=== PATIENT | female | born 1950 | race Caucasian/White ===

== ENCOUNTER 2018-06-03 18:56 | Emergency (ER) | payer MEDICARE, MEDICAID, SELFPAY ==
[2018-06-03] VITALS (50 sets, daily range): BP systolic 87–197; BP diastolic 51–141; PULSE 92–197; RESP 12–31; TEMP 36–37.5; O2SAT 94–100
[2018-06-03] MEDS: Normal Saline 1,000 ML 1000 ML IV (19:00)
--- NOTE | 2018-06-03 19:06 | ED.GENADUL ---
Disposition Clinical Impression: Acute renal failure due to rhabdomyolysis, Altered mental status Disposition: STILL A PATIENT Condition: Critical Medical Decision Making - Lab Data Laboratory Tests 06/03/18 06/03/18 06/03/18 19:05 19:05 19:05 WBC 44.35 H* RBC 6.72 H Hgb 19.4 H* Hct 53.1 H MCV 79.0 L MCH 28.9 MCHC 36.5 H RDW 15.0 H Plt Count 287 MPV 11.2 H Immature Gran % See Differential Neutrophils % 80.0 Lymphocytes % 6.0 Monocytes % 5.0 Eosinophils % 0.0 Basophils % 0.0 Absolute Neutrophils 39.47 H Band Neutrophils 9.0 Absolute Lymphocytes 2.66 Absolute Monocytes 2.22 H Absolute Eosinophils 0.00 Absolute Basophils 0.00 Differential Comment Manual differential RBC Morphology Normal Sodium 140 Potassium 1.8 L* Chloride 91 L Carbon Dioxide 25.4 Anion Gap 23.6 H BUN 50 H Creatinine 3.90 H* Estimated GFR/1.73 m2 11.57 Glucose 154 H Lactate 4.3 H Calcium 10.8 H Magnesium 3.2 H Total Bilirubin 0.9 Conjugated Bilirubin 0.21 H AST 130 H ALT 35 Alkaline Phosphatase 181 H Creatine Kinase 4852 H Troponin I 1.08 H Total Protein 9.0 H Albumin 4.2 06/03/18 19:08 WBC RBC Hgb Hct MCV MCH MCHC RDW Plt Count MPV Immature Gran % Neutrophils % Lymphocytes % Monocytes % Eosinophils % Basophils % Absolute Neutrophils Band Neutrophils Absolute Lymphocytes Absolute Monocytes Absolute Eosinophils Absolute Basophils Differential Comment RBC Morphology Sodium Potassium Chloride Carbon Dioxide Anion Gap BUN Creatinine Estimated GFR/1.73 m2 Glucose Lactate Calcium Magnesium Total Bilirubin Conjugated Bilirubin AST ALT Alkaline Phosphatase Creatine Kinase Cancelled Troponin I Total Protein Albumin 06/03/18 1928: 115 bpm. Sinus tachycardia. Ectopic ventricular beats. ST depression noted in II, III, aVF, V3 through V6. No acute ST elevation. - Radiology Data Radiology results: report reviewed, image reviewed CT head: Negative Chest x-ray: Negative - Medical Decision Making 1903 -- 67-year-old female with history of hypertension, migraines who presents for altered mental status after found down by daughter prior to arrival. Patient is normally alert and oriented ?3. EMS found patient confused and agitated and they were unable to obtain IV access or vitals. Daughter is present outside room and states that she thinks patient may have been on her kitchen floor for the past 2 days. Patient's journal is with her in which she documents her symptoms and blood pressure and she was noted to have complained of hypertension and headache for the past few days, last documented blood pressure on Friday 227/122. Patient arrived to ED agitated and thrashing around stretcher. Heart rate 120s. Blood pressure 87/64. Oxygen saturation 97% on room air. Patient is alert but agitated and and tracks with her eyes but does not follow commands. Airway appears intact and she is moaning. She has extensive ecchymosis all over body, specifically upper extremities and hands. Her left lateral ribs and left hip appear bruised but this appears old most consistent with prolonged pressure similar to laying on the floor. She has dried blood around her mouth. Her abdomen is soft and nontender. She has full range of motion of her bilateral upper and lower extremities. Differential diagnosis includes acute CVA, sepsis, rhabdomyolysis, profound dehydration. We will place an IV, bolus IV fluids, 2L O2 nasal cannula, labs, CK, urinalysis, UDS, alcohol, stat CT head, cxr, ecg. Will order a dose of Ativan. 1919 -- patient more relaxed prior to transfer to radiology. Stat CT head obtained but nurse brought patient back to ED before chest x-ray due to bigeminy and a monitor. Bigeminy now resolved. Patient now back in room and radiology cannot do pelvis x-ray. Once more stable, we will send back to radiology for pelvis x-ray and CT C-spine. EKG notes sinus tachycardia with ST depression in inferior and anterolateral leads and may be demand ischemia. 1949 -- CT head and chest x-ray negative. 1999 -- advance directive discussed with daughter outside room and she states that patient does not have this in place. She states she does not know if she would want CPR and intubation but at this point agrees to do everything if needed. She states her brother is coming and would like to think about it. 2014 -- labs reviewed and multiple significant abnormalities. White blood cell count 44. Hemoglobin 19. Bands 9. Potassium 1.8. Anion gap 23. Creatinine 3.9. Lactate 4.3. CK 4852. Troponin I 0.08. 2019 -- Case endorsed to Dr. El to follow-up on remainder of labs and disposition to ICU. History of Present Illness - General Chief complaint: AMS/LOC Stated complaint: CALEX Time Seen by Provider: 06/03/18 19:04 Source: patient Mode of arrival: ambulatory Limitations: no limitations - History of Present Illness Initial comments: Patient is a 67-year-old female with history of hypertension, osteoporosis, migraines who presents for altered mental status after being found down by daughter today. Daughter states patient is normally alert and oriented ?3 and she had been heard from for 2 days when neighbor checked on her and found her on the ground. Daughter states she broken to patient's house and found patient confused and moaning on the kitchen floor. She noted bruises all over her. She states patient was last heard from 2 days ago. Patient has a journal in which she documents her symptoms and blood pressures present with her and it noted that patient had complained of headache for the past 5 days as well as hypertension for the last 4 days, blood pressure on Friday was 227/122 per patient's documentation. EMS was unable to obtain IV access or vitals due to patient agitation and thrashing around. - Related Data Baclofen 5 mg PO TID PRN tab-cap 02/11/18 Cholecalciferol (Vitamin D3) [Vitamin D-400] 400 unit PO DAILY 02/11/18 Diphenhydramine HCl [Benadryl] 25 mg PO Q6H PRN tab-cap 02/11/18 Diphenoxylate/Atropine [Lomotil] 1 each PO DAILY PRN tab-cap 02/11/18 Indomethacin 50 mg PO BID PRN tab-cap 02/11/18 Omeprazole 20 mg PO DAILY tab-cap 02/11/18 Propranolol [Inderal LA] 160 mg PO DAILY 02/11/18 Acetaminophen [Mapap] 500 mg PO TID PRN 02/18/18 Ondansetron ODT [Zofran Odt] 4 mg PO Q6H PRN #10 tabef 02/18/18 Omeprazole 20 mg PO PRN 03/16/18 Lisinopril/Hydrochlorothiazide [Lisinopril-Hctz 10-12.5 Mg Tab] 1 each PO DAILY 04/13/18 Hydrochlorothiazide [Hydrodiuril] 25 mg PO DAILY 05/11/18 Allergies Allergy/AdvReac Type Severity Reaction Status Date / Time albuterol sulfate Allergy Intermediate chest pain Unverified 04/13/18 16:05 [From Proventil HFA] modafinil [From Provigil] Allergy Intermediate trouble Unverified 04/13/18 16:05 breathing strawberry Allergy hives Unverified 04/13/18 16:05 aspirin AdvReac Severe when Unverified 04/13/18 16:05 taken orally I get bleeding ulcers amitriptyline AdvReac Unknown Out in Unverified 04/13/18 16:05 outter space, really messed with my head duloxetine HCl AdvReac diarrhea, Unverified 04/13/18 16:05 [From Cymbalta] vomiting Review of Systems Limitations: ROS unobtainable due to patients medical condition Past Medical History - Past Medical History Medical history: arthritis, hyperlipidemia, hypertension, osteoporosis Surgical history: hysterectomy, other (oophrectomy) - Social History Smoking status: current everyday smoker Alcohol use: none Drug use: marijuana (daily) General Exam - General Limitations: altered mental status General appearance: alert, other (agitated and thrashing around stretcher) - Eye Eye exam: Present: PERRL - ENT ENT exam: Present: mucous membranes dry, TM's normal bilaterally - Respiratory Respiratory exam: Present: normal lung sounds bilaterally. Absent: respiratory distress, wheezes, rales, rhonchi, stridor - Cardiovascular Cardiovascular Exam: Present: normal rhythm, tachycardia - GI/Abdominal GI/Abdominal exam: Present: soft, diminished bowel sounds. Absent: distended, tenderness, guarding, rebound, rigid - External exam: Present: normal external exam - Neurological Exam Neurological exam: Present: alert, other (agitated and thrashing around stretcher moaning) - Psychiatric Psychiatric exam: Present: normal affect - Skin Skin exam: Present: other (Scattered ecchymosis throughout body, worse on upper extremity and hands bilaterally and on left hip. Bruising appears old in some locations.)
--- NOTE | 2018-06-03 19:07 | DI.RPTCT_ITS ---
SYMPTOM/DIAGNOSIS: ALTERED MENTAL STATUS, R/O ACUTE CVA NONCONTRAST HEAD CT: Comparison is made with 18 February 2018. No intracranial hemorrhage, mass or infarct is seen. The ventricles are normal in size. There is no evidence of skull fracture. The sinuses and mastoid air cells appear clear where visualized. IMPRESSION: Negative head CT.
[2018-06-03] MEDS: LORazepam 2 MG/ML VIAL ×3 (19:10→21:45)
[2018-06-03 19:15] LABS: Lactate-non-spesis 4.3 mmol/L (0.6-1.4)
[2018-06-03 19:21] LABS: Abs Immature Grans 0.33 k/cumm (0.0-0.09); HCT 53.1 % (36.0-46.0); Mean Corp. HGB Concentration 36.5 g/dL (32.0-36.0); Mean Corpuscular Hemoglobin 28.9 pg (27.0-33.0); Mean Platelet Volume 11.2 fL (8.0-11.0); Platelet Count 287 x1000/uL (130-400); RBC 6.72 m/cumm (4.00-5.20)
--- NOTE | 2018-06-03 19:21 | DI.REPORT_ITS ---
SYMPTOM/DIAGNOSIS: ALTERED MENTAL STATUS, HYPOTENSION, R/O PNEUMONIA PORTABLE SUPINE CHEST: Comparison is made with PA chest dated 14 Jul 2010. The heart size is normal. The aorta is tortuous and shows calcification but is normal in diameter. There are leads overlying the chest. The lungs appear clear. IMPRESSION: Negative portable supine chest.
--- NOTE | 2018-06-03 19:27 | DI.RPTCT_ITS ---
SYMPTOM/DIAGNOSIS: ALTERED MENTAL STATUS, R/O ACUTE FX CT CERVICAL SPINE: There is no evidence of fracture. There are degenerative disc changes and facet degenerative changes greatest at C5-6 and C6-7. The airway appears intact. IMPRESSION: Degenerative changes. No acute abnormality.
[2018-06-03 19:31] LABS: White Blood Cell Count 44.35 k/cumm (4.4-10.8)
[2018-06-03 19:32] LABS: HGB 19.4 g/dL (12.0-15.5)
--- NOTE | 2018-06-03 19:45 | DI.VRAD_ITS ---
EXAM: XR Chest, 1 View CLINICAL HISTORY: 67 years old, female; Signs and symptoms; Other: Incoherent TECHNIQUE: Frontal view of the chest. COMPARISON: No relevant prior studies available. FINDINGS: Lungs: Unremarkable. No consolidation. Pleural space: Unremarkable. No pneumothorax. Heart: Unremarkable. No cardiomegaly. Mediastinum: Unremarkable. Bones/joints: Unremarkable. IMPRESSION: Normal chest x-ray. Dictated and Authenticated by: Demond Manzano MD. Ordering:JOSE LUIS SNOW MD
[2018-06-03 19:46] LABS: ALT 35 U/L (12-78); AST 130 U/L (15-37); Albumin 4.2 g/dL (3.4-5.0); Alkaline Phosphatase 181 U/L (46-116); Anion Gap 23.6 mmol/L (3-11); BUN 50 mg/dL (7-18); Bilirubin, Direct 0.21 mg/dL (0.00-0.20); Bilirubin, Total 0.9 mg/dL (0.2-1.0); CO2 25.4 mmol/L (21.0-32.0); Calcium 10.8 mg/dL (8.5-10.1); Chloride 91 mmol/L (98-107); Estimated GFR 11.57 (mL/min/1.73m2); Glucose 154 mg/dL (70-100); Magnesium 3.2 mg/dL (1.8-2.4); Sodium 140 mmol/L (136-145)
--- NOTE | 2018-06-03 19:48 | DI.VRAD_ITS ---
EXAM: CT Head Without Intravenous Contrast CLINICAL HISTORY: 67 years old, female; Signs and symptoms; Altered mental status/memory loss; Additional info: Pt unable to lay in correct position TECHNIQUE: Axial computed tomography images of the head/brain without intravenous contrast. Coronal and sagittal reformatted images were created and reviewed. COMPARISON: CT - HEAD WITHOUT CONTRAST 2018-02-18 13:24 FINDINGS: Brain: Unremarkable. No hemorrhage. No significant white matter disease. No edema. Ventricles: There is mild to moderate diffuse involutional change with commensurate ventriculomegaly. Bones/joints: Unremarkable. No acute fracture. Soft tissues: Unremarkable. Sinuses: Unremarkable as visualized. No acute sinusitis. Mastoid air cells: Unremarkable as visualized. No mastoid effusion. IMPRESSION: No acute findings. Dictated and Authenticated by: Demond Manzano MD. Ordering:JOSE LUIS SNOW MD
[2018-06-03 19:55] LABS: Creatine Kinase 4852 U/L (26-192)
[2018-06-03 19:57] LABS: Potassium 1.8 mmol/L (3.5-5.1); Troponin I 1.08 ng/mL (0.00-0.06)
[2018-06-03 20:07] LABS: ETHANOL BLOOD < 3.0 mg/dL (<3)
[2018-06-03 20:11] LABS: Absolute Lymphocyte Count 2.66 k/cumm (1.2-3.4); Absolute Monocyte Count 2.22 k/cumm (0.11-0.7); Absolute Neutrophil Count 39.47 k/cumm (1.2-6.7); Diff Comment Manual Differential; RBC Morphology Normal
[2018-06-03] MEDS: Lactated Ringers 1,000 ML 1000 ML IV ×2 (20:15→20:20)
[2018-06-03 20:16] LABS: Bilirubin Moderate (Negative); Blood Large (Negative); Clarity Turbid; Glucose Negative (Negative); Ketones 40 mg/dL (Negative); Leukocyte Esterase Trace (Negative); Nitrite Positive (Negative); Specific Gravity 1.025 (1.005-1.025); pH 5.5 (5-8)
[2018-06-03] MEDS: POTASSIUM CHLORIDE 10 MEQ/100 ML BAG 100 MEQ IVPB ×3 (20:30→23:10)
[2018-06-03 20:39] LABS: *AMPHETAMINES SCREEN URINE Negative (Negative); *BARBITURATES SCREEN URINE Negative (Negative); *BENZODIAZEPINES SCREEN URINE Negative (Negative); Cannabinoids THC POSITIVE (Negative); Cocaine Screen,Urine Negative (Negative); METHADONE URINE SCREEN Negative (Negative); OPIATES URINE SCREEN Negative (Negative)
[2018-06-03 20:48] LABS: Lactate-non-spesis 3.5 mmol/L (0.6-1.4)
[2018-06-03 20:52] LABS: Epithelial Cells Many HPF (Negative); RBC >50 (0-2); WBC >50 HPF (0-5)
[2018-06-03 20:53] LABS: Bacteria Many HPF (Negative); C & S Indicated? No/Sq. Contamination; Casts Negative LPF (Negative); Crystals Negative HPF (Negative); Mucus Moderate (Negative); Tricyclic Antidepressants POSITIVE (Negative)
[2018-06-03 21:03] LABS: BE -2.2 mmol/L (-3-3); HCO3 22 mmol/L (22-28); pCO2 32 mmHg (34-47); pH 7.44 (7.35-7.45); pO2 95 mmHg (83-108); sO2 97 % (94-98); tCO2 19 mmol/L (22-29)
[2018-06-03 21:05] LABS: Site Right Femoral
--- NOTE | 2018-06-03 21:07 | ED.FU ---
Disposition Clinical Impression: Acute renal failure due to rhabdomyolysis, Altered mental status, Hypokalemia, Elevated troponin Disposition: [facility] Condition: Critical Medical Decision Making - Lab Data Laboratory Tests 06/03/18 06/03/18 06/03/18 19:05 19:05 19:05 WBC 44.35 H* RBC 6.72 H Hgb 19.4 H* Hct 53.1 H MCV 79.0 L MCH 28.9 MCHC 36.5 H RDW 15.0 H Plt Count 287 MPV 11.2 H Immature Gran % See Differential Neutrophils % 80.0 Lymphocytes % 6.0 Monocytes % 5.0 Eosinophils % 0.0 Basophils % 0.0 Absolute Neutrophils 39.47 H Band Neutrophils 9.0 Absolute Lymphocytes 2.66 Absolute Monocytes 2.22 H Absolute Eosinophils 0.00 Absolute Basophils 0.00 Differential Comment Manual differential RBC Morphology Normal Sample Site pCO2 pO2 O2 Saturation ABG pH ABG HCO3 ABG Total CO2 ABG Base Excess Sodium 140 Potassium 1.8 L* Chloride 91 L Carbon Dioxide 25.4 Anion Gap 23.6 H BUN 50 H Creatinine 3.90 H* Estimated GFR/1.73 m2 11.57 Glucose 154 H Lactate 4.3 H Calcium 10.8 H Magnesium 3.2 H Total Bilirubin 0.9 Conjugated Bilirubin 0.21 H AST 130 H ALT 35 Alkaline Phosphatase 181 H Creatine Kinase 4852 H Troponin I 1.08 H Total Protein 9.0 H Albumin 4.2 Urine Color Urine Clarity Urine pH Ur Specific [place] Urine Protein Urine Ketones Urine Blood Urine Nitrite Urine Bilirubin Urine Urobilinogen Ur Leukocyte Esterase Urine RBC Urine WBC Ur Epithelial Cells Urine Crystals Urine Bacteria Urine Casts Urine Mucus Ur Culture Indicated? Urine Glucose Urine Opiates Screen Urine Methadone Screen Ur Barbiturates Screen Ur Tricyclics Screen Ur Amphetamines Screen U Benzodiazepines Scrn Urine Cocaine Screen Ur THC Screen Ethyl Alcohol 06/03/18 06/03/18 06/03/18 19:05 19:08 20:00 WBC RBC Hgb Hct MCV MCH MCHC RDW Plt Count MPV Immature Gran % Neutrophils % Lymphocytes % Monocytes % Eosinophils % Basophils % Absolute Neutrophils Band Neutrophils Absolute Lymphocytes Absolute Monocytes Absolute Eosinophils Absolute Basophils Differential Comment RBC Morphology Sample Site pCO2 pO2 O2 Saturation ABG pH ABG HCO3 ABG Total CO2 ABG Base Excess Sodium Potassium Chloride Carbon Dioxide Anion Gap BUN Creatinine Estimated GFR/1.73 m2 Glucose Lactate Calcium Magnesium Total Bilirubin Conjugated Bilirubin AST ALT Alkaline Phosphatase Creatine Kinase Cancelled Troponin I Total Protein Albumin Urine Color Brown Urine Clarity Turbid Urine pH 5.5 Ur Specific [place] 1.025 Urine Protein >=300 H Urine Ketones 40 H Urine Blood Large H Urine Nitrite Positive H Urine Bilirubin Moderate H Urine Urobilinogen 1.0 H Ur Leukocyte Esterase Trace H Urine RBC >50 H Urine WBC >50 Ur Epithelial Cells Many Urine Crystals Negative Urine Bacteria Many Urine Casts Negative Urine Mucus Moderate Ur Culture Indicated? No/sq. contamination Urine Glucose Negative Urine Opiates Screen Urine Methadone Screen Ur Barbiturates Screen Ur Tricyclics Screen Ur Amphetamines Screen U Benzodiazepines Scrn Urine Cocaine Screen Ur THC Screen Ethyl Alcohol < 3.0 06/03/18 06/03/18 06/03/18 20:00 20:33 20:56 WBC RBC Hgb Hct MCV MCH MCHC RDW Plt Count MPV Immature Gran % Neutrophils % Lymphocytes % Monocytes % Eosinophils % Basophils % Absolute Neutrophils Band Neutrophils Absolute Lymphocytes Absolute Monocytes Absolute Eosinophils Absolute Basophils Differential Comment RBC Morphology Sample Site Right femoral pCO2 32 L pO2 95 O2 Saturation 97 ABG pH 7.44 ABG HCO3 22 ABG Total CO2 19 L ABG Base Excess -2.2 Sodium Potassium Chloride Carbon Dioxide Anion Gap BUN Creatinine Estimated GFR/1.73 m2 Glucose Lactate 3.5 H Calcium Magnesium Total Bilirubin Conjugated Bilirubin AST ALT Alkaline Phosphatase Creatine Kinase Troponin I Total Protein Albumin Urine Color Urine Clarity Urine pH Ur Specific [place] Urine Protein Urine Ketones Urine Blood Urine Nitrite Urine Bilirubin Urine Urobilinogen Ur Leukocyte Esterase Urine RBC Urine WBC Ur Epithelial Cells Urine Crystals Urine Bacteria Urine Casts Urine Mucus Ur Culture Indicated? Urine Glucose Urine Opiates Screen Negative Urine Methadone Screen Negative Ur Barbiturates Screen Negative Ur Tricyclics Screen Positive Ur Amphetamines Screen Negative U Benzodiazepines Scrn Negative Urine Cocaine Screen Negative Ur THC Screen Positive Ethyl Alcohol Results reviewed for labs ordered during visit: Yes - Radiology Data Radiology results: report reviewed, image reviewed - Medical Decision Making 67-year-old female found down and altered at home by her daughter. Initially seen by Dr. Mora. Please see her note regarding details of the history and presentation. Patient lives independently was last seen normal 4 days ago. She arrived altered with acute mental status changes, covered and ecchymotic bruises, but without focal neurologic deficit. Initial panel of laboratory suppressive including white blood cell count of 44, hematocrit 53, potassium of 1.8, BUN 50, creatinine 3.9. Her initial lactic 4.3, CK 4852, troponin I 0.08. She has been referred for CT scan of the head, cervical spine, chest and abdomen with pelvis imaging performed. Given the patient's profound hypokalemia, profound dehydration, I consented her daughter for the placement of right femoral triple-lumen catheter which I performed without difficulty, following standard sterile procedures, and additionally italo a right femoral ABG. Repeat labs: ABG 20:56h shows pH 7.44/PO2 95/PCO2 32. Repeat lactate 3.5 Urine with positive nitrates, many cells. Alcohol negative. Potassium 2.1, BUN 45, creatinine 3.2. As of 2229h, Lactate improved to 2.2. Troponin has become elevated at 1.25. She has had 4 L of fluid, now with LR at 500 cc/h for the fifth liter, potassium infusing. She has required small aliquots, 0.5 mg of Ativan as needed for sedation. CT Grade 2 hepatic hematoma anterior. As well as grade 1 right kidney contusion with edema per radiology. No other acute findings other than question subtle age indeterminate bone abnormality of T5 endplate Repeat EKG reveals normal sinus rhythm, rate 96, unremarkable intervals, no ST segment elevation. Given her history of GI bleed with aspirin, current findings of hepatic hematoma, aspirin held and would hold heparin pending further consultation. Case discussed with Dr. Shirlene Betancur who accepts in transfer to the medical ICU. He agrees with current management as above. - Vital Signs Recent Vitals - 8H: Vital Signs - 8 hr 06/03/18 06/03/18 06/03/18 18:57 19:00 19:01 Temperature Pulse 197 H Respiratory 24 30 H 17 Rate Blood Pressure 87/64 Pulse Oximetry Pulse Oximetry [Right Femoral] 06/03/18 06/03/18 06/03/18 19:03 19:18 19:19 Temperature 36.5 C Pulse 124 H 148 H Respiratory 21 25 H 23 Rate Blood Pressure 87/64 110/77 Pulse Oximetry 95 100 Pulse Oximetry [Right Femoral] 06/03/18 06/03/18 06/03/18 19:20 19:30 19:40 Temperature 36.0 C L 37.0 C Pulse Respiratory 31 H 23 20 Rate Blood Pressure Pulse Oximetry 99 100 Pulse Oximetry [Right Femoral] 06/03/18 06/03/18 06/03/18 19:50 20:00 20:01 Temperature 37.0 C 37.1 C 37.1 C Pulse 111 H Respiratory 25 H 20 21 Rate Blood Pressure 197/141 Pulse Oximetry 99 99 99 Pulse Oximetry [Right Femoral] 06/03/18 06/03/18 20:03 20:55 Temperature 37.1 C Pulse 109 H Respiratory 17 Rate Blood Pressure 137/115 Pulse Oximetry 100 Pulse Oximetry 100 [Right Femoral] Procedures - Central Line Placement Right Femoral Consent Obtained: Verbal consent Time Out Performed: Yes Patient Placed on Monitor/Pulse Ox: Yes MD Prep: mask, gown, gloves Central Line Prep: Chlorhexidine scrub Local Anesthesia Used: Lidocaine 1% Amount of Anesthesia Used (mls): 2 Ultrasound Used for Placement: Yes Central Line Lumen Inserted: triple Central Line Position: good blood return, all ports aspirated, flushed, capped, sutured in place with 2-0 silk Dressing Applied: Tegaderm Critical Care Time Critical Care Time: Yes Total Critical Care Time: 90 (Bedside management, review of records, discussion with family consultants, exclusive of procedure)
[2018-06-03] MEDS: VANCOMYCIN 1,000 MG in Normal Saline 250 ML 166.6666 MG IVPB (21:13)
--- NOTE | 2018-06-03 21:13 | DI.RPTCT_ITS ---
SYMPTOM/DIAGNOSIS: FOUND DOWN, UNRESPONSIVE. CK>4000, CR.3. MULTIPLE BRUISES CT CHEST, ABDOMEN AND PELVIS: There are no prior comparison exams. There is no evidence of pneumothorax. The lungs are not well evaluated due to respiratory motion. Dependent changes are seen. No infiltrates or effusions are identified. No grossly displaced rib fractures are seen. There is mild compression of the superior end plate of T-5 which is of indeterminate age. The heart size is normal. Calcification is seen in the thoracic aorta but there is no evidence of an aneurysm. IMPRESSION: Mild T5 compression fracture of indeterminate age. ABDOMEN AND PELVIS CT: There is artifact at the level of the liver secondary to patient's arms overlying the upper abdomen as well as metallic densities adjacent to the patient. There is a question of low density in the anterior right lobe of the liver which could represent a liver injury vs artifact. The right kidney shows enlargement in perinephric fluid. A cyst is noted at the upper pole. There is no hydronephrosis or stones. The findings are consistent with right renal parenchymal contusion with mild surrounding perinephric hematoma. The left kidney appears intact. The spleen, pancreas and adrenals appear normal. There is no free air or free fluid. A Bazzi catheter is noted in the bladder. No bowel wall thickening or dilatation is seen. There are atherosclerotic changes of the abdominal aorta and iliac arteries. Degenerative changes are seen in the spine and hips. No fractures are identified. IMPRESSION: Question of an anterior right lobe of the liver injury versus artifact. Right renal parenchymal contusion with small amount of surrounding parenchymal hematoma.
[2018-06-03 21:22] LABS: Anion Gap 16.1 mmol/L (3-11); BUN 45 mg/dL (7-18); CO2 19.9 mmol/L (21.0-32.0); Calcium 8.3 mg/dL (8.5-10.1); Chloride 105 mmol/L (98-107); Estimated GFR 14.54 (mL/min/1.73m2); Glucose 83 mg/dL (70-100); Sodium 141 mmol/L (136-145)
[2018-06-03 21:34] LABS: Potassium 2.1 mmol/L (3.5-5.1)
--- NOTE | 2018-06-03 21:59 | DI.VRAD_ITS ---
EXAM: CT Cervical Spine Without Intravenous Contrast CLINICAL HISTORY: 67 years old, female; Injury or trauma; Injury Pt on floor for 2+ days, AMS; Initial encounter; Unconscious TECHNIQUE: Axial computed tomography images of the cervical spine without intravenous contrast. COMPARISON: No relevant prior studies available. FINDINGS: Vertebrae: Unremarkable. No acute fracture. Discs/spinal canal/neural foramina: There is multilevel uncinate and facet arthropathy. There are areas of mild to moderate neuroforaminal stenosis with no severe stenosis. There is no central stenosis at any level. Soft tissues: Unremarkable. Lung apices: Unremarkable as visualized. IMPRESSION: Multilevel cervical degenerative changes. No acute fracture, dislocation or other abnormality is seen. Dictated and Authenticated by: Demond Manzano MD. Ordering:JOSE LUIS SNOW MD
[2018-06-03 22:47] LABS: Lactate-non-spesis 2.2 mmol/L (0.6-1.4)
[2018-06-03 23:02] LABS: Potassium 2.1 mmol/L (3.5-5.1)
--- NOTE | 2018-06-03 23:05 | DI.VRAD_ITS ---
EXAM: CT Abdomen and Pelvis Without Intravenous Contrast CLINICAL HISTORY: 67 years old, female; Injury or trauma; Fall; Initial encounter; Blunt; Generalized; Blunt trauma (contusions or hematomas) TECHNIQUE: Axial computed tomography images of the abdomen and pelvis without intravenous contrast. Coronal and sagittal reformatted images were created and reviewed. COMPARISON: No relevant prior studies available. FINDINGS: Lung bases: Unremarkable. No mass. No consolidation. ABDOMEN: Liver: There is subtle asymmetrical zones of decreased attenuation within the anterior right hepatic lobe present thought possibly consistent with a grade II liver injury scale hematoma. Gallbladder and bile ducts: Unremarkable. No calcified stones. No ductal dilation. Pancreas: Unremarkable. No ductal dilation. Spleen: Unremarkable. No splenomegaly. Adrenals: Unremarkable. No mass. Kidneys and ureters: There is asymmetrically prominent right renal size compared to the left. This may indicate some renal parenchymal edema. Some minimal right subcapsular perinephric fluid with associated perinephric stranding are present; which are suggestive of a grade I urologic injury scale right renal parenchymal contusion/hematoma. No definite renal laceration injury is detected. An additional consideration would be partial auto-decompression of the right intrarenal collecting system subsequent to trauma. No obstructing stones. Stomach and bowel: Unremarkable. No obstruction. No mucosal thickening. PELVIS: Appendix: No findings to suggest acute appendicitis. Bladder: A Bazzi catheter is seen within a decompressed urinary bladder. Multiple gas pockets are seen within the urinary bladder these may have been introduced during catheterization. No stones. Reproductive: Unremarkable as visualized. ABDOMEN and PELVIS: Intraperitoneal space: Unremarkable. No free air. No significant fluid collection. Bones/joints: Marginal anterior osteophytic spurring is present throughout the lumbar vertebrae. Marked bilateral apophyseal facet arthropathy is present throughout the lumbar spine. No acute fracture. No dislocation. Soft tissues: Unremarkable. Vasculature: Moderate-extensive atherosclerotic vascular plaquing is present. A suspected segment of old aortic dissection is seen in the infrarenal lower abdominal aorta just above the aortic bifurcation. Lymph nodes: Unremarkable. No enlarged lymph nodes. IMPRESSION: 1. There is a suspected grade II liver injury scale hematoma involving the anterior right hepatic lobe. 2. A suspected grade I urologic injury scale right renal contusion/hematoma is present. EXAM: CT Chest Without Intravenous Contrast CLINICAL HISTORY: 67 years old, female; Injury or trauma; Fall; Initial encounter; Blunt; Generalized; Blunt trauma (contusions or hematomas) TECHNIQUE: Axial computed tomography images of the chest without intravenous contrast. Coronal and sagittal reformatted images were created and reviewed. COMPARISON: CR - PELVIS AP 2018-02-16 13:50 FINDINGS: Lungs: Minimal posterior bibasilar dependent atelectasis is present. Pleural space: Unremarkable. No pneumothorax. No significant effusion. Heart: Unremarkable. No cardiomegaly. No significant pericardial effusion. Bones/joints: Marginal osteophytic spurring is present throughout the thoracic vertebrae. There is questionable very subtle compression deformity involving the superior endplate of T5; age indeterminate. No dislocation. Soft tissues: Unremarkable. Vasculature: Moderate atherosclerotic plaquing is seen within the aortic arch and descending thoracic aorta. No thoracic aortic aneurysm. Lymph nodes: Unremarkable. No enlarged lymph nodes. IMPRESSION: 1. No acute pulmonary disease. 2. Questionable minimal compression deformity of the superior endplate of T5; age indeterminate. Dictated and Authenticated by: Fernando Jama MD. Ordering:ROSSY MAY MD
[2018-06-03 23:10] LABS: Troponin I 1.25 ng/mL (0.00-0.06)
--- NOTE | 2018-06-03 23:38 | DI.RPTCT_ITS ---
SYMPTOM/DIAGNOSIS: RECONS FROM IMAGES. FALL, AMS CT THORACIC SPINE: The exam was reconstructed from the abdomen and pelvic CT. There are minimal declivities in the superior end plates of T3 and T4. There are slightly greatr declivities seen in the superior end plate of T5 and also questionably T9. The findings are of indeterminate age. End plate osteophytes are seen. The visualized portions of the ribs appear intact. IMPRESSION: Mild compression fractures of indeterminate age from T3 through T5 and also questionably T8. The findings are greatest at T-5 CT LUMBAR SPINE: The exam was reconstructed from the abdomen and pelvic CT. There is no evidence of fracture. There are prominent facet degenerative changes from L3-4 through L5-S1. Disc bulging and end plate osteophytes are also seen. There is mild spondylolisthesis at L4-5 secondary to the degenerative changes. IMPRESSION: Degenerative changes. No evidence of fracture.
[2018-06-04] VITALS (13 sets, daily range): BP systolic 120–126; BP diastolic 82–95; PULSE 88–93; RESP 17–34; TEMP 37.3; O2SAT 96–98
[2018-06-04] MEDS: POTASSIUM CHLORIDE 10 MEQ/100 ML BAG 100 MEQ IVPB (00:06)
--- NOTE | 2018-06-04 00:19 | NUR.NOTE ---
Nursing Note: 2 nurses at bedside for > 3 hours with critically ill patient.
--- NOTE | 2018-06-04 00:21 | DI.VRAD_ITS ---
EXAM: CT Thoracic Spine Without Intravenous Contrast CLINICAL HISTORY: 67 years old, female; Injury or trauma; Fall; Initial encounter; Blunt trauma (contusions or hematomas); Injury date: Unknown; Injury details: Fall, AMS TECHNIQUE: Axial computed tomography images of the thoracic spine without intravenous contrast. All CT scans at this facility use at least one of these dose optimization techniques: automated exposure control; mA and/or kV adjustment per patient size (includes targeted exams where dose is matched to clinical indication); or iterative reconstruction. Coronal and sagittal reformatted images were created and reviewed. COMPARISON: No relevant prior studies available. FINDINGS: Vertebrae: Marginal anterior osteophytic spurring is present throughout the thoracic vertebrae. Subtle acute compression fracture deformity is seen involving the anterior-superior endplates of T3, T4 and T5. The compression fracture deformity is most pronounced along the superior endplate of T5; which is estimated at 5-10% in size. There is no retropulsion of fracture fragments evident. Some bilateral apophyseal facet arthropathy is present at all levels of the thoracic spine. The arthropathy becomes moderate-marked at T5-6. Discs/spinal canal/neural foramina: No acute findings. No spinal canal stenosis. Soft tissues: Unremarkable. Vasculature: Moderate atherosclerotic plaquing is scattered within the aortic arch and throughout the descending thoracic aorta. IMPRESSION: 1. Subtle acute anterior-superior endplate compression fracture injuries of T3, T4 and T5 as described above. Findings are most pronounced at T5 with estimated vertebral body height loss at 5-10%. No retropulsion of fracture fragments is detected. EXAM: CT Lumbar Spine Without Intravenous Contrast CLINICAL HISTORY: 67 years old, female; Injury or trauma; Fall; Initial encounter; Blunt trauma (contusions or hematomas); Injury date: Unknown; Injury details: Fall, AMS TECHNIQUE: Axial computed tomography images of the lumbar spine without intravenous contrast. All CT scans at this facility use at least one of these dose optimization techniques: automated exposure control; mA and/or kV adjustment per patient size (includes targeted exams where dose is matched to clinical indication); or iterative reconstruction. Coronal and sagittal reformatted images were created and reviewed. COMPARISON: No relevant prior studies available. FINDINGS: Vertebrae: Marginal anterior spurring is present throughout the lumbar vertebrae. Some moderate-advanced bilateral apophyseal facet arthropathy is present at all levels of the lumbar spine. Hypertrophic facet arthropathy is present at L3-4, L4-5, L5-S1. No acute fracture. Discs/spinal canal/neural foramina: Disc interspace narrowing with associated vacuum disc phenomenon is present at L5-S1 consistent with disc desiccation and mild degenerative disc disease. Moderate spinal canal stenosis is present at L4-5. Soft tissues: Unremarkable. Vasculature: Moderate-extensive atherosclerotic vascular plaquing is present. IMPRESSION: 1. No acute findings are detected. Dictated and Authenticated by: Fernando Jama MD. Ordering:ROSSY MAY MD
== END 2018-06-04 01:07 | disposition short-term general hospital (02) ==
PROVIDERS: Physician Assistant; Emergency Provider Emergency Medicine; PCP Nurse Practitioner Family
DX: M62.82 Rhabdomyolysis (principal); N17.9 Acute kidney failure, unspecified; R41.82 Altered mental status, unspecified; E87.6 Hypokalemia; R93.2 Abnormal findings on diagnostic imaging of liver and biliary tract; R93.421 Abnormal radiologic findings on diagnostic imaging of right kidney; R77.8 Other specified abnormalities of plasma proteins; R79.89 Other specified abnormal findings of blood chemistry; D72.829 Elevated white blood cell count, unspecified; I10 Essential (primary) hypertension
CPT/HCPCS: 36556 ×2; 36600; 51702 ×2; 70450; 71045; 71250; 72125; 72128; 72131; 74176; 93005; 96361; 96365; 96368; 96375; 96376; 99291 ×2; 99292 ×2; J2060; J2543; J3480 ×2; 36415; 80048; 80053; 80076; 80307; 82550; 82805; 87040; 87077; 80320; 81003; 81015; 83605; 83735; 84132; 84484; 85025; 87086; 87186; 93010

== ENCOUNTER 2018-06-14 14:01 | Emergency (ER) | payer MEDICARE, MEDICAID, SELFPAY ==
[2018-06-14 14:08] VITALS: BP 126/76; PULSE 74; RESP 18; TEMP 36.6; O2SAT 97
[2018-06-14 15:42] VITALS: RESP 18
[2018-06-14 16:16] VITALS: BP 124/60; PULSE 63
[2018-06-14 16:31] VITALS: BP 130/72; PULSE 65
--- NOTE | 2018-06-14 16:44 | ED.GENADUL ---
Disposition Clinical Impression: Hypertension, Chronic kidney disease Disposition: HOME Condition: Good Instructions: Chronic Kidney Disease (ED), Hypertension (ED) Additional Instructions: Drink plenty fluids and get plenty of rest. Take your regular blood pressure medications as directed. Follow-up with your scheduled appointment with her primary care doctor this and with your metal machine setter next month at [facility] on 07/21/18. Return to the emergency department any worsening or new concerning symptoms. Medical Decision Making - Lab Data Laboratory Tests 06/14/18 16:42 Sodium 139 Potassium 4.6 Chloride 104 Carbon Dioxide 26.7 Anion Gap 8.3 BUN 31 H Creatinine 2.66 H Estimated GFR/1.73 m2 17.99 Glucose 100 Calcium 9.2 - Medical Decision Making 67-year-old female with history of hypertension, migraines, recently diagnosed renal failure who presents with hypertension since yesterday. Patient has a history of hypertension and had a recent hospital admission for renal failure and rhabdomyolysis and was told that her renal failure was possibly due to hypertension and chronic NSAID use. She has been taking propranolol, hydralazine, and losartan for her blood pressure. Home health checks on her and monitors her blood pressure. Daughters were concerned about several high blood pressure readings yesterday with blood pressure 180s/100s. Patient admits to chronic headaches and states this is no worse than usual. She denies blurry vision, dizziness, chest pain, shortness of breath, abdominal pain and has been urinating normally. She appears well in no acute distress. Her initial blood pressure in the ED is 126/76. She had multiple blood pressure readings with systolic ranging between 120s-140s/60s-70s. Family states they would feel comfortable if patient had a recheck of her creatinine to make sure it is no worse than usual. No acute findings on exam. Remainder vitals within normal limits. Patient appears well, nontoxic and in no acute distress. 1740 -- Creatinine from 06/03/18 is 3.9. Creatinine on [facility] visit upon discharge on 06/10 was 2.31. Today's visit creatinine 2.66. I explained to family that certainly it could be mild dehydration causing slight worsening of kidney function but with remainder of BMP within normal limits including normal electrolytes, I do not feel any other acute intervention or admission is necessary and they are in full agreement. Patient states she feels good and would like to go home. She has a follow-up appointment with her primary care doctor on and with nephrology next month at [facility]. History of Present Illness - General Chief complaint: GenMedical Stated complaint: HIGH BLOOD PRESSURE Time Seen by Provider: 06/14/18 14:09 Source: patient, family Mode of arrival: ambulatory Limitations: no limitations - History of Present Illness Initial comments: Patient is a 67-year-old female with a history of hypertension and recently diagnosed kidney failure who presents with hypertension at home since yesterday. Patient blood pressure readings last night 185/115 and this morning 197/115 and just prior to arrival today 156/84. Family stated they were concerned as patient was recently found to have kidney failure at [facility] which they thought was likely due to chronic use of NSAIDs. Patient has a follow-up appointment with nephrology at [facility] on 07/21/18. She also has an appointment with a new primary care doctor this and Jesus Manuel Nur. Family states they called [facility] today regarding patient's high blood pressure readings and were advised to come to the ER for further evaluation. Family states they are mainly concerned about patient's kidney function and know that her new normal of her creatinine is around 2 and came here to make sure that it is not worsening. Patient denies any acute complaints of blurry vision, tinnitus, nausea, vomiting, chest pain, shortness of breath or dizziness. She has a history of chronic headaches for which she was taking her chronic NSAIDs and was advised to take Benadryl and Tylenol. She does admit to a headache at this time which is consistent with her usual chronic headaches and is no worse than usual. - Related Data Diphenhydramine HCl [Benadryl] 25 mg PO Q6H PRN tab-cap 02/11/18 Diphenoxylate/Atropine [Lomotil] 1 each PO DAILY PRN tab-cap 02/11/18 Propranolol [Inderal LA] 160 mg PO DAILY 02/11/18 Acetaminophen [Mapap] 1,000 mg PO TID PRN 02/18/18 Losartan Potassium 50 mg PO DAILY 06/14/18 Nicotine [Nicotine Patch] 1 each TD PRN PRN 06/14/18 Potassium Chloride 20 meq PO BID 06/14/18 hydrALAZine [Apresoline] 0.5 - 1 tab PO BID 06/14/18 Allergies Allergy/AdvReac Type Severity Reaction Status Date / Time albuterol sulfate Allergy Intermediate chest pain Unverified 04/13/18 16:05 [From Proventil HFA] modafinil [From Provigil] Allergy Intermediate trouble Unverified 04/13/18 16:05 breathing strawberry Allergy hives Unverified 04/13/18 16:05 aspirin AdvReac Severe when Unverified 04/13/18 16:05 taken orally I get bleeding ulcers amitriptyline AdvReac Unknown Out in Unverified 04/13/18 16:05 outter space, really messed with my head duloxetine HCl AdvReac diarrhea, Unverified 04/13/18 16:05 [From Cymbalta] vomiting Review of Systems Constitutional: denies: chills, fever Eyes: denies: eye pain ENT: denies: ear pain, dental pain Respiratory: denies: cough, shortness of breath Cardiovascular: denies: chest pain, dyspnea on exertion Gastrointestinal: denies: abdominal pain, nausea, vomiting Genitourinary: denies: urgency, dysuria, frequency Musculoskeletal: denies: back pain Skin: denies: rash, lesions Neurological: denies: headache, weakness, numbness Past Medical History - Past Medical History Medical history: arthritis, hyperlipidemia, hypertension, osteoporosis Migraine Surgical history: , hysterectomy, other (oophrectomy) - Social History Smoking status: current everyday smoker Alcohol use: none Drug use: marijuana (daily) General Exam - General Limitations: no limitations General appearance: alert, in no apparent distress - Eye Eye exam: Present: PERRL, EOMI - ENT ENT exam: Present: mucous membranes moist - Neck Neck exam: Present: normal inspection - Respiratory Respiratory exam: Present: normal lung sounds bilaterally. Absent: respiratory distress, wheezes, rales, rhonchi, stridor - Cardiovascular Cardiovascular Exam: Present: regular rate, normal rhythm. Absent: bradycardia, tachycardia - GI/Abdominal GI/Abdominal exam: Present: soft, normal bowel sounds. Absent: distended, tenderness, guarding, rebound, rigid - Extremities Exam Extremities exam: Present: other (No bilateral lower extremity edema.) - Neurological Exam Neurological exam: Present: alert, oriented X3, other (MS 5/5 b/l UE/LE). Absent: motor sensory deficit - Psychiatric Psychiatric exam: Present: normal affect - Skin Skin exam: Present: warm, dry, intact Course Vital Signs - 24 hr 06/14/18 06/14/18 14:08 15:42 Temperature 97.9 F Pulse 74 Respiratory 18 18 Rate Blood Pressure 126/76 Pulse Oximetry 97
[2018-06-14 16:46] VITALS: BP 145/76; PULSE 69
--- NOTE | 2018-06-14 16:48 | ED.GENADUL_ITS ---
Disposition Clinical Impression: Hypertension, Chronic kidney disease Disposition: HOME Condition: Good Instructions: Chronic Kidney Disease (ED), Hypertension (ED) Additional Instructions: Drink plenty fluids and get plenty of rest. Take your regular blood pressure medications as directed. Follow-up with your scheduled appointment with her primary care doctor this and with your review trainer next month at [facility] on 07/21/18. Return to the emergency department any worsening or new concerning symptoms. Medical Decision Making - Lab Data Laboratory Tests 06/14/18 16:42 Sodium 139 Potassium 4.6 Chloride 104 Carbon Dioxide 26.7 Anion Gap 8.3 BUN 31 H Creatinine 2.66 H Estimated GFR/1.73 m2 17.99 Glucose 100 Calcium 9.2 - Medical Decision Making 67-year-old female with history of hypertension, migraines, recently diagnosed renal failure who presents with hypertension since yesterday. Patient has a history of hypertension and had a recent hospital admission for renal failure and rhabdomyolysis and was told that her renal failure was possibly due to hypertension and chronic NSAID use. She has been taking propranolol, hydralazine, and losartan for her blood pressure. Home health checks on her and monitors her blood pressure. Daughters were concerned about several high blood pressure readings yesterday with blood pressure 180s/100s. Patient admits to chronic headaches and states this is no worse than usual. She denies blurry vision, dizziness, chest pain, shortness of breath, abdominal pain and has been urinating normally. She appears well in no acute distress. Her initial blood pressure in the ED is 126/76. She had multiple blood pressure readings with systolic ranging between 120s-140s/60s-70s. Family states they would feel comfortable if patient had a recheck of her creatinine to make sure it is no worse than usual. No acute findings on exam. Remainder vitals within normal limits. Patient appears well, nontoxic and in no acute distress. 1740 -- Creatinine from 06/03/18 is 3.9. Creatinine on [facility] visit upon discharge on 06/10 was 2.31. Today's visit creatinine 2.66. I explained to family that certainly it could be mild dehydration causing slight worsening of kidney function but with remainder of BMP within normal limits including normal electrolytes, I do not feel any other acute intervention or admission is necessary and they are in full agreement. Patient states she feels good and would like to go home. She has a follow-up appointment with her primary care doctor on and with nephrology next month at [facility]. History of Present Illness - General Chief complaint: GenMedical Stated complaint: HIGH BLOOD PRESSURE Time Seen by Provider: 06/14/18 14:09 Source: patient, family Mode of arrival: ambulatory Limitations: no limitations - History of Present Illness Initial comments: Patient is a 67-year-old female with a history of hypertension and recently diagnosed kidney failure who presents with hypertension at home since yesterday. Patient blood pressure readings last night 185/115 and this morning 197/115 and just prior to arrival today 156/84. Family stated they were concerned as patient was recently found to have kidney failure at [facility] which they thought was likely due to chronic use of NSAIDs. Patient has a follow-up appointment with nephrology at [facility] on 07/21/18. She also has an appointment with a new primary care doctor this and Jesus Manuel Nur. Family states they called [facility] today regarding patient's high blood pressure readings and were advised to come to the ER for further evaluation. Family states they are mainly concerned about patient's kidney function and know that her new normal of her creatinine is around 2 and came here to make sure that it is not worsening. Patient denies any acute complaints of blurry vision, tinnitus, nausea, vomiting, chest pain, shortness of breath or dizziness. She has a history of chronic headaches for which she was taking her chronic NSAIDs and was advised to take Benadryl and Tylenol. She does admit to a headache at this time which is consistent with her usual chronic headaches and is no worse than usual. - Related Data Diphenhydramine HCl [Benadryl] 25 mg PO Q6H PRN tab-cap 02/11/18 Diphenoxylate/Atropine [Lomotil] 1 each PO DAILY PRN tab-cap 02/11/18 Propranolol [Inderal LA] 160 mg PO DAILY 02/11/18 Acetaminophen [Mapap] 1,000 mg PO TID PRN 02/18/18 Losartan Potassium 50 mg PO DAILY 06/14/18 Nicotine [Nicotine Patch] 1 each TD PRN PRN 06/14/18 Potassium Chloride 20 meq PO BID 06/14/18 hydrALAZine [Apresoline] 0.5 - 1 tab PO BID 06/14/18 Allergies Allergy/AdvReac Type Severity Reaction Status Date / Time albuterol sulfate Allergy Intermediate chest pain Unverified 04/13/18 16:05 [From Proventil HFA] modafinil [From Provigil] Allergy Intermediate trouble Unverified 04/13/18 16:05 breathing strawberry Allergy hives Unverified 04/13/18 16:05 aspirin AdvReac Severe when Unverified 04/13/18 16:05 taken orally I get bleeding ulcers amitriptyline AdvReac Unknown Out in Unverified 04/13/18 16:05 outter space, really messed with my head duloxetine HCl AdvReac diarrhea, Unverified 04/13/18 16:05 [From Cymbalta] vomiting Review of Systems Constitutional: denies: chills, fever Eyes: denies: eye pain ENT: denies: ear pain, dental pain Respiratory: denies: cough, shortness of breath Cardiovascular: denies: chest pain, dyspnea on exertion Gastrointestinal: denies: abdominal pain, nausea, vomiting Genitourinary: denies: urgency, dysuria, frequency Musculoskeletal: denies: back pain Skin: denies: rash, lesions Neurological: denies: headache, weakness, numbness Past Medical History - Past Medical History Medical history: arthritis, hyperlipidemia, hypertension, osteoporosis Migraine Surgical history: , hysterectomy, other (oophrectomy) - Social History Smoking status: current everyday smoker Alcohol use: none Drug use: marijuana (daily) General Exam - General Limitations: no limitations General appearance: alert, in no apparent distress - Eye Eye exam: Present: PERRL, EOMI - ENT ENT exam: Present: mucous membranes moist - Neck Neck exam: Present: normal inspection - Respiratory Respiratory exam: Present: normal lung sounds bilaterally. Absent: respiratory distress, wheezes, rales, rhonchi, stridor - Cardiovascular Cardiovascular Exam: Present: regular rate, normal rhythm. Absent: bradycardia , tachycardia - GI/Abdominal GI/Abdominal exam: Present: soft, normal bowel sounds. Absent: distended, tenderness, guarding, rebound, rigid - Extremities Exam Extremities exam: Present: other (No bilateral lower extremity edema.) - Neurological Exam Neurological exam: Present: alert, oriented X3, other (MS 5/5 b/l UE/LE). Absent: motor sensory deficit - Psychiatric Psychiatric exam: Present: normal affect - Skin Skin exam: Present: warm, dry, intact Course Vital Signs - 24 hr 06/14/18 06/14/18 14:08 15:42 Temperature 97.9 F Pulse 74 Respiratory 18 18 Rate Blood Pressure 126/76 Pulse Oximetry 97
[2018-06-14 17:00] LABS: Anion Gap 8.3 mmol/L (3-11); BUN 31 mg/dL (7-18); CO2 26.7 mmol/L (21.0-32.0); CREATININE 2.66 mg/dL (0.55-1.02); Calcium 9.2 mg/dL (8.5-10.1); Chloride 104 mmol/L (98-107); Estimated GFR 17.99 (mL/min/1.73m2); Glucose 100 mg/dL (70-100); Potassium 4.6 mmol/L (3.5-5.1); Sodium 139 mmol/L (136-145)
[2018-06-14 17:01] VITALS: BP 155/74; PULSE 66
== END 2018-06-14 17:55 | disposition home or self-care (01) ==
PROVIDERS: Emergency Provider Physician Assistant; PCP Nurse Practitioner Family
DX: I12.9 Hypertensive chronic kidney disease with stage 1 through stage 4 chronic kidney disease, or unspecified chronic kidney disease (principal); N18.9 Chronic kidney disease, unspecified
CPT/HCPCS: 99282 ×2; 36415; 80048

== ENCOUNTER → 2018-06-25 13:15 | Outpatient (CLI) | payer MEDICARE, MEDICAID, SELFPAY | PROVIDERS: PCP Nurse Practitioner Family; Visit Provider Nurse Practitioner Adult Health | DX: G43.009 Migraine without aura, not intractable, without status migrainosus (principal); G43.109 Migraine with aura, not intractable, without status migrainosus; I10 Essential (primary) hypertension | CPT/HCPCS: 99215 ==

== ENCOUNTER 2018-07-17 17:34 | Observation (INO) | payer MEDICARE, MEDICAID, SELFPAY ==
[2018-07-17] VITALS (34 sets, daily range): BP systolic 122–150; BP diastolic 74–102; PULSE 89–125; RESP 16–19; TEMP 36.5–37; O2SAT 84–98
--- NOTE | 2018-07-17 18:03 | DI.CT_ITS ---
SYMPTOM/DIAGNOSIS: HEADACHE, VOMITING NONCONTRAST HEAD CT: Comparison is made with 06/03/18. There is a normal will white matter differentiation. No acute intracranial infarct, hemorrhage, midline shift or mass effect is identified. The ventricles are intact. The basilar cisterns are patent. There is a question of a nodular appearance of the left middle cerebral artery at the bifurcation raising the question of an aneurysm. The visualized paranasal sinuses are clear. The mastoid air cells are well pneumatized. The calvarium is intact. IMPRESSION: 1. No acute intracranial process. 2. Questionable nodular appearance of the left middle cerebral artery. Aneurysm cannot be excluded in this region. Angiography either CT or MR should be considered for further evaluation.
--- NOTE | 2018-07-17 18:07 | W.ED.GENAD ---
Discharge Plan Disposition Patient Disposition: [facility] INPATIENT Condition: Fair Discharge Details Chief Complaint: Headache Clinical Impression: Headache, migraine Primary Care Provider: Xochilt Mcdaniel ED Provider: Javier El Home Meds and New Rx's Prescriptions: No Action diphenhydramine HCl [Benadryl] 25 MG capsule 25 mg PO Q6H PRN RF: 0 prochlorperazine maleate 5 MG tablet 5 mg PO Q8H PRN Qty: 30 RF: 3 diltiazem HCl 60 mg Capsule,Extended Release 12 Hr 120 mg PO BID RF: 0 acetaminophen [Mapap Extra Strength] 500 MG tablet 1,000 mg PO TID PRNRF: 0 losartan 50 MG tablet 50 mg PO DAILY RF: 0 nicotine 1 EACH patch 24 hour 1 ea Transdermal PRN PRNRF: 0 Medical Decision Making MDM Narrative Medical decision making narrative: This is a 67-year-old female migraineur, known to me from visit to the hospital this summer that required transfer to [facility] for critical care. She presents today with headache and vomiting, similar to previous migraines. There has been no trauma. She arrives afebrile, blood pressure 140/80 with pulse 90-100. Diagnosis includes benign cephalgia, migraine type headache intracranial hemorrhage or bleed. IV placed, labs obtained, patient referred for CT scan of the head. She is given fluids and parenteral medications. Patient has had some improvement of her symptoms. A CT scan of the head does not show any acute intracranial findings. She has persistent headache. Will admit for status migraine. Discussed with Dr Reid and will trial 1/2 dose ketorolac at his request and admit for further management. ECG Data Attestation: I personally reviewed and interpreted this ECG (s) as follows: Interpretation: Sinus tachycardia, rate 115, the QRS is narrow, there is no ST segment elevation HPI - General Adult General Date/Time Provider Initiated Documentation: 07/17/18 17:40. Limitations to Documentation: no limitations. Information obtained by: patient and family. History of Present Illness 67 year old F presents to the emergency department with the chief complaint of Headache, described as severe, Quality is described as constant, and is localized to the head. Patient reports no radiation. Patient started experiencing this hour(s) and it has been constant. No relieving factors improve symptom(s), No exacerbating factors reported . Patient notes nausea/vomiting. HPI Narrative: Headache: 67-year-old female who suffers from migraine headaches and has had more so since stopping her indomethacin due to chronic renal insufficiency. She reports gradual onset of headache with vomiting over the course of the day today. Is constant, severe, worse with light and loud noises. She has not had a fever. She denies fall or trauma. No other ameliorating or exacerbating factors Related Data Home Medications Medication Instructions Recorded Confirmed diphenhydramine HCl [Benadryl] 25 mg PO Q6H PRN tab-cap 02/11/18 07/17/18 acetaminophen [Mapap Extra 1,000 mg PO TID PRN 02/18/18 07/17/18 Strength] losartan 50 mg PO DAILY 06/14/18 07/17/18 nicotine 1 ea TRANSDERMAL PRN PRN 06/14/18 07/17/18 diltiazem HCl 120 mg PO BID 07/17/18 07/17/18 Previous Rx's Medication Instructions Recorded prochlorperazine maleate 5 mg PO Q8H PRN #30 tab-cap 06/25/18 Allergies Allergy/AdvReac Type Severity Reaction Status Date / Time albuterol sulfate Allergy Intermediate chest pain Unverified 07/17/18 19:28 [From Proventil HFA] modafinil [From Provigil] Allergy Intermediate trouble Unverified 07/17/18 19:28 breathing strawberry Allergy hives Unverified 07/17/18 19:28 aspirin AdvReac Severe when Unverified 07/17/18 19:28 taken orally I get bleeding ulcers amitriptyline AdvReac Unknown Out in Unverified 07/17/18 19:28 outter space, really messed with my head duloxetine HCl AdvReac diarrhea, Unverified 07/17/18 19:28 [From Cymbalta] vomiting Review of Systems Review of Systems 8 systems reviewed and otherwise neg PFSH Medical History Chronic osteoarthritis (~2004) GERD (gastroesophageal reflux disease) Hyperlipidemia Hypertension Migraine headache Social History Smoking/Tobacco Use Status: Current every day Surgical History Abdominal hysterectomy Colonoscopy - IV Sedation Oophrectomy, Left Exam Narrative Exam Narrative: GEN: awake, alert, oriented. Lying in a darkened room, in distress, vomiting HEAD: Normocephalic, atraumatic ENT: Mucous membranes moist, oropharynx unremarkable, External ear exam unremarkable EYES: PERRL, EOMI NECK: Full ROM, no JUJU, no menigismus CHEST/RESP: Nontender, clear to auscultation bilateral, no wheeze/rhonchi/rales CARDIOVASCULAR: RRR, no murmur, rub raman. 2+ Rad pulse bilateral ABDOMEN: Soft, nontender, no mass. +Bowel sounds EXT: Full ROM, no edema, no rash Neuro: Grossly normal neurologic exam, conversant, interactive. Psych: Speech fluent, thoughts congruent, affect normal
[2018-07-17] MEDS: Ondansetron 4 MG/2 ML VIAL (18:08)
[2018-07-17] MEDS: Normal Saline 250 ML 500 ML IV (18:08)
[2018-07-17] MEDS: HYDROmorphone 2 MG/ML VIAL 0.5 MG IVP (18:12)
[2018-07-17 18:23] LABS: Absolute Basophil Count 0.08 k/cumm (0.0-0.2); Absolute Eosinophil Count 0.11 k/cumm (0.0-0.7); Absolute Lymphocyte Count 2.91 k/cumm (1.2-3.4); Basophils % 0.4; Eosinophils % 0.6; HCT 42.7 % (36.0-46.0); HGB 14.4 g/dL (12.0-15.5); Immature Grans % 0.5; Lymphocytes % 15.3; Mean Corp. HGB Concentration 33.7 g/dL (32.0-36.0); Mean Corpuscular Hemoglobin 28.9 pg (27.0-33.0); Mean Corpuscular Volume 85.7 fL (80-95); Mean Platelet Volume 9.1 fL (8.0-11.0); Monocytes % 3.2; Platelet Count 463 x1000/uL (130-400); RBC 4.98 m/cumm (4.00-5.20); RBC Distribution Width 14.2 % (11.7-14.6); White Blood Cell Count 19.03 k/cumm (4.4-10.8)
[2018-07-17 18:25] LABS: Absolute Monocyte Count 0.61 k/cumm (0.11-0.7); Absolute Neutrophil Count 15.22 k/cumm (1.2-6.7)
[2018-07-17 18:41] LABS: ALT 15 U/L (12-78); AST 17 U/L (15-37); Alkaline Phosphatase 168 U/L (46-116); Anion Gap 12.9 mmol/L (3-11); BUN 25 mg/dL (7-18); Bilirubin, Total 0.4 mg/dL (0.2-1.0); CO2 25.1 mmol/L (21.0-32.0); CREATININE 2.03 mg/dL (0.55-1.02); Calcium 9.4 mg/dL (8.5-10.1); Chloride 99 mmol/L (98-107); Estimated GFR 24.58 (mL/min/1.73m2); Glucose 177 mg/dL (70-100); Potassium 3.1 mmol/L (3.5-5.1); Sodium 137 mmol/L (136-145); Total Protein 8.7 g/dL (6.4-8.2)
--- NOTE | 2018-07-17 19:29 | DI.VRAD_ITS ---
EXAM: CT Head Without Intravenous Contrast CLINICAL HISTORY: 67 years old, female; Pain; Headache TECHNIQUE: Axial computed tomography images of the head/brain without intravenous contrast. Coronal and sagittal reformatted images were created and reviewed. COMPARISON: CT - HEAD WITHOUT CONTRAST 06/03/2018 7:10 PM FINDINGS: Brain: Unremarkable. No hemorrhage. No significant white matter disease. No edema. Ventricles: Unremarkable. No ventriculomegaly. Bones/joints: Unremarkable. No acute fracture. Soft tissues: Unremarkable. Vasculature: Nodular appearance to the left ICA bifurcation (axial image 14) raising the suspicion for left ICA bifurcation aneurysm. Further assessment with CT angiogram versus MR angiogram is recommended. Mild atherosclerosis of the cavernous carotid arteries. Sinuses: Unremarkable as visualized. No acute sinusitis. Mastoid air cells: Unremarkable as visualized. No mastoid effusion. IMPRESSION: 1. No acute intracranial abnormality. 2. Findings raise the suspicion for left MCA bifurcation aneurysm. Further evaluation with CT angiogram versus MR angiogram is recommended. Dictated and Authenticated by: Steve Avendaño MD. Ordering:ROSSY MAY MD
[2018-07-17] MEDS: diphenhydrAMINE 50 MG/ML VIAL 12.5 MG IVP (20:38)
[2018-07-17] MEDS: Dexamethasone 4 MG/ML VIAL IVP (20:38)
--- NOTE | 2018-07-17 21:10 | HPE_ITS ---
Date of service: 07/17/18 Time of Service: 20:56 Assessment and Plan (1) Migraine: Current visit: Yes Status: Chronic Migraine: A degree of renal insufficiency is appreciated. However I cannot say that I see any significant risk with a single dose of Toradol as the risk with NSAIDs on renal function is generally more a matter of a cumulative effect chronically. Otherwise will continue as needed antiemetic emetics and analgesics as is, along with IV fluids. Chief complaint: Headache History of present illness: Patient is a 67-year-old female with history of migraine prior to this past June she used to take Indocin on a as needed basis with excellent results. At that time she apparently had an episode of rhabdomyolysis, as I understand it from a period of prolonged immobilization, and developed acute renal failure. This resolved and part with some residual renal insufficiency and she states that she was instructed not to take Indocin any longer since that time she says that she basically just suffers through her headaches, nothing else seems to work today she came in with a particularly severe headache, bitemporal associated with nausea, vomiting and photophobia. In the emergency room head CT showed no acute changes. She was treated with steroids, Benadryl and Dilaudid with only limited effect. I was contacted to admit her for further evaluation and management.. Review of Systems Review of Systems All systems reviewed & are unremarkable except as noted in HPI and below PFSH Medical History Chronic osteoarthritis (~2004) GERD (gastroesophageal reflux disease) Hyperlipidemia Hypertension Migraine headache Social History Smoking/Tobacco Use Status: Current every day Surgical History Abdominal hysterectomy Colonoscopy - IV Sedation Oophrectomy, Left Meds Home Medications Medication Instructions Recorded Confirmed Type diphenhydramine HCl [Benadryl] 25 mg PO Q6H PRN tab-cap 02/11/18 07/17/18 History acetaminophen [Mapap Extra 1,000 mg PO TID PRN 02/18/18 07/17/18 History Strength] losartan 50 mg PO DAILY 06/14/18 07/17/18 History nicotine 1 ea TRANSDERMAL PRN PRN 06/14/18 07/17/18 History diltiazem HCl 120 mg PO BID 07/17/18 07/17/18 History Allergies Allergy/AdvReac Type Severity Reaction Status Date / Time albuterol sulfate Allergy Intermediate chest pain Unverified 07/17/18 19:28 [From Proventil HFA] modafinil [From Provigil] Allergy Intermediate trouble Unverified 07/17/18 19:28 breathing strawberry Allergy hives Unverified 07/17/18 19:28 aspirin AdvReac Severe when Unverified 07/17/18 19:28 taken orally I get bleeding ulcers amitriptyline AdvReac Unknown Out in Unverified 07/17/18 19:28 outter space, really messed with my head duloxetine HCl AdvReac diarrhea, Unverified 07/17/18 19:28 [From Cymbalta] vomiting Exam Narrative Exam Narrative: Physical exam: Blood pressure 146/82, pulse 100, respirations 16 , temp 36.8. HEENT shows no signs of head trauma neck is supple lungs clear heart regular rate and rhythm without murmurs rubs or gallop. Abdomen soft nontender. Pelvic and rectal exams deferred. Extremities without edema, pulses are 2+ and equal. Neurologic patient is alert and oriented cranial. Cranial nerves are intact. Moves all 4 extremities equally. Results Labs : 07/17/18 17:45 07/17/18 17:45 Laboratory Results - last 24 hr 07/17/18 07/17/18 17:45 17:45 WBC 19.03 H RBC 4.98 Hgb 14.4 Hct 42.7 MCV 85.7 MCH 28.9 MCHC 33.7 RDW 14.2 Plt Count 463 H MPV 9.1 Immature Gran % 0.5 Neutrophils % 80.0 Lymphocytes % 15.3 Monocytes % 3.2 Eosinophils % 0.6 Basophils % 0.4 Absolute Neutrophils 15.22 H Absolute Lymphocytes 2.91 Absolute Monocytes 0.61 Absolute Eosinophils 0.11 Absolute Basophils 0.08 Sodium 137 Potassium 3.1 L Chloride 99 Carbon Dioxide 25.1 Anion Gap 12.9 H BUN 25 H Creatinine 2.03 H Estimated GFR/1.73 m2 24.58 Glucose 177 H Calcium 9.4 Total Bilirubin 0.4 AST 17 ALT 15 Alkaline Phosphatase 168 H Total Protein 8.7 H Albumin 4.0
[2018-07-17] MEDS: LORazepam 2 MG/ML VIAL 0.5 MG IVP (21:14)
--- NOTE | 2018-07-17 21:30 | W.PM.PROGNOT ---
Date of service: 07/17/18 Time of Service: 21:30 Subjective Interval history since last seen: Addendum to recently dictated history and physical. 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 If it is still an issue will contact Dr. Cabral in nephrology at [facility] in the morning. An incidental finding of some nodularity at the bifurcation of the left internal carotid artery on CT. CTA or MRA was recommended to evaluate for possible aneurysm. Objective Objective Clinical Data: Abnormal lab results 07/17/18 07/17/18 Range/Units 17:45 17:45 WBC 19.03 H (4.4-10.8) k/cumm Plt Count 463 H (130-400) x1000/uL Absolute Neutrophils 15.22 H (1.2-6.7) k/cumm Potassium 3.1 L (3.5-5.1) mmol/L Anion Gap 12.9 H (3-11) mmol/L BUN 25 H (7-18) mg/dL Creatinine 2.03 H (0.55-1.02) mg/dL Glucose 177 H (70-100) mg/dL Alkaline Phosphatase 168 H (46-116) U/L Total Protein 8.7 H (6.4-8.2) g/dL Vital Signs Temp 36.8 C 07/17/18 17:40 Pulse 125 H 07/17/18 20:30 Resp 16 07/17/18 17:40 BP 148/102 H 07/17/18 20:30 Pulse Ox 97 07/17/18 21:10 Laboratory Results WBC 19.03 k/cumm (4.4-10.8) H 07/17/18 17:45 RBC 4.98 m/cumm (4.00-5.20) 07/17/18 17:45 Hgb 14.4 g/dL (12.0-15.5) 07/17/18 17:45 Hct 42.7 % (36.0-46.0) 07/17/18 17:45 MCV 85.7 fL (80-95) 07/17/18 17:45 MCH 28.9 pg (27.0-33.0) 07/17/18 17:45 MCHC 33.7 g/dL (32.0-36.0) 07/17/18 17:45 RDW 14.2 % (11.7-14.6) 07/17/18 17:45 Plt Count 463 x1000/uL (130-400) H 07/17/18 17:45 MPV 9.1 fL (8.0-11.0) 07/17/18 17:45 Immature Gran % 0.5 07/17/18 17:45 Neutrophils % 80.0 07/17/18 17:45 Lymphocytes % 15.3 07/17/18 17:45 Monocytes % 3.2 07/17/18 17:45 Eosinophils % 0.6 07/17/18 17:45 Basophils % 0.4 07/17/18 17:45 Absolute Neutrophils 15.22 k/cumm (1.2-6.7) H 07/17/18 17:45 Absolute Lymphocytes 2.91 k/cumm (1.2-3.4) 07/17/18 17:45 Absolute Monocytes 0.61 k/cumm (0.11-0.7) 07/17/18 17:45 Absolute Eosinophils 0.11 k/cumm (0.0-0.7) 07/17/18 17:45 Absolute Basophils 0.08 k/cumm (0.0-0.2) 07/17/18 17:45 Sodium 137 mmol/L (136-145) 07/17/18 17:45 Potassium 3.1 mmol/L (3.5-5.1) L 07/17/18 17:45 Chloride 99 mmol/L (98-107) 07/17/18 17:45 Carbon Dioxide 25.1 mmol/L (21.0-32.0) 07/17/18 17:45 Anion Gap 12.9 mmol/L (3-11) H 07/17/18 17:45 BUN 25 mg/dL (7-18) H 07/17/18 17:45 Creatinine 2.03 mg/dL (0.55-1.02) H 07/17/18 17:45 Estimated GFR/1.73 m2 24.58 (mL/min/1.73m2) 07/17/18 17:45 Glucose 177 mg/dL (70-100) H 07/17/18 17:45 Calcium 9.4 mg/dL (8.5-10.1) 07/17/18 17:45 Total Bilirubin 0.4 mg/dL (0.2-1.0) 07/17/18 17:45 AST 17 U/L (15-37) 07/17/18 17:45 ALT 15 U/L (12-78) 07/17/18 17:45 Alkaline Phosphatase 168 U/L (46-116) H 07/17/18 17:45 Total Protein 8.7 g/dL (6.4-8.2) H 07/17/18 17:45 Albumin 4.0 g/dL (3.4-5.0) 07/17/18 17:45
[2018-07-17] MEDS: POTASSIUM CHLORIDE/0.9% NACL 1,000 ML 100 MEQ IV (23:07)
[2018-07-18] VITALS (7 sets, daily range): BP systolic 132–157; BP diastolic 92–110; PULSE 96–115; RESP 16–20; TEMP 36.2–37.7; O2SAT 97–100
[2018-07-18] MEDS: Ondansetron 4 MG/2 ML VIAL IVP ×2 (05:03→08:54)
[2018-07-18] MEDS: diphenhydrAMINE 25 MG CAP PO (05:15)
[2018-07-18 06:42] LABS: Anion Gap 14.5 mmol/L (3-11); CO2 25.5 mmol/L (21.0-32.0); Chloride 102 mmol/L (98-107); Potassium 3.7 mmol/L (3.5-5.1); Sodium 142 mmol/L (136-145)
[2018-07-18] MEDS: HYDROmorphone 2 MG/ML VIAL 1 MG IVP (08:56)
[2018-07-18] MEDS: POTASSIUM CHLORIDE/0.9% NACL 1,000 ML 100 MEQ IV ×2 (08:57→18:29)
[2018-07-18] MEDS: Prochlorperazine 10 MG/2 ML VIAL IM (09:22)
--- NOTE | 2018-07-18 09:24 | PHARADMIT ---
Admission Pharmacy Clinical Review migraine Code Status Full Code Current Weight 49.5 kg Renally Cleared and Narrow Therapeutic Index Meds Crcl ~21.50 mL/min current meds okay QTc Value / Action Taken BP Control, Fever BP 146/93 afebrile Electrolytes reviewed within normal limits DVT Prophylaxis none Opiate Usage / Scheduled Bowel Regimen Ordered no/no Plt/SCr for Heparin / Enoxaparin plt 463 SCr 2.03 INR for Warfarin n/a H/H stable, WBC/Bands h/h 14.4/42.7 wbc 19.03 Antibiotic appropriateness none Cultures and Sensitivities none Surgical ABX d/c within 24 hr n/a DM control / Insulin Dosing bg 177 none Heart Failure (Check EF%) (CONSUELO's, B-Block, Diuretics) diltiazem, losartan IV to PO Switch n/a Home Meds Reviewed yes Home Meds Not Ordered nicotine, prochlorperazine (1 time dose given) Comments it was mentioned in meeting that the pts medical pathologist dose NOT want the pt to have NSAIDs due to renal insufficiency
[2018-07-18] MEDS: ACETAMINOPHEN 1,000 MG/100 ML BTL 400 MG IVPB (13:46)
--- NOTE | 2018-07-18 13:57 | W.PM.PROGNOT ---
Date of service: 07/18/18 Time of Service: 13:57 Assessment and Plan (1) Migraine: Current visit: Yes Status: Chronic As the patient cannot receive NSAIDs due to chronic kidney disease she has been ordered reglan for nausea/vomiting, iv tylenol and iv dilaudid. I have also ordered repeat dose of decadron and iv benadryl (2) Abnormal CT scan, head: Current visit: Yes Status: Acute I have pushed her CT scans from [facility] from last night to be sent to [facility] and asked [facility] to have neurology call me to compare her current CT of her head with those films done at [facility] last month ( CT head non-contrast 06/19/2018 and MRI brain 06/20/2018) to see if the current suggested findings of nodularity at the LMCA/LICA bifurcaton is a new finding. After several hours I finally got an answer after an over-read of our CT scan and [facility] radiology did not feel there was any compelling evidence of an aneurysm of the left MCA/ICA juncture but felt that with the CT being done non-contrast this limits the study interpretation. (3) Essential hypertension: Current visit: Yes Status: Acute worsening blood pressure, she is unable to keep down her losartan and her diltiazem. I have ordered iv labetalol to be given for elevated blood pressure. She has hx of PRES syndrome and therefore her blood pressures will need to be carefully monitored and controlled to avoid worsening of her previous cognitive problems associated w/ her PRES syndrome Subjective Patient reports: still having pain Interval history since last seen: Patient continues to have severe headaches, nausea and vomiting. She has been unable to tolerate oral meds. According the patient's daughter the patient's had about 3 migraine headaches in the past month. She was most recently hospitalized at [facility] June 19 - June 21, 2018 due to uncontrolled hypertension and migraine headaches. At the time of discharge her blood pressure was well controlled on losartan 50 mg daily and propranolol 160 mg daily. During that hospitalization she had an evaluation of her kidneys with the renal artery duplex scan she was found to have an atrophic left kidney with low flow suspicious for stenosis. She also had a CT scan of her head without contrast and MRI scan of her head without contrast. CT of her head showed no acute hemorrhage or mass-effect. MRI without contrast showed substantial improvement and resolution of areas of white matter signal intensity previously seen in the left occipital/temporal area associated with her diagnosis of posterior reversible encephalopathy. Noncontrast CT scan of her head last night demonstrate a nodular appearance to her left ICA bifurcation with her left MCA suggestive of a possible aneurysm of the bifurcation. Follow-up MRA or CTA was recommended. I have asked her radiology department to push the films to [facility] radiology department and I have called the transfer center at [facility] to request a telephone consultation with the neurologist concrete finisher. Exam Const General: ill appearing Nutritional Appearance: underweight Orientation: alert, awake and oriented x3 HENMT Head: normal to inspection and normocephalic Eyes General: appearance normal, both eyes and all related structures Neck Neck: normal visual inspection, full ROM, no lymphadenopathy, no meningeal signs, no lymphadenopathy noted and no JVD Resp Effort & Inspection: normal respiratory effort and able to speak in complete sentences Auscultation: clear to auscultation bilaterally Cardio Jugular venous pressure: no JVD Rate: regular rate Rhythm: regular rhythm Heart Sounds: S1 normal, S2 normal and murmur systolic crescendo, III/ and at the base Bruits: abdominal aortic bruit and carotid bruit GI Inspection: normal to inspection Percussion: normal to percussion Auscultation: normal bowel sounds Neuro General: alert, awake and oriented x3 Cranial Nerves: CN's II-XI intact bilaterally, PERRL, no nystagmus, facial strength normal and tongue midline Cognition: normal cognition Speech: speech normal Motor: muscle tone normal throughout and strength 5/5 throughout Sensory Exam: no sensory deficits noted Extrem General: normal to inspection and full ROM Psych Appearance: grossly normal Mental Status: mental status grossly normal Speech and Movement: speech and movement normal Mood: congruent mood Affect: normal affect Attitude: cooperative Thought Process: normal Thought Content: normal Insight: insight good Judgment: judgment good Objective Objective Clinical Data: Abnormal lab results 07/17/18 07/17/18 07/18/18 Range/Units 17:45 17:45 05:57 WBC 19.03 H (4.4-10.8) k/cumm Plt Count 463 H (130-400) x1000/uL Absolute Neutrophils 15.22 H (1.2-6.7) k/cumm Potassium 3.1 L (3.5-5.1) mmol/L Anion Gap 12.9 H 14.5 H (3-11) mmol/L BUN 25 H (7-18) mg/dL Creatinine 2.03 H (0.55-1.02) mg/dL Glucose 177 H (70-100) mg/dL Alkaline Phosphatase 168 H (46-116) U/L Total Protein 8.7 H (6.4-8.2) g/dL Vital Signs Temp 36.2 C L 07/18/18 13:29 Pulse 112 H 07/18/18 13:29 Resp 17 07/18/18 13:29 BP 157/110 H 07/18/18 13:29 Pulse Ox 97 07/18/18 13:29 Intake & Output 07/17/18 07/18/18 07/18/18 23:59 11:59 23:59 Intake Total 250 / 250 1033.333 / 1033.333 Output Total 1400 / 1400 950 / 950 Balance -1150 / -1150 83.333 / 83.333 Weight 49.5 kg Intake: IV 250 / 250 1033.333 / 1033.333 Output: Urine 1400 / 1400 700 / 700 Emesis 250 / 250 Other: Urine Color Pale Yellow Urine Appearance Clear Clear Comment highest of 4 scans. Bladder distention noted. Emesis Description Retching Laboratory Results WBC 19.03 k/cumm (4.4-10.8) H 07/17/18 17:45 RBC 4.98 m/cumm (4.00-5.20) 07/17/18 17:45 Hgb 14.4 g/dL (12.0-15.5) 07/17/18 17:45 Hct 42.7 % (36.0-46.0) 07/17/18 17:45 MCV 85.7 fL (80-95) 07/17/18 17:45 MCH 28.9 pg (27.0-33.0) 07/17/18 17:45 MCHC 33.7 g/dL (32.0-36.0) 07/17/18 17:45 RDW 14.2 % (11.7-14.6) 07/17/18 17:45 Plt Count 463 x1000/uL (130-400) H 07/17/18 17:45 MPV 9.1 fL (8.0-11.0) 07/17/18 17:45 Immature Gran % 0.5 07/17/18 17:45 Neutrophils % 80.0 07/17/18 17:45 Lymphocytes % 15.3 07/17/18 17:45 Monocytes % 3.2 07/17/18 17:45 Eosinophils % 0.6 07/17/18 17:45 Basophils % 0.4 07/17/18 17:45 Absolute Neutrophils 15.22 k/cumm (1.2-6.7) H 07/17/18 17:45 Absolute Lymphocytes 2.91 k/cumm (1.2-3.4) 07/17/18 17:45 Absolute Monocytes 0.61 k/cumm (0.11-0.7) 07/17/18 17:45 Absolute Eosinophils 0.11 k/cumm (0.0-0.7) 07/17/18 17:45 Absolute Basophils 0.08 k/cumm (0.0-0.2) 07/17/18 17:45 Sodium 142 mmol/L (136-145) 07/18/18 05:57 Potassium 3.7 mmol/L (3.5-5.1) 07/18/18 05:57 Chloride 102 mmol/L (98-107) 07/18/18 05:57 Carbon Dioxide 25.5 mmol/L (21.0-32.0) 07/18/18 05:57 Anion Gap 14.5 mmol/L (3-11) H 07/18/18 05:57 BUN 25 mg/dL (7-18) H 07/17/18 17:45 Creatinine 2.03 mg/dL (0.55-1.02) H 07/17/18 17:45 Estimated GFR/1.73 m2 24.58 (mL/min/1.73m2) 07/17/18 17:45 Glucose 177 mg/dL (70-100) H 07/17/18 17:45 Calcium 9.4 mg/dL (8.5-10.1) 07/17/18 17:45 Total Bilirubin 0.4 mg/dL (0.2-1.0) 07/17/18 17:45 AST 17 U/L (15-37) 07/17/18 17:45 ALT 15 U/L (12-78) 07/17/18 17:45 Alkaline Phosphatase 168 U/L (46-116) H 07/17/18 17:45 Total Protein 8.7 g/dL (6.4-8.2) H 07/17/18 17:45 Albumin 4.0 g/dL (3.4-5.0) 07/17/18 17:[address] of the head dated July 17, 2018 demonstrated Findings raise the suspicion for left MCA bifurcation aneurysm. Further evaluation with CT angiogram versus MR angiogram is recommended. Reviewed Pertinent PMH: Yes
--- NOTE | 2018-07-18 14:01 | PGE_ITS ---
Date of service: 07/18/18 Time of Service: 13:57 Assessment and Plan (1) Migraine: Current visit: Yes Status: Chronic As the patient cannot receive NSAIDs due to chronic kidney disease she has been ordered reglan for nausea/vomiting, iv tylenol and iv dilaudid. I have also ordered repeat dose of decadron and iv benadryl (2) Abnormal CT scan, head: Current visit: Yes Status: Acute I have pushed her CT scans from [facility] from last night to be sent to [facility] and asked [facility] to have neurology call me to compare her current CT of her head with those films done at [facility] last month ( CT head non-contrast 06/19/2018 and MRI brain 06/20/2018) to see if the current suggested findings of nodularity at the LMCA/LICA bifurcaton is a new finding. After several hours I finally got an answer after an over-read of our CT scan and [facility] radiology did not feel there was any compelling evidence of an aneurysm of the left MCA/ICA juncture but felt that with the CT being done non- contrast this limits the study interpretation. (3) Essential hypertension: Current visit: Yes Status: Acute worsening blood pressure, she is unable to keep down her losartan and her diltiazem. I have ordered iv labetalol to be given for elevated blood pressure. She has hx of PRES syndrome and therefore her blood pressures will need to be carefully monitored and controlled to avoid worsening of her previous cognitive problems associated w/ her PRES syndrome Subjective Patient reports: still having pain Interval history since last seen: Patient continues to have severe headaches, nausea and vomiting. She has been unable to tolerate oral meds. According the patient's daughter the patient's had about 3 migraine headaches in the past month. She was most recently hospitalized at [facility] June 19 - June 21, 2018 due to uncontrolled hypertension and migraine headaches. At the time of discharge her blood pressure was well controlled on losartan 50 mg daily and propranolol 160 mg daily. During that hospitalization she had an evaluation of her kidneys with the renal artery duplex scan she was found to have an atrophic left kidney with low flow suspicious for stenosis. She also had a CT scan of her head without contrast and MRI scan of her head without contrast. CT of her head showed no acute hemorrhage or mass-effect. MRI without contrast showed substantial improvement and resolution of areas of white matter signal intensity previously seen in the left occipital/temporal area associated with her diagnosis of posterior reversible encephalopathy. Noncontrast CT scan of her head last night demonstrate a nodular appearance to her left ICA bifurcation with her left MCA suggestive of a possible aneurysm of the bifurcation. Follow-up MRA or CTA was recommended. I have asked her radiology department to push the films to [facility] radiology department and I have called the transfer center at [facility] to request a telephone consultation with the neurologist power generation equipment repairer. Exam Const General: ill appearing Nutritional Appearance: underweight Orientation: alert, awake and oriented x3 HENMT Head: normal to inspection and normocephalic Eyes General: appearance normal, both eyes and all related structures Neck Neck: normal visual inspection, full ROM, no lymphadenopathy, no meningeal signs , no lymphadenopathy noted and no JVD Resp Effort & Inspection: normal respiratory effort and able to speak in complete sentences Auscultation: clear to auscultation bilaterally Cardio Jugular venous pressure: no JVD Rate: regular rate Rhythm: regular rhythm Heart Sounds: S1 normal, S2 normal and murmur systolic crescendo, III/ and at the base Bruits: abdominal aortic bruit and carotid bruit GI Inspection: normal to inspection Percussion: normal to percussion Auscultation: normal bowel sounds Neuro General: alert, awake and oriented x3 Cranial Nerves: CN's II-XI intact bilaterally, PERRL, no nystagmus, facial strength normal and tongue midline Cognition: normal cognition Speech: speech normal Motor: muscle tone normal throughout and strength 5/5 throughout Sensory Exam: no sensory deficits noted Extrem General: normal to inspection and full ROM Psych Appearance: grossly normal Mental Status: mental status grossly normal Speech and Movement: speech and movement normal Mood: congruent mood Affect: normal affect Attitude: cooperative Thought Process: normal Thought Content: normal Insight: insight good Judgment: judgment good Objective Objective Clinical Data: Abnormal lab results 07/17/18 07/17/18 07/18/18 Range/Units 17:45 17:45 05:57 WBC 19.03 H (4.4-10.8) k/cumm Plt Count 463 H (130-400) x1000/uL Absolute Neutrophils 15.22 H (1.2-6.7) k/cumm Potassium 3.1 L (3.5-5.1) mmol/L Anion Gap 12.9 H 14.5 H (3-11) mmol/L BUN 25 H (7-18) mg/dL Creatinine 2.03 H (0.55-1.02) mg/dL Glucose 177 H (70-100) mg/dL Alkaline Phosphatase 168 H (46-116) U/L Total Protein 8.7 H (6.4-8.2) g/dL Vital Signs Temp 36.2 C L 07/18/18 13:29 Pulse 112 H 07/18/18 13:29 Resp 17 07/18/18 13:29 BP 157/110 H 07/18/18 13:29 Pulse Ox 97 07/18/18 13:29 Intake & Output 07/17/18 07/18/18 07/18/18 23:59 11:59 23:59 Intake Total 250 / 250 1033.333 / 1033.333 Output Total 1400 / 1400 950 / 950 Balance -1150 / -1150 83.333 / 83.333 Weight 49.5 kg Intake: IV 250 / 250 1033.333 / 1033.333 Output: Urine 1400 / 1400 700 / 700 Emesis 250 / 250 Other: Urine Color Pale Yellow Urine Appearance Clear Clear Comment highest of 4 scans. Bladder distention noted. Emesis Description Retching Laboratory Results WBC 19.03 k/cumm (4.4-10.8) H 07/17/18 17:45 RBC 4.98 m/cumm (4.00-5.20) 07/17/18 17:45 Hgb 14.4 g/dL (12.0-15.5) 07/17/18 17:45 Hct 42.7 % (36.0-46.0) 07/17/18 17:45 MCV 85.7 fL (80-95) 07/17/18 17:45 MCH 28.9 pg (27.0-33.0) 07/17/18 17:45 MCHC 33.7 g/dL (32.0-36.0) 07/17/18 17:45 RDW 14.2 % (11.7-14.6) 07/17/18 17:45 Plt Count 463 x1000/uL (130-400) H 07/17/18 17:45 MPV 9.1 fL (8.0-11.0) 07/17/18 17:45 Immature Gran % 0.5 07/17/18 17:45 Neutrophils % 80.0 07/17/18 17:45 Lymphocytes % 15.3 07/17/18 17:45 Monocytes % 3.2 07/17/18 17:45 Eosinophils % 0.6 07/17/18 17:45 Basophils % 0.4 07/17/18 17:45 Absolute Neutrophils 15.22 k/cumm (1.2-6.7) H 07/17/18 17:45 Absolute Lymphocytes 2.91 k/cumm (1.2-3.4) 07/17/18 17:45 Absolute Monocytes 0.61 k/cumm (0.11-0.7) 07/17/18 17:45 Absolute Eosinophils 0.11 k/cumm (0.0-0.7) 07/17/18 17:45 Absolute Basophils 0.08 k/cumm (0.0-0.2) 07/17/18 17:45 Sodium 142 mmol/L (136-145) 07/18/18 05:57 Potassium 3.7 mmol/L (3.5-5.1) 07/18/18 05:57 Chloride 102 mmol/L (98-107) 07/18/18 05:57 Carbon Dioxide 25.5 mmol/L (21.0-32.0) 07/18/18 05:57 Anion Gap 14.5 mmol/L (3-11) H 07/18/18 05:57 BUN 25 mg/dL (7-18) H 07/17/18 17:45 Creatinine 2.03 mg/dL (0.55-1.02) H 07/17/18 17:45 Estimated GFR/1.73 m2 24.58 (mL/min/1.73m2) 07/17/18 17:45 Glucose 177 mg/dL (70-100) H 07/17/18 17:45 Calcium 9.4 mg/dL (8.5-10.1) 07/17/18 17:45 Total Bilirubin 0.4 mg/dL (0.2-1.0) 07/17/18 17:45 AST 17 U/L (15-37) 07/17/18 17:45 ALT 15 U/L (12-78) 07/17/18 17:45 Alkaline Phosphatase 168 U/L (46-116) H 07/17/18 17:45 Total Protein 8.7 g/dL (6.4-8.2) H 07/17/18 17:45 Albumin 4.0 g/dL (3.4-5.0) 07/17/18 17:[address] of the head dated July 17, 2018 demonstrated Findings raise the suspicion for left MCA bifurcation aneurysm. Further evaluation with CT angiogram versus MR angiogram is recommended. Reviewed Pertinent PMH: Yes
[2018-07-18] MEDS: Metoclopramide 10 MG/2 ML VIAL IVP (14:26)
[2018-07-18] MEDS: diphenhydrAMINE 50 MG/ML VIAL IVP (14:27)
[2018-07-18] MEDS: Normal Saline Flush 10 ML SYR IVP (14:27)
[2018-07-18] MEDS: Dexamethasone 10 MG/ML VIAL IVP (14:57)
--- NOTE | 2018-07-18 16:51 | PDOC.CMIN ---
Care Management Initial Assess REASON FOR HOSPITALIZATION:: Migraine PAST MEDICAL HISTORY/PAST SURGICAL HISTORY:: Chronic osteoarthritis, GERD, Hyperlipidemia, Hypertension, Migraine headache, Abdominal hysterectomy, Colonoscopy - IV Sedation, Oophrectomy, Left, daily marijuana use PREVIOUS FUNCTIONAL STATUS/SOCIAL/FAMILY SUPPORTS:: Levy resides in [place], [place], her family resides nearby. CURRENT FUNCTIONAL STATUS:: Levy is lying in bed, on her side, one of her daughters at her bedside. She is unable to fully engage with this jingle writer, but does complete a HIPPA adding her daughter, Enrique to her HIPPA. Has patient been provided with information about the portal?: No Did the patient sign up for the portal?: No CODE STATUS:: Full Code INSURANCE COVERAGE / FINANCIAL ISSUES:: Medicaid. Medicare CURRENT HOME/COMMUNITY SERVICES/EQUIPMENT:: Unable to obtain. PRIMARY CARE PHYSICIAN:: Xochilt Mcdaniel POTENTIAL DISCHARGE NEEDS:: Evaluation for further needs, discussion around current services, community resources. PATIENT/FAMILY EDUCATION NEEDS:: Review discharge instructions, discuss Ask Me Three. ANTICIPATED BARRIERS TO DISCHARGE:: None identified. TRANSPORTATION:: Via private vehicle with family. PLAN:: Levy will continue to be treated; no anticipated change in status today. CM will continue to follow and gather further information to inform discharge planning needs.
--- NOTE | 2018-07-18 17:10 | INITIAL_ITS ---
Care Management Initial Assess REASON FOR HOSPITALIZATION:: Migraine PAST MEDICAL HISTORY/PAST SURGICAL HISTORY:: Chronic osteoarthritis, GERD, Hyperlipidemia, Hypertension, Migraine headache, Abdominal hysterectomy, Colonoscopy - IV Sedation, Oophrectomy, Left, daily marijuana use PREVIOUS FUNCTIONAL STATUS/SOCIAL/FAMILY SUPPORTS:: Levy resides in [place], [place] , her family resides nearby. CURRENT FUNCTIONAL STATUS:: Levy is lying in bed, on her side, one of her daughters at her bedside. She is unable to fully engage with this process description writer, but does complete a HIPPA adding her daughter, Enrique to her HIPPA. Has patient been provided with information about the portal?: No Did the patient sign up for the portal?: No CODE STATUS:: Full Code INSURANCE COVERAGE / FINANCIAL ISSUES:: Medicaid. Medicare CURRENT HOME/COMMUNITY SERVICES/EQUIPMENT:: Unable to obtain. PRIMARY CARE PHYSICIAN:: Xochilt Mcdaniel POTENTIAL DISCHARGE NEEDS:: Evaluation for further needs, discussion around current services, community resources. PATIENT/FAMILY EDUCATION NEEDS:: Review discharge instructions, discuss Ask Me Three. ANTICIPATED BARRIERS TO DISCHARGE:: None identified. TRANSPORTATION:: Via private vehicle with family. PLAN:: Levy will continue to be treated; no anticipated change in status today. CM will continue to follow and gather further information to inform discharge planning needs.
[2018-07-19] MEDS: ACETAMINOPHEN 1,000 MG/100 ML BTL 400 MG IVPB ×2 (00:04→08:51)
[2018-07-19 03:00] VITALS: BP 105/71; PULSE 84; RESP 16; TEMP 36.1; O2SAT 97
[2018-07-19] MEDS: POTASSIUM CHLORIDE/0.9% NACL 1,000 ML 100 MEQ IV (04:28)
[2018-07-19 06:01] LABS: BUN 30 mg/dL (7-18); CREATININE 1.58 mg/dL (0.55-1.02); Chloride 101 mmol/L (98-107); Estimated GFR 32.82 (mL/min/1.73m2); Glucose 118 mg/dL (70-100); Potassium 3.9 mmol/L (3.5-5.1); Sodium 135 mmol/L (136-145)
[2018-07-19 07:15] VITALS: BP 123/86; PULSE 90; RESP 18; TEMP 36.9; O2SAT 98
[2018-07-19] MEDS: Losartan 50 MG TAB PO (08:45)
[2018-07-19 11:40] VITALS: BP 96/71; PULSE 65; RESP 18; TEMP 36.9; O2SAT 96
--- NOTE | 2018-07-19 12:57 | W.PM.DS.N ---
Documented by User: Kelsey Valera NP 07/19/18 12:59 Documented by User: Kelsey Valera NP 07/19/18 12:59 Date of service: Time of Service: Exam Const General: Nutritional Appearance: Orientation: HENNE Head: Ears: Mouth: Eyes General: Pupils: EOM: Resp Effort & Inspection: Auscultation: Cardio Rate: Rhythm: GI Inspection: Palpation: Auscultation: Skin General skin exam: Neuro General: Cognition: Speech: Gait: Motor: Extrem General: DS: Data Vitals/I&O Vitals and I&O: Vital Signs Temp 36.1 C L 07/19/18 03:00 Pulse 84 07/19/18 03:00 Resp 16 07/19/18 03:00 BP 105/71 07/19/18 03:00 Pulse Ox 97 07/19/18 03:00 Intake & Output 07/18/18 07/19/18 07/19/18 23:59 11:59 23:59 Intake Total 1521.667 / 1521.667 968.333 / 968.333 Output Total 1500 / 1500 1300 / 1300 Balance 21.667 / 21.667 -331.667 / -331.667 Intake: IV 1281.667 / 1281.667 768.333 / 768.333 Oral 240 / 240 200 / 200 Output: Urine 1500 / 1500 1300 / 1300 Other: Urine Color Yellow Yellow Urine Appearance Clear Sediment Labs on day of discharge: Labs from last 24 hours 07/19/18 05:46 Sodium 135 L Potassium 3.9 Chloride 101 Carbon Dioxide 25.0 Anion Gap 9.0 BUN 30 H Creatinine 1.58 H Estimated GFR/1.73 m2 32.82 Glucose 118 H Calcium 9.0 Documented by User: Alex Soto 07/20/18 16:11 Discharge Plan Disposition Patient Disposition: HOME Condition: Improving Discharge Details Reason For Visit: MIGRAINE Admit Date/Time: 07/17/18 21:11 Admit Provider: Piero Reid Attending Provider: Piero Reid Primary Care Provider: Xochilt Mcdaniel [facility] Course Hospital Course: Patient is a 67-year-old female with history of migraine prior to this past June who used to take Indocin on a as needed basis with excellent results. At that time she apparently had an episode of rhabdomyolysis, from a period of prolonged immobilization, and developed acute renal failure. This resolved and part with some residual renal insufficiency and she states that she was instructed not to take Indocin any longer and since that time she just suffers through her headaches, nothing else seems to work and with this episode she presented to the emergency department with severe headache, bitemporal associated with nausea, vomiting and photophobia. A head CT taken in the emergency department showed a nodular appearance to her left ICA bifurcation with her left MCA suggestive of a possible aneurysm of the bifurcation. She was treated with steroids, Benadryl and Dilaudid with only limited effect. She was admitted to hospitalist services for further evaluation and management of her intractable pain. On hospital day #1 she continued to have severe headaches, nausea and vomiting. She has been unable to tolerate oral meds. According the patient's daughter the patient's had about 3 migraine headaches in the past month. She was most recently hospitalized at [facility] June 19 - June 21, 2018 due to uncontrolled hypertension and migraine headaches. At the time of discharge her blood pressure was well controlled on losartan 50 mg daily and propranolol 160 mg daily. During that hospitalization she had an evaluation of her kidneys with the renal artery duplex scan she was found to have an atrophic left kidney with low flow suspicious for stenosis. She also had a CT scan of her head without contrast and MRI scan of her head without contrast. CT of her head showed no acute hemorrhage or mass-effect. MRI without contrast showed substantial improvement and resolution of areas of white matter signal intensity previously seen in the left occipital/temporal area associated with her diagnosis of posterior reversible encephalopathy. Noncontrast CT scan of her head in the emergenc department demonstrated a nodular appearance to her left ICA bifurcation with her left MCA suggestive of a possible aneurysm of the bifurcation. Follow-up MRA or CTA was recommended. Hospital day 2 she is pain free. her diet has been advanced and her colon catheter removed. She did void post removal without difficulty. She was eating and drinking and bladder functioning. She is voicing no new c/o and is stable for discharge to home. She will be advised to resume her usual home medications and is scheduled to be seen at [facility] in follow up which was previously scheduled. She will be referred for outpatient MRA brain to evaluate possible aneurysm. Home Meds and New Rx's Prescriptions: Continue diphenhydramine HCl [Benadryl] 25 MG capsule 25 mg PO Q6H PRN RF: 0 prochlorperazine maleate 5 MG tablet 5 mg PO Q8H PRN Qty: 30 RF: 3 diltiazem HCl 60 mg Capsule,Extended Release 12 Hr 120 mg PO BID RF: 0 acetaminophen [Mapap Extra Strength] 500 MG tablet 1,000 mg PO TID PRNRF: 0 losartan 50 MG tablet 50 mg PO DAILY RF: 0 nicotine 1 EACH patch 24 hour 1 ea Transdermal PRN PRNRF: 0 Discharge Instructions Instructions: Migraine Headache (DC) Additional Instructions: resume usual medications as directed. push fluids to stay well hydrated. drink at least 6-8 glasses of water daily to stay well hydrated. recommend MRA of brain as outpatient. Keep scheduled follow up appointment at [facility] for Saturday, July 21, 2018, return to ED for new or worsening symptoms. Stand Alone Forms: Nursing Discharge Form Referrals: Xochilt Mcdaniel [Primary Care Provider] - (Please call your PCP to schedule a follow up appointment for within one or two weeks. [phone]) Activity:: Activity as Tolerated Equipment/Supplies:: No Equipment Needed Diet:: resume usual diet Discharge Orders Discharge Orders: Discharge Order (Routine); Ordered 07/19/18 Ordered By: Kelsey Valera Other Ambulatory Orders: MR brain wo (Routine) Location: [facility] Ordered By: Kelsey Valera Discharge Data Discharge Date/Time-TO BE ENTERED AT DEPARTURE: 07/19/18 14:08 Documented by User: Alex Soto 07/20/18 16:11 Documented by User: Kelsey Valera NP 07/19/18 12:59 Date of service: Time of Service: Exam Const General: Nutritional Appearance: Orientation: [facility] Head: Ears: Mouth: Eyes General: Pupils: EOM: Resp Effort & Inspection: Auscultation: Cardio Rate: Rhythm: GI Inspection: Palpation: Auscultation: Skin General skin exam: Neuro General: Cognition: Speech: Gait: Motor: Extrem General: DS: Data Vitals/I&O Vitals and I&O: Vital Signs Temp 36.1 C L 07/19/18 03:00 Pulse 84 07/19/18 03:00 Resp 16 07/19/18 03:00 BP 105/71 07/19/18 03:00 Pulse Ox 97 07/19/18 03:00 Intake & Output 07/18/18 07/19/18 07/19/18 23:59 11:59 23:59 Intake Total 1521.667 / 1521.667 968.333 / 968.333 Output Total 1500 / 1500 1300 / 1300 Balance 21.667 / 21.667 -331.667 / -331.667 Intake: IV 1281.667 / 1281.667 768.333 / 768.333 Oral 240 / 240 200 / 200 Output: Urine 1500 / 1500 1300 / 1300 Other: Urine Color Yellow Yellow Urine Appearance Clear Sediment Labs on day of discharge: Labs from last 24 hours 07/19/18 05:46 Sodium 135 L Potassium 3.9 Chloride 101 Carbon Dioxide 25.0 Anion Gap 9.0 BUN 30 H Creatinine 1.58 H Estimated GFR/1.73 m2 32.82 Glucose 118 H Calcium 9.0 Documented by User: Alex Soto 07/20/18 16:11 Discharge Plan Disposition Patient Disposition: HOME Condition: Improving Discharge Details Reason For Visit: MIGRAINE Admit Date/Time: 07/17/18 21:11 Admit Provider: Piero Reid Attending Provider: Piero Reid Primary Care Provider: Xochilt [facility]cdaniel [facility] Hospital Course: Patient is a 67-year-old female with history of migraine prior to this past June who used to take Indocin on a as needed basis with excellent results. At that time she apparently had an episode of rhabdomyolysis, from a period of prolonged immobilization, and developed acute renal failure. This resolved and part with some residual renal insufficiency and she states that she was instructed not to take Indocin any longer and since that time she just suffers through her headaches, nothing else seems to work and with this episode she presented to the emergency department with severe headache, bitemporal associated with nausea, vomiting and photophobia. A head CT taken in the emergency department showed a nodular appearance to her left ICA bifurcation with her left MCA suggestive of a possible aneurysm of the bifurcation. She was treated with steroids, Benadryl and Dilaudid with only limited effect. She was admitted to hospitalist services for further evaluation and management of her intractable pain. On hospital day #1 she continued to have severe headaches, nausea and vomiting. She has been unable to tolerate oral meds. According the patient's daughter the patient's had about 3 migraine headaches in the past month. She was most recently hospitalized at [facility] June 19 - June 21, 2018 due to uncontrolled hypertension and migraine headaches. At the time of discharge her blood pressure was well controlled on losartan 50 mg daily and propranolol 160 mg daily. During that hospitalization she had an evaluation of her kidneys with the renal artery duplex scan she was found to have an atrophic left kidney with low flow suspicious for stenosis. She also had a CT scan of her head without contrast and MRI scan of her head without contrast. CT of her head showed no acute hemorrhage or mass-effect. MRI without contrast showed substantial improvement and resolution of areas of white matter signal intensity previously seen in the left occipital/temporal area associated with her diagnosis of posterior reversible encephalopathy. Noncontrast CT scan of her head in the emergenc department demonstrated a nodular appearance to her left ICA bifurcation with her left MCA suggestive of a possible aneurysm of the bifurcation. Follow-up MRA or CTA was recommended. Hospital day 2 she is pain free. her diet has been advanced and her colon catheter removed. She did void post removal without difficulty. She was eating and drinking and bladder functioning. She is voicing no new c/o and is stable for discharge to home. She will be advised to resume her usual home medications and is scheduled to be seen at [facility] in follow up which was previously scheduled. She will be referred for outpatient MRA brain to evaluate possible aneurysm. Home Meds and New Rx's Prescriptions: Continue diphenhydramine HCl [Benadryl] 25 MG capsule 25 mg PO Q6H PRN RF: 0 prochlorperazine maleate 5 MG tablet 5 mg PO Q8H PRN Qty: 30 RF: 3 diltiazem HCl 60 mg Capsule,Extended Release 12 Hr 120 mg PO BID RF: 0 acetaminophen [Mapap Extra Strength] 500 MG tablet 1,000 mg PO TID PRNRF: 0 losartan 50 MG tablet 50 mg PO DAILY RF: 0 nicotine 1 EACH patch 24 hour 1 ea Transdermal PRN PRNRF: 0 Discharge Instructions Instructions: Migraine Headache (DC) Additional Instructions: resume usual medications as directed. push fluids to stay well hydrated. drink at least 6-8 glasses of water daily to stay well hydrated. recommend MRA of brain as outpatient. Keep scheduled follow up appointment at [facility] for Friday, July 21, 2018, return to ED for new or worsening symptoms. Stand Alone Forms: Nursing Discharge Form Referrals: Xochilt Mcdaniel [Primary Care Provider] - (Please call your PCP to schedule a follow up appointment for within one or two weeks. [phone]) Activity:: Activity as Tolerated Equipment/Supplies:: No Equipment Needed Diet:: resume usual diet Discharge Orders Discharge Orders: Discharge Order (Routine); Ordered 07/19/18 Ordered By: Kelsey Valera Other Ambulatory Orders: MR brain wo (Routine) Location: [facility] Ordered By: Kelsey Valera Discharge Data Discharge Date/Time-TO BE ENTERED AT DEPARTURE: 07/19/18 14:08
--- NOTE | 2018-07-19 13:03 | DSE_ITS ---
DS: Diagnosis Discharge Diagnosis (1) Migraine: Status: Chronic (2) Abnormal CT scan, head: Status: Acute (3) Essential hypertension: Status: Acute Discharge Plan Disposition Patient Disposition: HOME Condition: Improving Discharge Details Reason For Visit: MIGRAINE Admit Date/Time: 07/17/18 21:11 Admit Provider: Piero Reid Attending Provider: Piero Reid Primary Care Provider: [facility] Hospital Course: Patient is a 67-year-old female with history of migraine prior to this past June who used to take Indocin on a as needed basis with excellent results. At that time she apparently had an episode of rhabdomyolysis, from a period of prolonged immobilization, and developed acute renal failure. This resolved and part with some residual renal insufficiency and she states that she was instructed not to take Indocin any longer and since that time she just suffers through her headaches, nothing else seems to work and with this episode she presented to the emergency department with severe headache, bitemporal associated with nausea, vomiting and photophobia. A head CT taken in the emergency department showed a nodular appearance to her left ICA bifurcation with her left MCA suggestive of a possible aneurysm of the bifurcation. She was treated with steroids, Benadryl and Dilaudid with only limited effect. She was admitted to hospitalist services for further evaluation and management of her intractable pain. On hospital day #1 she continued to have severe headaches, nausea and vomiting. She has been unable to tolerate oral meds. According the patient's daughter the patient's had about 3 migraine headaches in the past month. She was most recently hospitalized at [facility] June 19 - June 21, 2018 due to uncontrolled hypertension and migraine headaches. At the time of discharge her blood pressure was well controlled on losartan 50 mg daily and propranolol 160 mg daily. During that hospitalization she had an evaluation of her kidneys with the renal artery duplex scan she was found to have an atrophic left kidney with low flow suspicious for stenosis. She also had a CT scan of her head without contrast and MRI scan of her head without contrast. CT of her head showed no acute hemorrhage or mass-effect. MRI without contrast showed substantial improvement and resolution of areas of white matter signal intensity previously seen in the left occipital/temporal area associated with her diagnosis of posterior reversible encephalopathy. Noncontrast CT scan of her head in the emergenc department demonstrated a nodular appearance to her left ICA bifurcation with her left MCA suggestive of a possible aneurysm of the bifurcation. Follow-up MRA or CTA was recommended. Hospital day 2 she is pain free. her diet has been advanced and her colon catheter removed. She did void post removal without difficulty. She was eating and drinking and bladder functioning. She is voicing no new c/o and is stable for discharge to home. She will be advised to resume her usual home medications and is scheduled to be seen at [facility] in follow up which was previously scheduled. She will be referred for outpatient MRA brain to evaluate possible aneurysm. Home Meds and New Rx's Prescriptions: Continue diphenhydramine HCl [Benadryl] 25 MG capsule 25 mg PO Q6H PRN RF: 0 prochlorperazine maleate 5 MG tablet 5 mg PO Q8H PRN Qty: 30 RF: 3 diltiazem HCl 60 mg Capsule,Extended Release 12 Hr 120 mg PO BID RF: 0 acetaminophen [Mapap Extra Strength] 500 MG tablet 1,000 mg PO TID PRNRF: 0 losartan 50 MG tablet 50 mg PO DAILY RF: 0 nicotine 1 EACH patch 24 hour 1 ea Transdermal PRN PRNRF: 0 Discharge Instructions Instructions: Migraine Headache (DC) Additional Instructions: resume usual medications as directed. push fluids to stay well hydrated. drink at least 6-8 glasses of water daily to stay well hydrated. recommend MRA of brain as outpatient. Keep scheduled follow up appointment at [facility] for Saturday, July 21, 2018, return to ED for new or worsening symptoms. Stand Alone Forms: Nursing Discharge Form Referrals: Xochilt Mcdaniel [Primary Care Provider] - (Please call your PCP to schedule a follow up appointment for within one or two weeks. [phone]) Activity:: Activity as Tolerated Equipment/Supplies:: No Equipment Needed Diet:: resume usual diet Discharge Orders Discharge Orders: Discharge Order (Routine); Ordered 07/19/18 Ordered By: Kelsey Valera Other Ambulatory Orders: MR brain wo (Routine) Location: [facility] [address] Ordered By: Kelsey Valera Exam Const General: cooperative, healthy appearing, comfortable and no acute distress Nutritional Appearance: average body habitus Orientation: alert, awake and oriented x3 HENMT Head: normal to inspection and atraumatic Mouth: moist mucous membranes Eyes General: appearance normal, both eyes and all related structures Pupils: PERRL EOM: EOM intact bilaterally Resp Effort & Inspection: normal respiratory effort Auscultation: clear to auscultation bilaterally Cardio Rate: regular rate Rhythm: regular rhythm GI Inspection: normal to inspection Palpation: soft Auscultation: normal bowel sounds Skin General skin exam: no rashes or lesions noted Neuro General: alert, awake and CN's II-XI intact bilaterally Cognition: normal cognition Speech: speech normal Gait: normal gait Motor: muscle tone normal throughout and strength 5/5 throughout Extrem General: normal to inspection and full ROM DS: Data Vitals/I&O Vitals and I&O: Vital Signs Temp 36.1 C L 07/19/18 03:00 Pulse 84 07/19/18 03:00 Resp 16 07/19/18 03:00 BP 105/71 07/19/18 03:00 Pulse Ox 97 07/19/18 03:00 Intake & Output 07/18/18 07/19/18 07/19/18 23:59 11:59 23:59 Intake Total 1521.667 / 1521.667 968.333 / 968.333 Output Total 1500 / 1500 1300 / 1300 Balance 21.667 / 21.667 -331.667 / -331.667 Intake: IV 1281.667 / 1281.667 768.333 / 768.333 Oral 240 / 240 200 / 200 Output: Urine 1500 / 1500 1300 / 1300 Other: Urine Color Yellow Yellow Urine Appearance Clear Sediment Labs on day of discharge: Labs from last 24 hours 07/19/18 05:46 Sodium 135 L Potassium 3.9 Chloride 101 Carbon Dioxide 25.0 Anion Gap 9.0 BUN 30 H Creatinine 1.58 H Estimated GFR/1.73 m2 32.82 Glucose 118 H Calcium 9.0
[2018-07-19 13:29] VITALS: PULSE 87
--- NOTE | 2018-07-19 14:33 | PDOC.CMDIS ---
LACE Index Scoring Tool - Questions: Length of Stay (in days): 2 Acuity (Admit via E.D.?): Yes Comorbidities: Mild Liver/Renal Disease E.D. Visits: 5 - Answers: Total Score: 11 Risk of Readmission: High Risk Care Management Discharge Reason for Hospitalization: Migraine Discharge Plan: Levy will return home when ready per MD. She will follow up as an outpatient for an MRA and with her providers; no additional services anticipated at this time. She will transport home with family. Patient/Family Education Needs: Review discharge instructions, discuss Ask Me Three; Levy reports she has nicotene replacement at home and will resume use of her medical marijuana to manage her symptoms. She reports feeling confident about managing her needs at home.
[2018-09-01] MEDS: Normal Saline Flush 10 ML SYR IVP (13:59)
== END 2018-07-19 14:08 | disposition home or self-care (01) ==
LOC: ER 22:04 → MS 07-19 10:24
PROVIDERS: Admitting Provider General Practice; Emergency Provider Emergency Medicine; PCP Nurse Practitioner Family; Visit Provider Internal Medicine
DX: G43.909 Migraine, unspecified, not intractable, without status migrainosus (principal); R93.0 Abnormal findings on diagnostic imaging of skull and head, not elsewhere classified; I10 Essential (primary) hypertension; N28.9 Disorder of kidney and ureter, unspecified; I67.83 Posterior reversible encephalopathy syndrome
CPT/HCPCS: 36415; 80048; 80051; 80053; 93005; 96361; 96374; 96375; 99222; 99226; 99238; 99285; NC; 70450; 85025; 93010; 99219; G0378; J0131; J0780; J1100; J1200; J1885; J2060; J2405; J2765

== ENCOUNTER → 2018-08-03 13:39 | Outpatient (BNVA) | payer MEDICARE, MEDICAID, SELFPAY | PROVIDERS: Visit Provider Nurse Practitioner Adult Health | DX: G43.009 Migraine without aura, not intractable, without status migrainosus (principal); G43.109 Migraine with aura, not intractable, without status migrainosus | CPT/HCPCS: 99213 ==

== ENCOUNTER 2018-08-03 14:39 | Outpatient (CLI) | payer MEDICARE, MEDICAID, SELFPAY ==
[2018-08-03 15:35] LABS: Anion Gap 11.4 mmol/L (3-11); BUN 26 mg/dL (7-18); CO2 27.6 mmol/L (21.0-32.0); CREATININE 2.07 mg/dL (0.55-1.02); Calcium 9.1 mg/dL (8.5-10.1); Chloride 102 mmol/L (98-107); Estimated GFR 24.03 (mL/min/1.73m2); Glucose 95 mg/dL (70-100); Potassium 3.8 mmol/L (3.5-5.1); Sodium 141 mmol/L (136-145)
== END 2018-08-03 14:59 ==
PROVIDERS: PCP Nurse Practitioner Family; Visit Provider Internal Medicine Nephrology
DX: N17.9 Acute kidney failure, unspecified (principal); I10 Essential (primary) hypertension; G43.009 Migraine without aura, not intractable, without status migrainosus; G43.109 Migraine with aura, not intractable, without status migrainosus
CPT/HCPCS: 36415; 80048; 99213

== ENCOUNTER 2018-08-06 13:19 | Inpatient (IN) | payer MEDICARE, MEDICAID, SELFPAY ==
[2018-08-06] VITALS (19 sets, daily range): BP systolic 115–176; BP diastolic 43–93; PULSE 84–107; RESP 11–20; TEMP 36.4–37; O2SAT 94–99
[2018-08-06] MEDS: Normal Saline 500 ML IV (14:18)
--- NOTE | 2018-08-06 14:24 | ED.GENADUL_ITS ---
Discharge Plan Disposition Patient Disposition: [facility] Condition: Stable Discharge Details Chief Complaint: GI Bleed Clinical Impression: Acute GI bleeding Primary Care Provider: Xochilt Mcdaniel ED Provider: Tal Ramires Home Meds and New Rx's Prescriptions: No Action diphenhydramine HCl [Benadryl] 25 MG capsule 25 mg PO Q6H PRN RF: 0 prochlorperazine maleate 5 MG tablet 5 mg PO Q8H PRN Qty: 30 RF: 3 diltiazem HCl 60 mg Capsule,Extended Release 12 Hr 120 mg PO BID RF: 0 acetaminophen [Mapap Extra Strength] 500 MG tablet 1,000 mg PO TID PRNRF: 0 nicotine 1 EACH patch 24 hour 1 ea Transdermal PRN PRNRF: 0 losartan 50 mg tablet 100 mg PO DAILY RF: 0 Medical Decision Making Patient presenting to the emergency department for chief complaint of GI bleed. Patient states that yesterday she noted a small amount of bright red blood when she wiped after bowel movement then this morning she noted a larger amount of blood. Patient denies any other symptoms including irregular heartbeat, chest pain, abdominal pain urinary or vaginal symptoms. Patient has an unremarkable physical exam except for Hemoccult positive on rectal examination, and abdominal aortic and renal bruits are heard otherwise no tenderness to palpation of the abdomen, no cardiac or other respiratory signs noted. Patient is mildly tachycardic with vital signs. Patient does have history of only having one kidney and some renal insufficiency. Plan to check labs, and give 500 mL's of normal saline and continue to reassess patient. Patient is not on any blood thinners and cannot take NSAIDs due to her CKD. Patient is thin so abdominal bruit is hard to fully assess but no significant mass is noted, no upper GI surgeries in the past so I doubt fistula formation and bleeding is not brisk so I do not feel that any emergent CT imaging is needed at this time. Review of labs show a 2-2-1/2 point drop in her hemoglobin, mild leukocytosis, and stable renal insufficiency that shows no significant change. Given a drop in her hemoglobin from less than a month ago and active bleeding symptoms along with tachycardia which is somewhat improved after fluids but not fully resolved I do feel that patient may need further testing including colonoscopy so surgery was contacted. I do not feel that CT imaging is required at this time. Spoke with Dr. Purcell who agreed to accept the patient and did not make any other further recommendations beyond some IV fluids and holding orders for patient to go to [facility] for further observation, repeat labs, and possible colonoscopy tomorrow morning. Discussed admission with the patient which she agreed with this plan of care and otherwise patient remained stable so I feel that patient does not require ICU admission or any transfusion at this time. HPI General Mode of arrival: ambulatory . Date/Time Provider Initiated Documentation: 08/06/18 13:19 . Limitations to Documentation: no limitations . Information obtained by: patient, RN notes reviewed and old records reviewed . History of Present Illness 67 year old F presents to the emergency department with the chief complaint of GI, described as mild, Quality is described as other, Patient started experiencing this day(s) (1) and it has been intermittent. No relieving factors improve symptom(s), No exacerbating factors reported . Patient notes no other symptoms.. Patient did receive the following treatments prior to arrival, none Related Data Home Medications Medication Instructions Recorded Confirmed diphenhydramine HCl [Benadryl] 25 mg PO Q6H PRN tab-cap 02/11/18 08/06/18 acetaminophen [Mapap Extra 1,000 mg PO TID PRN 02/18/18 08/06/18 Strength] nicotine 1 ea TRANSDERMAL PRN PRN 06/14/18 08/06/18 prochlorperazine maleate 5 mg PO Q8H PRN #30 tab-cap 06/25/18 08/06/18 diltiazem HCl 120 mg PO BID 07/17/18 08/06/18 losartan 50 mg tablet 100 mg PO DAILY tab 08/03/18 08/06/18 Previous Rx's Medication Instructions Recorded prochlorperazine maleate 5 mg PO Q8H PRN #30 tab-cap 06/25/18 Allergies Allergy/AdvReac Type Severity Reaction Status Date / Time albuterol sulfate Allergy Intermediate chest pain Unverified 08/06/18 14:17 [From Proventil HFA] modafinil [From Provigil] Allergy Intermediate trouble Unverified 08/06/18 14:17 breathing strawberry Allergy hives Unverified 08/06/18 14:17 aspirin AdvReac Severe when Unverified 08/06/18 14:17 taken orally I get bleeding ulcers amitriptyline AdvReac Unknown Out in Unverified 08/06/18 14:17 outter space, really messed with my head duloxetine HCl AdvReac diarrhea, Unverified 08/06/18 14:17 [From Cymbalta] vomiting General Stated Complaint: GI Bleed DENG: 2 Review of Systems Constitutional Reports chills, Reports fever(s), Denies frequent falls, Denies headache(s) and Denies poor appetite ENT Denies dizziness and Denies headache(s) Cardiovascular Denies chest pain, Denies syncope and Denies dyspnea Respiratory Denies dyspnea Gastrointestinal Reports as per HPI, Denies abdominal pain, Reports melena, Denies change in bowel habits, Denies coffee ground emesis, Denies constipation, Denies cramping , Denies diarrhea, Denies loose stools, Reports nausea, Reports vomiting and Denies hematemesis Genitourinary Denies hematuria, Denies urinary incontinence, Denies urinary hesitancy and Denies urinary urgency Integumentary/Breasts Denies rash Neurologic Denies confusion, Denies dizziness, Denies syncope, Denies frequent falls and Denies headache(s) Psychiatric Denies confusion Hematologic/Lymphatic Denies easy bleeding and Denies easy bruising PFSH Medical History Posterior reversible encephalopathy syndrome (Acute) Claudication (Chronic) Chronic pain (Chronic) Chronic kidney disease (Chronic) Irritable bowel syndrome (Chronic) Current tobacco use (Chronic) Chronic osteoarthritis (Chronic ~2004) Migraine headache (Chronic) Hyperlipidemia (Chronic) GERD (gastroesophageal reflux disease) (Chronic) Hypertension (Chronic) Social History Smoking/Tobacco Use Status: Current every day Surgical History Abdominal hysterectomy Colonoscopy - IV Sedation Oophrectomy, Left Exam Const General: cooperative Orientation: alert, awake and oriented x3 Resp Effort & Inspection: normal respiratory effort and able to speak in complete sentences Auscultation: clear to auscultation bilaterally Cardio Rate: regular rate Rhythm: regular rhythm Heart Sounds: S1 normal and S2 normal GI Palpation: soft, no hepatosplenomegaly, not firm, no guarding, no masses, no pulsatile masses, not rigid, no splenomegaly and nontender Auscultation: normal bowel sounds and bruit left renal, right renal and aortic Rectal Exam - female: visual inspection normal, normal sphincter tone, No fecal impaction, No fissure, heme positive stool Rectal exam heme positive - female: 3 +, No hemorrhoids, No laceration, No lesions, No ropey tissue in devon-rectal space and No tenderness Back/Spine/Pelvis Back: no CVA tenderness Neuro General: alert, awake, oriented x3, gait normal and moves all extremities Course Vital Signs Temperature 36.7 C 08/06/18 13:22 Pulse 107 H 08/06/18 13:22 Respiratory Rate 16 08/06/18 13:22 Blood Pressure 176/93 H 08/06/18 13:22 Pulse Oximetry 98 08/06/18 13:22 Temperature 36.7 C 08/06/18 13:22 Temperature Source Skin 08/06/18 13:22 Pulse 107 H 08/06/18 13:22 Respiratory Rate 16 08/06/18 13:22 Respiratory Effort 08/06/18 13:24 Blood Pressure 176/93 H 08/06/18 13:22 Blood Pressure Position Sitting 08/06/18 13:22 Pulse Oximetry 98 08/06/18 13:22 Oxygen Delivery Method Room Air 08/06/18 13:22 Oxygen Flow Rate 0 08/06/18 13:22 Pain Level 0 08/06/18 13:22
[2018-08-06 14:29] LABS: Abs Immature Grans 0.04 k/cumm (0.0-0.09); Absolute Basophil Count 0.05 k/cumm (0.0-0.2); Absolute Eosinophil Count 0.21 k/cumm (0.0-0.7); Absolute Lymphocyte Count 2.26 k/cumm (1.2-3.4); Absolute Monocyte Count 0.46 k/cumm (0.11-0.7); Absolute Neutrophil Count 9.39 k/cumm (1.2-6.7); Basophils % 0.4; Eosinophils % 1.7; HCT 35.5 % (36.0-46.0); Immature Grans % 0.3; Lymphocytes % 18.2; Mean Corp. HGB Concentration 33.8 g/dL (32.0-36.0); Mean Corpuscular Hemoglobin 29.2 pg (27.0-33.0); Mean Corpuscular Volume 86.4 fL (80-95); Mean Platelet Volume 8.9 fL (8.0-11.0); Monocytes % 3.7; Neutrophils % 75.7; Platelet Count 397 x1000/uL (130-400); RBC 4.11 m/cumm (4.00-5.20); RBC Distribution Width 14.1 % (11.7-14.6); White Blood Cell Count 12.41 k/cumm (4.4-10.8)
[2018-08-06 14:34] LABS: ALT 15 U/L (12-78); AST 13 U/L (15-37); Albumin 3.2 g/dL (3.4-5.0); Alkaline Phosphatase 130 U/L (46-116); Anion Gap 9.6 mmol/L (3-11); BUN 21 mg/dL (7-18); Bilirubin, Total 0.3 mg/dL (0.2-1.0); CO2 27.4 mmol/L (21.0-32.0); CREATININE 1.66 mg/dL (0.55-1.02); Calcium 9.3 mg/dL (8.5-10.1); Chloride 101 mmol/L (98-107); Glucose 82 mg/dL (70-100); Lipase 172 U/L (73-393); Potassium 3.4 mmol/L (3.5-5.1); Sodium 138 mmol/L (136-145); Total Protein 7.1 g/dL (6.4-8.2)
[2018-08-06] MEDS: Normal Saline 1,000 ML 150 ML IV (16:31)
--- NOTE | 2018-08-06 17:48 | W.PM.HP.N ---
Date of service: 08/06/18 Time of Service: 17:49 Assessment and Plan (1) Hematochezia: Current visit: Yes Status: Acute 67 y/o female with hematochezia/rectal bleeding. No evidence of hemorrhoids per ED staff. Hemcoccult (+). Suspect lower GI source. No signs/symptoms of UGI bleed. Follow-up CBC in AM. Recommended Miralax bowel prep tonight and colonoscopy on 08/07/18. Procedure for colonoscopy with risks/benefits/alternatives discussed with patient and daughter. These include but are not limited to risks with anesthesia sedation, bleeding, incomplete colonoscopy, biopsy, perforation, and possible additional procedures. All questions answered. Patient and daughter wish for us to proceed. See orders. Patient requested Dr. Luna's office to be notified of her admission. Asked electrical unit rebuilder to notify nephrology office at [facility]. (2) Hypertension: Current visit: No Status: Chronic Patient does not wish to take her Diltiazem tonight as she believes it causes her nausea/vomiting. Monitor BP. Last BP - 128/87. History of Present Illness Chief Complaint: Rectal bleeding Narrative: 67 y/o female seen with her daughter at the bedside. Patient notes that yesterday, she had a small amount of blood on the toilet paper after a bowel movement. Bowel movements have been soft. She denies any diarrhea, constipation, straining, abdominal pain, or rectal pain. Today, she noted more blood on the toilet tissue when she wiped. She denies passing clots or blood in the bowl. She notes that the blood was mixed in with the stool. Per the ED staff, her stool was reddish-brown and hemoccult (+). She is not on any anticoagulation. She has a h/o renal insufficiency and only has 1 functional kidney. SHe if followede by nephrology (Dr. Luna(?)) at [facility]. She notes that she was just started on Diltiazem by her PCP about 4-5 weeks ago and has had nausea and vomiting which she attributes to the Diltiazem. She denies any hematemesis or coffee-ground emesis. She last had a colonoscopy here at [facility] about 5-[address] Fernandes. She states that random biopsies were done which were (-). She denies any h/o polyps. She denies any [facility] colon cancer or IBD. Review of Systems Review of Systems All systems reviewed & are unremarkable except as noted in HPI and below Constitutional Denies chills and Denies fever(s) Eyes Reports other (cataracts) Cardiovascular Denies chest pain, Denies rapid heart rate and Denies dyspnea Respiratory Denies dyspnea Gastrointestinal Denies abdominal pain, Denies melena, Reports hematochezia, Denies constipation, Denies diarrhea, Reports nausea, Reports vomiting and Denies hematemesis Genitourinary Denies hematuria and Denies dysuria PFSH Medical History Posterior reversible encephalopathy syndrome (Acute) Claudication (Chronic) Chronic pain (Chronic) Chronic kidney disease (Chronic) Irritable bowel syndrome (Chronic) Current tobacco use (Chronic) Chronic osteoarthritis (Chronic ~2004) Migraine headache (Chronic) Hyperlipidemia (Chronic) GERD (gastroesophageal reflux disease) (Chronic) Hypertension (Chronic) Social History Smoking/Tobacco Use Status: Current every day Surgical History Abdominal hysterectomy Colonoscopy - IV Sedation Oophrectomy, Left Meds Home Medications Medication Instructions Recorded Confirmed Type diphenhydramine HCl [Benadryl] 25 mg PO Q6H PRN tab-cap 02/11/18 08/06/18 History acetaminophen [Mapap Extra 1,000 mg PO TID PRN 02/18/18 08/06/18 History Strength] nicotine 1 ea TRANSDERMAL PRN PRN 06/14/18 08/06/18 History prochlorperazine maleate 5 mg PO Q8H PRN #30 tab-cap 06/25/18 08/06/18 Rx diltiazem HCl 120 mg PO BID 07/17/18 08/06/18 History losartan 50 mg tablet 100 mg PO DAILY tab 08/03/18 08/06/18 History Allergies Allergy/AdvReac Type Severity Reaction Status Date / Time albuterol sulfate Allergy Intermediate chest pain Unverified 08/06/18 14:17 [From Proventil HFA] modafinil [From Provigil] Allergy Intermediate trouble Unverified 08/06/18 14:17 breathing strawberry Allergy hives Unverified 08/06/18 14:17 aspirin AdvReac Severe when Unverified 08/06/18 14:17 taken orally I get bleeding ulcers amitriptyline AdvReac Unknown Out in Unverified 08/06/18 14:17 outter space, really messed with my head duloxetine HCl AdvReac diarrhea, Unverified 08/06/18 14:17 [From Cymbalta] vomiting Exam Const General: cooperative, comfortable, no acute distress and well developed Orientation: alert and oriented x3 [facility] Head: normocephalic and atraumatic Eyes Sclera: sclerae normal Resp Effort & Inspection: normal respiratory effort, able to speak in complete sentences and no respiratory distress Auscultation: clear to auscultation bilaterally Cardio Jugular venous pressure: no JVD Rate: regular rate Rhythm: regular rhythm GI Palpation: soft, not firm, no guarding, no masses, not rigid and nontender Auscultation: normal bowel sounds Skin General skin exam: no jaundice Lesions: no lesions Results Labs : 08/06/18 14:05 08/06/18 14:05 Laboratory Results - last 24 hr 08/06/18 08/06/18 08/06/18 14:05 14:05 14:05 WBC 12.41 H RBC 4.11 Hgb 12.0 Hct 35.5 L MCV 86.4 MCH 29.2 MCHC 33.8 RDW 14.1 Plt Count 397 MPV 8.9 Immature Gran % 0.3 Neutrophils % 75.7 Lymphocytes % 18.2 Monocytes % 3.7 Eosinophils % 1.7 Basophils % 0.4 Absolute Neutrophils 9.39 H Absolute Lymphocytes 2.26 Absolute Monocytes 0.46 Absolute Eosinophils 0.21 Absolute Basophils 0.05 Sodium 138 Potassium 3.4 L Chloride 101 Carbon Dioxide 27.4 Anion Gap 9.6 BUN 21 H Creatinine 1.66 H Estimated GFR/1.73 m2 31.00 Glucose 82 Calcium 9.3 Total Bilirubin 0.3 AST 13 L ALT 15 Alkaline Phosphatase 130 H Total Protein 7.1 Albumin 3.2 L Lipase 172 Patient ABO/Rh O Positive Antibody Screen Negative
[2018-08-06] MEDS: Bisacodyl 5 MG TABEC 10 MG PO (18:01)
[2018-08-06] MEDS: Polyethylene Glycol 3350 238 GM BTL PO (18:01)
--- NOTE | 2018-08-06 18:07 | HPE_ITS ---
Date of service: 08/06/18 Time of Service: 17:49 Assessment and Plan (1) Hematochezia: Current visit: Yes Status: Acute 67 y/o female with hematochezia/rectal bleeding. No evidence of hemorrhoids per ED staff. Hemcoccult (+). Suspect lower GI source. No signs/ symptoms of UGI bleed. Follow-up CBC in AM. Recommended Miralax bowel prep tonight and colonoscopy on 08/07/18. Procedure for colonoscopy with risks/ benefits/alternatives discussed with patient and daughter. These include but are not limited to risks with anesthesia sedation, bleeding, incomplete colonoscopy, biopsy, perforation, and possible additional procedures. All questions answered. Patient and daughter wish for us to proceed. See orders. Patient requested Dr. Luna's office to be notified of her admission. Asked unit nurse to notify nephrology office at [facility]. (2) Hypertension: Current visit: No Status: Chronic Patient does not wish to take her Diltiazem tonight as she believes it causes her nausea/vomiting. Monitor BP. Last BP - 128/87. History of Present Illness Chief Complaint: Rectal bleeding Narrative: 67 y/o female seen with her daughter at the bedside. Patient notes that yesterday, she had a small amount of blood on the toilet paper after a bowel movement. Bowel movements have been soft. She denies any diarrhea, constipation, straining, abdominal pain, or rectal pain. Today, she noted more blood on the toilet tissue when she wiped. She denies passing clots or blood in the bowl. She notes that the blood was mixed in with the stool. Per the ED staff, her stool was reddish-brown and hemoccult (+). She is not on any anticoagulation. She has a h/o renal insufficiency and only has 1 functional kidney. SHe if followede by nephrology (Dr. Luna(?)) at [facility]. She notes that she was just started on Diltiazem by her PCP about 4-5 weeks ago and has had nausea and vomiting which she attributes to the Diltiazem. She denies any hematemesis or coffee-ground emesis. She last had a colonoscopy here at [facility] about 5-[address] Fernandes. She states that random biopsies were done which were (-). She denies any h/o polyps. She denies any [facility] colon cancer or IBD. Review of Systems Review of Systems All systems reviewed & are unremarkable except as noted in HPI and below Constitutional Denies chills and Denies fever(s) Eyes Reports other (cataracts) Cardiovascular Denies chest pain, Denies rapid heart rate and Denies dyspnea Respiratory Denies dyspnea Gastrointestinal Denies abdominal pain, Denies melena, Reports hematochezia, Denies constipation , Denies diarrhea, Reports nausea, Reports vomiting and Denies hematemesis Genitourinary Denies hematuria and Denies dysuria PFSH Medical History Posterior reversible encephalopathy syndrome (Acute) Claudication (Chronic) Chronic pain (Chronic) Chronic kidney disease (Chronic) Irritable bowel syndrome (Chronic) Current tobacco use (Chronic) Chronic osteoarthritis (Chronic ~2004) Migraine headache (Chronic) Hyperlipidemia (Chronic) GERD (gastroesophageal reflux disease) (Chronic) Hypertension (Chronic) Social History Smoking/Tobacco Use Status: Current every day Surgical History Abdominal hysterectomy Colonoscopy - IV Sedation Oophrectomy, Left Meds Home Medications Medication Instructions Recorded Confirmed Type diphenhydramine HCl [Benadryl] 25 mg PO Q6H PRN tab-cap 02/11/18 08/06/18 History acetaminophen [Mapap Extra 1,000 mg PO TID PRN 02/18/18 08/06/18 History Strength] nicotine 1 ea TRANSDERMAL PRN PRN 06/14/18 08/06/18 History prochlorperazine maleate 5 mg PO Q8H PRN #30 tab-cap 06/25/18 08/06/18 Rx diltiazem HCl 120 mg PO BID 07/17/18 08/06/18 History losartan 50 mg tablet 100 mg PO DAILY tab 08/03/18 08/06/18 History Allergies Allergy/AdvReac Type Severity Reaction Status Date / Time albuterol sulfate Allergy Intermediate chest pain Unverified 08/06/18 14:17 [From Proventil HFA] modafinil [From Provigil] Allergy Intermediate trouble Unverified 08/06/18 14:17 breathing strawberry Allergy hives Unverified 08/06/18 14:17 aspirin AdvReac Severe when Unverified 08/06/18 14:17 taken orally I get bleeding ulcers amitriptyline AdvReac Unknown Out in Unverified 08/06/18 14:17 outter space, really messed with my head duloxetine HCl AdvReac diarrhea, Unverified 08/06/18 14:17 [From Cymbalta] vomiting Exam Const General: cooperative, comfortable, no acute distress and well developed Orientation: alert and oriented x3 [facility] Head: normocephalic and atraumatic Eyes Sclera: sclerae normal Resp Effort & Inspection: normal respiratory effort, able to speak in complete sentences and no respiratory distress Auscultation: clear to auscultation bilaterally Cardio Jugular venous pressure: no JVD Rate: regular rate Rhythm: regular rhythm GI Palpation: soft, not firm, no guarding, no masses, not rigid and nontender Auscultation: normal bowel sounds Skin General skin exam: no jaundice Lesions: no lesions Results Labs : 08/06/18 14:05 08/06/18 14:05 Laboratory Results - last 24 hr 08/06/18 08/06/18 08/06/18 14:05 14:05 14:05 WBC 12.41 H RBC 4.11 Hgb 12.0 Hct 35.5 L MCV 86.4 MCH 29.2 MCHC 33.8 RDW 14.1 Plt Count 397 MPV 8.9 Immature Gran % 0.3 Neutrophils % 75.7 Lymphocytes % 18.2 Monocytes % 3.7 Eosinophils % 1.7 Basophils % 0.4 Absolute Neutrophils 9.39 H Absolute Lymphocytes 2.26 Absolute Monocytes 0.46 Absolute Eosinophils 0.21 Absolute Basophils 0.05 Sodium 138 Potassium 3.4 L Chloride 101 Carbon Dioxide 27.4 Anion Gap 9.6 BUN 21 H Creatinine 1.66 H Estimated GFR/1.73 m2 31.00 Glucose 82 Calcium 9.3 Total Bilirubin 0.3 AST 13 L ALT 15 Alkaline Phosphatase 130 H Total Protein 7.1 Albumin 3.2 L Lipase 172 Patient ABO/Rh O Positive Antibody Screen Negative
[2018-08-06] MEDS: Prochlorperazine 5 MG TAB PO (21:59)
--- NOTE | 2018-08-06 22:41 | NUR.NOTE ---
Patient is here due to a gi bleed, she is pleasant cooperative, daughter who is her caregiver accompanies her to the floor. patient is ordered to have a colonoscopy in the morning. She is given two bisacodyl tabs, and a bttle of miralax 234 gm, to be put in to a half gallon of clear fluids for prep. She starts out doing well on prep, but states to me and stated to the md that she may not be able to take the whole prep. At 21 30 she is nauseous and states she cannot finish prep as she is afraid she will thjrow up. This nurse reminds her that if she goes to the procedure room and they find that she is not cleaned out they will send her back to the floor to repeat the clean out. She is undeterred in her thinking, that she cannot finish her prep d/t the nausea. She is given compazine. And encouraged to continue. To this point she states that the compazine has not helped and has not taken any more prep, she has drank about 60 % of the prep, and her stool had become a pink colored liquid Nursing Note:
[2018-08-07] VITALS (16 sets, daily range): BP systolic 116–161; BP diastolic 82–126; PULSE 90–119; RESP 15–20; TEMP 36.7–37.6; O2SAT 95–99
[2018-08-07] MEDS: Prochlorperazine 5 MG TAB PO (05:22)
[2018-08-07] MEDS: Normal Saline 1,000 ML 100 ML IV ×2 (06:00→13:39)
[2018-08-07 07:06] LABS: HCT 34.7 % (36.0-46.0); HGB 11.5 g/dL (12.0-15.5); Mean Corp. HGB Concentration 33.1 g/dL (32.0-36.0); Mean Corpuscular Hemoglobin 28.9 pg (27.0-33.0); Mean Corpuscular Volume 87.2 fL (80-95); Mean Platelet Volume 8.8 fL (8.0-11.0); Platelet Count 372 x1000/uL (130-400); RBC 3.98 m/cumm (4.00-5.20); RBC Distribution Width 14.3 % (11.7-14.6)
[2018-08-07 07:20] LABS: Anion Gap 12.3 mmol/L (3-11); BUN 12 mg/dL (7-18); CO2 22.7 mmol/L (21.0-32.0); CREATININE 1.25 mg/dL (0.55-1.02); Calcium 8.6 mg/dL (8.5-10.1); Chloride 105 mmol/L (98-107); Estimated GFR 43.01 (mL/min/1.73m2); Glucose 83 mg/dL (70-100); Sodium 140 mmol/L (136-145)
[2018-08-07 07:30] LABS: Potassium 2.8 mmol/L (3.5-5.1)
[2018-08-07] MEDS: POTASSIUM CHLORIDE 10 MEQ/100 ML BAG 100 MEQ IVPB ×4 (09:10→12:44)
[2018-08-07] MEDS: Losartan 50 MG TAB 100 MG PO (09:11)
--- NOTE | 2018-08-07 10:07 | PDOC.CMIN ---
- If Service Date Differs Date of service: 08/07/18 Time of Service: 10:07 Care Management Initial Assess REASON FOR HOSPITALIZATION:: GI Bleed PAST MEDICAL HISTORY/PAST SURGICAL HISTORY:: Posterior reversible encephalopathy syndrome (Acute). Claudication (Chronic). Chronic pain (Chronic). Chronic kidney disease (Chronic). Irritable bowel syndrome (Chronic). Current tobacco use (Chronic). Chronic osteoarthritis (Chronic ~2004). Migraine headache (Chronic). Hyperlipidemia (Chronic). GERD (gastroesophageal reflux disease) (Chronic). Hypertension (Chronic). Abdominal hysterectomy. Colonoscopy - IV Sedation. Oophrectomy, Left PREVIOUS FUNCTIONAL STATUS/SOCIAL/FAMILY SUPPORTS:: Levy resides in [place], she states that her daughter recently moved from [place] and is living with her and assisting her at home. Levy states that she has not driven since June and depends on her daughter for assistance with transportation. CURRENT FUNCTIONAL STATUS:: Lying in bed this morning - Levy states that she has a Migraine. She has requested that [facility] notify her Director Of Student Life - Dr. Mya Luna, [facility]- of her stay. has provided [employer], with contact information for Dr. Luna whom is out of the office today. ADVANCE DIRECTIVES:: None on file Has patient been provided with information about the portal?: Yes Did the patient sign up for the portal?: No CODE STATUS:: Full Code INSURANCE COVERAGE / FINANCIAL ISSUES:: Medicare, Medicaid CURRENT HOME/COMMUNITY SERVICES/EQUIPMENT:: Currently Levy has a shower chair, commode, w/c, and walker at home. She states that she was scheduled to meet with [facility] counseling, today in regards to [employer] application - left a VM for Talisha at [facility]. PRIMARY CARE PHYSICIAN:: Xochilt Mcdaniel POTENTIAL DISCHARGE NEEDS:: F/U appointment with Dr. Purcell. ? home health services - unsure at this time if this will be needed. PATIENT/FAMILY EDUCATION NEEDS:: Review DC instructions, any limitations, and ongoing DC planning discussion. Discuss Ask Me Three ANTICIPATED BARRIERS TO DISCHARGE:: None identified at this time TRANSPORTATION:: Levy will return home via private vehicle with her daughter. PLAN:: Levy will return home with ? home health services at time of DC. She will also f/u with MARION Woodall, in regards to options counseling. Levy states that she has sent in an application to [employer] as well. Levy's daughter will transport when ready. Readmission - Within the Past 30 Days Yes or No: Y - Date of First Admission Date of 1st Admission: 07/17/18 - Date of this Admission Date of Admission: 08/06/18 This admission was: Through ED - Speicalist Appointments Have you seen any other specialist since your 1st Admission?: Yes Date you saw the Specialist: 08/03/18 Specialist Seen: neurology - ED visits How many ED visits in the past 12 months: 6 - Assessment for Readmission Summary of readmission circumstances, based upon interviews: Levy was originally admitted 07/17/18 for a migraine. She is now admitted for a GI Bleed. CM is unable to fully assess readmission with Levy as she states she has a migraine at this time and would like to rest. Levy did state that home health services were discontinued as she is no longer in crisis. FERMIN spoke with ARA Dow, whom states that Levy was seen in June by nursing, PT,OT, and VENDING MACHINE ASSEMBLER as she has a compression fracture and there was discussion around early prevention interventions with cardiac monitoring and blood pressure checks., and all goals were completed, was open from 06/12-07/03.
[2018-08-07] MEDS: Ondansetron 4 MG/2 ML VIAL IVP (10:09)
[2018-08-07] MEDS: Normal Saline Flush 10 ML SYR IVP (10:09)
--- NOTE | 2018-08-07 10:39 | PHARADMIT ---
Addendum entered by Tyler Amin III 08/09/18 12:18: Pharmacy Note Subjective Bloody BM yesterday & last night. Objective VS-OK K+2.9 Na-140 SCr-1.32 H&H,WBC,Plts-OK Assessment Potassium 10mEq IV X 4 bolus today. Plan If stable the rest of today andd no more bleeding, possible discharge home kiarra Original Note: Addendum entered by Tyler Amin III 08/08/18 10:32: Pharmacy Note Subjective Patient went to OR yesterday for endoscopy & biopsy. Bleed cauterized and polyp removed. Objective VS-OK K+3.2 SCr-1.46 H&H,Plts,WBC-OK Assessment No medication changes Plan Awaiting surgeon to round Original Note: Admission Pharmacy Clinical Review GI BLEED Code Status Full Code Current Weight Wgt- 48.0 kg Renally Cleared and Narrow Therapeutic Index Meds CRCl~ 34.06 mL/min Meds-OK QTc Value / Action Taken NA BP Control, Fever BP- 133/94 Tmax- 133/94 Tmax- 37.3C Electrolytes reviewed Na- 140 K+2.8 DVT Prophylaxis No GI Bleed Opiate Usage / Scheduled Bowel Regimen Ordered No Yes Plt/SCr for Heparin / Enoxaparin Plts- 372 SCr- 1.25 INR for Warfarin na H/H stable, WBC/Bands H&H- 11.5/34.7 WBC- 8.90 Antibiotic appropriateness none Cultures and Sensitivities none Surgical ABX d/c within 24 hr NA DM control / Insulin Dosing BG- 83 Heart Failure (Check EF%) (CONSUELO's, B-Block, Diuretics) Losartan, IV to PO Switch No Home Meds Reviewed Yes Home Meds Not Ordered Diltiazem, Comments
--- NOTE | 2018-08-07 10:44 | INITIAL_ITS ---
- If Service Date Differs Date of service: 08/07/18 Time of Service: 10:07 Care Management Initial Assess REASON FOR HOSPITALIZATION:: GI Bleed PAST MEDICAL HISTORY/PAST SURGICAL HISTORY:: Posterior reversible encephalopathy syndrome (Acute). Claudication (Chronic). Chronic pain (Chronic ). Chronic kidney disease (Chronic). Irritable bowel syndrome (Chronic). Current tobacco use (Chronic). Chronic osteoarthritis (Chronic ~2004). Migraine headache (Chronic). Hyperlipidemia (Chronic). GERD (gastroesophageal reflux disease) (Chronic). Hypertension (Chronic). Abdominal hysterectomy. Colonoscopy - IV Sedation. Oophrectomy, Left PREVIOUS FUNCTIONAL STATUS/SOCIAL/FAMILY SUPPORTS:: Levy resides in [place], she states that her daughter recently moved from [place] and is living with her and assisting her at home. Levy states that she has not driven since June and depends on her daughter for assistance with transportation. CURRENT FUNCTIONAL STATUS:: Lying in bed this morning - Levy states that she has a Migraine. She has requested that [facility] notify her Cake Froster - Dr. Mya Luna, [facility]- of her stay. has provided [employer], with contact information for Dr. Luna whom is out of the office today. ADVANCE DIRECTIVES:: None on file Has patient been provided with information about the portal?: Yes Did the patient sign up for the portal?: No CODE STATUS:: Full Code INSURANCE COVERAGE / FINANCIAL ISSUES:: Medicare, Medicaid CURRENT HOME/COMMUNITY SERVICES/EQUIPMENT:: Currently Levy has a shower chair, commode, w/c, and walker at home. She states that she was scheduled to meet with [facility] Shepherd counseling, today in regards to [employer] application - left a VM for Talisha at [facility]. PRIMARY CARE PHYSICIAN:: Xochilt Mcdaniel POTENTIAL DISCHARGE NEEDS:: F/U appointment with Dr. Purcell. ? home health services - unsure at this time if this will be needed. PATIENT/FAMILY EDUCATION NEEDS:: Review DC instructions, any limitations, and ongoing DC planning discussion. Discuss Ask Me Three ANTICIPATED BARRIERS TO DISCHARGE:: None identified at this time TRANSPORTATION:: Levy will return home via private vehicle with her daughter. PLAN:: Levy will return home with ? home health services at time of DC. She will also f/u with MRAION Woodall, in regards to options counseling. Levy states that she has sent in an application to [employer] as well. Levy's daughter will transport when ready. Readmission - Within the Past 30 Days Yes or No: Y - Date of First Admission Date of 1st Admission: 07/17/18 - Date of this Admission Date of Admission: 08/06/18 This admission was: Through ED - Speicalist Appointments Have you seen any other specialist since your 1st Admission?: Yes Date you saw the Specialist: 08/03/18 Specialist Seen: neurology - ED visits How many ED visits in the past 12 months: 6 - Assessment for Readmission Summary of readmission circumstances, based upon interviews: Levy was originally admitted 07/17/18 for a migraine. She is now admitted for a GI Bleed. CM is unable to fully assess readmission with Levy as she states she has a migraine at this time and would like to rest. Levy did state that home health services were discontinued as she is no longer in crisis. FERMIN spoke with ARA Dow, whom states that Levy was seen in June by nursing, PT,OT, and MRB ENGINEER as she has a compression fracture and there was discussion around early prevention interventions with cardiac monitoring and blood pressure checks., and all goals were completed, was open from 06/12-07/03.
--- NOTE | 2018-08-07 12:55 | BOWEL_PTH ---
PATIENT: Levy Nugent LOC: [place] Tam#:[id number] AGE/SX: 67/F ROOM: RE08/06/[address]: Mariola Locke MD : [id number] BED: A DIS: 08/10/2018 SPEC #: [id number] RECD: 08/07/18 17:05 STATUS: ELIEL REQ #: [id number] MIKAYLA: 08/07/18 12:[address]: Jordan Purcell DEPT: Surgical Specimen RECD BY: Lilian Burciaga ENTERED: 08/07/18 17:07 SP TYPE: Bowel OTHR DR: Xochilt Mcdaniel Tissues: 1 - BIOPSY BOWEL 2 - BIOPSY BOWEL 3 - BIOPSY BOWEL Procedures: GROSS AND MICRO LEVEL 4 Comments: [id number]
--- NOTE | 2018-08-07 13:56 | W.PM.OP ---
Date of service: 08/07/18 Time of Service: 13:57 Operative Note DATE OF PROCEDURE: 08/07/18 PRE-OP DIAGNOSIS: Lower GI bleed POST-OP DIAGNOSIS: same PROCEDURE: Colonoscopy with cold and hot biopsy and cold snare polypectomy SURGEON: Jordan Purcell ANESTHESIA: MAC ESTIMATED BLOOD LOSS: 1 PATHOLOGY: other (cecal biopsy, ascending colon hot biopsy, descending colon cold polypectomy) COMPLICATIONS: None Patient was transported to: PACU Patient's condition: stable Indications: 67 y/o female who was admitted through the ED with a 1 day history of hematochezia/rectal bleeding. Patient presents at this time for a colonoscopy. Endoscopic procedure including risks, benefits, and alternatives had been discussed with the patient and informed consent obtained prior to endoscopy. Findings: Mild inflammation in the cecum - cold biopsy. ?AVM. Friable, erythematous spot with visible oozing in the ascending colon - hot biopsy/cauterization. Descending colon polyp - cold snare polypectomy. Procedure Description: Patient was brought to the endoscopy suite and placed in the left lateral decubitus position. Patient was placed under monitored anesthesia care. Time out performed per protocol. Digital rectal exam was performed. Normal rectal tone without significant hemorrhoids noted. Rust colored liquid stool noted on glove. No masses palpated. The colonoscope was introduced and advanced up to the cecum. Pressure was applied to the left abdominal wall to facilitate passage of the scope. Landmarks of the ileocecal valve and appendiceal orifice were identified. Bowel prep was fair. There was a thin layer of stool coating the mucosa in the cecum which was irrigated to inspect the underlying mucosa. The mucosa appeared mildly inflamed and a biopsy was taken. Mucosa was carefully examined as the scope was slowly withdrawn. In the ascending colon, there was noted to be a red, erythematous spot suspicious for a small AVM. This area was irrrigated and oozing was noted. The hot biopsy forceps with cautery set at 20 for coagulation was applied x 2. A small biopsy was obtained. No further signs of bleeding or oozing noted. The scope was further withdrawn to the descending colon at ~ 85 cm where a polyp was identified. This was removed with a cold snare polypectomy. Scope was then withdrawn to the rectum and retroflexed prior to removal. No additional abnormalities noted. No other signs of bleeding. Patient tolerated the procedure well and was transferred to recovery in satisfactory condition.
[2018-08-07 16:19] LABS: Anion Gap 12.3 mmol/L (3-11); BUN 11 mg/dL (7-18); CO2 22.7 mmol/L (21.0-32.0); CREATININE 1.21 mg/dL (0.55-1.02); Calcium 8.7 mg/dL (8.5-10.1); Chloride 104 mmol/L (98-107); Estimated GFR 44.66 (mL/min/1.73m2); Glucose 78 mg/dL (70-100); Potassium 3.9 mmol/L (3.5-5.1); Sodium 139 mmol/L (136-145)
[2018-08-07] MEDS: Normal Saline 1,000 ML 75 ML IV (22:29)
[2018-08-08] VITALS (8 sets, daily range): BP systolic 104–138; BP diastolic 73–85; PULSE 89–135; RESP 16–20; TEMP 36.4–37.2; O2SAT 95–97
[2018-08-08 07:52] LABS: HCT 34.9 % (36.0-46.0); HGB 11.9 g/dL (12.0-15.5); Mean Corp. HGB Concentration 34.1 g/dL (32.0-36.0); Mean Corpuscular Hemoglobin 29.5 pg (27.0-33.0); Mean Corpuscular Volume 86.6 fL (80-95); Mean Platelet Volume 8.8 fL (8.0-11.0); Platelet Count 356 x1000/uL (130-400); RBC 4.03 m/cumm (4.00-5.20); White Blood Cell Count 10.04 k/cumm (4.4-10.8)
[2018-08-08 08:03] LABS: Anion Gap 10.7 mmol/L (3-11); BUN 14 mg/dL (7-18); CO2 24.3 mmol/L (21.0-32.0); CREATININE 1.46 mg/dL (0.55-1.02); Calcium 8.7 mg/dL (8.5-10.1); Chloride 104 mmol/L (98-107); Estimated GFR 35.96 (mL/min/1.73m2); Glucose 82 mg/dL (70-100); Potassium 3.2 mmol/L (3.5-5.1); Sodium 139 mmol/L (136-145)
[2018-08-08] MEDS: Losartan 50 MG TAB 100 MG PO (08:16)
--- NOTE | 2018-08-08 10:43 | W.PM.PROGNOT ---
Assessment and Plan (1) Hematochezia: Current visit: Yes Status: Acute 67 y/o female with hematochezia/rectal bleeding. s/p colonoscopy on 08/07/18. Suspected source of bleed identified in right colon with ?small AVM/excoriated area. Treated with hot biopsy/cautery. Polyp also cold snared from descending colon. Reported bright red blood per rectum this am likely from polypectomy site on left. H/H stable. HD stable. Therefore, significant bleed unlikely. Will monitor. If signs of ongoing bleed, then will plan on repeat endoscopy at that time. Advance diet. Replace K+ (3.2 this am). Monitor VS/ H/H. (2) Hypertension: Current visit: No Status: Chronic Diltiazem on hold as patient had declined due to reported nausea and vomiting. BP - 120s/80s this am. Continue to monitor. Subjective Interval history since last seen: Patient feels well. However, she noticed bright red blood per rectum when she passed flatus this morning. She denies any abdominal pain. She is tolerating full liquids and wants to try solid foods. Exam Const General: cooperative, healthy appearing and no acute distress Orientation: alert and oriented x3 [facility] Head: normocephalic and atraumatic Eyes Sclera: sclerae normal Resp Effort & Inspection: normal respiratory effort, able to speak in complete sentences and no respiratory distress Cardio Jugular venous pressure: no JVD GI Palpation: soft, not firm, no guarding, no masses, not rigid and nontender Skin General skin exam: no jaundice Lesions: no lesions Objective Objective Clinical Data: Abnormal lab results 08/07/18 08/08/18 08/08/18 Range/Units 15:00 07:15 07:15 Hgb 11.9 L (12.0-15.5) g/dL Hct 34.9 L (36.0-46.0) % Potassium 3.2 L (3.5-5.1) mmol/L Anion Gap 12.3 H (3-11) mmol/L Creatinine 1.21 H 1.46 H (0.55-1.02) mg/dL Vital Signs Temperature 36.6 C 08/08/18 07:43 Temperature Source Tympanic 08/08/18 07:43 Pulse 103 H 08/08/18 07:43 Pulse Rhythm Regular 08/08/18 08:20 Pulse 96 H 08/06/18 15:40 Respiratory Rate 18 08/08/18 07:43 Respiratory Effort Non-Labored 08/08/18 08:20 Respiratory Depth Normal 08/08/18 08:20 Respiratory Pattern Normal 08/08/18 08:20 Blood Pressure 123/85 08/08/18 07:43 Blood Pressure Mean 91 08/06/18 15:30 Blood Pressure Position Sitting 08/06/18 13:22 Pulse Oximetry 97 08/08/18 07:43 Oxygen Delivery Method Room Air 08/08/18 07:43 Oxygen Flow Rate 0 08/08/18 07:43 Pain Level 0 08/08/18 03:38 Comment 08/08/18 07:43 Intake & Output 08/07/18 08/07/18 08/08/18 11:59 23:59 11:59 Intake Total 230 / 230 1353.333 / 1353.333 810 / 810 Output Total 2950 / 2950 1000 / 1000 Balance -2720 / -2720 353.333 / 353.333 810 / 810 Intake: IV 230 / 230 1233.333 / 1233.333 Oral 120 / 120 810 / 810 Output: Urine 2900 / 2900 1000 / 1000 Emesis 50 / 50 Other: Urine Color Yellow Yellow Urine Appearance Hematuria Clear Urine Odor Normal Normal Comment Reported to this nurse that patient had been voiding throughout the night Emesis Description Bile Voiding Methods Bedside Commode Toilet Laboratory Results WBC 10.04 k/cumm (4.4-10.8) 08/08/18 07:15 RBC 4.03 m/cumm (4.00-5.20) 08/08/18 07:15 Hgb 11.9 g/dL (12.0-15.5) L 08/08/18 07:15 Hct 34.9 % (36.0-46.0) L 08/08/18 07:15 MCV 86.6 fL (80-95) 08/08/18 07:15 MCH 29.5 pg (27.0-33.0) 08/08/18 07:15 MCHC 34.1 g/dL (32.0-36.0) 08/08/18 07:15 RDW 14.0 % (11.7-14.6) 08/08/18 07:15 Plt Count 356 x1000/uL (130-400) 08/08/18 07:15 MPV 8.8 fL (8.0-11.0) 08/08/18 07:15 Immature Gran % 0.3 08/06/18 14:05 Neutrophils % 75.7 08/06/18 14:05 Lymphocytes % 18.2 08/06/18 14:05 Monocytes % 3.7 08/06/18 14:05 Eosinophils % 1.7 08/06/18 14:05 Basophils % 0.4 08/06/18 14:05 Absolute Neutrophils 9.39 k/cumm (1.2-6.7) H 08/06/18 14:05 Absolute Lymphocytes 2.26 k/cumm (1.2-3.4) 08/06/18 14:05 Absolute Monocytes 0.46 k/cumm (0.11-0.7) 08/06/18 14:05 Absolute Eosinophils 0.21 k/cumm (0.0-0.7) 08/06/18 14:05 Absolute Basophils 0.05 k/cumm (0.0-0.2) 08/06/18 14:05 Sodium 139 mmol/L (136-145) 08/08/18 07:15 Potassium 3.2 mmol/L (3.5-5.1) L 08/08/18 07:15 Chloride 104 mmol/L (98-107) 08/08/18 07:15 Carbon Dioxide 24.3 mmol/L (21.0-32.0) 08/08/18 07:15 Anion Gap 10.7 mmol/L (3-11) 08/08/18 07:15 BUN 14 mg/dL (7-18) 08/08/18 07:15 Creatinine 1.46 mg/dL (0.55-1.02) H 08/08/18 07:15 Estimated GFR/1.73 m2 35.96 (mL/min/1.73m2) 08/08/18 07:15 Glucose 82 mg/dL (70-100) 08/08/18 07:15 Calcium 8.7 mg/dL (8.5-10.1) 08/08/18 07:15 Total Bilirubin 0.3 mg/dL (0.2-1.0) 08/06/18 14:05 AST 13 U/L (15-37) L 08/06/18 14:05 ALT 15 U/L (12-78) 08/06/18 14:05 Alkaline Phosphatase 130 U/L (46-116) H 08/06/18 14:05 Total Protein 7.1 g/dL (6.4-8.2) 08/06/18 14:05 Albumin 3.2 g/dL (3.4-5.0) L 08/06/18 14:05 Lipase 172 U/L (73-393) 08/06/18 14:05 Patient ABO/Rh O Positive 08/06/18 14:05 Antibody Screen Negative 08/06/18 14:05
--- NOTE | 2018-08-08 15:30 | PDOC.CMPRO ---
Care Management Progress Note S/O Visited with Levy and she was lying in bed watching TV. Had hoped for discharge today but said she had some rectal bleeding this morning and the Doctor wanted to observe her overnight. If the bleeding does not happen again she tinks she will be able to go home tomorrow. A: 67 y.o. female admitted for GI Bleed and S/P Colonoscopy, hot biopsy, cold snare polypectomy 08/07 P: Levy will return home and resume current services. She does not need any additional equipment or service. Daughter will transport by car when medically cleared for discharge.
[2018-08-08 19:27] LABS: HCT 32.1 % (36.0-46.0)
[2018-08-08] MEDS: Nicotine 21 MG/24 HR PATCH TD (19:33)
[2018-08-08] MEDS: diphenhydrAMINE 25 MG CAP PO (22:20)
[2018-08-08] MEDS: Prochlorperazine 5 MG TAB PO (22:20)
[2018-08-09] VITALS (11 sets, daily range): BP systolic 93–157; BP diastolic 66–99; PULSE 65–141; RESP 17–20; TEMP 36.1–37.3; O2SAT 95–99
[2018-08-09] MEDS: diphenhydrAMINE 25 MG CAP PO (04:31)
[2018-08-09] MEDS: Prochlorperazine 5 MG TAB PO (04:32)
[2018-08-09 08:24] LABS: HGB 11.9 g/dL (12.0-15.5); Mean Corpuscular Hemoglobin 29.2 pg (27.0-33.0); Mean Corpuscular Volume 85.8 fL (80-95); Mean Platelet Volume 9.1 fL (8.0-11.0); Platelet Count 354 x1000/uL (130-400); RBC 4.08 m/cumm (4.00-5.20); RBC Distribution Width 13.9 % (11.7-14.6); White Blood Cell Count 8.28 k/cumm (4.4-10.8)
[2018-08-09 08:25] LABS: Anion Gap 11.7 mmol/L (3-11); BUN 19 mg/dL (7-18); CO2 24.3 mmol/L (21.0-32.0); CREATININE 1.32 mg/dL (0.55-1.02); Chloride 104 mmol/L (98-107); Estimated GFR 40.39 (mL/min/1.73m2); Glucose 83 mg/dL (70-100); Sodium 140 mmol/L (136-145)
[2018-08-09 08:33] LABS: Potassium 2.9 mmol/L (3.5-5.1)
[2018-08-09] MEDS: Losartan 50 MG TAB 100 MG PO (08:54)
--- NOTE | 2018-08-09 11:01 | W.PM.PROGNOT ---
Assessment and Plan (1) Hematochezia: Current visit: Yes Status: Acute 67 y/o female with hematochezia/rectal bleeding. s/p colonoscopy on 08/07/18. Suspected source of bleed identified in right colon with ?small AVM/excoriated area. Treated with hot biopsy/cautery. Polyp also cold snared from descending colon. Hemoccult (+) stool more likely from polypectomy site on left. Reddish-brown stool without clots on rectal exam. Bleeding appears to be subsiding. H/H is stable. Monitor VS. Repeat H/H at 6 pm. If stable and no further bleeding, consider d/c home tonight. (2) Hypertension: Current visit: No Status: Chronic Diltiazem on hold as patient had declined due to reported nausea and vomiting. BP - 120s/80s this am. Continue to monitor. Advised patient to follow-up with membership sales manager as outpatient as soon as possible re: BP meds. (3) Hypokalemia: Current visit: Yes Status: Acute Potassium 3.2 to 2.9 this am. Patient apparently had declined po liquid potassium supplement yesterday. 40 mEq KCL IV ordered for replacement today. Patient will likely need to continue with po supplementation assisted. Hypokalemia noted on previous admissions. She notes that she had been on potassium supplements in the past. Defer to nephrology. Patient again advised to follow-up with her hephrologist, Dr. Luna, as soon as possible after discharge. Repeat BMP after K+ replacement. Subjective Patient reports: feels better Interval history since last seen: Patient with intermittent nausea and vomiting even with Diltiazem on hold. Had 1 bloody BM yesterday during the day. ? bloody BM overnight. Patient does not recall having a bloody BM overnight. H/H stable. Low potassium again this morning. Apparently, patient had declined liquid po potassium yesterday. Exam Const General: cooperative, comfortable and no acute distress Orientation: alert and oriented x3 Resp Effort & Inspection: normal respiratory effort and able to speak in complete sentences GI Palpation: soft, not firm, no guarding, no masses and nontender Rectal Exam - female: visual inspection normal, normal sphincter tone, abnormal stool (reddish brown, no clots) and heme positive stool Other: nurse present at bedside for rectal exam Skin General skin exam: no rashes or lesions noted and no jaundice Objective Objective Clinical Data: Abnormal lab results 08/08/18 08/09/18 08/09/18 Range/Units 18:45 07:25 07:25 Hgb 11.0 L 11.9 L (12.0-15.5) g/dL Hct 32.1 L 35.0 L (36.0-46.0) % Potassium 2.9 L* (3.5-5.1) mmol/L Anion Gap 11.7 H (3-11) mmol/L BUN 19 H (7-18) mg/dL Creatinine 1.32 H (0.55-1.02) mg/dL Vital Signs Temperature 36.5 C 08/09/18 07:32 Temperature Source Tympanic 08/09/18 07:32 Pulse 99 H 08/09/18 07:34 Pulse Rhythm Regular 08/08/18 19:30 Pulse 96 H 08/06/18 15:40 Respiratory Rate 20 08/09/18 07:32 Respiratory Effort Non-Labored 08/08/18 19:30 Respiratory Depth Normal 08/08/18 19:30 Respiratory Pattern Normal 08/08/18 19:30 Blood Pressure 125/89 08/09/18 07:32 Blood Pressure Mean 91 08/06/18 15:30 Blood Pressure Position Sitting 08/06/18 13:22 Pulse Oximetry 97 08/09/18 07:32 Oxygen Delivery Method Room Air 08/09/18 07:32 Oxygen Flow Rate 0 08/09/18 07:32 Pain Level 0 08/08/18 15:53 Comment 08/09/18 00:00 Intake & Output 08/08/18 08/08/18 08/09/18 11:59 23:59 11:59 Intake Total 810 / 810 1840 / 1840 600 / 600 Output Total 400 / 400 1100 / 1100 Balance 810 / 810 1440 / 1440 -500 / -500 Intake: IV 1000 / 1000 Oral 810 / 810 840 / 840 600 / 600 Output: Urine 400 / 400 1000 / 1000 Emesis 100 / 100 Other: Urine Color Yellow Yellow Urine Appearance Clear Clear Comment Reported to this nurse that patient had been voiding throughout the night pt gets up AD AIME to void. Voiding Methods Toilet Toilet Laboratory Results WBC 8.28 k/cumm (4.4-10.8) 10/07/18 07:25 RBC 4.08 m/cumm (4.00-5.20) 08/09/18 07:25 Hgb 11.9 g/dL (12.0-15.5) L 08/09/18 07:25 Hct 35.0 % (36.0-46.0) L 08/09/18 07:25 MCV 85.8 fL (80-95) 08/09/18 07:25 MCH 29.2 pg (27.0-33.0) 08/09/18 07:25 MCHC 34.0 g/dL (32.0-36.0) 08/09/18 07:25 RDW 13.9 % (11.7-14.6) 08/09/18 07:25 Plt Count 354 x1000/uL (130-400) 08/09/18 07:25 MPV 9.1 fL (8.0-11.0) 08/09/18 07:25 Immature Gran % 0.3 08/06/18 14:05 Neutrophils % 75.7 08/06/18 14:05 Lymphocytes % 18.2 08/06/18 14:05 Monocytes % 3.7 08/06/18 14:05 Eosinophils % 1.7 08/06/18 14:05 Basophils % 0.4 08/06/18 14:05 Absolute Neutrophils 9.39 k/cumm (1.2-6.7) H 08/06/18 14:05 Absolute Lymphocytes 2.26 k/cumm (1.2-3.4) 08/06/18 14:05 Absolute Monocytes 0.46 k/cumm (0.11-0.7) 08/06/18 14:05 Absolute Eosinophils 0.21 k/cumm (0.0-0.7) 08/06/18 14:05 Absolute Basophils 0.05 k/cumm (0.0-0.2) 08/06/18 14:05 Sodium 140 mmol/L (136-145) 08/09/18 07:25 Potassium 2.9 mmol/L (3.5-5.1) L* 08/09/18 07:25 Chloride 104 mmol/L (98-107) 08/09/18 07:25 Carbon Dioxide 24.3 mmol/L (21.0-32.0) 08/09/18 07:25 Anion Gap 11.7 mmol/L (3-11) H 08/09/18 07:25 BUN 19 mg/dL (7-18) H 08/09/18 07:25 Creatinine 1.32 mg/dL (0.55-1.02) H 08/09/18 07:25 Estimated GFR/1.73 m2 40.39 (mL/min/1.73m2) 08/09/18 07:25 Glucose 83 mg/dL (70-100) 08/09/18 07:25 Calcium 9.0 mg/dL (8.5-10.1) 08/09/18 07:25 Total Bilirubin 0.3 mg/dL (0.2-1.0) 08/06/18 14:05 AST 13 U/L (15-37) L 08/06/18 14:05 ALT 15 U/L (12-78) 08/06/18 14:05 Alkaline Phosphatase 130 U/L (46-116) H 08/06/18 14:05 Total Protein 7.1 g/dL (6.4-8.2) 08/06/18 14:05 Albumin 3.2 g/dL (3.4-5.0) L 08/06/18 14:05 Lipase 172 U/L (73-393) 08/06/18 14:05 Patient ABO/Rh O Positive 08/06/18 14:05 Antibody Screen Negative 08/06/18 14:05
[2018-08-09] MEDS: POTASSIUM CHLORIDE 10 MEQ/100 ML BAG 100 MEQ IVPB ×4 (11:35→19:11)
[2018-08-09] MEDS: Normal Saline Flush 10 ML SYR IVP (11:35)
--- NOTE | 2018-08-09 15:28 | PDOC.CMPRO ---
Care Management Progress Note S/0 Levy was speaking with her daughter on the phone and then shared that she was upset that her physician would not try to contact the audio visual design engineer that regularly manages he care at [facility]. Feels it is important to let her know about any new medications or treatments as she was instructed to do. Levy's daughter is going to help contact the Machine Lead Burner tomorrow. Levy has refused to take some of her medications because they make her feel ill and make the migraine headaches worse. Feels she is able to advocate for herself and the care she receives but expected more communication from the surgeon. A: 67 y.o. female admitted for GI Bleeding P: Return home with no services needed. Daughter will transport by private car when medically stable for discharge.
--- NOTE | 2018-08-09 15:33 | CMPROGNOTE_ITS ---
Care Management Progress Note S/0 Levy was speaking with her daughter on the phone and then shared that she was upset that her physician would not try to contact the food counter attendant that regularly manages he care at [facility]. Feels it is important to let her know about any new medications or treatments as she was instructed to do. Levy's daughter is going to help contact the Lamination Assembler tomorrow. Levy has refused to take some of her medications because they make her feel ill and make the migraine headaches worse. Feels she is able to advocate for herself and the care she receives but expected more communication from the surgeon. A: 67 y.o. female admitted for GI Bleeding P: Return home with no services needed. Daughter will transport by private car when medically stable for discharge.
[2018-08-09 19:52] LABS: HCT 32.1 % (36.0-46.0); HGB 10.9 g/dL (12.0-15.5)
[2018-08-09 19:58] LABS: Magnesium 1.8 mg/dL (1.8-2.4)
[2018-08-09 22:16] LABS: Potassium 3.5 mmol/L (3.5-5.1)
[2018-08-10] MEDS: Prochlorperazine 5 MG TAB PO ×2 (01:20→01:25)
[2018-08-10] MEDS: diphenhydrAMINE 25 MG CAP PO (01:20)
[2018-08-10 04:37] VITALS: BP 111/88; PULSE 82; RESP 15; TEMP 36.4; O2SAT 98
[2018-08-10 06:54] LABS: HGB 11.3 g/dL (12.0-15.5); Mean Corp. HGB Concentration 34.2 g/dL (32.0-36.0); Mean Corpuscular Hemoglobin 29.7 pg (27.0-33.0); Mean Corpuscular Volume 86.6 fL (80-95); Platelet Count 338 x1000/uL (130-400); RBC 3.81 m/cumm (4.00-5.20); RBC Distribution Width 14.2 % (11.7-14.6); White Blood Cell Count 8.91 k/cumm (4.4-10.8)
[2018-08-10 07:00] VITALS: PULSE 93
[2018-08-10 07:15] VITALS: BP 119/75; PULSE 94; RESP 16; TEMP 36.6; O2SAT 100
[2018-08-10] MEDS: Losartan 50 MG TAB 100 MG PO (07:22)
[2018-08-10] MEDS: Pantoprazole 40 MG TABCR PO (07:22)
[2018-08-10] MEDS: Normal Saline Flush 10 ML SYR IVP (07:23)
[2018-08-10 07:45] LABS: Anion Gap 9.5 mmol/L (3-11); BUN 18 mg/dL (7-18); CO2 24.5 mmol/L (21.0-32.0); CREATININE 1.44 mg/dL (0.55-1.02); Calcium 8.4 mg/dL (8.5-10.1); Chloride 107 mmol/L (98-107); Estimated GFR 36.53 (mL/min/1.73m2); Glucose 81 mg/dL (70-100); Potassium 3.1 mmol/L (3.5-5.1); Sodium 141 mmol/L (136-145)
--- NOTE | 2018-08-10 08:00 | W.PM.PROGNOT ---
Assessment and Plan (1) Hematochezia: Current visit: Yes Status: Acute 67 y/o female with hematochezia/rectal bleeding. s/p colonoscopy on 08/07/18. Bleeding appears to be subsiding, no signs or symptoms of bleeding yesterday or overnight. 08/10- Hgb 11.3, Hct 33.0. Tolerating regular diet with no c/o N/V. If she continues to be stable with no signs of bleeding and continues to tolerate regular diet. Will discuss d/c home later today. (2) Hypertension: Current visit: No Status: Chronic Diltiazem on hold as patient had declined due to reported nausea and vomiting. BP stable 120s/80s. Continue to monitor. Advised patient to follow-up with steam locomotive firer/fireman as outpatient as soon as possible re: BP meds. (3) Hypokalemia: Current visit: Yes Status: Acute Potassium 3.1 this am following K+ replacement. Defer to nephrology. Patient again advised to follow-up with her steam locomotive firer/fireman, Dr. Luna, as soon as possible after discharge. Subjective Patient reports: feels better and tolerating a regular diet; denies no bowel movement, nausea and vomiting Interval history since last seen: Mrs. Nugent reports that she is feeling better today. She denies any complaints of N/V or abdominal pain. She denies having any BMs since yesterday. Denies any signs of bleeding. She states that she tolerated eating a regular diet last night. She reports that she has been having headaches since admission because she has not been taking her medications that treat her migraines. Mrs. Nugent also expressed that she has a steam locomotive firer/fireman at [facility] secondary to her history of chronic kideny disease. She expressed that she would like to ensure that Dr. Luna receives information about this admission. Exam Const General: cooperative, comfortable and not in acute distress Orientation: alert and oriented x3 Resp Effort & Inspection: normal respiratory effort Auscultation: clear to auscultation bilaterally Cardio Jugular venous pressure: no JVD Rate: regular rate Rhythm: regular rhythm Heart Sounds: S1 normal, S2 normal, no click and no murmurs GI Palpation: soft, no guarding and nontender Auscultation: normal bowel sounds Objective Objective Clinical Data: Abnormal lab results 10/07/18 10/07/18 10/07/18 Range/Units 07:25 07:25 19:40 RBC (4.00-5.20) m/cumm Hgb 11.9 L 10.9 L (12.0-15.5) g/dL Hct 35.0 L 32.1 L (36.0-46.0) % Potassium 2.9 L* (3.5-5.1) mmol/L Anion Gap 11.7 H (3-11) mmol/L BUN 19 H (7-18) mg/dL Creatinine 1.32 H (0.55-1.02) mg/dL Calcium (8.5-10.1) mg/dL 08/10/18 08/10/18 Range/Units 06:11 06:11 RBC 3.81 L (4.00-5.20) m/cumm Hgb 11.3 L (12.0-15.5) g/dL Hct 33.0 L (36.0-46.0) % Potassium 3.1 L (3.5-5.1) mmol/L Anion Gap (3-11) mmol/L BUN (7-18) mg/dL Creatinine 1.44 H (0.55-1.02) mg/dL Calcium 8.4 L (8.5-10.1) mg/dL Vital Signs Temperature 36.4 C L 08/10/18 04:37 Temperature Source Tympanic 08/10/18 04:37 Pulse 93 H 08/10/18 07:00 Pulse Rhythm Regular 08/09/18 20:38 Pulse 96 H 08/06/18 15:40 Respiratory Rate 15 08/10/18 04:37 Respiratory Effort Non-Labored 08/09/18 20:38 Respiratory Depth Normal 08/09/18 20:38 Respiratory Pattern Normal 08/09/18 20:38 Blood Pressure 111/88 08/10/18 04:37 Blood Pressure Mean 91 08/06/18 15:30 Blood Pressure Position Sitting 08/06/18 13:22 Pulse Oximetry 98 08/10/18 04:37 Oxygen Delivery Method Room Air 08/10/18 04:37 Oxygen Flow Rate 0 08/10/18 04:37 Pain Level 0 08/09/18 16:45 Comment 08/09/18 16:45 Intake & Output 10/07/18 10/07/18 10/08/18 11:59 23:59 11:59 Intake Total 840 / 840 900 / 900 Output Total 1100 / 1100 1050 / 1050 Balance -260 / -260 -150 / -150 Intake: IV 300 / 300 Oral 840 / 840 600 / 600 Output: Urine 1000 / 1000 1050 / 1050 Emesis 100 / 100 Other: Urine Color Yellow Yellow Urine Appearance Clear Clear Urine Odor Normal Voiding Methods Toilet Toilet Laboratory Results WBC 8.91 k/cumm (4.4-10.8) 08/10/18 06:11 RBC 3.81 m/cumm (4.00-5.20) L 08/10/18 06:11 Hgb 11.3 g/dL (12.0-15.5) L 08/10/18 06:11 Hct 33.0 % (36.0-46.0) L 08/10/18 06:11 MCV 86.6 fL (80-95) 08/10/18 06:11 MCH 29.7 pg (27.0-33.0) 08/10/18 06:11 MCHC 34.2 g/dL (32.0-36.0) 08/10/18 06:11 RDW 14.2 % (11.7-14.6) 08/10/18 06:11 Plt Count 338 x1000/uL (130-400) 08/10/18 06:11 MPV 9.0 fL (8.0-11.0) 08/10/18 06:11 Immature Gran % 0.3 08/06/18 14:05 Neutrophils % 75.7 08/06/18 14:05 Lymphocytes % 18.2 08/06/18 14:05 Monocytes % 3.7 08/06/18 14:05 Eosinophils % 1.7 08/06/18 14:05 Basophils % 0.4 08/06/18 14:05 Absolute Neutrophils 9.39 k/cumm (1.2-6.7) H 08/06/18 14:05 Absolute Lymphocytes 2.26 k/cumm (1.2-3.4) 08/06/18 14:05 Absolute Monocytes 0.46 k/cumm (0.11-0.7) 08/06/18 14:05 Absolute Eosinophils 0.21 k/cumm (0.0-0.7) 08/06/18 14:05 Absolute Basophils 0.05 k/cumm (0.0-0.2) 08/06/18 14:05 Sodium 141 mmol/L (136-145) 08/10/18 06:11 Potassium 3.1 mmol/L (3.5-5.1) L 08/10/18 06:11 Chloride 107 mmol/L (98-107) 08/10/18 06:11 Carbon Dioxide 24.5 mmol/L (21.0-32.0) 08/10/18 06:11 Anion Gap 9.5 mmol/L (3-11) 08/10/18 06:11 BUN 18 mg/dL (7-18) 08/10/18 06:11 Creatinine 1.44 mg/dL (0.55-1.02) H 08/10/18 06:11 Estimated GFR/1.73 m2 36.53 (mL/min/1.73m2) 08/10/18 06:11 Glucose 81 mg/dL (70-100) 08/10/18 06:11 Calcium 8.4 mg/dL (8.5-10.1) L 08/10/18 06:11 Magnesium 1.8 mg/dL (1.8-2.4) 08/09/18 19:40 Total Bilirubin 0.3 mg/dL (0.2-1.0) 08/06/18 14:05 AST 13 U/L (15-37) L 08/06/18 14:05 ALT 15 U/L (12-78) 08/06/18 14:05 Alkaline Phosphatase 130 U/L (46-116) H 08/06/18 14:05 Total Protein 7.1 g/dL (6.4-8.2) 08/06/18 14:05 Albumin 3.2 g/dL (3.4-5.0) L 08/06/18 14:05 Lipase 172 U/L (73-393) 08/06/18 14:05 Patient ABO/Rh O Positive 08/06/18 14:05 Antibody Screen Negative 08/06/18 14:05
[2018-08-10 11:00] VITALS: BP 129/85; PULSE 92; RESP 18; TEMP 36.6; O2SAT 97
--- NOTE | 2018-08-10 11:19 | PDOC.CMDIS ---
- If Service Date Differs Date of service: 08/10/18 Time of Service: 11:19 LACE Index Scoring Tool - Questions: Length of Stay (in days): 4 - 6 Acuity (Admit via E.D.?): Yes Comorbidities: Liver or Renal Disease E.D. Visits: 6 - Answers: Total Score: 16 Risk of Readmission: High Risk Care Management Discharge Reason for Hospitalization: GI Bleed Discharge Plan: Levy will return home today with no services. She will F/U with Dr. Purcell, as well as her order filler outpatient. Jans daughter will transport when ready. Patient/Family Education Needs: Review DC instructions, any limitations, and discuss Ask Me Three
--- NOTE | 2018-08-10 11:22 | CHAPLAIN ---
Levy was resting in bed. We met briefly on 08/07. Today Levy shares some personal history, telling me about a moved from [place] to [place] to better care for one of her teenage daugther's health issues, then a move back to [facility]. A daughter has returned home from [place] to stay with Levy and another daughter lives nearby. Levy is struggling with the reversal of roles and accepting help from her daughters, although they have both said they are happy to provide support and care for Levy. Levy had been an active member of the [facility], but has not attended recently because of health issues. She said children are supportive, as well as neighbors and friends. Levy had trouble identifying what she does to relax, but said being with her daughters and grandchildren is relaxing for her. She is hoping to be discharged later today so that she can keep an appointment at [facility] with her neurologist. I offered a prayer with Levy before leaving.
--- NOTE | 2018-08-10 11:23 | CMDISCH_ITS ---
- If Service Date Differs Date of service: 08/10/18 Time of Service: 11:19 LACE Index Scoring Tool - Questions: Length of Stay (in days): 4 - 6 Acuity (Admit via E.D.?): Yes Comorbidities: Liver or Renal Disease E.D. Visits: 6 - Answers: Total Score: 16 Risk of Readmission: High Risk Care Management Discharge Reason for Hospitalization: GI Bleed Discharge Plan: Levy will return home today with no services. She will F/U with Dr. Purcell, as well as her sample puller outpatient. Jans daughter will transport when ready. Patient/Family Education Needs: Review DC instructions, any limitations, and discuss Ask Me Three
--- NOTE | 2018-08-10 13:16 | DSE_ITS ---
DS: Diagnosis Discharge Diagnosis (1) Hematochezia: Status: Acute (2) Hypertension: Status: Chronic (3) Hypokalemia: Status: Acute Discharge Plan Disposition Patient Disposition: HOME Condition: Stable Discharge Details Chief Complaint: GI Bleed Reason For Visit: GI BLEED Admit Date/Time: 08/06/18 15:02 Admit Provider: Jordan Purcell Attending Provider: Jordan Purcell Primary Care Provider: Xochilt Mcdaniel ED Provider: [facility] Course Hospital Course: Mrs. Nugent is a pleasant 67 year old female who was admitted on for hematochezia. She underwent a Colonoscopy on Friday. She was found to have some inflammation in the Cecum and what looked like a bleeding AVM. The AVM was cauterized. There was also one polyp on the descending colon which was removed with a snare. She did well overnight. On wednesday 08/08 she had some more bright red blood and a few clots. Her hgb stayed stable. On friday a rectal exam revealed a small amount of brown stool with a small amount of blood. No clots. Patient had no more bleeding after friday. Her hgb was stable. She was tolerating a diet. She did have a low potassium which was treated with IV potassium. On todays labs her potassium is normal. Patient is pain free and will be discharged home We will contact her with the pathology results Home Meds and New Rx's Prescriptions: New pantoprazole 40 mg Tablet,Delayed Release (Dr/Ec) 40 mg PO DAILY@0730 30 Days Qty: 30 RF: 0 Continue diphenhydramine HCl [Benadryl] 25 MG capsule 25 mg PO Q6H PRN RF: 0 prochlorperazine maleate 5 MG tablet 5 mg PO Q8H PRN Qty: 30 RF: 3 diltiazem HCl 60 mg Capsule,Extended Release 12 Hr 120 mg PO BID RF: 0 acetaminophen [Mapap Extra Strength] 500 MG tablet 1,000 mg PO TID PRNRF: 0 nicotine 1 EACH patch 24 hour 1 ea Transdermal PRN PRNRF: 0 losartan 50 mg tablet 100 mg PO DAILY RF: 0 Discharge Instructions Instructions: Gastrointestinal Bleeding (DC), Colorectal Polyps (DC) Additional Instructions: Please return to the ER if you develop: fevers >101.5 Nausea or Vomiting Abdominal pain that is not transient recurrent bleeding Referrals: [facility] [Outside] (Vice President Business & Corporate Development in 1 week) Xochilt Mcdaniel [Primary Care Provider] - (please follow up in 1-2 weeks) Activity:: Activity as Tolerated Equipment/Supplies:: No Equipment Needed Diet:: As Tolerated Discharge Orders Discharge Orders: Discharge Order (Routine); Ordered 08/10/18 Ordered By: Mariola Locke DS: Data Vitals/I&O Vitals and I&O: Vital Signs Temperature 97.9 F 08/10/18 11:00 Temperature Source Tympanic 08/10/18 11:00 Pulse 92 H 08/10/18 11:00 Pulse Rhythm Regular 08/10/18 07:20 Pulse 96 H 08/06/18 15:40 Respiratory Rate 18 08/10/18 11:00 Respiratory Effort Non-Labored 08/10/18 07:20 Respiratory Depth Normal 08/10/18 07:20 Respiratory Pattern Normal 08/10/18 07:20 Blood Pressure 129/85 08/10/18 11:00 Blood Pressure Mean 91 08/06/18 15:30 Blood Pressure Position Sitting 08/06/18 13:22 Pulse Oximetry 97 08/10/18 11:00 Oxygen Delivery Method Room Air 08/10/18 11:00 Oxygen Flow Rate 0 08/10/18 11:00 Pain Level 0 08/09/18 16:45 Comment 08/09/18 16:45 Intake & Output 08/09/18 08/10/18 08/10/18 23:59 11:59 23:59 Intake Total 900 / 900 240 / 240 Output Total 1050 / 1050 800 / 800 Balance -150 / -150 -560 / -560 Intake: IV 300 / 300 Oral 600 / 600 240 / 240 Output: Urine 1050 / 1050 800 / 800 Other: Urine Color Yellow Yellow Urine Appearance Clear Clear Urine Odor Normal Normal Voiding Methods Toilet Toilet Labs on day of discharge: Labs from last 24 hours 08/10/18 08/10/18 08/09/18 06:11 06:11 19:40 WBC 8.91 RBC 3.81 L Hgb 11.3 L Hct 33.0 L MCV 86.6 MCH 29.7 MCHC 34.2 RDW 14.2 Plt Count 338 MPV 9.0 Sodium 141 Potassium 3.1 L 3.5 Chloride 107 Carbon Dioxide 24.5 Anion Gap 9.5 BUN 18 Creatinine 1.44 H Estimated GFR/1.73 m2 36.53 Glucose 81 Calcium 8.4 L Magnesium 08/09/18 08/09/18 08/09/18 19:40 19:40 18:00 WBC RBC Hgb 10.9 L Hct 32.1 L MCV MCH MCHC RDW Plt Count MPV Sodium Cancelled Potassium Cancelled Chloride Cancelled Carbon Dioxide Cancelled Anion Gap Cancelled BUN Cancelled Creatinine Cancelled Estimated GFR/1.73 m2 Cancelled Glucose Cancelled Calcium Cancelled Magnesium 1.8
[2018-08-10 13:56] VITALS: PULSE 96
== END 2018-08-10 14:33 | disposition home or self-care (01) | DRG 379 ==
LOC: ER 15:53 → MS 18:31
PROVIDERS: Admitting Provider Surgery; Emergency Provider Nurse Practitioner Family; PCP Nurse Practitioner Family; Visit Provider Surgery
PROC: 0DJD8ZZ Inspection of Lower Intestinal Tract, Via Natural or Artificial Opening Endoscopic (ICD-10-PCS; CPT 45378; principal; 2018-08-07 09:00)
DX: K92.2 Gastrointestinal hemorrhage, unspecified (principal); D12.4 Benign neoplasm of descending colon; Q27.33 Arteriovenous malformation of digestive system vessel; I10 Essential (primary) hypertension; E87.6 Hypokalemia; N26.9 Renal sclerosis, unspecified; Z67.40 Type O blood, Rh positive
CPT/HCPCS: 45380; 45382; 45385; 36415; 80048; 80053; 83690; 85027; 86850; 86900; 86901; 88305; 96360; 96361; 99222; 99232; 99233; 99238; 99285; 83735; 84132; 85014; 85018; 85025; 99284; J2405; J3480; J3490

== ENCOUNTER 2018-08-15 20:48 | Emergency (ER) | payer MEDICARE, MEDICAID, SELFPAY ==
[2018-08-15 20:54] VITALS: BP 174/85; PULSE 81; RESP 20; TEMP 36.3; O2SAT 97
[2018-08-15 21:26] LABS: Abs Immature Grans 0.03 k/cumm (0.0-0.09); Absolute Basophil Count 0.04 k/cumm (0.0-0.2); Absolute Eosinophil Count 0.24 k/cumm (0.0-0.7); Absolute Lymphocyte Count 2.96 k/cumm (1.2-3.4); Absolute Monocyte Count 0.67 k/cumm (0.11-0.7); Absolute Neutrophil Count 6.71 k/cumm (1.2-6.7); Basophils % 0.4; Eosinophils % 2.3; HCT 33.4 % (36.0-46.0); HGB 11.2 g/dL (12.0-15.5); Immature Grans % 0.3; Lymphocytes % 27.8; Mean Corp. HGB Concentration 33.5 g/dL (32.0-36.0); Mean Corpuscular Hemoglobin 29.6 pg (27.0-33.0); Mean Corpuscular Volume 88.1 fL (80-95); Mean Platelet Volume 9.4 fL (8.0-11.0); Monocytes % 6.3; Neutrophils % 62.9; Platelet Count 352 x1000/uL (130-400); RBC 3.79 m/cumm (4.00-5.20); RBC Distribution Width 14.9 % (11.7-14.6); White Blood Cell Count 10.65 k/cumm (4.4-10.8)
[2018-08-15 21:41] LABS: ALT 15 U/L (12-78); AST 12 U/L (15-37); Albumin 3.3 g/dL (3.4-5.0); Alkaline Phosphatase 113 U/L (46-116); Anion Gap 10.4 mmol/L (3-11); BUN 27 mg/dL (7-18); Bilirubin, Total 0.2 mg/dL (0.2-1.0); CO2 26.6 mmol/L (21.0-32.0); CREATININE 1.97 mg/dL (0.55-1.02); Calcium 8.8 mg/dL (8.5-10.1); Chloride 103 mmol/L (98-107); Estimated GFR 25.45 (mL/min/1.73m2); Glucose 97 mg/dL (70-100); Magnesium 2.1 mg/dL (1.8-2.4); Potassium 3.5 mmol/L (3.5-5.1); Sodium 140 mmol/L (136-145); Total Protein 6.8 g/dL (6.4-8.2)
[2018-08-15 21:42] LABS: Troponin I < 0.02 ng/mL (0.00-0.06)
[2018-08-15 22:10] VITALS: BP 137/72; PULSE 83; RESP 16; TEMP 36.7; O2SAT 98
--- NOTE | 2018-08-15 22:29 | W.ED.GENAD ---
Discharge Plan Disposition Patient Disposition: HOME Discharge Details Chief Complaint: Dizzy/Sync Clinical Impression: Elevated serum creatinine, Dizziness, Labile blood pressure Primary Care Provider: Xochilt Mcdaniel ED Provider: De Villasenor Home Meds and New Rx's Prescriptions: No Action diphenhydramine HCl [Benadryl] 25 MG capsule 25 mg PO Q6H PRN RF: 0 prochlorperazine maleate 5 MG tablet 5 mg PO Q8H PRN Qty: 30 RF: 3 acetaminophen [Mapap Extra Strength] 500 MG tablet 1,000 mg PO TID PRNRF: 0 losartan 50 mg tablet 100 mg PO DAILY RF: 0 pantoprazole 40 mg Tablet,Delayed Release (Dr/Ec) 40 mg PO DAILY@0730 30 Days Qty: 30 RF: 0 Discharge Instructions Instructions: Hypertension (ED), Dizziness (ED) Additional Instructions: Monitor your blood pressure regularly and record - at least 3x daily. Please follow-up with your primary care physician. Please call your plastic extrusion operator (kidney doctor) on Friday to discuss changes to your blood pressure medication. Return to the ER for any worsening or new concerning symptoms. Referrals: Xochilt Mcdaniel [Primary Care Provider] - Medical Decision Making 67-year-old female with multiple medical problems including a history of hypertension, chronic kidney disease, PRES, here tonight after episode of lightheadedness and generalized weakness. Hypertensive on arrival with a blood pressure of 174/85. Patient was noted to be hypertensive earlier today with a systolic blood pressure in the 190s. Patient has had labile blood pressures recently. Asymptomatic on arrival. ECG reviewed and interpreted by me: Normal sinus rhythm 80 bpm, normal axis, nondiagnostic. Considered electrolyte abnormalities and acute kidney injury. Labs were reviewed. Creatinine is elevated at 1.97 this is greater than prior recent creatinine of 1.44 on 08/10 but decreased from 2.07 on 08/03. Repeat blood pressure normal. Patient monitored in the emergency department for 2 hours and on reassessment remained asymptomatic. Called and spoke with Dr. Quesada ([facility] extension course counselor nephrology) and reviewed the patient's recent history, presentation, diagnostic workup and ED course. Dr. Quesada recommended to not adjust or add additional antihypertensive at this time. He also noted Cr has been elevated to >3 in the past. He felt outpatient followup warranted. Patient is follow-up on Friday already scheduled with her primary care physician. I encouraged her to keep this appointment and to also follow-up with her plastic extrusion operator regarding her elevated creatinine and potential adjustment of antihypertensive. HPI General Mode of arrival: ambulatory. Date/Time Provider Initiated Documentation: 08/15/18 20:53. Limitations to Documentation: no limitations. Information obtained by: patient and family. HPI Narrative: 67yo female with multiple medical problems including history of hypertension, chronic kidney disease, migraine headaches, PRES, here with chief complaint of dizziness. Patient notes that she was watching TV today around 745p and suddenly felt a wave of dizziness further characterized as lightheaded. Symptoms were severe and lasted approximately 40 minutes. Patient notes that she felt generally weak and had to be helped to bed. She lie down for a while and noted that her symptoms significantly improved and have now resolved. She did have a headache earlier today. No chest pain. Of note, patient is being followed by both neurology and nephrology at [facility]. Blood pressure has been labile recently. She was recently seen by her plastic extrusion operator who is planning to adjust antihypertensive medication but the patient is awaiting follow-up conversation and is unsure as to what the plan is currently. Related Data Home Medications Medication Instructions Recorded Confirmed diphenhydramine HCl [Benadryl] 25 mg PO Q6H PRN tab-cap 02/11/18 08/15/18 acetaminophen [Mapap Extra 1,000 mg PO TID PRN 02/18/18 08/15/18 Strength] prochlorperazine maleate 5 mg PO Q8H PRN #30 tab-cap 06/25/18 08/15/18 losartan 50 mg tablet 100 mg PO DAILY tab 08/03/18 08/15/18 pantoprazole 40 mg PO DAILY@0730 30 Days #30 tab 08/10/18 08/15/18 Previous Rx's Medication Instructions Recorded prochlorperazine maleate 5 mg PO Q8H PRN #30 tab-cap 06/25/18 pantoprazole 40 mg PO DAILY@0730 30 Days #30 tab 08/10/18 Allergies Allergy/AdvReac Type Severity Reaction Status Date / Time albuterol sulfate Allergy Intermediate chest pain Unverified 08/15/18 20:54 [From Proventil HFA] modafinil [From Provigil] Allergy Intermediate trouble Unverified 08/15/18 20:54 breathing strawberry Allergy hives Unverified 08/15/18 20:54 aspirin AdvReac Severe when Unverified 08/15/18 20:54 taken orally I get bleeding ulcers amitriptyline AdvReac Unknown Out in Unverified 08/15/18 20:54 outter space, really messed with my head duloxetine HCl AdvReac diarrhea, Unverified 08/15/18 20:54 [From Cymbalta] vomiting General Stated Complaint: Dizzy/Sync DENG: 3 Review of Systems Review of Systems All systems reviewed & are unremarkable except as noted in HPI and below Exam Const General: cooperative and no acute distress HENMT Head: normocephalic and atraumatic Mouth: moist mucous membranes Eyes Conjunctivae: normal conjunctivae Sclera: normal sclerae EOM: EOM intact bilaterally Neck Neck: trachea midline and supple Resp Auscultation: clear to auscultation bilaterally, no rales, no rhonchi and no wheezes Cardio Jugular venous pressure: no JVD Rate: regular rate and not tachycardic Rhythm: regular rhythm GI Palpation: soft, not firm, no guarding, no masses, not rigid and nontender Skin General skin exam: no rashes or lesions noted Neuro General: alert, awake, oriented x3, gait normal, tone normal, moves all extremities, no focal motor deficits, CN's II-XI intact bilaterally and other (normal sensation all extremities) Cranial Nerves: PERRL, accommodation normal, EOM intact bilaterally, facial strength normal, tongue midline, hearing normal, able to rotate head bilaterally and able to elevate shoulders bilaterally Cognition: normal cognition Speech: speech normal Motor: muscle tone normal throughout Sensory Exam: no sensory deficits noted Coordination: [id number] test normal Extrem General: no edema Psych Appearance: grossly normal Mental Status: mental status grossly normal Speech and Movement: speech and movement normal Course Vital Signs Temperature 36.3 C L 08/15/18 20:54 Pulse 81 08/15/18 20:54 Respiratory Rate 20 08/15/18 20:54 Blood Pressure 174/85 H 08/15/18 20:54 Pulse Oximetry 97 08/15/18 20:54 Temperature 36.7 C 08/15/18 22:10 Temperature Source Temporal Artery Scan 10/13/18 22:10 Pulse 83 08/15/18 22:10 Respiratory Rate 16 08/15/18 22:10 Respiratory Effort 08/15/18 22:10 Respiratory Depth Normal 08/15/18 22:10 Respiratory Pattern Normal 08/15/18 22:10 Blood Pressure 137/72 08/15/18 22:10 Pulse Oximetry 98 08/15/18 22:10 Oxygen Delivery Method Room Air 08/15/18 22:10 Oxygen Flow Rate 0 08/15/18 22:10 Comment 08/15/18 22:10 Lab/Test Results Lab/Test Results: Laboratory Tests Range/Units 08/15/18 08/15/18 21:15 21:15 WBC (4.4-10.8) k/cumm 10.65 RBC (4.00-5.20) m/cumm 3.79 L Hgb (12.0-15.5) g/dL 11.2 L Hct (36.0-46.0) % 33.4 L MCV (80-95) fL 88.1 MCH (27.0-33.0) pg 29.6 MCHC (32.0-36.0) g/dL 33.5 RDW (11.7-14.6) % 14.9 H Plt Count (130-400) x1000/uL 352 MPV (8.0-11.0) fL 9.4 Immature Gran % 0.3 Neutrophils % 62.9 Lymphocytes % 27.8 Monocytes % 6.3 Eosinophils % 2.3 Basophils % 0.4 Absolute Neutrophils (1.2-6.7) k/cumm 6.71 H Absolute Lymphocytes (1.2-3.4) k/cumm 2.96 Absolute Monocytes (0.11-0.7) k/cumm 0.67 Absolute Eosinophils (0.0-0.7) k/cumm 0.24 Absolute Basophils (0.0-0.2) k/cumm 0.04 Sodium (136-145) mmol/L 140 Potassium (3.5-5.1) mmol/L 3.5 Chloride (98-107) mmol/L 103 Carbon Dioxide (21.0-32.0) mmol/L 26.6 Anion Gap (3-11) mmol/L 10.4 BUN (7-18) mg/dL 27 H Creatinine (0.55-1.02) mg/dL 1.97 H Estimated GFR/1.73 m2 (mL/min/1.73m2) 25.45 Glucose (70-100) mg/dL 97 Calcium (8.5-10.1) mg/dL 8.8 Magnesium (1.8-2.4) mg/dL 2.1 Total Bilirubin (0.2-1.0) mg/dL 0.2 AST (15-37) U/L 12 L ALT (12-78) U/L 15 Alkaline Phosphatase (46-116) U/L 113 Troponin I (0.00-0.06) ng/mL < 0.02 Total Protein (6.4-8.2) g/dL 6.8 Albumin (3.4-5.0) g/dL 3.3 L
--- NOTE | 2018-08-15 22:39 | ED.GENADUL_ITS ---
Discharge Plan Disposition Patient Disposition: HOME Discharge Details Chief Complaint: Dizzy/Sync Clinical Impression: Elevated serum creatinine, Dizziness, Labile blood pressure Primary Care Provider: Xochilt Mcdaniel ED Provider: De Villasenor Home Meds and New Rx's Prescriptions: No Action diphenhydramine HCl [Benadryl] 25 MG capsule 25 mg PO Q6H PRN RF: 0 prochlorperazine maleate 5 MG tablet 5 mg PO Q8H PRN Qty: 30 RF: 3 acetaminophen [Mapap Extra Strength] 500 MG tablet 1,000 mg PO TID PRNRF: 0 losartan 50 mg tablet 100 mg PO DAILY RF: 0 pantoprazole 40 mg Tablet,Delayed Release (Dr/Ec) 40 mg PO DAILY@0730 30 Days Qty: 30 RF: 0 Discharge Instructions Instructions: Hypertension (ED), Dizziness (ED) Additional Instructions: Monitor your blood pressure regularly and record - at least 3x daily. Please follow-up with your primary care physician. Please call your logistics research engineer (kidney doctor) on Friday to discuss changes to your blood pressure medication. Return to the ER for any worsening or new concerning symptoms. Referrals: Xochilt Mcdaniel [Primary Care Provider] - Medical Decision Making 67-year-old female with multiple medical problems including a history of hypertension, chronic kidney disease, PRES, here tonight after episode of lightheadedness and generalized weakness. Hypertensive on arrival with a blood pressure of 174/85. Patient was noted to be hypertensive earlier today with a systolic blood pressure in the 190s. Patient has had labile blood pressures recently. Asymptomatic on arrival. ECG reviewed and interpreted by me: Normal sinus rhythm 80 bpm, normal axis, nondiagnostic. Considered electrolyte abnormalities and acute kidney injury. Labs were reviewed. Creatinine is elevated at 1.97 this is greater than prior recent creatinine of 1.44 on 08/10 but decreased from 2.07 on 08/03. Repeat blood pressure normal. Patient monitored in the emergency department for 2 hours and on reassessment remained asymptomatic. Called and spoke with Dr. Quesada ([facility] sales commissions analyst nephrology) and reviewed the patient's recent history, presentation, diagnostic workup and ED course. Dr. Quesada recommended to not adjust or add additional antihypertensive at this time. He also noted Cr has been elevated to >3 in the past. He felt outpatient followup warranted. Patient is follow-up on Friday already scheduled with her primary care physician. I encouraged her to keep this appointment and to also follow-up with her logistics research engineer regarding her elevated creatinine and potential adjustment of antihypertensive. HPI General Mode of arrival: ambulatory . Date/Time Provider Initiated Documentation: 08/15/18 20:53 . Limitations to Documentation: no limitations . Information obtained by: patient and family . HPI Narrative: 67yo female with multiple medical problems including history of hypertension, chronic kidney disease, migraine headaches, PRES, here with chief complaint of dizziness. Patient notes that she was watching TV today around 745p and suddenly felt a wave of dizziness further characterized as lightheaded. Symptoms were severe and lasted approximately 40 minutes. Patient notes that she felt generally weak and had to be helped to bed. She lie down for a while and noted that her symptoms significantly improved and have now resolved. She did have a headache earlier today. No chest pain. Of note, patient is being followed by both neurology and nephrology at [facility]. Blood pressure has been labile recently. She was recently seen by her logistics research engineer who is planning to adjust antihypertensive medication but the patient is awaiting follow-up conversation and is unsure as to what the plan is currently. Related Data Home Medications Medication Instructions Recorded Confirmed diphenhydramine HCl [Benadryl] 25 mg PO Q6H PRN tab-cap 02/11/18 08/15/18 acetaminophen [Mapap Extra 1,000 mg PO TID PRN 02/18/18 08/15/18 Strength] prochlorperazine maleate 5 mg PO Q8H PRN #30 tab-cap 06/25/18 08/15/18 losartan 50 mg tablet 100 mg PO DAILY tab 08/03/18 08/15/18 pantoprazole 40 mg PO DAILY@0730 30 Days #30 tab 08/10/18 08/15/18 Previous Rx's Medication Instructions Recorded prochlorperazine maleate 5 mg PO Q8H PRN #30 tab-cap 06/25/18 pantoprazole 40 mg PO DAILY@0730 30 Days #30 tab 08/10/18 Allergies Allergy/AdvReac Type Severity Reaction Status Date / Time albuterol sulfate Allergy Intermediate chest pain Unverified 08/15/18 20:54 [From Proventil HFA] modafinil [From Provigil] Allergy Intermediate trouble Unverified 08/15/18 20:54 breathing strawberry Allergy hives Unverified 08/15/18 20:54 aspirin AdvReac Severe when Unverified 08/15/18 20:54 taken orally I get bleeding ulcers amitriptyline AdvReac Unknown Out in Unverified 08/15/18 20:54 outter space, really messed with my head duloxetine HCl AdvReac diarrhea, Unverified 08/15/18 20:54 [From Cymbalta] vomiting General Stated Complaint: Dizzy/Sync DENG: 3 Review of Systems Review of Systems All systems reviewed & are unremarkable except as noted in HPI and below Exam Const General: cooperative and no acute distress HENMT Head: normocephalic and atraumatic Mouth: moist mucous membranes Eyes Conjunctivae: normal conjunctivae Sclera: normal sclerae EOM: EOM intact bilaterally Neck Neck: trachea midline and supple Resp Auscultation: clear to auscultation bilaterally, no rales, no rhonchi and no wheezes Cardio Jugular venous pressure: no JVD Rate: regular rate and not tachycardic Rhythm: regular rhythm GI Palpation: soft, not firm, no guarding, no masses, not rigid and nontender Skin General skin exam: no rashes or lesions noted Neuro General: alert, awake, oriented x3, gait normal, tone normal, moves all extremities, no focal motor deficits, CN's II-XI intact bilaterally and other ( normal sensation all extremities) Cranial Nerves: PERRL, accommodation normal, EOM intact bilaterally, facial strength normal, tongue midline, hearing normal, able to rotate head bilaterally and able to elevate shoulders bilaterally Cognition: normal cognition Speech: speech normal Motor: muscle tone normal throughout Sensory Exam: no sensory deficits noted Coordination: [id number] test normal Extrem General: no edema Psych Appearance: grossly normal Mental Status: mental status grossly normal Speech and Movement: speech and movement normal Course Vital Signs Temperature 36.3 C L 08/15/18 20:54 Pulse 81 08/15/18 20:54 Respiratory Rate 20 08/15/18 20:54 Blood Pressure 174/85 H 08/15/18 20:54 Pulse Oximetry 97 08/15/18 20:54 Temperature 36.7 C 08/15/18 22:10 Temperature Source Temporal Artery Scan 10/13/18 22:10 Pulse 83 08/15/18 22:10 Respiratory Rate 16 08/15/18 22:10 Respiratory Effort 08/15/18 22:10 Respiratory Depth Normal 08/15/18 22:10 Respiratory Pattern Normal 08/15/18 22:10 Blood Pressure 137/72 08/15/18 22:10 Pulse Oximetry 98 08/15/18 22:10 Oxygen Delivery Method Room Air 08/15/18 22:10 Oxygen Flow Rate 0 08/15/18 22:10 Comment 08/15/18 22:10 Lab/Test Results Lab/Test Results: Laboratory Tests Range/Units 08/15/18 08/15/18 21:15 21:15 WBC (4.4-10.8) k/cumm 10.65 RBC (4.00-5.20) m/cumm 3.79 L Hgb (12.0-15.5) g/dL 11.2 L Hct (36.0-46.0) % 33.4 L MCV (80-95) fL 88.1 MCH (27.0-33.0) pg 29.6 MCHC (32.0-36.0) g/dL 33.5 RDW (11.7-14.6) % 14.9 H Plt Count (130-400) x1000/uL 352 MPV (8.0-11.0) fL 9.4 Immature Gran % 0.3 Neutrophils % 62.9 Lymphocytes % 27.8 Monocytes % 6.3 Eosinophils % 2.3 Basophils % 0.4 Absolute Neutrophils (1.2-6.7) k/cumm 6.71 H Absolute Lymphocytes (1.2-3.4) k/cumm 2.96 Absolute Monocytes (0.11-0.7) k/cumm 0.67 Absolute Eosinophils (0.0-0.7) k/cumm 0.24 Absolute Basophils (0.0-0.2) k/cumm 0.04 Sodium (136-145) mmol/L 140 Potassium (3.5-5.1) mmol/L 3.5 Chloride (98-107) mmol/L 103 Carbon Dioxide (21.0-32.0) mmol/L 26.6 Anion Gap (3-11) mmol/L 10.4 BUN (7-18) mg/dL 27 H Creatinine (0.55-1.02) mg/dL 1.97 H Estimated GFR/1.73 m2 (mL/min/1.73m2) 25.45 Glucose (70-100) mg/dL 97 Calcium (8.5-10.1) mg/dL 8.8 Magnesium (1.8-2.4) mg/dL 2.1 Total Bilirubin (0.2-1.0) mg/dL 0.2 AST (15-37) U/L 12 L ALT (12-78) U/L 15 Alkaline Phosphatase (46-116) U/L 113 Troponin I (0.00-0.06) ng/mL < 0.02 Total Protein (6.4-8.2) g/dL 6.8 Albumin (3.4-5.0) g/dL 3.3 L
== END 2018-08-15 22:51 | disposition home or self-care (01) ==
PROVIDERS: Emergency Provider Student in an Organized Health Care Education/Training Program; PCP Nurse Practitioner Family
DX: R94.4 Abnormal results of kidney function studies (principal); R42 Dizziness and giddiness; I12.9 Hypertensive chronic kidney disease with stage 1 through stage 4 chronic kidney disease, or unspecified chronic kidney disease; N18.9 Chronic kidney disease, unspecified
CPT/HCPCS: 36415; 80053; 93005; 99284; 83735; 84484; 85025; 93010

== ENCOUNTER 2018-08-21 13:03 | Emergency (ER) | payer MEDICARE, MEDICAID, SELFPAY ==
[2018-08-21 13:42] VITALS: BP 158/86; PULSE 96; RESP 14; TEMP 36.8; O2SAT 98
[2018-08-21 14:44] VITALS: RESP 18
[2018-08-21] MEDS: Acetaminophen 500 MG TAB 1000 MG PO (14:45)
[2018-08-21] MEDS: diphenhydrAMINE 25 MG CAP PO (14:45)
[2018-08-21] MEDS: Dexamethasone 4 MG TAB 10 MG PO (14:45)
[2018-08-21] MEDS: Metoclopramide 10 MG TAB PO (14:45)
--- NOTE | 2018-08-21 15:18 | W.ED.GENAD ---
Discharge Plan Disposition Patient Disposition: HOME Condition: Good Discharge Details Chief Complaint: GenMedical Clinical Impression: Headache Primary Care Provider: Xochilt Mcdaniel ED Provider: Alexander Alba Home Meds and New Rx's Prescriptions: No Action diphenhydramine HCl [Benadryl] 25 MG capsule 25 mg PO Q6H PRN RF: 0 prochlorperazine maleate 5 MG tablet 5 mg PO Q8H PRN Qty: 30 RF: 3 acetaminophen [Mapap Extra Strength] 500 MG tablet 1,000 mg PO TID PRNRF: 0 losartan 50 mg tablet 100 mg PO DAILY RF: 0 pantoprazole 40 mg Tablet,Delayed Release (Dr/Ec) 40 mg PO DAILY@0730 30 Days Qty: 30 RF: 0 Discharge Instructions Instructions: General Headache (ED) Additional Instructions: Please follow-up with your primary care provider and office machine servicer apprentice as soon as possible. Please continue to monitor your blood pressure at home. Please bring in your blood pressure cuff to your next appointment for comparison of its readings with those of the professional office. If you notice any worsening of your symptoms, or any new symptoms such as vomiting, diarrhea, fever, chills, shortness of breath, chest pain, numbness, weakness, or fainting , please return immediately to the emergency department for reevaluation. Please follow up with your primary care provider as soon as possible for reassessment and reevaluation. As always, it was a pleasure participating in your medical care today. Referrals: Xochilt Mcdaniel [Primary Care Provider] - Medical Decision Making This is a 67-year-old female with a past medical history of press syndrome, renal issues, as well as chronic headaches, history of severe hypertension. She had a mild headache earlier today, checked her blood pressure and is noted to be elevated, she contacted her office machine servicer apprentice, who recommended that she come here for further evaluation. Upon arrival the patient's blood pressure is 158/80, and her headache was very mild. She does state that she feels like the headache might be returning, and so we did give her a migraine cocktail. Initial physical exam demonstrated no signs or symptoms concerning for meningitis, or neurologic deficit. She demonstrates no significant confusion, no syncope, and her blood pressure does not show signs of hypertensive emergency. Patient was given a migraine cocktail and shortly after this she had complete resolution of her headache. Blood pressure continues to remain within normal non-concerning limits. Repeat neurologic exam does demonstrate no focal neurologic deficits and no abnormalities after headache resolution. At this time with a normal neurologic exam, normal blood pressure, and a completely resolved headache they feel that the blood pressure may have been secondary to the headache rather than vice versa. I feel that the patient is safe for discharge home with close follow-up with her office machine servicer apprentice and her neurologist next week. We discussed red flags which to return the patient understands. I have extensively reviewed the treatment plan and discharge instructions with the patient and their family. I have addressed all patient concerns at this time. The patient and family was made aware of what symptoms to monitor for that would warrant a return to the emergency department. Discussed the plan with the patient and family, they demonstrate verbal understanding and agreement with our assessment and plan at this time. HPI General Date/Time Provider Initiated Documentation: 08/21/18 14:19. HPI Narrative: This is a 67-year-old female with a past medical history of a single functioning kidney, press syndrome, and severe chronic hypertension. The patient is seen by a office machine servicer apprentice, and a neurologist at [facility] to manage her blood pressure. She has had some difficulty managing this on an outpatient basis. Patient did have a mild headache today, but no associated confusion, syncope, or other symptoms. She checked her blood pressure and it was noted to be 200/100. She chronically does get headaches and usually treats them with Compazine Benadryl and Tylenol at home. She did take these initial medications and then called her doctor at [facility], who recommended she come to the ER for evaluation. By the time of arrival to the ER the patient states that she is feeling much better, her blood pressure on arrival is 158/86. She states that her headache is notably improved, but feels like it might be slightly coming back. She denies any systemic symptoms of chest pain, arm pain, neck pain, shortness of breath, arm pain, numbness, tingling, weakness, vision changes, syncope, confusion. She denies any recent pertinent surgeries. She denies any pertinent family history. She is with family at bedside. She has no other complaints at this time. Related Data Home Medications Medication Instructions Recorded Confirmed diphenhydramine HCl [Benadryl] 25 mg PO Q6H PRN tab-cap 02/11/18 08/21/18 acetaminophen [Mapap Extra 1,000 mg PO TID PRN 02/18/18 08/21/18 Strength] prochlorperazine maleate 5 mg PO Q8H PRN #30 tab-cap 06/25/18 08/21/18 losartan 50 mg tablet 100 mg PO DAILY tab 08/03/18 08/21/18 pantoprazole 40 mg PO DAILY@0730 30 Days #30 tab 08/10/18 08/21/18 Previous Rx's Medication Instructions Recorded prochlorperazine maleate 5 mg PO Q8H PRN #30 tab-cap 06/25/18 pantoprazole 40 mg PO DAILY@0730 30 Days #30 tab 08/10/18 Allergies Allergy/AdvReac Type Severity Reaction Status Date / Time albuterol sulfate Allergy Intermediate chest pain Unverified 08/21/18 13:50 [From Proventil HFA] modafinil [From Provigil] Allergy Intermediate trouble Unverified 08/21/18 13:50 breathing strawberry Allergy hives Unverified 08/21/18 13:50 aspirin AdvReac Severe when Unverified 08/21/18 13:50 taken orally I get bleeding ulcers amitriptyline AdvReac Unknown Out in Unverified 08/21/18 13:50 outter space, really messed with my head duloxetine HCl AdvReac diarrhea, Unverified 08/21/18 13:50 [From Cymbalta] vomiting General Stated Complaint: GenMedical DENG: 3 Review of Systems Review of Systems All systems reviewed & are unremarkable except as noted in HPI and below Exam Narrative Exam Narrative: 1.Const: Well-nourished, Well-developed, appearing stated age 2.Eyes: PERRL, no conjunctival injection, and symmetrical lids. 3.ENT: Atraumatic external nose and ears. Moist MM. Neck: Symmetric, trachea midline, No thyromegaly. Patient demonstrates good movement of cervical neck. There is no nuchal rigidity, no nuchal tenderness. Patient is able to flex the neck without any difficulty or significant pain. Negative Kernig's and Brudzinski sign. 4.CVS: +S1/S2, No murmurs or gallops. Peripheral pulses 2+ and equal in all extremities. Brisk capillary refill in all extremities. 5.RESP: Unlabored respiratory effort. Clear to auscultation bilaterally. No wheezes rales or rhonchi 6.GI: Soft, Nontender/Nondistended, No hepatosplenomegaly. No guarding or rebound. 7.MSK: Normocephalic/Atraumatic, Extremities w/o deformity or ttp No cyanosis or clubbing, Normal movement of all extremities 8.Skin: Warm, Dry. No rashes or lesions. 9.Neuro: lathe set up person II-XII grossly intact. Sensation grossly intact, no focal neurologic deficits. All 6 cardinal planes of vision are fully intact. No evidence of rotatory or vertical nystagmus. The patient demonstrated a normal [id number], good dexterity. There was no evidence of dysdiadochokinesia. Patient was able to ambulate without difficulty. There was no wide-based gait. Romberg, and lgwb-cg-lebm are both normal on testing. Sensation was intact bilaterally as well as muscle strength bilaterally for all extremities. Patient was able to verbalize butter cup with no slurring, or miss pronunciation. 10.Psych: (AAO) x3. Appropriate mood and affect Course Vital Signs Temperature 36.8 C 08/21/18 13:42 Pulse 96 H 08/21/18 13:42 Respiratory Rate 14 08/21/18 13:42 Blood Pressure 158/86 H 08/21/18 13:42 Pulse Oximetry 98 08/21/18 13:42 Temperature 36.8 C 08/21/18 13:42 Temperature Source Skin 08/21/18 13:42 Pulse 96 H 08/21/18 13:42 Respiratory Rate 18 08/21/18 14:44 Respiratory Effort 08/21/18 14:44 Respiratory Depth Normal 08/21/18 14:44 Respiratory Pattern Normal 08/21/18 14:44 Blood Pressure 158/86 H 08/21/18 13:42 Blood Pressure Position Sitting 08/21/18 13:42 Pulse Oximetry 98 08/21/18 13:42 Oxygen Delivery Method Room Air 08/21/18 13:42 Oxygen Flow Rate 0 08/21/18 13:42 Pain Level 3 08/21/18 13:42 Comment 08/21/18 13:42
[2018-08-21 15:24] VITALS: BP 145/85; PULSE 72; RESP 18; TEMP 36.8; O2SAT 96
--- NOTE | 2018-08-21 15:28 | ED.GENADUL_ITS ---
Discharge Plan Disposition Patient Disposition: HOME Condition: Good Discharge Details Chief Complaint: GenMedical Clinical Impression: Headache Primary Care Provider: Xochilt Mcdaniel ED Provider: Alxeander Alba Home Meds and New Rx's Prescriptions: No Action diphenhydramine HCl [Benadryl] 25 MG capsule 25 mg PO Q6H PRN RF: 0 prochlorperazine maleate 5 MG tablet 5 mg PO Q8H PRN Qty: 30 RF: 3 acetaminophen [Mapap Extra Strength] 500 MG tablet 1,000 mg PO TID PRNRF: 0 losartan 50 mg tablet 100 mg PO DAILY RF: 0 pantoprazole 40 mg Tablet,Delayed Release (Dr/Ec) 40 mg PO DAILY@0730 30 Days Qty: 30 RF: 0 Discharge Instructions Instructions: General Headache (ED) Additional Instructions: Please follow-up with your primary care provider and customer services supervisor as soon as possible. Please continue to monitor your blood pressure at home. Please bring in your blood pressure cuff to your next appointment for comparison of its readings with those of the professional office. If you notice any worsening of your symptoms, or any new symptoms such as vomiting, diarrhea, fever, chills, shortness of breath, chest pain, numbness, weakness, or fainting , please return immediately to the emergency department for reevaluation. Please follow up with your primary care provider as soon as possible for reassessment and reevaluation. As always, it was a pleasure participating in your medical care today. Referrals: Xochilt Mcdaniel [Primary Care Provider] - Medical Decision Making This is a 67-year-old female with a past medical history of press syndrome, renal issues, as well as chronic headaches, history of severe hypertension. She had a mild headache earlier today, checked her blood pressure and is noted to be elevated, she contacted her customer services supervisor, who recommended that she come here for further evaluation. Upon arrival the patient 's blood pressure is 158/80, and her headache was very mild. She does state that she feels like the headache might be returning, and so we did give her a migraine cocktail. Initial physical exam demonstrated no signs or symptoms concerning for meningitis, or neurologic deficit. She demonstrates no significant confusion, no syncope, and her blood pressure does not show signs of hypertensive emergency. Patient was given a migraine cocktail and shortly after this she had complete resolution of her headache. Blood pressure continues to remain within normal non-concerning limits. Repeat neurologic exam does demonstrate no focal neurologic deficits and no abnormalities after headache resolution. At this time with a normal neurologic exam, normal blood pressure, and a completely resolved headache they feel that the blood pressure may have been secondary to the headache rather than vice versa. I feel that the patient is safe for discharge home with close follow-up with her customer services supervisor and her neurologist next week. We discussed red flags which to return the patient understands. I have extensively reviewed the treatment plan and discharge instructions with the patient and their family. I have addressed all patient concerns at this time. The patient and family was made aware of what symptoms to monitor for that would warrant a return to the emergency department. Discussed the plan with the patient and family, they demonstrate verbal understanding and agreement with our assessment and plan at this time. HPI General Date/Time Provider Initiated Documentation: 08/21/18 14:19 . HPI Narrative: This is a 67-year-old female with a past medical history of a single functioning kidney, press syndrome, and severe chronic hypertension. The patient is seen by a customer services supervisor, and a neurologist at [facility] to manage her blood pressure. She has had some difficulty managing this on an outpatient basis. Patient did have a mild headache today, but no associated confusion, syncope, or other symptoms. She checked her blood pressure and it was noted to be 200/100. She chronically does get headaches and usually treats them with Compazine Benadryl and Tylenol at home. She did take these initial medications and then called her doctor at [facility], who recommended she come to the ER for evaluation. By the time of arrival to the ER the patient states that she is feeling much better, her blood pressure on arrival is 158/86. She states that her headache is notably improved, but feels like it might be slightly coming back. She denies any systemic symptoms of chest pain, arm pain, neck pain, shortness of breath, arm pain, numbness, tingling, weakness, vision changes, syncope, confusion. She denies any recent pertinent surgeries. She denies any pertinent family history. She is with family at bedside. She has no other complaints at this time. Related Data Home Medications Medication Instructions Recorded Confirmed diphenhydramine HCl [Benadryl] 25 mg PO Q6H PRN tab-cap 02/11/18 08/21/18 acetaminophen [Mapap Extra 1,000 mg PO TID PRN 02/18/18 08/21/18 Strength] prochlorperazine maleate 5 mg PO Q8H PRN #30 tab-cap 06/25/18 08/21/18 losartan 50 mg tablet 100 mg PO DAILY tab 08/03/18 08/21/18 pantoprazole 40 mg PO DAILY@0730 30 Days #30 tab 08/10/18 08/21/18 Previous Rx's Medication Instructions Recorded prochlorperazine maleate 5 mg PO Q8H PRN #30 tab-cap 06/25/18 pantoprazole 40 mg PO DAILY@0730 30 Days #30 tab 08/10/18 Allergies Allergy/AdvReac Type Severity Reaction Status Date / Time albuterol sulfate Allergy Intermediate chest pain Unverified 08/21/18 13:50 [From Proventil HFA] modafinil [From Provigil] Allergy Intermediate trouble Unverified 08/21/18 13:50 breathing strawberry Allergy hives Unverified 08/21/18 13:50 aspirin AdvReac Severe when Unverified 08/21/18 13:50 taken orally I get bleeding ulcers amitriptyline AdvReac Unknown Out in Unverified 08/21/18 13:50 outter space, really messed with my head duloxetine HCl AdvReac diarrhea, Unverified 08/21/18 13:50 [From Cymbalta] vomiting General Stated Complaint: GenMedical DENG: 3 Review of Systems Review of Systems All systems reviewed & are unremarkable except as noted in HPI and below Exam Narrative Exam Narrative: 1.Const: Well-nourished, Well-developed, appearing stated age 2.Eyes: PERRL, no conjunctival injection, and symmetrical lids. 3.ENT: Atraumatic external nose and ears. Moist MM. Neck: Symmetric, trachea midline, No thyromegaly. Patient demonstrates good movement of cervical neck. There is no nuchal rigidity, no nuchal tenderness. Patient is able to flex the neck without any difficulty or significant pain. Negative Kernig's and Brudzinski sign. 4.CVS: +S1/S2, No murmurs or gallops. Peripheral pulses 2+ and equal in all extremities. Brisk capillary refill in all extremities. 5.RESP: Unlabored respiratory effort. Clear to auscultation bilaterally. No wheezes rales or rhonchi 6.GI: Soft, Nontender/Nondistended, No hepatosplenomegaly. No guarding or rebound. 7.MSK: Normocephalic/Atraumatic, Extremities w/o deformity or ttp No cyanosis or clubbing, Normal movement of all extremities 8.Skin: Warm, Dry. No rashes or lesions. 9.Neuro: clay products glazer II-XII grossly intact. Sensation grossly intact, no focal neurologic deficits. All 6 cardinal planes of vision are fully intact. No evidence of rotatory or vertical nystagmus. The patient demonstrated a normal wquqre-swtd-csblqj, good dexterity. There was no evidence of dysdiadochokinesia. Patient was able to ambulate without difficulty. There was no wide-based gait. Romberg, and scun-yj-tfrm are both normal on testing. Sensation was intact bilaterally as well as muscle strength bilaterally for all extremities. Patient was able to verbalize butter cup with no slurring, or miss pronunciation. 10.Psych: (AAO) x3. Appropriate mood and affect Course Vital Signs Temperature 36.8 C 08/21/18 13:42 Pulse 96 H 08/21/18 13:42 Respiratory Rate 14 08/21/18 13:42 Blood Pressure 158/86 H 08/21/18 13:42 Pulse Oximetry 98 08/21/18 13:42 Temperature 36.8 C 08/21/18 13:42 Temperature Source Skin 08/21/18 13:42 Pulse 96 H 08/21/18 13:42 Respiratory Rate 18 08/21/18 14:44 Respiratory Effort 08/21/18 14:44 Respiratory Depth Normal 08/21/18 14:44 Respiratory Pattern Normal 08/21/18 14:44 Blood Pressure 158/86 H 08/21/18 13:42 Blood Pressure Position Sitting 08/21/18 13:42 Pulse Oximetry 98 08/21/18 13:42 Oxygen Delivery Method Room Air 08/21/18 13:42 Oxygen Flow Rate 0 08/21/18 13:42 Pain Level 3 08/21/18 13:42 Comment 08/21/18 13:42
== END 2018-08-21 15:25 | disposition home or self-care (01) ==
PROVIDERS: Emergency Provider Student in an Organized Health Care Education/Training Program; PCP Nurse Practitioner Family
DX: R51 Headache (principal); I10 Essential (primary) hypertension
CPT/HCPCS: 99283; J8540

== ENCOUNTER 2018-09-11 13:29 | Outpatient (CLI) | payer MEDICARE, MEDICAID, SELFPAY ==
[2018-09-11 13:44] LABS: Abs Immature Grans 0.02 k/cumm (0.0-0.09); Absolute Monocyte Count 0.57 k/cumm (0.11-0.7); Basophils % 0.4; Eosinophils % 1.8; Immature Grans % 0.2; Lymphocytes % 20.6; Mean Corp. HGB Concentration 33.3 g/dL (32.0-36.0); Mean Corpuscular Hemoglobin 29.4 pg (27.0-33.0); Mean Corpuscular Volume 88.2 fL (80-95); Mean Platelet Volume 8.6 fL (8.0-11.0); Monocytes % 5.1; Neutrophils % 71.9; Platelet Count 349 x1000/uL (130-400); RBC 3.74 m/cumm (4.00-5.20); RBC Distribution Width 13.8 % (11.7-14.6); White Blood Cell Count 11.14 k/cumm (4.4-10.8)
[2018-09-11 13:45] LABS: Absolute Basophil Count 0.04 k/cumm (0.0-0.2); Absolute Lymphocyte Count 2.29 k/cumm (1.2-3.4); Absolute Neutrophil Count 8.01 k/cumm (1.2-6.7)
== END 2018-09-11 13:49 ==
PROVIDERS: PCP Nurse Practitioner Family; Visit Provider Nurse Practitioner Family
DX: K92.1 Melena (principal); I70.1 Atherosclerosis of renal artery; F41.8 Other specified anxiety disorders; I10 Essential (primary) hypertension
CPT/HCPCS: 36415; 85025

== ENCOUNTER 2018-09-30 14:07 | Outpatient (REF) | payer MEDICARE, MEDICAID, SELFPAY ==
[2018-10-05 23:46] LABS: Metanephrines, U 59 mcg/24 h; Normetanephrine, U 219 mcg/24 h; Total Metanephrines, U 278 mcg/24 h; Urine Volume 900 mL
== END 2018-09-30 14:27 ==
LOC: LBN 14:07
PROVIDERS: PCP Nurse Practitioner Family; Visit Provider Student in an Organized Health Care Education/Training Program
DX: R79.89 Other specified abnormal findings of blood chemistry (principal)
CPT/HCPCS: 81050; 83835

== ENCOUNTER 2018-10-15 14:00 | Outpatient (CLI) | payer MEDICARE, MEDICAID, SELFPAY | END 2018-10-15 14:20 | PROVIDERS: PCP Nurse Practitioner Family; Visit Provider Physical Therapy Assistant | DX: K62.5 Hemorrhage of anus and rectum (principal); I12.9 Hypertensive chronic kidney disease with stage 1 through stage 4 chronic kidney disease, or unspecified chronic kidney disease; N18.9 Chronic kidney disease, unspecified | CPT/HCPCS: 99213 ==

== ENCOUNTER 2018-10-22 14:04 | Outpatient (REF) | payer MEDICARE, MEDICAID, SELFPAY ==
[2018-10-22 21:56] LABS: Albumin 3.9 g/dL (3.4-5.0); Anion Gap 11.6 mmol/L (3-11); BUN 30 mg/dL (7-18); C-Reactive Protein 0.41 mg/dL (0.0-0.3); CO2 25.4 mmol/L (21.0-32.0); CREATININE 1.65 mg/dL (0.55-1.02); Calcium 9.6 mg/dL (8.5-10.1); Chloride 100 mmol/L (98-107); Estimated GFR 31.12 (mL/min/1.73m2); Glucose 76 mg/dL (70-100); Potassium 4.2 mmol/L (3.5-5.1); Sodium 137 mmol/L (136-145)
[2018-10-22 22:25] LABS: Bilirubin Negative (Negative); Blood Trace-intact (Negative); Clarity Clear; Glucose Negative (Negative); Ketones Negative (Negative); Leukocyte Esterase Negative (Negative); Nitrite Positive (Negative); Specific Gravity 1.025 (1.005-1.025); Urobilinogen 0.2 EU/dL (Up TO 0.2); pH 5.5 (5-8)
[2018-10-22 22:31] LABS: C & S Indicated? C&S Done As Ordered
[2018-10-22 22:33] LABS: RBC Negative (0-2)
[2018-10-22 22:34] LABS: Bacteria Many HPF (Negative); Casts Negative LPF (Negative); Crystals Negative HPF (Negative); Epithelial Cells Many HPF (Negative); Mucus Negative (Negative); Other Cells Negative (Negative)
[2018-10-22 22:36] LABS: ESR 50 MM/HR (0-30)
== END 2018-10-22 14:24 ==
LOC: LBN 14:04
PROVIDERS: PCP Nurse Practitioner Family; Visit Provider Internal Medicine Nephrology
DX: N39.0 Urinary tract infection, site not specified (principal); N28.9 Disorder of kidney and ureter, unspecified; K92.1 Melena; I10 Essential (primary) hypertension; E78.5 Hyperlipidemia, unspecified; F17.209 Nicotine dependence, unspecified, with unspecified nicotine-induced disorders
CPT/HCPCS: 80048; 85652; 87077; 81003; 81015; 82040; 86140; 87086; 87186

== ENCOUNTER 2018-11-12 15:02 | Outpatient (CLI) | payer MEDICARE, MEDICAID, SELFPAY ==
[2018-11-12 15:30] LABS: Bilirubin Negative (Negative); Blood Trace-intact (Negative); Clarity Sl Cloudy; Glucose Negative (Negative); Ketones Negative (Negative); Leukocyte Esterase Small (Negative); Nitrite Positive (Negative); Specific Gravity 1.025 (1.005-1.025); Urobilinogen 0.2 EU/dL (Up TO 0.2); pH 5.5 (5-8)
[2018-11-12 15:55] LABS: C & S Indicated? C&S Done As Ordered
[2018-11-12 16:08] LABS: Bacteria Many HPF (Negative); Casts Negative LPF (Negative); Crystals Negative HPF (Negative); Epithelial Cells Many HPF (Negative); Mucus Negative (Negative); RBC >50 (0-2); WBC >50 HPF (0-5)
[2018-11-12 16:33] LABS: Albumin 3.9 g/dL (3.4-5.0); Anion Gap 12.2 mmol/L (3-11); BUN 35 mg/dL (7-18); C-Reactive Protein 0.28 mg/dL (0.0-0.3); CO2 25.8 mmol/L (21.0-32.0); CREATININE 1.71 mg/dL (0.55-1.02); Calcium 9.7 mg/dL (8.5-10.1); Chloride 101 mmol/L (98-107); Estimated GFR 29.87 (mL/min/1.73m2); Glucose 67 mg/dL (70-100); Potassium 4.5 mmol/L (3.5-5.1); Sodium 139 mmol/L (136-145)
== END 2018-11-12 15:22 ==
PROVIDERS: PCP Nurse Practitioner Family; Visit Provider Internal Medicine Nephrology
DX: I10 Essential (primary) hypertension (principal); R82.71 Bacteriuria
CPT/HCPCS: 36415; 80048; 85652; 87077; 81003; 81015; 82040; 86140; 87086; 87186

== ENCOUNTER 2018-12-08 14:47 | Outpatient (CLI) | payer MEDICARE, MEDICAID, SELFPAY ==
[2018-12-08 15:19] LABS: Anion Gap 9.3 mmol/L (3-11); BUN 35 mg/dL (7-18); CO2 26.7 mmol/L (21.0-32.0); CREATININE 1.72 mg/dL (0.55-1.02); Calcium 9.7 mg/dL (8.5-10.1); Chloride 102 mmol/L (98-107); Estimated GFR 29.67 (mL/min/1.73m2); Glucose 74 mg/dL (70-100); Potassium 4.5 mmol/L (3.5-5.1); Sodium 138 mmol/L (136-145)
== END 2018-12-08 15:07 ==
PROVIDERS: PCP Nurse Practitioner Family; Visit Provider Internal Medicine Nephrology
DX: N17.9 Acute kidney failure, unspecified (principal); I10 Essential (primary) hypertension
CPT/HCPCS: 36415; 80048

== ENCOUNTER 2018-12-14 14:33 | Outpatient (CLI) | payer MEDICARE, MEDICAID, SELFPAY ==
[2018-12-14 14:57] LABS: Abs Immature Grans 0.03 k/cumm (0.0-0.09); Absolute Basophil Count 0.05 k/cumm (0.0-0.2); Absolute Eosinophil Count 0.22 k/cumm (0.0-0.7); Absolute Lymphocyte Count 1.73 k/cumm (1.2-3.4); Absolute Monocyte Count 0.66 k/cumm (0.11-0.7); Absolute Neutrophil Count 7.93 k/cumm (1.2-6.7); Basophils % 0.5; Eosinophils % 2.1; HCT 41.8 % (36.0-46.0); Immature Grans % 0.3; Lymphocytes % 16.3; Mean Corp. HGB Concentration 33.5 g/dL (32.0-36.0); Mean Corpuscular Hemoglobin 28.4 pg (27.0-33.0); Mean Corpuscular Volume 84.8 fL (80-95); Monocytes % 6.2; Neutrophils % 74.6; Platelet Count 223 x1000/uL (130-400); RBC 4.93 m/cumm (4.00-5.20); RBC Distribution Width 14.6 % (11.7-14.6); White Blood Cell Count 10.62 k/cumm (4.4-10.8)
[2018-12-14 15:50] LABS: Iron 66 ug/dL (50-175); Total Iron Binding Capacity 337 ug/dL (250-450); Transferrin Sat 20 % (15-50)
[2018-12-14 16:09] LABS: ESR 42 MM/HR (0-30)
[2018-12-14 16:16] LABS: Cholesterol 138 mg/dL (50-200); Ferritin 51 ng/mL (8-388); HDL Cholesterol 46 mg/dL (40-60); LDL CHOLESTEROL 66 mg/dL (<100); Triglyceride 95 mg/dL (30-150); Vitamin D 25 Total 48.3 ng/ml (30-100)
[2018-12-14 16:30] LABS: Albumin 3.6 g/dL (3.4-5.0); C-Reactive Protein 0.28 mg/dL (0.0-0.3); PHOSPHORUS 4.8 mg/dL (2.6-4.7); Uric Acid 3.4 mg/dL (2.6-6.0)
[2018-12-15 12:49] LABS: Parathyroid Hormone,Intact 57 pg/ml (19-88)
== END 2018-12-14 14:53 ==
PROVIDERS: PCP Nurse Practitioner Family; Visit Provider Internal Medicine Nephrology
DX: N18.3 Chronic kidney disease, stage 3 (moderate) (principal); D64.9 Anemia, unspecified
CPT/HCPCS: 36415; 80061; 82306; 83721; 85652; 82040; 82728; 83540; 83550; 83970; 84100; 84550; 85025; 86140

== ENCOUNTER 2019-01-05 13:50 | Outpatient (CLI) | payer MEDICARE, MEDICAID, SELFPAY ==
[2019-01-05 14:54] LABS: Anion Gap 10.3 mmol/L (3-11); BUN 45 mg/dL (7-18); CO2 27.7 mmol/L (21.0-32.0); CREATININE 1.57 mg/dL (0.55-1.02); Chloride 98 mmol/L (98-107); Estimated GFR 32.96 (mL/min/1.73m2); Glucose 70 mg/dL (70-100); Potassium 4.2 mmol/L (3.5-5.1); Sodium 136 mmol/L (136-145)
== END 2019-01-05 14:10 ==
PROVIDERS: PCP Nurse Practitioner Family; Visit Provider Internal Medicine Nephrology
DX: N17.8 Other acute kidney failure (principal); I10 Essential (primary) hypertension
CPT/HCPCS: 36415; 80048

== ENCOUNTER 2019-01-12 14:51 | Outpatient (CLI) | payer MEDICARE, MEDICAID, SELFPAY ==
[2019-01-12 15:15] LABS: Anion Gap 7.2 mmol/L (3-11); BUN 38 mg/dL (7-18); CO2 27.8 mmol/L (21.0-32.0); CREATININE 1.72 mg/dL (0.55-1.02); Calcium 8.7 mg/dL (8.5-10.1); Chloride 99 mmol/L (98-107); Estimated GFR 29.67 (mL/min/1.73m2); Glucose 91 mg/dL (70-100); Potassium 3.9 mmol/L (3.5-5.1); Sodium 134 mmol/L (136-145)
== END 2019-01-12 15:11 ==
PROVIDERS: PCP Nurse Practitioner Family; Visit Provider Internal Medicine Nephrology
DX: N17.9 Acute kidney failure, unspecified (principal)
CPT/HCPCS: 36415; 80048

== ENCOUNTER 2019-01-14 18:26 | Outpatient (REF) | payer MEDICARE, MEDICAID, SELFPAY ==
[2019-01-14 21:57] LABS: Iron 71 ug/dL (50-175); Total Iron Binding Capacity 368 ug/dL (250-450); Transferrin Sat 19 % (15-50)
[2019-01-14 22:13] LABS: Ferritin 65 ng/mL (8-388); Magnesium 1.9 mg/dL (1.8-2.4); TSH (W/Ref FT4) 2.89 uIU/mL (0.358-3.74)
== END 2019-01-14 18:46 ==
LOC: NCHCN 18:26
PROVIDERS: PCP Nurse Practitioner Family; Visit Provider Nurse Practitioner
DX: M79.10 Myalgia, unspecified site (principal); D64.9 Anemia, unspecified; I10 Essential (primary) hypertension
CPT/HCPCS: 82728; 83540; 83550; 83735; 84443

== ENCOUNTER 2019-02-04 16:34 | Outpatient (CLI) | payer MEDICARE, MEDICAID, SELFPAY ==
[2019-02-04 16:51] LABS: HCT 42.7 % (36.0-46.0); HGB 14.6 g/dL (12.0-15.5); Mean Corp. HGB Concentration 34.2 g/dL (32.0-36.0); Mean Corpuscular Hemoglobin 29.3 pg (27.0-33.0); Mean Corpuscular Volume 85.6 fL (80-95); Mean Platelet Volume 8.8 fL (8.0-11.0); Platelet Count 206 x1000/uL (130-400); RBC 4.99 m/cumm (4.00-5.20); RBC Distribution Width 16.3 % (11.7-14.6); White Blood Cell Count 12.15 k/cumm (4.4-10.8)
[2019-02-04 18:40] LABS: Anion Gap 12.4 mmol/L (3-11); BUN 31 mg/dL (7-18); CO2 21.6 mmol/L (21.0-32.0); CREATININE 1.75 mg/dL (0.55-1.02); Calcium 9.1 mg/dL (8.5-10.1); Chloride 101 mmol/L (98-107); Estimated GFR 29.08 (mL/min/1.73m2); Glucose 74 mg/dL (70-100); Potassium 4.7 mmol/L (3.5-5.1); Sodium 135 mmol/L (136-145)
[2019-02-04 20:51] LABS: Bilirubin Negative (Negative); Blood Trace-intact (Negative); Clarity Cloudy; Glucose Negative (Negative); Ketones Negative (Negative); Leukocyte Esterase Negative (Negative); Nitrite Positive (Negative); Urobilinogen 0.2 EU/dL (Up TO 0.2); pH 5.5 (5-8)
[2019-02-04 21:10] LABS: C & S Indicated? No/Sq. Contamination
== END 2019-02-04 16:54 ==
PROVIDERS: PCP Nurse Practitioner Family; Visit Provider Nurse Practitioner Family
DX: N17.9 Acute kidney failure, unspecified (principal); R10.9 Unspecified abdominal pain
CPT/HCPCS: 36415; 80048; 85027; 81003; 81015

== ENCOUNTER 2019-03-22 02:10 | Outpatient (CLI) | payer MEDICARE, MEDICAID, SELFPAY ==
--- NOTE | 2019-03-22 14:21 | DI.RAD_ITS ---
SYMPTOM/DIAGNOSIS: MID BACK PAIN, M54.9, LOW BACK PAIN, M54.6, CHRONIC SI JOINT PAIN, M53.3,G89.29 SI JOINTS: There is spurring at both SI joints. The sacrum is mainly obscured by overlying stool and bowel gas. There are no gross bony erosions. IMPRESSION: Degenerative changes of the SI joints. THORACIC SPINE: Comparison is made with CT dated 06/03/18. There is mild anterior wedging of the T 5 vertebral body as well as the T 8 vertebral body. The findings appear new when compared with 2018. Endplate osteophytes are seen. There is no scoliosis. The heart size is normal. IMPRESSION: Mild compression fractures of T 5 and T 8. LUMBAR SPINE: There is no compression fracture. There is moderate narrowing of the L 4-5 and L 5-S 1 disc spaces. There are prominent facet degenerative changes from L 2-3 through L 5-S 1. There is no spondylolysis. There is slight spondylolisthesis at L 4-5. There is no significant scoliosis. IMPRESSION: Degenerative disc changes at L 4-5 and L 5-S 1. Severe facet joint degenerative changes.
== END 2019-03-22 02:30 ==
PROVIDERS: PCP Nurse Practitioner Family; Visit Provider Nurse Practitioner Family
DX: M53.3 Sacrococcygeal disorders, not elsewhere classified (principal); M54.6 Pain in thoracic spine; M48.54XA Collapsed vertebra, not elsewhere classified, thoracic region, initial encounter for fracture; M54.5 Low back pain; M51.37 Other intervertebral disc degeneration, lumbosacral region; M43.16 Spondylolisthesis, lumbar region
CPT/HCPCS: 72072; 72110; 72202

== ENCOUNTER 2019-03-22 14:26 | Outpatient (CLI) | payer MEDICARE, MEDICAID, SELFPAY ==
[2019-03-22 15:20] LABS: PROTEIN 180.8 mg/dL
[2019-03-22 16:13] LABS: Anion Gap 13.5 mmol/L (3-11); BUN 36 mg/dL (7-18); CO2 23.5 mmol/L (21.0-32.0); CREATININE 1.87 mg/dL (0.55-1.02); Calcium 9.5 mg/dL (8.5-10.1); Chloride 100 mmol/L (98-107); Estimated GFR 26.94 (mL/min/1.73m2); Glucose 66 mg/dL (70-100); PHOSPHORUS 4.8 mg/dL (2.6-4.7); Potassium 4.7 mmol/L (3.5-5.1); Sodium 137 mmol/L (136-145); Uric Acid 4.9 mg/dL (2.6-6.0)
[2019-03-22 16:37] LABS: Vitamin D 25 Total 37.3 ng/ml (30-100)
[2019-03-22 17:07] LABS: Folate 14.5 ng/mL (8.6-20.0); Vitamin B12 622 pg/mL (193-986)
[2019-03-23 11:07] LABS: Parathyroid Hormone,Intact 56 pg/ml (19-88)
[2019-03-25 10:31] LABS: Methylmalonic Acid 0.42 nmol/mL (<=0.40)
== END 2019-03-22 14:46 ==
PROVIDERS: PCP Nurse Practitioner Family; Visit Provider Internal Medicine Nephrology
DX: N18.4 Chronic kidney disease, stage 4 (severe) (principal)
CPT/HCPCS: 36415; 80048; 80186; 82306; 72072; 72110; 72202; 82040; 82565; 82607; 82746; 83970; 84100; 84156; 84550

== ENCOUNTER 2019-05-31 13:36 | Emergency (ER) | payer MEDICARE, MEDICAID, SELFPAY ==
[2019-05-31] VITALS (25 sets, daily range): BP systolic 106–182; BP diastolic 71–89; PULSE 72–81; RESP 13–33; TEMP 36.6; O2SAT 96–99
--- NOTE | 2019-05-31 14:24 | ED.GENADUL_ITS ---
Discharge Plan Disposition Patient Disposition: HOME Condition: Improving Discharge Details Chief Complaint: Headache Clinical Impression: Headache Primary Care Provider: Xochilt Mcdaniel ED Provider: Sara Byrne Home Meds and New Rx's Prescriptions: Continued topiramate 25 mg capsule,extended release 24hr 25 mg PO DAILY RF: 0 rosuvastatin 10 mg tablet 20 mg PO DAILY RF: 0 escitalopram oxalate 5 mg tablet 5 mg PO DAILY RF: 0 labetalol 200 mg tablet 200 mg PO BID RF: 0 amlodipine 5 mg tablet 5 mg PO DAILY RF: 0 terazosin 2 mg Capsule 4 mg PO QHS RF: 0 ondansetron 4 mg Tablet,Disintegrating 4 mg PO DAILY RF: 0 acetaminophen [Mapap Extra Strength] 500 MG tablet 1,000 mg PO TID PRNRF: 0 Discharge Instructions Instructions: General Headache (ED) Additional Instructions: Continue to encourage hydration. You may use Tylenol as needed for discomfort. Please keep follow-up appointment with primary care next week. If you develop fevers/chills, increased pain, weakness, sensation changes or other new/worsening symptoms please seek care urgently once again. Referrals: Xochilt Mcdaniel [Primary Care Provider] - Discharge Data Discharge Date/Time-TO BE ENTERED AT DEPARTURE: 05/31/19 16:52 Medical Decision Making Patient is 68-year-old female, presenting today with chief complaint of a headache. Patient has a complicated past medical history including hypokalemia, reversible encephalopathy syndrome, CKD, migraines, HTN. She reports she had this headache for the past 6 days. States it has been like a cap that is too tight on the left side of my head. Pain did not come on suddenly. This is not as severe as her typical migraines. Has not noted any rash. No fevers or chills. Does not have any pain in the face. Denies any recent travel. Patient has had migraines historically but has not had any in the past few years. On exam, the patient is resting comfortably. She appears nontoxic. No focal neurologic deficits. No meningeal findings. Patient is noted to be hyper tensive at 163/79 the patient reports that this is typical for her. Patient is not anticoagulated. She is declining any analgesics for her discomfort at this time. Will forward with the labs and imaging. Discussed this plan with the patient who is in agreement. CT reviewed by Dr. Meza, read as negative. Labs with patient's baseline. Potassium slightly low at 3.4, will replenish this orally. BUN is 24, creatinine 1.53. Again, this is baseline for the patient. Alk phos is elevated 138 which is typical for the patient. Discussed these findings with the patient. She reports that she is having minimal pain at this time. She is declining any analgesics at this time. Feels that she is able to be discharged. Spoke with patient's primary care to relay the patients current complaint. Patient reports that she has an upcoming appointment in 1 week with her primary care. The patient's comp gated medical history, primary care myself felt to be splitting appropriate. At this point, as the patient is really endorsing very mild symptoms, is declining any intervention at this time, is reassuring laboratory evaluation as well as imaged, will not pursue anything further at this time. Patient will be discharged home, strict return precautions. She will keep her upcoming appointment. All of her questions and concerns were addressed and she is in agreement this plan. HPI General Mode of arrival: EMS . Date/Time Provider Initiated Documentation: 05/31/19 14:03 . Limitations to Documentation: no limitations . Information obtained by: patient . History of Present Illness 68 year old F presents to the emergency department with the chief complaint of headache, described as mild, with intensity rated at 3. Quality is described as aching, and is localized to the head. Patient reports no radiation. Patient started experiencing this day(s) (6) and it has been constant. No relieving factors improve symptom(s), No exacerbating factors reported . Patient notes headaches; denies confusion, chest pain, diaphoresis, fever/chills, loss of appetite, nausea/vomiting, rash, shortness of breath and weakness. Patient did receive the following treatments prior to arrival, none Related Data Home Medications Medication Instructions Recorded Confirmed acetaminophen [Mapap Extra 1,000 mg PO TID PRN 02/18/18 05/31/19 Strength] amlodipine 5 mg tablet 5 mg PO DAILY 09/21/18 05/31/19 escitalopram oxalate 5 mg tablet 5 mg PO DAILY 09/21/18 05/31/19 labetalol 200 mg tablet 200 mg PO BID 09/21/18 05/31/19 rosuvastatin 10 mg tablet 20 mg PO DAILY 09/21/18 05/31/19 topiramate 25 mg capsule,extended 25 mg PO DAILY cap 09/21/18 05/31/19 release 24 hr ondansetron 4 mg PO DAILY 05/31/19 05/31/19 terazosin 4 mg PO QHS 05/31/19 05/31/19 Allergies Allergy/AdvReac Type Severity Reaction Status Date / Time lorazepam [From Ativan] Allergy Severe Verified 05/31/19 13:49 albuterol sulfate Allergy Intermediate chest pain Verified 05/31/19 13:49 [From Proventil HFA] enalapril Allergy Intermediate Verified 05/31/19 13:49 modafinil [From Provigil] Allergy Intermediate trouble Verified 05/31/19 13:49 breathing lisinopril Allergy Mild Verified 05/31/19 13:49 losartan Allergy Mild Verified 05/31/19 13:49 tramadol Allergy Mild Verified 05/31/19 13:49 strawberry Allergy hives Verified 05/31/19 13:49 aspirin AdvReac Severe when Verified 05/31/19 13:49 taken orally I get bleeding ulcers amitriptyline AdvReac Unknown Out in Verified 05/31/19 13:49 outter space, really messed with my head duloxetine HCl AdvReac diarrhea, Verified 05/31/19 13:49 [From Cymbalta] vomiting General Stated Complaint: Headache DENG: 2 Review of Systems Constitutional Reports as per HPI, Denies chills, Reports fatigue, Denies fever(s), Denies frequent falls, Reports headache(s), Denies snoring and Denies weakness Eyes Reports as per HPI, Denies blurry vision, Denies change in vision and Reports photophobia ENT Denies vertigo, Reports headache(s) and Denies neck pain Cardiovascular Reports as per HPI, Denies chest pain, Denies lightheadedness, Denies radiating jaw, neck or arm pain, Denies dyspnea and Denies dyspnea on exertion Respiratory Reports as per HPI, Denies chest congestion, Denies cough, Denies dyspnea, Denies dyspnea on exertion, Denies snoring, Denies stridor and Denies wheezing Gastrointestinal Reports as per HPI, Denies abdominal pain, Denies change in bowel habits, Denies nausea and Denies vomiting Musculoskeletal Reports as per HPI, Denies back pain, Denies myalgias, Denies muscle cramps, Denies neck pain and Denies numbness Integumentary/Breasts Reports as per HPI and Denies rash Neurologic Reports as per HPI, Denies abnormal movements, Denies abnormal speech, Denies behavioral changes, Denies confusion, Denies vertigo, Denies frequent falls, Reports headache(s), Denies focal weakness, Denies numbness, Denies sensory deficit and Denies weakness Psychiatric Denies behavioral changes and Denies confusion Endocrine Reports fatigue Allergic/Immunologic Denies wheezing [facility] Medical History Anemia (Chronic) Bloody stools (Chronic) Chronic kidney disease (Chronic) Chronic osteoarthritis (Chronic ~2005) Chronic pain (Chronic) Claudication (Chronic) Current tobacco use (Chronic) Endometriosis (Resolved) GERD (gastroesophageal reflux disease) (Chronic) Heart murmur (Chronic) Hx estrogen therapy (Chronic) Hyperlipidemia (Chronic) Hypertension (Chronic) Irritable bowel syndrome (Chronic) Migraine headache (Chronic) Near syncope (Chronic) Osteoporosis (Chronic) Posterior reversible encephalopathy syndrome (Acute) Situational anxiety (Chronic) Tobacco use disorder (Chronic) Tubular adenoma of colon (Resolved) Surgical History Abdominal hysterectomy Colonoscopy - IV Sedation Oophrectomy, Left Social History Smoking/Tobacco Use Status: Current every day Tobacco Type: cigarettes Alcohol Intake: current Alcohol Intake frequency: holidays/special occasions only Drug use: Daily Substance use type: marijuana Details: medical Do you feel safe at home: Yes Do you feel safe in your relationship?: Yes Additional Social history: she has someone who lives with her Exam Const General: cooperative, healthy appearing, uncomfortable, no acute distress, well developed and well groomed Nutritional Appearance: average body habitus and well nourished Orientation: alert, awake and oriented x3 HENMT Head: normal to inspection, no palpable skull fracture, normocephalic and atraumatic Ears: hearing grossly normal bilaterally, external ears normal and TM's normal bilaterally General nose exam: external nose normal Mouth: oral mucosae normal and moist mucous membranes Throat: posterior oropharynx normal Eyes General: appearance normal, both eyes and all related structures Alignment and Position: alignment normal Periorbital: periorbital findings normal Eyelids: eyelids normal Sclera: sclerae normal Cornea: corneas normal Pupils: PERRL EOM: EOM intact bilaterally Neck Neck: normal visual inspection, full ROM, no lymphadenopathy and no meningeal signs Resp Effort & Inspection: normal respiratory effort, able to speak in complete sentences and no respiratory distress Auscultation: clear to auscultation bilaterally, no rales, no rhonchi and no wheezes Cardio Rate: regular rate Rhythm: regular rhythm Heart Sounds: S1 normal and S2 normal GI Inspection: normal to inspection and non-distended Palpation: soft, no hepatosplenomegaly, not firm, no guarding, not rigid and nontender Percussion: normal to percussion Auscultation: normal bowel sounds Back/Spine/Pelvis Cervical Spine: normal cervical lordosis and cervical ROM normal Skin General skin exam: no rashes or lesions noted Neuro General: alert, awake and oriented x3 Cranial Nerves: CN's II-XI intact bilaterally Cognition: normal cognition Speech: speech normal Gait: normal gait Motor: muscle tone normal throughout, strength 5/5 throughout, no pronator drift, no movement abnormalities noted and no fasciculations Sensory Exam: no sensory deficits noted Coordination: [id number] test normal and [id number] test normal Extrem General: normal to inspection, normal capillary refill, no pedal edema and no calf tenderness Psych Appearance: grossly normal and well kempt Mental Status: mental status grossly normal Speech and Movement: speech and movement normal Course Vital Signs Temperature 36.6 C 05/31/19 13:44 Pulse 74 05/31/19 13:44 Respiratory Rate 16 05/31/19 13:44 Blood Pressure 163/79 H 05/31/19 13:44 Pulse Oximetry 99 05/31/19 13:44 Temperature 36.6 C 05/31/19 13:44 Temperature Source Skin 05/31/19 13:44 Pulse 74 05/31/19 13:44 Respiratory Rate 16 05/31/19 13:44 Respiratory Effort Non-Labored 05/31/19 13:47 Blood Pressure 163/79 H 05/31/19 13:44 Blood Pressure Position Sitting 05/31/19 13:44 Pulse Oximetry 99 05/31/19 13:44 Oxygen Delivery Method Room Air 05/31/19 13:44 Oxygen Flow Rate 0 05/31/19 13:44 Pain Level 3 05/31/19 13:44
--- NOTE | 2019-05-31 14:33 | DI.CT_ITS ---
SYMPTOMS/DIAGNOSIS: HEADACHE CT BRAIN, NONCONTRAST: Comparison is 07/17/18. The ventricular system is normal in appearance. There is no evidence of an intracranial mass lesion. There is no evidence of a subdural or epidural hematoma. No focal areas of decreased attenuation are seen. IMPRESSION: Normal noncontrast cranial CT. The findings were discussed with the Emergency Department on the date of the examination.
[2019-05-31] MEDS: Normal Saline 1,000 ML 150 ML IV (14:36)
[2019-05-31 14:47] LABS: Abs Immature Grans 0.06 k/cumm (0.0-0.09); Absolute Basophil Count 0.04 k/cumm (0.0-0.2); Absolute Lymphocyte Count 2.03 k/cumm (1.2-3.4); Absolute Monocyte Count 0.69 k/cumm (0.11-0.7); Absolute Neutrophil Count 7.91 k/cumm (1.2-6.7); Basophils % 0.4; Eosinophils % 1.8; HCT 40.3 % (36.0-46.0); HGB 13.9 g/dL (12.0-15.5); Immature Grans % 0.5; Lymphocytes % 18.6; Mean Corp. HGB Concentration 34.5 g/dL (32.0-36.0); Mean Corpuscular Hemoglobin 29.4 pg (27.0-33.0); Mean Corpuscular Volume 85.2 fL (80-95); Mean Platelet Volume 9.1 fL (8.0-11.0); Monocytes % 6.3; Neutrophils % 72.4; Platelet Count 237 x1000/uL (130-400); RBC 4.73 m/cumm (4.00-5.20); RBC Distribution Width 14.5 % (11.7-14.6); White Blood Cell Count 10.93 k/cumm (4.4-10.8)
[2019-05-31 15:03] LABS: INR 0.9 (0.9-1.1); PTT Activated 24.7 sec (21.0-31.4); Prothrombin Time 9.2 sec (9.3-11.0)
[2019-05-31 15:04] LABS: ALT 21 U/L (12-78); AST 15 U/L (15-37); Albumin 2.4 g/dL (3.4-5.0); Alkaline Phosphatase 138 U/L (46-116); Anion Gap 11.7 mmol/L (3-11); BUN 24 mg/dL (7-18); Bilirubin, Total 0.4 mg/dL (0.2-1.0); CO2 26.3 mmol/L (21.0-32.0); CREATININE 1.53 mg/dL (0.55-1.02); Calcium 9.2 mg/dL (8.5-10.1); Chloride 102 mmol/L (98-107); Estimated GFR 33.96 (mL/min/1.73m2); Glucose 96 mg/dL (70-100); Potassium 3.4 mmol/L (3.5-5.1); Sodium 140 mmol/L (136-145); Total Protein 7.2 g/dL (6.4-8.2)
[2019-05-31] MEDS: Potassium Chloride 10 MEQ TABCR PO (15:37)
--- NOTE | 2019-05-31 16:40 | NUR.NOTE ---
Nursing Note: blood pressure taken in all 4 extremities. R. arm: 173/85 L. arm: 116/78, repeated 130/87 R. le/89\ L. le/87
== END 2019-05-31 16:52 | disposition home or self-care (01) ==
PROVIDERS: Emergency Provider Physician Assistant; PCP Nurse Practitioner Family
DX: R51 Headache (principal); E87.6 Hypokalemia; N18.9 Chronic kidney disease, unspecified; I12.9 Hypertensive chronic kidney disease with stage 1 through stage 4 chronic kidney disease, or unspecified chronic kidney disease
CPT/HCPCS: 36415; 80053; 96360; 96361; 99284; 70450; 85025; 85610; 85730

== ENCOUNTER → 2019-06-09 12:48 | Outpatient (BNVA) | payer MEDICARE, MEDICAID, SELFPAY | PROVIDERS: PCP Nurse Practitioner Family; Referring Provider Nurse Practitioner Family; Visit Provider Student in an Organized Health Care Education/Training Program | DX: S22.050D Wedge compression fracture of T5-T6 vertebra, subsequent encounter for fracture with routine healing (principal); W19.XXXD Unspecified fall, subsequent encounter | CPT/HCPCS: 99214 ==

== ENCOUNTER 2019-07-22 14:46 | Outpatient (CLI) | payer MEDICARE, MEDICAID, SELFPAY ==
[2019-07-22 15:20] LABS: Abs Immature Grans 0.02 k/cumm (0.0-0.09); Absolute Basophil Count 0.05 k/cumm (0.0-0.2); Absolute Eosinophil Count 0.24 k/cumm (0.0-0.7); Absolute Lymphocyte Count 2.05 k/cumm (1.2-3.4); Absolute Monocyte Count 0.64 k/cumm (0.11-0.7); Absolute Neutrophil Count 6.89 k/cumm (1.2-6.7); Basophils % 0.5; Eosinophils % 2.4; HCT 37.6 % (36.0-46.0); HGB 13.1 g/dL (12.0-15.5); Immature Grans % 0.2; Lymphocytes % 20.7; Mean Corp. HGB Concentration 34.8 g/dL (32.0-36.0); Mean Corpuscular Hemoglobin 29.4 pg (27.0-33.0); Mean Corpuscular Volume 84.3 fL (80-95); Mean Platelet Volume 8.4 fL (8.0-11.0); Monocytes % 6.5; Neutrophils % 69.7; Platelet Count 258 x1000/uL (130-400); RBC 4.46 m/cumm (4.00-5.20); RBC Distribution Width 15.4 % (11.7-14.6); White Blood Cell Count 9.89 k/cumm (4.4-10.8)
[2019-07-22 15:43] LABS: PROTEIN 174.2 mg/dL
[2019-07-22 15:45] LABS: COMMENT (LAB VIEW ONLY) 149.58 mg/dL; Prot/Crea Ur Ratio 1.16
[2019-07-22 16:04] LABS: Albumin 3.6 g/dL (3.4-5.0); Anion Gap 11.8 mmol/L (3-11); BUN 25 mg/dL (7-18); CO2 24.2 mmol/L (21.0-32.0); CREATININE 1.52 mg/dL (0.55-1.02); Calcium 8.6 mg/dL (8.5-10.1); Chloride 103 mmol/L (98-107); Estimated GFR 34.22 (mL/min/1.73m2); Glucose 78 mg/dL (70-100); PHOSPHORUS 3.9 mg/dL (2.6-4.7); Potassium 3.3 mmol/L (3.5-5.1); Sodium 139 mmol/L (136-145)
== END 2019-07-22 15:06 ==
PROVIDERS: PCP Nurse Practitioner Family; Visit Provider Internal Medicine Nephrology
DX: N18.4 Chronic kidney disease, stage 4 (severe) (principal)
CPT/HCPCS: 36415; 80048; 82040; 82565; 84100; 84156; 85025

== ENCOUNTER 2019-08-20 17:47 | Outpatient (REF) | payer MEDICARE, MEDICAID, SELFPAY ==
[2019-08-20 22:12] LABS: ALT 18 U/L (14-59); AST 19 U/L (15-37); Albumin 3.3 g/dL (3.4-5.0); Alkaline Phosphatase 134 U/L (46-116); Anion Gap 12.2 mmol/L (3-11); BUN 22 mg/dL (7-18); Bilirubin, Total 0.3 mg/dL (0.2-1.0); CO2 23.8 mmol/L (21.0-32.0); CREATININE 1.56 mg/dL (0.55-1.02); Calcium 8.4 mg/dL (8.5-10.1); Chloride 104 mmol/L (98-107); Estimated GFR 33.21 (mL/min/1.73m2); Glucose 95 mg/dL (70-100); Potassium 3.2 mmol/L (3.5-5.1); Sodium 140 mmol/L (136-145); TSH (W/Ref FT4) 1.59 uIU/mL (0.36-3.74); Total Protein 6.1 g/dL (6.4-8.2); Vitamin B12 510 pg/mL (193-986)
== END 2019-08-20 18:07 ==
LOC: NCHCN 17:47
PROVIDERS: PCP Nurse Practitioner Family; Visit Provider Nurse Practitioner Family
DX: E78.5 Hyperlipidemia, unspecified (principal); I10 Essential (primary) hypertension; F41.8 Other specified anxiety disorders; D72.829 Elevated white blood cell count, unspecified; I70.1 Atherosclerosis of renal artery; D64.9 Anemia, unspecified; R41.3 Other amnesia; H54.7 Unspecified visual loss
CPT/HCPCS: 80053; 82607; 84443

== ENCOUNTER → 2019-08-26 12:27 | Outpatient (BNVA) | payer MEDICARE, MEDICAID, SELFPAY | PROVIDERS: PCP Nurse Practitioner Family; Referring Provider Nurse Practitioner Family; Visit Provider Nurse Practitioner Adult Health | DX: G31.84 Mild cognitive impairment of uncertain or unknown etiology (principal); Z86.61 Personal history of infections of the central nervous system; F17.210 Nicotine dependence, cigarettes, uncomplicated | CPT/HCPCS: 99214 ==

== ENCOUNTER 2019-09-01 09:54 | Inpatient (IN) | payer MEDICARE, MEDICAID, SELFPAY ==
[2019-09-01] VITALS (30 sets, daily range): BP systolic 86–175; BP diastolic 64–98; PULSE 61–90; RESP 14–20; TEMP 36.5–37.2; O2SAT 97–100
--- NOTE | 2019-09-01 10:22 | ED.GENADUL_ITS ---
Discharge Plan Disposition Patient Disposition: [facility] INPATIENT Condition: Stable Discharge Details Chief Complaint: GI Bleed Clinical Impression: Acute GI bleeding Primary Care Provider: Xochilt Mcdaniel ED Provider: Xochilt Khan Home Meds and New Rx's Prescriptions: No Action topiramate 25 mg capsule,extended release 24hr 25 mg PO BID RF: 0 rosuvastatin 10 mg tablet 20 mg PO DAILY RF: 0 escitalopram oxalate 5 mg tablet 5 mg PO DAILY RF: 0 labetalol 200 mg tablet 200 mg PO BID RF: 0 amlodipine 5 mg tablet 5 mg PO DAILY RF: 0 terazosin 2 mg Capsule 4 mg PO QHS RF: 0 ondansetron 4 mg Tablet,Disintegrating 4 mg PO DAILY RF: 0 acetaminophen [Mapap Extra Strength] 500 MG tablet 1,000 mg PO TID PRNRF: 0 Medical Decision Making 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 Patient reports she awoke this morning with the urge to defecate and reports she filled the toilet with blood. Patient reports a similar episode approximately 1 year ago. Patient does report that she has question of blood with her bowel movements for the last 4 days, blood-tinged bowel movements which she had attributed to eating lots of spaghetti sauce. Patient presents to the ER hemodynamically stable with a soft abdomen. Patient reports mild fatigue which is her baseline. 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 This had a very similar presentation to today's events. Patient reports the amount of blood she recalls today compared to the last year was worse today. Patient denies fevers or chills. No other concerns or complaints at this time. Baseline labs are ordered. Patient does have a mild decrease in her hemoglobin compared to her baseline recently. Patient's vital signs have remained stable. Patient continues to have a soft abdominal exam. On rectal patient has obvious bright red blood present in the rectal vault with no active bleeding at this time. This case was discussed with Fide Villasneor who also evaluated the patient the bedside. FAST exam done at the bedside which revealed no obvious free peritoneal fluid or bleeding but did reveal some atherosclerotic changes of the proximal abdominal aorta. No clear dissection of the abdominal aorta however patient clearly has some vascular chronic abnormalities. Abdominal bruits also noted on abdominal exam. Patient's EKG reveals sinus rhythm with a rate of 71. No obvious ST segment changes. Reviewed with Fide Villasenor spoke with surgery, Cornelia, regarding this case. They do not feel that patient needs to go directly to colonoscopy at this time. They prefer 24- hour observation in the hospital with admission to medicine and colonoscopy is and if indicated for persistent bleeding or drop in H&H Spoke with hospitalist Dr. Dr. Kaba who will admit the patient for continued observation. Patient and daughter agree with plan of care of admission to the hospital at this time HPI General Date/Time Provider Initiated Documentation: 09/01/19 09:56 . 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 Patient reports she awoke and had the sensation of needing to have a bowel movement. Patient reports she filled the toilet with blood. Patient reports morning fatigue which is not atypical as she has difficulty sleeping at night. Patient reports the fatigue she is experienced today is not significantly different than her baseline. Patient denies headache or dizziness at this time. Patient denies abdominal pain at this time. Patient in retrospect thinks she may have noted some mild red blood with her bowel movements for the last 4 days but had been attributing it to the tomato sauce she was eating with dinner for the last several days. Patient does report a history of GI bleeding approximately 1 year ago which required colonoscopy and cauterization. Patient does report mild mid to lower back pain which she attributes to moving wood yesterday. Patient does have some baseline back pain. She reports no specific change from her baseline. Denies chest pain, difficul ty breathing or shortness of breath. Patient denies the use of a blood thinner. No other concerns or complaints at this time. Related Data Home Medications Medication Instructions Recorded Confirmed acetaminophen [Mapap Extra 1,000 mg PO TID PRN 02/18/18 09/01/19 Strength] amlodipine 5 mg tablet 5 mg PO DAILY 09/21/18 09/01/19 escitalopram oxalate 5 mg tablet 5 mg PO DAILY 09/21/18 09/01/19 labetalol 200 mg tablet 200 mg PO BID 09/21/18 09/01/19 rosuvastatin 10 mg tablet 20 mg PO DAILY 09/21/18 09/01/19 topiramate 25 mg capsule,extended 25 mg PO BID cap 09/21/18 09/01/19 release 24 hr ondansetron 4 mg PO DAILY 05/31/19 09/01/19 terazosin 4 mg PO QHS 05/31/19 09/01/19 Allergies Allergy/AdvReac Type Severity Reaction Status Date / Time lorazepam [From Ativan] Allergy Severe Verified 09/01/19 10:01 albuterol sulfate Allergy Intermediate chest pain Verified 09/01/19 10:01 [From Proventil HFA] enalapril Allergy Intermediate Verified 09/01/19 10:01 modafinil [From Provigil] Allergy Intermediate trouble Verified 09/01/19 10:01 breathing lisinopril Allergy Mild Verified 09/01/19 10:01 losartan Allergy Mild Verified 09/01/19 10:01 tramadol Allergy Mild Verified 09/01/19 10:01 strawberry Allergy hives Verified 09/01/19 10:01 aspirin AdvReac Severe when Verified 09/01/19 10:01 taken orally I get bleeding ulcers amitriptyline AdvReac Unknown Out in Verified 09/01/19 10:01 outter space, really messed with my head duloxetine HCl AdvReac diarrhea, Verified 09/01/19 10:01 [From Cymbalta] vomiting General Stated Complaint: GI Bleed DENG: 3 Review of Systems All systems reviewed & are unremarkable except as noted in HPI and below Constitutional Constitutional: Denies chills, Reports fatigue, Denies fever(s) and Denies headache(s) ENT Ears, Nose, Mouth, and Throat: Denies headache(s) Gastrointestinal Gastrointestinal: Denies abdominal pain, Reports hematochezia, Denies nausea and Denies vomiting Genitourinary Genitourinary: Denies urinary frequency, Denies difficulty voiding and Denies dysuria Neurologic Neurologic: Denies headache(s) Endocrine Endocrine: Reports fatigue [facility] Medical History Anemia (Chronic) Bloody stools (Chronic) Chronic kidney disease (Chronic) Chronic osteoarthritis (Chronic ~2004) back and cervical spine Chronic pain (Chronic) Claudication (Chronic) Current tobacco use (Chronic) Endometriosis (Resolved) GERD (gastroesophageal reflux disease) (Chronic) Heart murmur (Chronic) Hx estrogen therapy (Chronic) Hyperlipidemia (Chronic) Hypertension (Chronic) Irritable bowel syndrome (Chronic) Migraine headache (Chronic) Near syncope (Chronic) Osteoporosis (Chronic) Posterior reversible encephalopathy syndrome (Acute) Situational anxiety (Chronic) Tobacco use disorder (Chronic) Tubular adenoma of colon (Resolved) Surgical History Abdominal hysterectomy 1973-cervix 1980-uterus 1985-[place] Colonoscopy - IV Sedation 2012 colonoscopy Oophrectomy, Left Social History Smoking/Tobacco Use Status: Current every day Tobacco Type: cigarettes Smoking packs per day: 0.5 Smoking cigarettes per day: 10.0 Alcohol Intake: current Alcohol Intake frequency: holidays/special occasions only Drug use: Daily Substance use type: marijuana Details: medical Household members: friend(s) Housing: house Number of Children: 7 Seatbelt use: always Do you feel safe at home: Yes Do you feel safe in your relationship?: Yes Additional Social history: she has someone who lives with her Exam Narrative Exam Narrative: CONST: Healthy appearing patient, in no acute distress. Well hydrated. Alert and alert. EYES: General normal appearance. Alignment normal. Eyelids normal. Conjunctiva normal. Sclera normal. PERRL. NECK: Normal visual inspection. FROM. No lymphadenopathy. Trachea midline. No Midline tenderness. CHEST: Normal insepection of the chest. RESP: Normal respiratory effort. Speaking full sentences. No cough. No wheezing. No retractions. Clear to auscaltation. Breath sound equal and present bilaterally. CARDIO: No JVD. Normal PMI. Regular Rate. Regular Rhythm. Normal peripheral pulses. Holosystolic murmur present GI: Normal inspection of abdomen. No distension. Soft. Mild right lower quadrant abdominal pain with palpation no abdominal pain throughout the remainder of her abdomen. Bowel sounds present in all 4 quadrants. No rebound. No gaurding. Abdominal bruits noted in all 4 quadrants MUSCULOSKELETAL: Normal Gait. FROM of all extremities. Distal neurovascularly intact. Sensation intact distally. Pulses intact distally SKIN: Normal. Dry. No rashes. NEURO: Alert and awake. Speech clear. PSYCH: Normal affect. Cooperative. Course Vital Signs Vital signs: Vital Signs Temperature 36.5 C 09/01/19 09:57 Pulse 83 09/01/19 09:57 Respiratory Rate 20 10/30/19 09:57 Blood Pressure 125/98 H 09/01/19 09:57 Temperature 36.5 C 09/01/19 09:57 Temperature Source Skin 09/01/19 09:57 Pulse 83 09/01/19 09:57 Respiratory Rate 20 09/01/19 09:57 Respiratory Effort 09/01/19 10:01 Blood Pressure 125/98 H 09/01/19 09:57 Blood Pressure Position Sitting 09/01/19 09:57 Oxygen Delivery Method Room Air 09/01/19 09:57 Oxygen Flow Rate 0 09/01/19 09:57 Pain Level 4 09/01/19 09:57 Comment 09/01/19 09:57
[2019-09-01] MEDS: Normal Saline 1,000 ML 1000 ML IV (10:25)
[2019-09-01 10:35] LABS: Abs Immature Grans 0.02 k/cumm (0.0-0.09); Absolute Basophil Count 0.04 k/cumm (0.0-0.2); Absolute Monocyte Count 0.63 k/cumm (0.11-0.7); Basophils % 0.3; Eosinophils % 1.6; HCT 33.3 % (36.0-46.0); HGB 11.1 g/dL (12.0-15.5); Immature Grans % 0.2; Lymphocytes % 10.9; Mean Corp. HGB Concentration 33.3 g/dL (32.0-36.0); Mean Corpuscular Hemoglobin 28.6 pg (27.0-33.0); Mean Corpuscular Volume 85.8 fL (80-95); Mean Platelet Volume 8.7 fL (8.0-11.0); Monocytes % 4.9; Neutrophils % 82.1; Platelet Count 222 x1000/uL (130-400); RBC 3.88 m/cumm (4.00-5.20); RBC Distribution Width 14.2 % (11.7-14.6); White Blood Cell Count 12.89 k/cumm (4.4-10.8)
[2019-09-01 10:38] LABS: Absolute Eosinophil Count 0.21 k/cumm (0.0-0.7); Absolute Lymphocyte Count 1.41 k/cumm (1.2-3.4); Absolute Neutrophil Count 10.58 k/cumm (1.2-6.7)
[2019-09-01 10:48] LABS: ALT 27 U/L (14-59); AST 16 U/L (15-37); Albumin 3.2 g/dL (3.4-5.0); Alkaline Phosphatase 120 U/L (46-116); Anion Gap 10.6 mmol/L (3-11); BUN 26 mg/dL (7-18); Bilirubin, Total 0.3 mg/dL (0.2-1.0); CO2 25.4 mmol/L (21.0-32.0); CREATININE 1.65 mg/dL (0.55-1.02); Calcium 8.3 mg/dL (8.5-10.1); Chloride 102 mmol/L (98-107); Estimated GFR 31.12 (mL/min/1.73m2); Glucose 138 mg/dL (70-100); PTT Activated 25.9 sec (21.0-31.4); Potassium 3.5 mmol/L (3.5-5.1); Prothrombin Time 10.3 sec (9.3-11.0); Sodium 138 mmol/L (136-145); Total Protein 6.1 g/dL (6.4-8.2)
[2019-09-01 14:42] LABS: HCT 28.7 % (36.0-46.0); HGB 9.7 g/dL (12.0-15.5)
--- NOTE | 2019-09-01 15:25 | W.PM.HP.N ---
Date of service: 09/01/19 Time of Service: 15:25 Assessment and Plan Assessment and plan (1) Lower GI bleed: Status: Acute Assessment and plan: With history of lower GI bleed in 08/2018 with colonoscopy and cauterization of AVM. She presents with a hemoglobin of 11.1, down from 13.1 last month. Repeat hemoglobin at 4 hours down to 9.7. She has been typed and crossmatched. She agrees to blood transfusion if needed. Continue IV fluids, monitor on telemetry. Repeat H&H at 1800. Monitor vital signs closely. (2) Anemia: Status: Chronic Assessment and plan: As above. (3) Chronic kidney disease: Status: Chronic Assessment and plan: Atrophic left kidney. Creatinine 1.65 today, appears to be near baseline. Continue IV fluids. Repeat BMP tomorrow morning. (4) Thoracic compression fracture: Status: Acute Assessment and plan: Tylenol for pain. Lidoderm patch. Continue to monitor. Qualifiers: Encounter type: initial encounter Thoracic vertebra fracture level: T5 Qualified Code(s): S22.050A - Wedge compression fracture of T5-T6 vertebra, initial encounter for closed fracture (5) Tobacco use disorder: Status: Chronic Assessment and plan: Currently smokes 3-4 cigarettes per day. Nicoderm patch as needed. (6) Posterior reversible encephalopathy syndrome: Status: Acute Assessment and plan: [place] [facility] Has been seen recently by Nakia Davis NP at Neurology clinic. Follow up planned for 6 months. (7) Migraine headache: Status: Chronic Assessment and plan: Takes scheduled topiramate for migraine prophylaxis. Tylenol 1000 mg with benadryl 50 mg as needed. (8) GERD (gastroesophageal reflux disease): Status: Chronic Assessment and plan: Protonix IV while hospitalized. (9) Hyperlipidemia: Status: Chronic Assessment and plan: Continue Crestor. (10) Hypertension: Status: Chronic Assessment and plan: Blood pressure acceptable on amlodipine, labetalol and terazosin. Continue home regimen. Monitor blood pressure closely in the setting of blood loss. (11) DVT prophylaxis: Status: Acute Assessment and plan: Not indicated in the setting of acute bleeding. (12) Discharge planning issues: Status: Acute Assessment and plan: She is a FULL CODE. This case was discussed with Dr. Kaba who is in agreement. History of Present Illness History of Present Illness Chief Complaint: Lower GI Bleed Narrative: Levy Nugent is a very pleasant 68 year old female with a past medical history significant for hypertension, history of PRES (posterior reversible encephalopathy syndrome) in June,, migraine headaches, GERD, hyperlipidemia, chronic low back pain with T5 fracture, osteoarthritis, chronic kidney disease with atrophic left kidney, irritable bowel syndrome, and history of lower GI bleed in August, at which time she had a colonoscopy in which a bleeding AVM was cauterized and one polyp was removed. She presented to the ED today with reports of bright red blood per rectum. She reports that she noticed a small amount of redness in her stool, she attributed it to eating too many tomatoes. Today she awoke and had an urge to defecate and reports that she filled the toilet with blood twice. In the ED, she was hemodynamically stable. Her Hemoglobin was lower than recent levels at 11.1, she was 13.1 last month. She had an EKG which showed NSR with rate of 71 bpm, no ST changes. Rectal exam in the ED with bright red blood. Dr. Villasenor in the ED spoke with general surgery, Dr. Locke recommended 24 hour observation with colonscopy as needed for persistent bleeding or drop in H&H. She is admitted to the Med/Surg floor for further observation and management. At the time of her admission to the med/surg floor, she denies any dizziness, lightheadedness, fainting, increased fatigue. She reports that she does not sleep well at night and generally feels tired. She believes she has had more blood per rectum this time as compared to her episode last year. She got up to void just prior to my visit and did not see any blood. She denies chest pain/pressure, palpitation, shortness of breath, coughing, wheezing, abdominal pain, nausea, vomiting, diarrhea or edema. Review of Systems All systems reviewed & are unremarkable except as noted in HPI and below FORMERLY [facility], [facility] Medical History Anemia (Chronic) Bloody stools (Chronic) Chronic kidney disease (Chronic) Chronic osteoarthritis (Chronic ~2004) back and cervical spine Chronic pain (Chronic) Claudication (Chronic) Current tobacco use (Chronic) Endometriosis (Resolved) GERD (gastroesophageal reflux disease) (Chronic) Heart murmur (Chronic) Hx estrogen therapy (Chronic) Hyperlipidemia (Chronic) Hypertension (Chronic) Irritable bowel syndrome (Chronic) Migraine headache (Chronic) Near syncope (Chronic) Osteoporosis (Chronic) Posterior reversible encephalopathy syndrome (Acute) Situational anxiety (Chronic) Tobacco use disorder (Chronic) Tubular adenoma of colon (Resolved) Surgical History Abdominal hysterectomy 1973-cervix 1980-uterus 1985-ovary Colonoscopy - IV Sedation 2012 colonoscopy Oophrectomy, Left Social History Smoking/Tobacco Use Status: Current every day Tobacco Type: cigarettes Smoking packs per day: 0.5 Smoking cigarettes per day: 10.0 Alcohol Intake: current Alcohol Intake frequency: holidays/special occasions only Drug use: Daily Substance use type: marijuana Details: medical Household members: friend(s) Housing: house Number of Children: 7 Seatbelt use: always Do you feel safe at home: Yes Do you feel safe in your relationship?: Yes Additional Social history: she has someone who lives with her [employer] Home Medications and Allergies Home Medications Medication Instructions Recorded Confirmed Type acetaminophen [Mapap Extra 1,000 mg PO TID PRN 02/18/18 09/01/19 History Strength] amlodipine 5 mg tablet 5 mg PO DAILY 09/21/18 09/01/19 History escitalopram oxalate 5 mg tablet 5 mg PO USEASDIRECTD 09/21/18 09/01/19 History labetalol 200 mg tablet 200 mg PO BID 09/21/18 09/01/19 History rosuvastatin 10 mg tablet 20 mg PO DAILY 09/21/18 09/01/19 History topiramate 25 mg capsule,extended 25 mg PO BID cap 09/21/18 09/01/19 History release 24 hr ondansetron 4 mg PO DAILY 05/31/19 09/01/19 History terazosin 4 mg PO QHS 05/31/19 09/01/19 History Allergies Allergy/AdvReac Type Severity Reaction Status Date / Time lorazepam [From Ativan] Allergy Severe Verified 09/01/19 10:01 albuterol sulfate Allergy Intermediate chest pain Verified 09/01/19 10:01 [From Proventil HFA] enalapril Allergy Intermediate Verified 09/01/19 10:01 modafinil [From Provigil] Allergy Intermediate trouble Verified 09/01/19 10:01 breathing lisinopril Allergy Mild Verified 09/01/19 10:01 losartan Allergy Mild Verified 09/01/19 10:01 tramadol Allergy Mild Verified 09/01/19 10:01 strawberry Allergy hives Verified 09/01/19 10:01 aspirin AdvReac Severe when Verified 09/01/19 10:01 taken orally I get bleeding ulcers amitriptyline AdvReac Unknown Out in Verified 09/01/19 10:01 outter space, really messed with my head duloxetine HCl AdvReac diarrhea, Verified 09/01/19 10:01 [From Cymbalta] vomiting Exam Narrative Exam Narrative: General: well appearing 68 year old female, laying in bed with head elevated. Alert and oriented, answers questions appropriately. HEENT: normocephalic, atraumatic, pupils equal and round, EOMI, mucous membranes. Neck: supple, no JVD. Cardiovascular: heart has regular rate and rhythm, nontachycardic, 2-3/6 murmur noted at RSB. Respiratory: respirations even and unlabored, lung sounds clear to auscultation bilaterally. GI: abdomen soft, nontender on palpation, +bowel sounds throughout. Extremities: well perfused, no clubbing, cyanosis or edema. Results Labs Result diagrams: 09/01/19 14:35 09/01/19 10:22 Labs: Laboratory Results - last 24 hr 09/01/19 09/01/19 09/01/19 10:22 10:22 10:22 WBC 12.89 H RBC 3.88 L Hgb 11.1 L Hct 33.3 L MCV 85.8 MCH 28.6 MCHC 33.3 RDW 14.2 Plt Count 222 MPV 8.7 Immature Gran % 0.2 Neutrophils % 82.1 Lymphocytes % 10.9 Monocytes % 4.9 Eosinophils % 1.6 Basophils % 0.3 Absolute Neutrophils 10.58 H Absolute Lymphocytes 1.41 Absolute Monocytes 0.63 Absolute Eosinophils 0.21 Absolute Basophils 0.04 PT 10.3 INR 1.0 APTT 25.9 Sodium 138 Potassium 3.5 Chloride 102 Carbon Dioxide 25.4 Anion Gap 10.6 BUN 26 H Creatinine 1.65 H Estimated GFR/1.73 m2 31.12 Glucose 138 H Calcium 8.3 L Total Bilirubin 0.3 AST 16 ALT 27 Alkaline Phosphatase 120 H Total Protein 6.1 L Albumin 3.2 L Patient ABO/Rh Antibody Screen 09/01/19 09/01/19 10:22 14:35 WBC RBC Hgb 9.7 L Hct 28.7 L MCV MCH MCHC RDW Plt Count MPV Immature Gran % Neutrophils % Lymphocytes % Monocytes % Eosinophils % Basophils % Absolute Neutrophils Absolute Lymphocytes Absolute Monocytes Absolute Eosinophils Absolute Basophils PT INR APTT Sodium Potassium Chloride Carbon Dioxide Anion Gap BUN Creatinine Estimated GFR/1.73 m2 Glucose Calcium Total Bilirubin AST ALT Alkaline Phosphatase Total Protein Albumin Patient ABO/Rh O Positive Antibody Screen Negative Last Vital Signs Temp 36.8 C 09/01/19 12:33 Pulse 82 09/01/19 12:33 Resp 16 09/01/19 12:33 BP 158/77 H 09/01/19 12:33 Pulse Ox 99 09/01/19 12:33
[2019-09-01 18:06] LABS: HCT 28.1 % (36.0-46.0); HGB 9.5 g/dL (12.0-15.5)
[2019-09-01] MEDS: Pantoprazole 40 MG VIAL IVP (18:39)
[2019-09-01] MEDS: Escitalopram 10 MG TAB 5 MG PO (18:50)
[2019-09-01] MEDS: Labetalol 100 MG TAB 200 MG PO (21:05)
[2019-09-01] MEDS: Topiramate 25 MG TAB 12.5 MG PO (21:06)
[2019-09-02] VITALS (9 sets, daily range): BP systolic 151–184; BP diastolic 74–82; PULSE 78–120; RESP 17–19; TEMP 37.1–37.5; O2SAT 96–98
[2019-09-02 07:11] LABS: Abs Immature Grans 0.01 k/cumm (0.0-0.09); Absolute Basophil Count 0.04 k/cumm (0.0-0.2); Absolute Eosinophil Count 0.18 k/cumm (0.0-0.7); Absolute Lymphocyte Count 1.66 k/cumm (1.2-3.4); Absolute Monocyte Count 0.68 k/cumm (0.11-0.7); Absolute Neutrophil Count 6.95 k/cumm (1.2-6.7); Basophils % 0.4; Eosinophils % 1.9; HCT 30.6 % (36.0-46.0); HGB 10.2 g/dL (12.0-15.5); Immature Grans % 0.1; Lymphocytes % 17.4; Mean Corp. HGB Concentration 33.3 g/dL (32.0-36.0); Mean Corpuscular Hemoglobin 28.3 pg (27.0-33.0); Mean Corpuscular Volume 84.8 fL (80-95); Mean Platelet Volume 8.8 fL (8.0-11.0); Monocytes % 7.1; Neutrophils % 73.1; Platelet Count 206 x1000/uL (130-400); RBC 3.61 m/cumm (4.00-5.20); RBC Distribution Width 14.1 % (11.7-14.6); White Blood Cell Count 9.52 k/cumm (4.4-10.8)
[2019-09-02 07:12] LABS: Anion Gap 12.1 mmol/L (3-11); BUN 18 mg/dL (7-18); CO2 22.9 mmol/L (21.0-32.0); CREATININE 1.44 mg/dL (0.55-1.02); Calcium 8.7 mg/dL (8.5-10.1); Chloride 104 mmol/L (98-107); Estimated GFR 36.42 (mL/min/1.73m2); Glucose 91 mg/dL (70-100); Magnesium 1.9 mg/dL (1.8-2.4); Sodium 139 mmol/L (136-145)
[2019-09-02 07:16] LABS: Potassium 2.9 mmol/L (3.5-5.1)
[2019-09-02] MEDS: Labetalol 100 MG TAB 200 MG PO ×2 (09:25→21:05)
[2019-09-02] MEDS: Topiramate 25 MG TAB 12.5 MG PO ×2 (09:27→21:06)
[2019-09-02] MEDS: Normal Saline Flush 10 ML SYR IVP ×2 (09:28→17:21)
[2019-09-02] MEDS: Potassium Chloride 20 MEQ TABCR 40 MEQ PO ×2 (09:51→16:43)
--- NOTE | 2019-09-02 10:52 | PHARADMIT ---
Admission Pharmacy Clinical Review LAURA GI BLEED Code Status Full Code Current Weight Wgt-45.3 kg Renally Cleared and Narrow Therapeutic Index Meds CrCl~ 27.5 mL/min Meds-OK QTc Value / Action Taken QTc-450 Lexapro BP Control, Fever BP- 167/76 Tmax- 37.2 C Electrolytes reviewed Na- 139 K+2.9 Mag-1.9 DVT Prophylaxis TEDS, SCDs Opiate Usage / Scheduled Bowel Regimen Ordered No Yes Plt/SCr for Heparin / Enoxaparin Plts-206 SCr-1.44 INR for Warfarin inr-1.0 H/H stable, WBC/Bands H&H- 10.2/30.6 WBC- 9.52 Antibiotic appropriateness none Cultures and Sensitivities none noneSurgical ABX d/c within 24 hr NA DM control / Insulin Dosing BG-91 Heart Failure (Check EF%) (CONSUELO's, B-Block, Diuretics) Norvasc,Labetalol, Hytrin, IV to PO Switch No Home Meds Reviewed Yes Home Meds Not Ordered Zosuma, Compazine Comments
[2019-09-02] MEDS: Nicotine 7 MG/24 HR PATCH TD (11:33)
--- NOTE | 2019-09-02 12:11 | W.PM.PROGNOT ---
Date of Service Date of service: 09/02/19 Time of Service: 12:11 Assessment and Plan Assessment and plan (1) Lower GI bleed: Status: Acute Assessment and plan: With history of lower GI bleed in 08/2018 with colonoscopy and cauterization of AVM. Hgb stable this morning at 10.2. Continue monitor on telemetry. Discontinue IV fluids. Repeat H&H at 12 hours (1800). Advance diet. Heme test stools. Monitor vital signs closely. (2) Anemia: Status: Chronic Assessment and plan: As above. (3) Chronic kidney disease: Status: Chronic Assessment and plan: Atrophic left kidney. Creatinine improved to 1.44 from 1.65 on admission today, appears to be improved from baseline. Discontinue IV fluids. Monitor renal function. (4) Thoracic compression fracture: Status: Acute Assessment and plan: Tylenol for pain. Lidoderm patch. Continue to monitor. Qualifiers: Encounter type: initial encounter Thoracic vertebra fracture level: T5 Qualified Code(s): S22.050A - Wedge compression fracture of T5-T6 vertebra, initial encounter for closed fracture (5) Tobacco use disorder: Status: Chronic Assessment and plan: Currently smokes 3-4 cigarettes per day. Nicoderm patch as needed. (6) Posterior reversible encephalopathy syndrome: Status: Acute Assessment and plan: [place] [facility] Has been seen recently by Nakia Davis NP at Neurology clinic. Follow up planned for 6 months. (7) Migraine headache: Status: Chronic Assessment and plan: Takes scheduled topiramate for migraine prophylaxis. Tylenol 1000 mg with benadryl 50 mg as needed. (8) GERD (gastroesophageal reflux disease): Status: Chronic Assessment and plan: Protonix IV while hospitalized. (9) Hyperlipidemia: Status: Chronic Assessment and plan: Continue Crestor. (10) Hypertension: Status: Chronic Assessment and plan: Blood pressure mildly elevated on amlodipine, labetalol and terazosin. Continue home regimen. Monitor blood pressure closely. (11) DVT prophylaxis: Status: Acute Assessment and plan: Not indicated in the setting of acute bleeding. (12) Discharge planning issues: Status: Acute Assessment and plan: She is a FULL CODE. This case was discussed with Dr. Kaba who is in agreement. Subjective Subjective Interval history since last seen: Ms Nugent reports doing well today. She denies any bouchra blood per rectum. She has not had a bowel movement. Her hemoglobin has improved today. Her diet has been advanced and she is tolerating it well. No abdominal pain, nausea or vomiting. She denies dizziness, lightheadedness, feeling faint, shortness of breath, coughing wheezing, chest pain/pressure, palpitations, edema. Telemetry is showing NSR with rates in the 80s and 90s, she had a brief episode of sinus tachycardia up to 120 which resolved. Exam Narrative Exam Narrative: General: well appearing 68 year old female, laying in bed with head elevated. Alert and oriented, answers questions appropriately. HEENT: normocephalic, atraumatic, pupils equal and round, EOMI, mucous membranes moist. Neck: supple, no JVD. Cardiovascular: heart has regular rate and rhythm, nontachycardic, 2-3/6 murmur noted at RSB. Respiratory: respirations even and unlabored, lung sounds clear to auscultation bilaterally. GI: abdomen soft, nontender on palpation, +bowel sounds throughout. Extremities: well perfused, no clubbing, cyanosis or edema. Objective Objective Clinical Data: Abnormal lab results 09/01/19 09/01/19 09/02/19 Range/Units 14:35 17:56 06:20 RBC (4.00-5.20) m/cumm Hgb 9.7 L 9.5 L (12.0-15.5) g/dL Hct 28.7 L 28.1 L (36.0-46.0) % Absolute Neutrophils (1.2-6.7) k/cumm Potassium 2.9 L* (3.5-5.1) mmol/L Anion Gap 12.1 H (3-11) mmol/L Creatinine 1.44 H (0.55-1.02) mg/dL 09/02/19 Range/Units 06:20 RBC 3.61 L (4.00-5.20) m/cumm Hgb 10.2 L (12.0-15.5) g/dL Hct 30.6 L (36.0-46.0) % Absolute Neutrophils 6.95 H (1.2-6.7) k/cumm Potassium (3.5-5.1) mmol/L Anion Gap (3-11) mmol/L Creatinine (0.55-1.02) mg/dL Vital Signs Temperature 37.4 C 09/02/19 12:01 Temperature Source Tympanic 09/02/19 12:01 Pulse 78 09/02/19 12:01 Pulse Rhythm Regular 09/02/19 10:30 Pulse 76 09/01/19 12:01 Respiratory Rate 19 09/02/19 12:01 Respiratory Effort Non-Labored 09/02/19 10:30 Respiratory Depth Normal 09/02/19 10:30 Respiratory Pattern Normal 09/02/19 10:30 Blood Pressure 160/74 H 09/02/19 12:01 Blood Pressure Mean 86 09/01/19 12:01 Blood Pressure Position Sitting 09/01/19 09:57 Pulse Oximetry 98 09/02/19 12:01 Oxygen Delivery Method Room Air 09/02/19 12:01 Oxygen Flow Rate 0 09/02/19 12:01 Pain Level 0 09/02/19 12:01 Comment 09/01/19 09:57 Intake & Output 09/01/19 09/02/19 09/02/19 23:59 11:59 23:59 Intake Total 500 / 1020 Output Total 900 / 900 900 / 900 Balance -400 / 120 -900 / -900 Weight 45.359 kg Intake: IV 500 / 1020 Output: Urine 900 / 900 900 / 900 Other: Urine Color Pale Yellow Urine Appearance Clear Clear Urine Odor Strong Voiding Methods Toilet Toilet Laboratory Results WBC 9.52 k/cumm (4.4-10.8) 09/02/19 06:20 RBC 3.61 m/cumm (4.00-5.20) L 09/02/19 06:20 Hgb 10.2 g/dL (12.0-15.5) L 09/02/19 06:20 Hct 30.6 % (36.0-46.0) L 09/02/19 06:20 MCV 84.8 fL (80-95) 09/02/19 06:20 MCH 28.3 pg (27.0-33.0) 09/02/19 06:20 MCHC 33.3 g/dL (32.0-36.0) 09/02/19 06:20 RDW 14.1 % (11.7-14.6) 09/02/19 06:20 Plt Count 206 x1000/uL (130-400) 09/02/19 06:20 MPV 8.8 fL (8.0-11.0) 09/02/19 06:20 Immature Gran % 0.1 09/02/19 06:20 Neutrophils % 73.1 09/02/19 06:20 Lymphocytes % 17.4 09/02/19 06:20 Monocytes % 7.1 09/02/19 06:20 Eosinophils % 1.9 09/02/19 06:20 Basophils % 0.4 09/02/19 06:20 Absolute Neutrophils 6.95 k/cumm (1.2-6.7) H 09/02/19 06:20 Absolute Lymphocytes 1.66 k/cumm (1.2-3.4) 09/02/19 06:20 Absolute Monocytes 0.68 k/cumm (0.11-0.7) 09/02/19 06:20 Absolute Eosinophils 0.18 k/cumm (0.0-0.7) 09/02/19 06:20 Absolute Basophils 0.04 k/cumm (0.0-0.2) 09/02/19 06:20 PT 10.3 sec (9.3-11.0) 09/01/19 10:22 INR 1.0 (0.9-1.1) 09/01/19 10:22 APTT 25.9 sec (21.0-31.4) 09/01/19 10:22 Sodium 139 mmol/L (136-145) 09/02/19 06:20 Potassium 2.9 mmol/L (3.5-5.1) L* 09/02/19 06:20 Chloride 104 mmol/L (98-107) 09/02/19 06:20 Carbon Dioxide 22.9 mmol/L (21.0-32.0) 09/02/19 06:20 Anion Gap 12.1 mmol/L (3-11) H 09/02/19 06:20 BUN 18 mg/dL (7-18) D 09/02/19 06:20 Creatinine 1.44 mg/dL (0.55-1.02) H 09/02/19 06:20 Estimated GFR/1.73 m2 36.42 (mL/min/1.73m2) 09/02/19 06:20 Glucose 91 mg/dL (70-100) 09/02/19 06:20 Calcium 8.7 mg/dL (8.5-10.1) 09/02/19 06:20 Magnesium 1.9 mg/dL (1.8-2.4) 09/02/19 06:20 Total Bilirubin 0.3 mg/dL (0.2-1.0) 09/01/19 10:22 AST 16 U/L (15-37) 09/01/19 10:22 ALT 27 U/L (14-59) 09/01/19 10:22 Alkaline Phosphatase 120 U/L (46-116) H 09/01/19 10:22 Total Protein 6.1 g/dL (6.4-8.2) L 09/01/19 10:22 Albumin 3.2 g/dL (3.4-5.0) L 09/01/19 10:22 Patient ABO/Rh O Positive 09/01/19 10:22 Antibody Screen Negative 09/01/19 10:22
--- NOTE | 2019-09-02 13:37 | CHAPLAIN ---
I had a short visit with Levy. She talked about the events that led up to her admission yesterday. Her daughter was in to visit her last night, and Levy said she'll be back to day. Levy seems comfortable being here. She was pleasant and easily engaged in a conversation.
[2019-09-02] MEDS: Magnesium Oxide 400 MG TAB PO (16:43)
[2019-09-02] MEDS: Pantoprazole 40 MG VIAL IVP (17:20)
--- NOTE | 2019-09-02 18:15 | INITIAL_ITS ---
- If Service Date Differs Date of service: 09/02/19 Time of Service: 18:15 Care Management Initial Assess REASON FOR HOSPITALIZATION:: Lower GI bleed PAST MEDICAL HISTORY/PAST SURGICAL HISTORY:: Medical History . Anemia (Chronic). Bloody stools (Chronic). Chronic kidney disease (Chronic). Chronic osteoarthritis (Chronic ~2004). back and cervical spine. Chronic pain (Chronic). 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 Current tobacco use (Chronic). Endometriosis (Resolved). GERD (gastroesophageal reflux disease) (Chronic). Heart murmur (Chronic). Hx estrogen therapy (Chronic). Hyperlipidemia (Chronic). Hypertension (Chronic). Irritable bowel syndrome (Chronic). Migraine headache (Chronic). Near syncope (Chronic). Osteoporosis (Chronic). Posterior reversible encephalopathy syndrome (Acute). Situational anxiety (Chronic). Tobacco use disorder (Chronic). Tubular adenoma of colon (Resolved). Surgical History . Abdominal hysterectomy. 1973- cervix. 1980-uterus. 1985-ovary. Colonoscopy - IV Sedation. 2011 colonoscopy. Oophrectomy, Left PREVIOUS FUNCTIONAL STATUS/SOCIAL/FAMILY SUPPORTS:: Levy lives with a friend in a single family home in [facility].She has a daughter in [place] who will be returning to the area and who will be able to offer additional support. 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 Levy is fairly independent with ADLs but is no longer able to drive or to live completely independently. ;. b ; CURRENT FUNCTIONAL STATUS:: Yusef was sitting on the side of her bed eating lunch when CM met with her. She was open and friendly and readily engaged in conversation. She stated that she is feeling much better and that if she has no more episodes of bleeding, she hopes to be sischarged home tomorrow. ADVANCE DIRECTIVES:: On file. ADITYA Bee Has patient been provided with information about the portal?: No Did the patient sign up for the portal?: No CODE STATUS:: Full Code INSURANCE COVERAGE / FINANCIAL ISSUES:: Medicare. Medicaid CURRENT HOME/COMMUNITY SERVICES/EQUIPMENT:: Levy receives Meals on Wheels and has a walker, shower chair and cane at home. PRIMARY CARE PHYSICIAN:: bear Mcdaniel POTENTIAL DISCHARGE NEEDS:: Follow up with PCP and discharge plan of care PATIENT/FAMILY EDUCATION NEEDS:: Discharge plan, limitations, follow up plan, Ask Me Three. TRANSPORTATION:: via private vehicle with friend PLAN:: Levy will be discharged home with no new services. She will follow up with her PCP and discharge plan of care. CM will continue sybil support patient, family and discharge planning needs.
[2019-09-02 18:22] LABS: HCT 28.7 % (36.0-46.0); HGB 9.7 g/dL (12.0-15.5)
[2019-09-02] MEDS: amLODIPine 5 MG TAB 10 MG PO (21:06)
[2019-09-02] MEDS: Rosuvastatin 10 MG TAB PO (21:06)
[2019-09-03] VITALS (7 sets, daily range): BP systolic 104–158; BP diastolic 55–80; PULSE 77–93; RESP 16–18; TEMP 35.9–37.4; O2SAT 97–99
[2019-09-03 07:08] LABS: Abs Immature Grans 0.01 k/cumm (0.0-0.09); Absolute Basophil Count 0.03 k/cumm (0.0-0.2); Absolute Eosinophil Count 0.14 k/cumm (0.0-0.7); Absolute Lymphocyte Count 1.67 k/cumm (1.2-3.4); Absolute Monocyte Count 0.62 k/cumm (0.11-0.7); Absolute Neutrophil Count 5.74 k/cumm (1.2-6.7); Basophils % 0.4; Eosinophils % 1.7; HCT 29.7 % (36.0-46.0); HGB 10.1 g/dL (12.0-15.5); Immature Grans % 0.1; Lymphocytes % 20.3; Mean Corpuscular Hemoglobin 28.8 pg (27.0-33.0); Mean Corpuscular Volume 84.6 fL (80-95); Mean Platelet Volume 8.8 fL (8.0-11.0); Monocytes % 7.6; Neutrophils % 69.9; Platelet Count 216 x1000/uL (130-400); RBC 3.51 m/cumm (4.00-5.20); RBC Distribution Width 14.1 % (11.7-14.6); White Blood Cell Count 8.21 k/cumm (4.4-10.8)
[2019-09-03 07:21] LABS: BUN 26 mg/dL (7-18); CREATININE 1.67 mg/dL (0.55-1.02); Chloride 106 mmol/L (98-107); Estimated GFR 30.69 (mL/min/1.73m2); Glucose 100 mg/dL (70-100); Magnesium 2.1 mg/dL (1.8-2.4); Potassium 3.7 mmol/L (3.5-5.1); Sodium 138 mmol/L (136-145)
[2019-09-03] MEDS: Topiramate 25 MG TAB 12.5 MG PO (08:31)
[2019-09-03] MEDS: Labetalol 100 MG TAB 200 MG PO (09:35)
[2019-09-03 09:44] LABS: Bilirubin Negative (Negative); Blood Small (Negative); Clarity Sl Cloudy (Clear); Glucose Negative (Negative); Ketones Negative (Negative); Leukocyte Esterase Small (Negative); Nitrite Positive (Negative); Specific Gravity 1.015 (1.005-1.025); Urobilinogen 0.2 EU/dL (Up TO 0.2)
[2019-09-03] MEDS: Nicotine 7 MG/24 HR PATCH TD (09:53)
[2019-09-03 09:59] LABS: WBC >50 HPF (0-5)
[2019-09-03 10:00] LABS: Bacteria Many HPF (Negative); C & S Indicated? Yes; Casts 0-2 Coarse Granular LPF (Negative); Crystals Negative HPF (Negative); Epithelial Cells Few HPF (Negative); Mucus Negative (Negative); Other Cells Few Renal (Negative)
--- NOTE | 2019-09-03 14:39 | SCONE_ITS ---
Date of service: 09/03/19 Time of Service: 14:39 Assessment and Plan Assessment and plan (1) Lower GI bleed: Status: Acute (2) Tubular adenoma of colon: Status: Resolved (3) Anemia: Status: Chronic (4) GERD (gastroesophageal reflux disease): Status: Chronic (5) Migraine headache: Status: Chronic (6) Current tobacco use: Status: Chronic (7) AVM (arteriovenous malformation) of colon with hemorrhage: Status: Acute Assessment and plan: plan egd and CE on friday. Informed consent is obtained for the procedural (explained in simple layman's t erms that the pt and/or family could understand) explaining risks vs benefits and alternatives to the procedure and consequences if we do not do the procedure and need/rational for the procedure. Risks include but are not limited to:bleeding, infection, perforation of esophagus, stomach, colon, small intestines, bronchus or trachea, or PTX. This would necessitate emergency surgery to repair the damage w/ possible ostomy; and other associated complications w/ the required surgery. Also complications of anesthesia including aspiration,FL/CVA/. cont on PPI/carafate/Fe will check cbc and iron studies on friday if bleeding over the weejkend- return to ED History of Present Illness Narrative: pt was admitted on 09/01 w/ PRBPR. She is being d/c'ed today. Her hgb has been stable for the psat 48 hrs. She has no pain today. She has been having black tarry stools- but she was started on Iron as well. We will aslo plan on doing an EGD as well. She has no abdominal pain. She is not on any blood thinners. She was started on a PPI and on carafate. She wants to go home over the weekend and has been stable for the last 48 hrs. We will see her Friday for egd and ce. If she starts bleeding over the weekend- she will return to the ED. Review of Systems Gastrointestinal Gastrointestinal: Reports as per HPI and Reports system reviewed and no additional complaints, except as docu FOR[facility]LY [facility], [facility] Medical History (Updated 09/06/19 @ 11:22 by Erika Hill DO) Anemia (Chronic) AVM (arteriovenous malformation) of colon with hemorrhage (Acute) Bloody stools (Chronic) Chronic kidney disease (Chronic) Chronic osteoarthritis (Chronic ~2005) back and cervical spine Chronic pain (Chronic) Claudication (Chronic) Current tobacco use (Chronic) Endometriosis (Resolved) GERD (gastroesophageal reflux disease) (Chronic) GERD without esophagitis (Acute) Heart murmur (Chronic) Hx estrogen therapy (Chronic) Hyperlipidemia (Chronic) Hypertension (Chronic) Irritable bowel syndrome (Chronic) Migraine headache (Chronic) Near syncope (Chronic) Osteoporosis (Chronic) Posterior reversible encephalopathy syndrome (Acute) Situational anxiety (Chronic) Tobacco use disorder (Chronic) Tubular adenoma of colon (Resolved) Surgical History Abdominal hysterectomy 1973-cervix 1980-uterus 1985-ovary Colonoscopy - IV Sedation 2012 colonoscopy Oophrectomy, Left Social History Smoking/Tobacco Use Status: Current every day Tobacco Type: cigarettes Smoking packs per day: 0.5 Smoking cigarettes per day: 10.0 Alcohol Intake: current Alcohol Intake frequency: holidays/special occasions only Drug use: Daily Substance use type: marijuana Details: medical Household members: friend(s) Housing: house Number of Children: 7 Seatbelt use: always Do you feel safe at home: Yes Do you feel safe in your relationship?: Yes Additional Social history: she has someone who lives with her Exam Const General: cooperative, healthy appearing, comfortable, no acute distress, well developed and well groomed Nutritional Appearance: average body habitus and well nourished Orientation: alert, awake and oriented x3 HENMT Head: normal to inspection, normocephalic and atraumatic Ears: hearing grossly normal bilaterally and external ears normal General nose exam: external nose normal Face and sinus: normal facial exam and sinuses nontender Mouth: oral mucosae normal, lip normal, tongue normal and moist mucous membranes Teeth and gingiva: dentition normal Eyes General: appearance normal, both eyes and all related structures Conjunctivae: conjunctivae normal Sclera: sclerae normal Pupils: PERRL Neck Neck: normal visual inspection and full ROM Chest Chest: normal inspection of the chest Resp Effort & Inspection: normal respiratory effort, able to speak in complete sentences, no cough, no nasal flaring, not tachypneic and no use of accessory muscles Auscultation: clear to auscultation bilaterally, no rales, no rhonchi and no wheezes Cardio Jugular venous pressure: no JVD Rate: regular rate Rhythm: regular rhythm GI Inspection: normal to inspection, no edema and non-distended Palpation: soft, no masses, nontender and No ascites Auscultation: normal bowel sounds Skin General skin exam: no rashes or lesions noted Trauma: no lacerations or abrasions Neuro General: alert, oriented x3, oriented, gait normal, moves all extremities, no focal motor deficits and CN's II-XI intact bilaterally Cognition: normal cognition Speech: speech normal Gait: normal gait Motor: muscle tone normal throughout Extrem General: normal to inspection, full ROM and no clubbing, cyanosis or edema Other: signs of chronic mild osteo in small joints Psych Appearance: grossly normal and well kempt Mental Status: mental status grossly normal Speech and Movement: speech and movement normal Affect: normal affect Results Last Vital Signs Temp 37.4 C 09/03/19 12:16 Pulse 77 09/03/19 12:16 Resp 18 09/03/19 12:16 BP 157/80 H 09/03/19 12:16 Pulse Ox 98 09/03/19 12:16 Labs Result diagrams: 09/03/19 06:35 09/03/19 06:35 Labs: Laboratory Results - last 24 hr 09/02/19 09/03/19 09/03/19 18:15 06:35 06:35 WBC 8.21 RBC 3.51 L Hgb 9.7 L 10.1 L Hct 28.7 L 29.7 L MCV 84.6 MCH 28.8 MCHC 34.0 RDW 14.1 Plt Count 216 MPV 8.8 Immature Gran % 0.1 Neutrophils % 69.9 Lymphocytes % 20.3 Monocytes % 7.6 Eosinophils % 1.7 Basophils % 0.4 Absolute Neutrophils 5.74 Absolute Lymphocytes 1.67 Absolute Monocytes 0.62 Absolute Eosinophils 0.14 Absolute Basophils 0.03 Sodium 138 Potassium 3.7 D Chloride 106 Carbon Dioxide 23.0 Anion Gap 9.0 BUN 26 H Creatinine 1.67 H Estimated GFR/1.73 m2 30.69 Glucose 100 Calcium 9.0 Magnesium 2.1 Urine Color Urine Clarity Urine pH Ur Specific [place] Urine Protein Urine Ketones Urine Blood Urine Nitrite Urine Bilirubin Urine Urobilinogen Ur Leukocyte Esterase Urine RBC Urine WBC Ur Epithelial Cells Urine Crystals Urine Bacteria Urine Casts Urine Mucus Urine Other Ur Culture Indicated? Urine Glucose 09/03/19 09:00 WBC RBC Hgb Hct MCV MCH MCHC RDW Plt Count MPV Immature Gran % Neutrophils % Lymphocytes % Monocytes % Eosinophils % Basophils % Absolute Neutrophils Absolute Lymphocytes Absolute Monocytes Absolute Eosinophils Absolute Basophils Sodium Potassium Chloride Carbon Dioxide Anion Gap BUN Creatinine Estimated GFR/1.73 m2 Glucose Calcium Magnesium Urine Color Yellow Urine Clarity Sl cloudy Urine pH 7.0 Ur Specific [place] 1.015 Urine Protein 100 H Urine Ketones Negative Urine Blood Small H Urine Nitrite Positive H Urine Bilirubin Negative Urine Urobilinogen 0.2 Ur Leukocyte Esterase Small H Urine RBC Urine WBC >50 Ur Epithelial Cells Few Urine Crystals Negative Urine Bacteria Many Urine Casts 0-2 coarse granular Urine Mucus Negative Urine Other Few renal Ur Culture Indicated? Yes Urine Glucose Negative
--- NOTE | 2019-09-03 15:23 | W.PM.PROGNOT ---
Date of Service Date of service: 09/03/19 Time of Service: 15:23 Assessment and Plan Assessment and plan (1) Lower GI bleed: Status: Acute Assessment and plan: With history of lower GI bleed in 08/2018 with colonoscopy and cauterization of AVM. Hgb stable this morning at 10.1. She continues to have both bloody and black tarry stools, raising suspicion for upper GI loss as well. She is on BID IV PPI, carafate added today. She is scheduled for colonoscopy Friday. Her diet will need to be clear liquids only on Friday with bowel prep. If she is discharged home prior (2) Anemia: Status: Chronic Assessment and plan: As above. (3) Chronic kidney disease: Status: Chronic Assessment and plan: Atrophic left kidney. Creatinine improved to 1.44 from 1.65 on admission today, appears to be improved from baseline. Discontinue IV fluids. Monitor renal function. (4) Thoracic compression fracture: Status: Acute Assessment and plan: Tylenol for pain. Lidoderm patch. Continue to monitor. Qualifiers: Encounter type: initial encounter Thoracic vertebra fracture level: T5 Qualified Code(s): S22.050A - Wedge compression fracture of T5-T6 vertebra, initial encounter for closed fracture (5) Tobacco use disorder: Status: Chronic Assessment and plan: Currently smokes 3-4 cigarettes per day. Nicoderm patch as needed. (6) Posterior reversible encephalopathy syndrome: Status: Acute Assessment and plan: [place] [facility] [place] Has been seen recently by Nakia Davis NP at Neurology clinic. Follow up planned for 6 months. (7) Migraine headache: Status: Chronic Assessment and plan: Takes scheduled topiramate for migraine prophylaxis. Tylenol 1000 mg with benadryl 50 mg as needed. (8) GERD (gastroesophageal reflux disease): Status: Chronic Assessment and plan: Protonix IV while hospitalized. (9) Hyperlipidemia: Status: Chronic Assessment and plan: Continue Crestor. (10) Hypertension: Status: Chronic Assessment and plan: Blood pressure mildly elevated on amlodipine, labetalol and terazosin. Continue home regimen. Monitor blood pressure closely. (11) DVT prophylaxis: Status: Acute Assessment and plan: Not indicated in the setting of acute bleeding. (12) Discharge planning issues: Status: Acute Assessment and plan: She is a FULL CODE. This case was discussed with Dr. Kaba who is in agreement. Subjective Subjective Interval history since last seen: Levy continues to have black tarry stools with bouchra blood. Her hemoglobin and hematocrit remain stable. Given her ongoing bloody and black tarry stools, General Surgery was consulted. Dr. Hill recommended colonoscopy Friday. Ms. Nugent denies dizziness, lightheadedness, feeling faint, she is eating and drinking and tolerating her diet, no abdominal pain, nausea or vomiting. She denies shortness of breath, coughing wheezing, chest pain/pressure, palpitations, edema. Exam Narrative Exam Narrative: General: well appearing 68 year old female, laying in bed with head elevated. Alert and oriented, answers questions appropriately. HEENT: normocephalic, atraumatic, pupils equal and round, EOMI, mucous membranes moist. Neck: supple, no JVD. Cardiovascular: heart has regular rate and rhythm, nontachycardic, 2-3/6 murmur noted at RSB. Respiratory: respirations even and unlabored, lung sounds clear to auscultation bilaterally. GI: abdomen soft, nontender on palpation, +bowel sounds throughout. Extremities: well perfused, no clubbing, cyanosis or edema. Objective Objective Clinical Data: Abnormal lab results 09/02/19 09/03/19 09/03/19 Range/Units 18:15 06:35 06:35 RBC 3.51 L (4.00-5.20) m/cumm Hgb 9.7 L 10.1 L (12.0-15.5) g/dL Hct 28.7 L 29.7 L (36.0-46.0) % BUN 26 H (7-18) mg/dL Creatinine 1.67 H (0.55-1.02) mg/dL Urine Protein (Negative) mg/dL Urine Blood (Negative) Urine Nitrite (Negative) Ur Leukocyte Esterase (Negative) 09/03/19 Range/Units 09:00 RBC (4.00-5.20) m/cumm Hgb (12.0-15.5) g/dL Hct (36.0-46.0) % BUN (7-18) mg/dL Creatinine (0.55-1.02) mg/dL Urine Protein 100 H (Negative) mg/dL Urine Blood Small H (Negative) Urine Nitrite Positive H (Negative) Ur Leukocyte Esterase Small H (Negative) Vital Signs Temperature 37.4 C 09/03/19 12:16 Temperature Source Tympanic 09/03/19 12:16 Pulse 77 09/03/19 12:16 Pulse Rhythm Regular 09/03/19 09:37 Pulse 76 09/01/19 12:01 Respiratory Rate 18 09/03/19 12:16 Respiratory Effort Non-Labored 09/03/19 09:37 Respiratory Depth Normal 09/03/19 09:37 Respiratory Pattern Normal 09/03/19 09:37 Blood Pressure 157/80 H 09/03/19 12:16 Blood Pressure Mean 86 09/01/19 12:01 Blood Pressure Position Sitting 09/01/19 09:57 Pulse Oximetry 98 09/03/19 12:16 Oxygen Delivery Method Room Air 09/03/19 12:16 Oxygen Flow Rate 0 09/03/19 12:16 Pain Level 0 09/03/19 12:16 Comment 09/03/19 06:20 Intake & Output 09/02/19 09/03/19 09/03/19 23:59 11:59 23:59 Intake Total 620 / 620 560 / 810 250 / 810 Output Total 1500 / 2850 600 / 950 350 / 950 Balance -880 / -2230 -40 / -140 -100 / -140 Intake: IV Oral 600 / 600 560 / 810 250 / 810 Output: Urine 1500 / 2850 600 / 950 350 / 950 Other: Urine Color Yellow Yellow Yellow Urine Appearance Clear Cloudy Clear Urine Odor Normal Normal Stool Occult Blood Positive Positive Stool Size Small Moderate Stool Characteristics Formed Soft Bloody Formed Bloody Voiding Methods Toilet Toilet Toilet Laboratory Results WBC 8.21 k/cumm (4.4-10.8) 09/03/19 06:35 RBC 3.51 m/cumm (4.00-5.20) L 09/03/19 06:35 Hgb 10.1 g/dL (12.0-15.5) L 09/03/19 06:35 Hct 29.7 % (36.0-46.0) L 09/03/19 06:35 MCV 84.6 fL (80-95) 09/03/19 06:35 MCH 28.8 pg (27.0-33.0) 09/03/19 06:35 MCHC 34.0 g/dL (32.0-36.0) 09/03/19 06:35 RDW 14.1 % (11.7-14.6) 09/03/19 06:35 Plt Count 216 x1000/uL (130-400) 09/03/19 06:35 MPV 8.8 fL (8.0-11.0) 09/03/19 06:35 Immature Gran % 0.1 09/03/19 06:35 Neutrophils % 69.9 09/03/19 06:35 Lymphocytes % 20.3 09/03/19 06:35 Monocytes % 7.6 09/03/19 06:35 Eosinophils % 1.7 09/03/19 06:35 Basophils % 0.4 09/03/19 06:35 Absolute Neutrophils 5.74 k/cumm (1.2-6.7) 09/03/19 06:35 Absolute Lymphocytes 1.67 k/cumm (1.2-3.4) 09/03/19 06:35 Absolute Monocytes 0.62 k/cumm (0.11-0.7) 09/03/19 06:35 Absolute Eosinophils 0.14 k/cumm (0.0-0.7) 09/03/19 06:35 Absolute Basophils 0.03 k/cumm (0.0-0.2) 09/03/19 06:35 PT 10.3 sec (9.3-11.0) 09/01/19 10:22 INR 1.0 (0.9-1.1) 09/01/19 10:22 APTT 25.9 sec (21.0-31.4) 09/01/19 10:22 Sodium 138 mmol/L (136-145) 09/03/19 06:35 Potassium 3.7 mmol/L (3.5-5.1) D 09/03/19 06:35 Chloride 106 mmol/L (98-107) 09/03/19 06:35 Carbon Dioxide 23.0 mmol/L (21.0-32.0) 09/03/19 06:35 Anion Gap 9.0 mmol/L (3-11) 09/03/19 06:35 BUN 26 mg/dL (7-18) H 09/03/19 06:35 Creatinine 1.67 mg/dL (0.55-1.02) H 09/03/19 06:35 Estimated GFR/1.73 m2 30.69 (mL/min/1.73m2) 09/03/19 06:35 Glucose 100 mg/dL (70-100) 09/03/19 06:35 Calcium 9.0 mg/dL (8.5-10.1) 09/03/19 06:35 Magnesium 2.1 mg/dL (1.8-2.4) 09/03/19 06:35 Total Bilirubin 0.3 mg/dL (0.2-1.0) 09/01/19 10:22 AST 16 U/L (15-37) 09/01/19 10:22 ALT 27 U/L (14-59) 09/01/19 10:22 Alkaline Phosphatase 120 U/L (46-116) H 09/01/19 10:22 Total Protein 6.1 g/dL (6.4-8.2) L 09/01/19 10:22 Albumin 3.2 g/dL (3.4-5.0) L 09/01/19 10:22 Urine Color Yellow (Yellow) 09/03/19 09:00 Urine Clarity Sl cloudy (Clear) 09/03/19 09:00 Urine pH 7.0 (5-8) 09/03/19 09:00 Ur Specific [place] 1.015 (1.005-1.025) 09/03/19 09:00 Urine Protein 100 mg/dL (Negative) H 09/03/19 09:00 Urine Ketones Negative mg/dL (Negative) 09/03/19 09:00 Urine Blood Small (Negative) H 09/03/19 09:00 Urine Nitrite Positive (Negative) H 09/03/19 09:00 Urine Bilirubin Negative (Negative) 09/03/19 09:00 Urine Urobilinogen 0.2 EU/dL (Up TO 0.2) 09/03/19 09:00 Ur Leukocyte Esterase Small (Negative) H 09/03/19 09:00 Urine RBC (0-2) 09/03/19 09:00 Urine WBC >50 HPF (0-5) 09/03/19 09:00 Ur Epithelial Cells Few HPF (Negative) 09/03/19 09:00 Urine Crystals Negative HPF (Negative) 09/03/19 09:00 Urine Bacteria Many HPF (Negative) 09/03/19 09:00 Urine Casts 0-2 coarse granular LPF (Negative) 09/03/19 09:00 Urine Mucus Negative (Negative) 09/03/19 09:00 Urine Other Few renal (Negative) 09/03/19 09:00 Ur Culture Indicated? Yes 09/03/19 09:00 Urine Glucose Negative mg/dL (Negative) 09/03/19 09:00 Patient ABO/Rh O Positive 09/01/19 10:22 Antibody Screen Negative 09/01/19 10:22
--- NOTE | 2019-09-03 15:53 | W.PM.DS.N ---
Date of service: 09/03/19 Time of Service: 15:53 DS: Diagnosis Discharge Diagnosis (1) Lower GI bleed: Status: Acute (2) Anemia: Status: Chronic (3) Chronic kidney disease: Status: Chronic (4) Thoracic compression fracture: Status: Acute (5) Tobacco use disorder: Status: Chronic (6) Posterior reversible encephalopathy syndrome: Status: Acute (7) Migraine headache: Status: Chronic (8) GERD (gastroesophageal reflux disease): Status: Chronic (9) Hyperlipidemia: Status: Chronic (10) Hypertension: Status: Chronic (11) DVT prophylaxis: Status: Acute (12) Discharge planning issues: Status: Acute Discharge Plan Disposition Patient Disposition: HOME Condition: Stable Discharge Details Chief Complaint: GI Bleed Clinical Impression: Acute GI bleeding Reason For Visit: LOWER GI BLEED Admit Date/Time: 09/01/19 11:01 Admit Provider: Cheo Kaba Attending Provider: Cheo Kaba Primary Care Provider: Xochilt Mcdaniel ED Provider: Xochilt Khan Hospital Course Hospital Course: Levy Nugent is a very pleasant 68 year old female with a past medical history significant for hypertension, history of PRES (posterior reversible encephalopathy syndrome) in June,, migraine headaches, GERD, hyperlipidemia, chronic low back pain with T5 fracture, osteoarthritis, chronic kidney disease with atrophic left kidney, irritable bowel syndrome, and history of lower GI bleed in August, at which time she had a colonoscopy in which a bleeding AVM was cauterized and one polyp was removed. She presented to the ED on 09/01/19 with reports of bright red blood per rectum. She reports that she noticed a small amount of redness in her stool x4 days prior, she attributed it to eating too many tomatoes. On the day that she presented to the ED, she reported having an urge to defecate and reported that she filled the toilet with blood twice. In the ED, she was hemodynamically stable. Her Hemoglobin was lower than recent levels at 11.1, she was 13.1 last month. She had an EKG which showed NSR with rate of 71 bpm, no ST changes. Rectal exam in the ED showed bright red blood. Dr. Villasenor in the ED spoke with general surgery, Dr. Locke recommended 24 hour observation with colonscopy as needed for persistent bleeding or drop in H&H. She was admitted to the Med/Surg floor for further evaluation and management. During her hospitalization, her hemoglobin remained in the 9-10 range. She continued to have a small amount of bouchra blood with her stools as well as black, tarry stools. She was initiated on PPI and carafate therapy. Given the ongoing blood in her stool, General Surgery was consulted. Dr. Hill recommended colonscopy and EGD on Friday (09/06/19), either outpatient or inpatient. It was strongly recommended that she remain in the hospital until her procedure, as she continued to have hemepositive stools. The patient was eager for discharge today. She considered staying in the hospital briefly, which was recommended due to ongoing blood in her stool. However, she was adamant that she was leaving the hospital today. She verbalizes agreement with a plan to return to the hospital if she has an increase in her bleeding, feels faint, lightheaded, fatigued, etc. She is scheduled for outpatient colonoscopy and EGD on Friday09/06/19. She needs to have a clear liquid diet only on the day prior to her procedure (09/05/19). She will need to do colon prep on the day prior to her procedure, 09/05/19. She needs to be NPO at 0400 on 09/06/19. She needs to arrive at Day Surgery at 0830 on 09/06/19. Also, of note, her UA was suspicious for infection leukocyte esterase, nitrites and >50 WBC. She will be given a course of antibiotics to take as an outpatient. She will resume her usual medications. Home Meds and New Rx's Prescriptions: New sucralfate 1 gram Tablet 1 g PO AC & HS Qty: 120 RF: 0 omeprazole 40 mg capsule,delayed release(DR/EC) 40 mg PO BID Qty: 30 RF: 0 ciprofloxacin HCl [Cipro] 250 mg tablet 250 mg PO BID Qty: 6 RF: 0 Continued topiramate 25 mg capsule,extended release 24hr 12.5 mg PO BID RF: 0 rosuvastatin 10 mg tablet 20 mg PO DAILY RF: 0 escitalopram oxalate 5 mg tablet 5 mg PO USEASDIRECTD RF: 0 labetalol 200 mg tablet 200 mg PO BID RF: 0 amlodipine 5 mg tablet 10 mg PO DAILY RF: 0 terazosin 2 mg Capsule 5 mg PO QHS RF: 0 acetaminophen [Mapap Extra Strength] 500 MG tablet 1,000 mg PO TID PRNRF: 0 Discontinued ondansetron 4 mg Tablet,Disintegrating 4 mg PO Q8H PRN PRNRF: 0 Discharge Instructions Instructions: Gastrointestinal Bleeding (DC), Rectal Bleeding (DC) Additional Instructions: See directions for colonoscopy and EGD. You will need to be on a CLEAR LIQUID ONLY diet on Friday (09/05/19). Colon prep on Friday. Nothing by mouth after 399 on 09/06/19. Arrive at Day Surgery at 8:30 Friday morning (09/06/19). You have been started on omeprazole and carafate for your bleeding (since there is question of possible upper GI bleeding as well). You have a urinary tract infection. Take Cipro two times per day x3 days. If you have an increase in bleeding, feel lightheaded, faint, dizzy, low blood pressure, fast heart rate or fatigued return to the ED. Take care! Stand Alone Forms: Nursing Discharge Form Referrals: Neville Jama [ NON-[facility] STAFF PHYSICIAN] - 09/08/19 1:30 pm Activity:: Activity as Tolerated Equipment/Supplies:: No Equipment Needed Diet:: As Tolerated Discharge Orders Discharge Orders: Discharge Order (Routine); Ordered 09/03/19 Ordered By: Sara Acuña DS: Summary Status at Discharge Functional status at discharge: independent ambulation Overall status at discharge: patient is progressing back to baseline Mental Status: mental status grossly normal Speech and Movement: speech and movement normal Mood: congruent mood Affect: normal affect Exam Narrative Exam Narrative: General: well appearing 68 year old female, laying in bed with head elevated. Alert and oriented, answers questions appropriately. HEENT: normocephalic, atraumatic, pupils equal and round, EOMI, mucous membranes moist. Neck: supple, no JVD. Cardiovascular: heart has regular rate and rhythm, nontachycardic, 2-3/6 murmur noted at RSB. Respiratory: respirations even and unlabored, lung sounds clear to auscultation bilaterally. GI: abdomen soft, nontender on palpation, +bowel sounds throughout. Extremities: well perfused, no clubbing, cyanosis or edema. Psych Mental Status: mental status grossly normal Speech and Movement: speech and movement normal Mood: congruent mood Affect: normal affect DS: Data Vitals/I&O Vitals and I&O: Vital Signs Temperature 37.4 C 09/03/19 12:16 Temperature Source Tympanic 09/03/19 12:16 Pulse 77 09/03/19 12:16 Pulse Rhythm Regular 09/03/19 09:37 Pulse 76 09/01/19 12:01 Respiratory Rate 18 09/03/19 12:16 Respiratory Effort Non-Labored 09/03/19 09:37 Respiratory Depth Normal 09/03/19 09:37 Respiratory Pattern Normal 09/03/19 09:37 Blood Pressure 157/80 H 09/03/19 12:16 Blood Pressure Mean 86 09/01/19 12:01 Blood Pressure Position Sitting 09/01/19 09:57 Pulse Oximetry 98 09/03/19 12:16 Oxygen Delivery Method Room Air 09/03/19 12:16 Oxygen Flow Rate 0 09/03/19 12:16 Pain Level 0 09/03/19 12:16 Comment 09/03/19 06:20 Intake & Output 09/02/19 09/03/19 09/03/19 23:59 11:59 23:59 Intake Total 620 / 620 560 / 810 250 / 810 Output Total 1500 / 2850 600 / 950 350 / 950 Balance -880 / -2230 -40 / -140 -100 / -140 Intake: IV 20 / 20 Oral 600 / 600 560 / 810 250 / 810 Output: Urine 1500 / 2850 600 / 950 350 / 950 Other: Urine Color Yellow Yellow Yellow Urine Appearance Clear Cloudy Clear Urine Odor Normal Normal Stool Occult Blood Positive Positive Stool Size Small Moderate Stool Characteristics Formed Soft Bloody Formed Bloody Voiding Methods Toilet Toilet Toilet Data Completed and Pending Labs on day of discharge: Labs from last 24 hours 09/03/19 09/03/19 09/03/19 09:00 06:35 06:35 WBC 8.21 RBC 3.51 L Hgb 10.1 L Hct 29.7 L MCV 84.6 MCH 28.8 MCHC 34.0 RDW 14.1 Plt Count 216 MPV 8.8 Immature Gran % 0.1 Neutrophils % 69.9 Lymphocytes % 20.3 Monocytes % 7.6 Eosinophils % 1.7 Basophils % 0.4 Absolute Neutrophils 5.74 Absolute Lymphocytes 1.67 Absolute Monocytes 0.62 Absolute Eosinophils 0.14 Absolute Basophils 0.03 Sodium 138 Potassium 3.7 D Chloride 106 Carbon Dioxide 23.0 Anion Gap 9.0 BUN 26 H Creatinine 1.67 H Estimated GFR/1.73 m2 30.69 Glucose 100 Calcium 9.0 Magnesium 2.1 Urine Color Yellow Urine Clarity Sl cloudy Urine pH 7.0 Ur Specific [place] 1.015 Urine Protein 100 H Urine Ketones Negative Urine Blood Small H Urine Nitrite Positive H Urine Bilirubin Negative Urine Urobilinogen 0.2 Ur Leukocyte Esterase Small H Urine RBC Urine WBC >50 Ur Epithelial Cells Few Urine Crystals Negative Urine Bacteria Many Urine Casts 0-2 coarse granular Urine Mucus Negative Urine Other Few renal Ur Culture Indicated? Yes Urine Glucose Negative 09/02/19 18:15 WBC RBC Hgb 9.7 L Hct 28.7 L MCV MCH MCHC RDW Plt Count MPV Immature Gran % Neutrophils % Lymphocytes % Monocytes % Eosinophils % Basophils % Absolute Neutrophils Absolute Lymphocytes Absolute Monocytes Absolute Eosinophils Absolute Basophils Sodium Potassium Chloride Carbon Dioxide Anion Gap BUN Creatinine Estimated GFR/1.73 m2 Glucose Calcium Magnesium Urine Color Urine Clarity Urine pH Ur Specific [place] Urine Protein Urine Ketones Urine Blood Urine Nitrite Urine Bilirubin Urine Urobilinogen Ur Leukocyte Esterase Urine RBC Urine WBC Ur Epithelial Cells Urine Crystals Urine Bacteria Urine Casts Urine Mucus Urine Other Ur Culture Indicated? Urine Glucose 09/03/19 09:00 Urine - Reflex from Urine Culture - Pending Preliminary micro results at discharge 09/03/19 09:00 Urine Culture - Pending Urine - Reflex from Critical access hospital Medical History Anemia (Chronic) Bloody stools (Chronic) Chronic kidney disease (Chronic) Chronic osteoarthritis (Chronic ~2005) back and cervical spine Chronic pain (Chronic) Claudication (Chronic) Current tobacco use (Chronic) Endometriosis (Resolved) GERD (gastroesophageal reflux disease) (Chronic) Heart murmur (Chronic) Hx estrogen therapy (Chronic) Hyperlipidemia (Chronic) Hypertension (Chronic) Irritable bowel syndrome (Chronic) Migraine headache (Chronic) Near syncope (Chronic) Osteoporosis (Chronic) Posterior reversible encephalopathy syndrome (Acute) Situational anxiety (Chronic) Tobacco use disorder (Chronic) Tubular adenoma of colon (Resolved) Surgical History Abdominal hysterectomy 1973-cervix 1980-uterus 1985-ovary Colonoscopy - IV Sedation 2012 colonoscopy Oophrectomy, Left Social History Smoking/Tobacco Use Status: Current every day Tobacco Type: cigarettes Smoking packs per day: 0.5 Smoking cigarettes per day: 10.0 Alcohol Intake: current Alcohol Intake frequency: holidays/special occasions only Drug use: Daily Substance use type: marijuana Details: medical Household members: friend(s) Housing: house Number of Children: 7 Seatbelt use: always Do you feel safe at home: Yes Do you feel safe in your relationship?: Yes Additional Social history: she has someone who lives with her
[2019-09-03] MEDS: Pantoprazole 40 MG VIAL IVP (16:47)
[2019-09-03] MEDS: Sucralfate 1 GM TAB PO (16:47)
--- NOTE | 2019-09-03 18:26 | PDOC.CMDIS ---
- If Service Date Differs Date of service: 09/03/19 Time of Service: 18:26 LACE Index Scoring Tool - Questions: Length of Stay (in days): 2 Acuity (Admit via E.D.?): Yes Comorbidities: Liver or Renal Disease E.D. Visits: 4 - Answers: Total Score: 14 Risk of Readmission: High Risk Care Management Discharge Reason for Hospitalization: Lower GI bleed Discharge Plan: Levy will be discharged home with no services. She will return on Friday for an outpatient cplonoscopy and EGD. Levy will follow up with her surgeon, PCP and discharge plan of care. She will transport via private vehicle with a friend. Patient/Family Education Needs: Discharge plan, limitations, follow up plan, Ask Me Three.
== END 2019-09-03 16:54 | disposition home or self-care (01) | DRG 379 ==
LOC: ER 11:44 → MS 12:19
PROVIDERS: Nurse Practitioner; Admitting Provider Internal Medicine; Emergency Provider Physician Assistant; PCP Nurse Practitioner Family; Visit Provider Internal Medicine
DX: K92.2 Gastrointestinal hemorrhage, unspecified (principal); D50.9 Iron deficiency anemia, unspecified; R82.71 Bacteriuria; B96.20 Unspecified Escherichia coli [E. coli] as the cause of diseases classified elsewhere; Q27.33 Arteriovenous malformation of digestive system vessel; N18.9 Chronic kidney disease, unspecified; F17.210 Nicotine dependence, cigarettes, uncomplicated; I12.9 Hypertensive chronic kidney disease with stage 1 through stage 4 chronic kidney disease, or unspecified chronic kidney disease; K21.9 Gastro-esophageal reflux disease without esophagitis; E78.5 Hyperlipidemia, unspecified; Z86.010 Personal history of colon polyps
CPT/HCPCS: 36415; 80048; 80053; 86850; 86900; 86901; 87077; 93005; 99221; 99222; 99232; 99239; 99285; 81003; 81015; 83735; 85014; 85018; 85025; 85610; 85730; 87086; 87186; 93010; 99284

== ENCOUNTER 2019-09-06 07:57 | Day surgery (SDC) | payer MEDICARE, MEDICAID, SELFPAY ==
[2019-09-06 08:22] VITALS: BP 140/79; PULSE 80; RESP 18; TEMP 36.6; O2SAT 100
[2019-09-06] MEDS: Lactated Ringers 1,000 ML 80 ML IV (08:50)
[2019-09-06 09:09] LABS: Abs Immature Grans 0.03 k/cumm (0.0-0.09); Absolute Eosinophil Count 0.25 k/cumm (0.0-0.7); Absolute Monocyte Count 0.66 k/cumm (0.11-0.7); Basophils % 0.5; Eosinophils % 2.3; HCT 30.9 % (36.0-46.0); HGB 10.5 g/dL (12.0-15.5); Immature Grans % 0.3; Lymphocytes % 17.2; Mean Corpuscular Hemoglobin 28.8 pg (27.0-33.0); Mean Corpuscular Volume 84.7 fL (80-95); Mean Platelet Volume 8.8 fL (8.0-11.0); Neutrophils % 73.7; Platelet Count 322 x1000/uL (130-400); RBC 3.65 m/cumm (4.00-5.20); RBC Distribution Width 14.5 % (11.7-14.6); White Blood Cell Count 11.02 k/cumm (4.4-10.8)
[2019-09-06 09:13] LABS: Absolute Basophil Count 0.06 k/cumm (0.0-0.2); Absolute Neutrophil Count 8.12 k/cumm (1.2-6.7)
[2019-09-06 10:29] LABS: Iron 28 ug/dL (50-175); Total Iron Binding Capacity 314 ug/dL (250-450); Transferrin Sat 9 % (15-50)
--- NOTE | 2019-09-06 10:45 | BOWEL_PTH ---
PATIENT: Levy Nugent LOC: [facility] U#:[id number] AGE/SX: 68/F ROOM: RE09/06/[address]: Erika Hill : 1950 BED: DIS: 09/06/2019 SPEC #: [id number] RECD: 09/06/19 11:57 STATUS: ELIEL RE #: [id number] MIKAYLA: 09/06/19 10:[address]: Erika Hill DEPT: Surgical Specimen RECD BY: Flora Dawn ENTERED: 09/06/19 12:00 SP TYPE: Bowel OTHR DR: Xochilt Mcdaniel Tissues: 1 - BIOPSY BOWEL 2 - STOMACH BIOPSY 3 - BIOPSY BOWEL 4 - STOMACH BIOPSY 5 - ESOPHAGUS BIOPSY Procedures: GROSS AND MICRO LEVEL 4 Comments: [id number]
[2019-09-06 10:57] LABS: Ferritin 54 ng/mL (8-388)
--- NOTE | 2019-09-06 11:21 | W.PM.DSUDISC ---
Discharge Plan Disposition Patient Disposition: HOME Condition: Good Discharge Details Reason For Visit: SCREENING Attending Provider: Erika Hill Primary Care Provider: Xochilt Mcdaniel Home Meds and New Rx's Prescriptions: Continued topiramate 25 mg capsule,extended release 24hr 12.5 mg PO BID RF: 0 rosuvastatin 10 mg tablet 20 mg PO DAILY RF: 0 escitalopram oxalate 5 mg tablet 5 mg PO USEASDIRECTD RF: 0 labetalol 200 mg tablet 200 mg PO BID RF: 0 amlodipine 5 mg tablet 10 mg PO DAILY RF: 0 terazosin 2 mg Capsule 5 mg PO QHS RF: 0 sucralfate 1 gram Tablet 1 g PO AC & HS Qty: 120 RF: 0 omeprazole 40 mg capsule,delayed release(DR/EC) 40 mg PO BID Qty: 30 RF: 0 ciprofloxacin HCl [Cipro] 250 mg tablet 250 mg PO BID Qty: 6 RF: 0 acetaminophen [Mapap Extra Strength] 500 MG tablet 1,000 mg PO TID PRNRF: 0 Discharge Instructions Instructions: High Fiber Diet (GEN) Additional Instructions: Findings:chronic reflux/esophagitis AVM at 85cm/few diverticula Follow up: Dr. Hill in 2 wks time Continue with lifestyle modifications: no alcohol, tobacco products, Aspirin or NSAID's (ibuprofen, Motrin, Naprosyn, aleve, etc). Try to limit: soda pop/any carbonated beverages, caffeine (including tea & chocolate), and acidic foods, (tomatoes, citrus, onions, peppermints) spicy or fried/fatty foods. Do not lie down for 30 minutes after eating, and do not eat 2 hours prior to bedtime. Avoid wearing tight fitting clothing/ belts Please call if you develop: fevers >101.5 Nausea or Vomiting Abdominal pain that is not transient DAY SURGERY UNIT POST COLONOSCOPY INSTRUCTIONS 1. Because there will be medication in your system for the next 24 hours, you may feel a little sleepy. Your coordination will be affected. Therefore: a. Do not drive or operate dangerous equipment for 24 hours. b. Do not drink alcohol beverages for 24 hours (not even beer). c. Plan to go home and rest for the day. 2. Generally there are no restrictions on your activity after a day or so has gone by, but you may feel a bit fatigued for a few days. 3 After you arrive home you may have a light meal and return to a normal diet as you can tolerate it without feeling sick to your stomach. 4. After surgery, you may feel pain or discomfort. This should be only transient, but if it persists please contact your doctor. 5. If there are any questions regarding the findings of your procedure, please feel free to contact your doctor. 6. If you are unable to contact your doctor with a problem, contact the hospital at [phone]. 7. Continue all your regular medications unless directed otherwise. I understand the above instructions and have no questions. Signature of Patient or Responsible Adult Escort Date/Time Name of Responsible Adult Escort Signature of Nurse Date/Time Activity:: no heavy lifting or strenuous activity x 24 Diet:: sm light meals x 24 hrs Discharge Orders Discharge Orders: Discharge Order (Routine); Ordered 09/06/19 Ordered By: Erika Hill DS: Diagnosis Discharge Diagnosis (1) AVM (arteriovenous malformation) of colon with hemorrhage: Status: Acute (2) Lower GI bleed: Status: Acute (3) Anemia: Status: Chronic (4) GERD without esophagitis: Status: Acute
--- NOTE | 2019-09-06 11:31 | W.PM.ENDDOP ---
Date of service: 09/06/19 Time of Service: 11:31 Endoscopy Report DATE OF PROCEDURE: 09/06/19 PRE-OP DIAGNOSIS: lowers gi bleed/hx of avm/blood loss anemia POST-OP DIAGNOSIS: other (esophgitis/poss baretts ) PROCEDURE: egd w/ bx ce and fulguration of AVM at 85cm SURGEON: Erika Hill ANESTHESIA: GETA ESTIMATED BLOOD LOSS: 2 PATHOLOGY: other COMPLICATIONS: None DISPOSITION: same day PREP: Miralax/Dulcolax COLONOSCOPY RETRACTION TIME: 12 mins PROCEDURE DESCRIPTION: After informed consent was obtained the patient was take to the procedure room and placed in a supine position. Monitors were applied and a time out was done. The patients name, date of , procedure type, allergies to medications and metal in their body was reviewed. A bite block was placed and the patient was sedated. Once sedated and comfortable the gastroscope was advanced through the oropharynx which was grossly normal into the esophagus. The proximal and mid-esophagus were nl. 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 There is no esophageal varices diverticuli or stricture.. There is no hiatal hernia. The scope was advanced into the stomach and through the pylorus into the 3rd portion of the duodenum. The duodenum was noted to be a mild punctate erythema.. Biopsies were done . All specimens are retrieved and there is no significant bleeding noted. The scope was retracted back into the stomach and biopsies were done to rule out H. pylori. There were no ulcers. The scope was retroflexed. The cardia and fundus were noted to be normal. There no hiatal hernia noted. The scope was retracted back into the esophagus and biopsies were done of the GE junction to rule out Townsend's. The Z line was regular. The scope was removed. a rectal exam was done. External exam was normal. Internal exam revealed a normal sphincter tone and no palpable masses. The scope was then introduced and retrofelexed. no internal hemorrhoids were identified. The scope was then advanced to the cecum w/out difficulty. The TI and appendiceal orifice were identified. The prep was adequate. The scope was then slowly retracted over 12 minutes back into the rectum. There is a small AVM noted at 85 cm. This was fulgurated. No bleeding was noted. She has a few small scattered diverticuli within the sigmoid colon. These are of no consequence and should not be symptomatic. There is no signs of active bleeding or infection. The scope was removed and the patient was woken up and taken back to Same day surgery in stable condition. The patient tolerated the procedure well and there were no immediate complications. Follow up: The patient should follow up in 10 years unless they develop changes in bowel habits or other new gastrointestinal complaints. Follow up: Dr Hill in 2 wks time
[2019-09-06] MEDS: IRON SUCROSE COMPLEX 200 MG in Normal Saline 100 ML 400 MG IVPB (12:04)
[2019-09-06 12:11] VITALS: BP 154/70; PULSE 74; RESP 16; TEMP 36; O2SAT 100
== END 2019-09-06 13:06 | disposition home or self-care (01) ==
PROVIDERS: PCP Nurse Practitioner Family; Visit Provider Surgery
PROC: (CPT 45388; principal; 2019-09-06 09:15)
DX: K31.89 Other diseases of stomach and duodenum (principal); K22.70 Barrett's esophagus without dysplasia; K57.31 Diverticulosis of large intestine without perforation or abscess with bleeding; Q27.33 Arteriovenous malformation of digestive system vessel; Z87.19 Personal history of other diseases of the digestive system; D50.0 Iron deficiency anemia secondary to blood loss (chronic); I12.9 Hypertensive chronic kidney disease with stage 1 through stage 4 chronic kidney disease, or unspecified chronic kidney disease; N18.9 Chronic kidney disease, unspecified; F17.210 Nicotine dependence, cigarettes, uncomplicated
CPT/HCPCS: 45388; 43239; 36415; 86850; 86900; 86901; 88305; 96365; 96366; 82728; 83540; 83550; 85025; J1756

== ENCOUNTER 2019-09-16 18:27 | Outpatient (REF) | payer MEDICARE, MEDICAID, SELFPAY ==
[2019-09-16 21:43] LABS: Anion Gap 10.8 mmol/L (3-11); BUN 21 mg/dL (7-18); CO2 23.2 mmol/L (21.0-32.0); CREATININE 1.58 mg/dL (0.55-1.02); Calcium 8.7 mg/dL (8.5-10.1); Chloride 105 mmol/L (98-107); Estimated GFR 32.72 (mL/min/1.73m2); Glucose 79 mg/dL (70-100); Potassium 3.9 mmol/L (3.5-5.1); Sodium 139 mmol/L (136-145)
[2019-09-16 22:29] LABS: Iron 31 ug/dL (50-175)
== END 2019-09-16 18:47 ==
LOC: NCHCN 18:27
PROVIDERS: PCP Nurse Practitioner Family; Visit Provider Nurse Practitioner Family
DX: K62.5 Hemorrhage of anus and rectum (principal); D64.9 Anemia, unspecified; I70.1 Atherosclerosis of renal artery; I10 Essential (primary) hypertension
CPT/HCPCS: 80048; 83540

== ENCOUNTER 2019-11-08 14:23 | Outpatient (REF) | payer MEDICARE, MEDICAID, SELFPAY ==
[2019-11-08 21:33] LABS: Abs Immature Grans 0.04 k/cumm (0.0-0.09); Absolute Basophil Count 0.04 k/cumm (0.0-0.2); Absolute Eosinophil Count 0.13 k/cumm (0.0-0.7); Absolute Lymphocyte Count 1.51 k/cumm (1.2-3.4); Absolute Neutrophil Count 6.44 k/cumm (1.2-6.7); Basophils % 0.5; Eosinophils % 1.5; HCT 39.7 % (36.0-46.0); HGB 13.3 g/dL (12.0-15.5); Immature Grans % 0.5 %; Lymphocytes % 17.6; Mean Corp. HGB Concentration 33.5 g/dL (32.0-36.0); Mean Corpuscular Volume 80.7 fL (80-95); Mean Platelet Volume 9.4 fL (8.0-11.0); Monocytes % 4.7; Neutrophils % 75.2; Platelet Count 245 x1000/uL (130-400); RBC 4.92 m/cumm (4.00-5.20); RBC Distribution Width 15.2 % (11.7-14.6); White Blood Cell Count 8.56 k/cumm (4.4-10.8)
[2019-11-08 22:00] LABS: ALT 27 U/L (14-59); AST 21 U/L (15-37); Albumin 3.9 g/dL (3.4-5.0); Alkaline Phosphatase 132 U/L (46-116); Anion Gap 13.2 mmol/L (3-11); BUN 24 mg/dL (7-18); Bilirubin, Total 0.4 mg/dL (0.2-1.0); CO2 22.8 mmol/L (21.0-32.0); CREATININE 1.54 mg/dL (0.55-1.02); Calcium 8.9 mg/dL (8.5-10.1); Chloride 104 mmol/L (98-107); Glucose 87 mg/dL (74-106); Potassium 3.9 mmol/L (3.5-5.1); Sodium 140 mmol/L (136-145); TSH (W/Ref FT4) 2.15 uIU/mL (0.36-3.74); Total Protein 6.7 g/dL (6.4-8.2)
== END 2019-11-08 14:43 ==
LOC: NCHCN 14:23
PROVIDERS: PCP Nurse Practitioner Family; Visit Provider Nurse Practitioner Family
DX: R53.83 Other fatigue (principal); R11.0 Nausea; R19.7 Diarrhea, unspecified
CPT/HCPCS: 80053; 83735; 84443; 85025

== ENCOUNTER 2019-11-09 14:58 | Outpatient (REF) | payer MEDICARE, MEDICAID, SELFPAY ==
[2019-11-11 11:08] LABS: Campylobacter PCR Negative (Negative); Salmonella PCR Negative (Negative); Shiga Toxin PCR Negative (Negative); Shigella/Enteroinvasive Ecoli Negative (Negative)
== END 2019-11-09 15:18 ==
LOC: NCHCN 14:58
PROVIDERS: PCP Nurse Practitioner Family; Visit Provider Nurse Practitioner Family
DX: R11.0 Nausea (principal); R53.83 Other fatigue; R19.7 Diarrhea, unspecified
CPT/HCPCS: 87505; 87177

== ENCOUNTER 2020-01-21 15:13 | Outpatient (CLI) | payer MEDICARE, MEDICAID, SELFPAY ==
[2020-01-21 15:56] LABS: Abs Immature Grans 0.02 k/cumm (0.0-0.09); Absolute Basophil Count 0.04 k/cumm (0.0-0.2); Absolute Eosinophil Count 0.12 k/cumm (0.0-0.7); Absolute Lymphocyte Count 1.81 k/cumm (1.2-3.4); Absolute Monocyte Count 0.56 k/cumm (0.11-0.7); Absolute Neutrophil Count 4.91 k/cumm (1.2-6.7); Basophils % 0.5; Eosinophils % 1.6; HCT 43.7 % (36.0-46.0); HGB 14.9 g/dL (12.0-15.5); Immature Grans % 0.3 %; Lymphocytes % 24.3; Mean Corp. HGB Concentration 34.1 g/dL (32.0-36.0); Mean Corpuscular Hemoglobin 27.2 pg (27.0-33.0); Mean Corpuscular Volume 79.7 fL (80-95); Mean Platelet Volume 8.6 fL (8.0-11.0); Monocytes % 7.5; Neutrophils % 65.8; Platelet Count 235 x1000/uL (130-400); RBC 5.48 m/cumm (4.00-5.20); RBC Distribution Width 16.3 % (11.7-14.6); White Blood Cell Count 7.46 k/cumm (4.4-10.8)
[2020-01-21 16:58] LABS: Iron 60 ug/dL (50-170); Total Iron Binding Capacity 318 ug/dL (250-450); Transferrin Sat 19 % (15-50)
[2020-01-21 17:14] LABS: Albumin 3.8 g/dL (3.4-5.0); Anion Gap 9.5 mmol/L (3-11); BUN 23 mg/dL (7-18); CO2 26.5 mmol/L (21.0-32.0); CREATININE 1.62 mg/dL (0.55-1.02); Calcium 8.7 mg/dL (8.5-10.1); Calculated LDL 84 mg/dL (<100); Chloride 103 mmol/L (98-107); Cholesterol 148 mg/dL (<200); Estimated GFR 31.69 (mL/min/1.73m2); Ferritin 45 ng/mL (8-252); Glucose 76 mg/dL (74-106); HDL Cholesterol 43 mg/dL (40-60); Sodium 139 mmol/L (136-145); Triglyceride 109 mg/dL (<150)
[2020-01-21 19:16] LABS: PHOSPHORUS 3.9 mg/dL (2.6-4.7)
[2020-01-24 12:21] LABS: Parathyroid Hormone,Intact 98 pg/mL (19-88)
[2020-01-24 13:35] LABS: Vitamin D 25 Total 28.1 ng/ml (30-100)
== END 2020-01-21 15:33 ==
PROVIDERS: PCP Nurse Practitioner Family; Visit Provider Internal Medicine Nephrology
DX: N18.3 Chronic kidney disease, stage 3 (moderate) (principal); N18.9 Chronic kidney disease, unspecified
CPT/HCPCS: 36415; 80048; 80061; 82306; 82040; 82652; 82728; 83540; 83550; 83970; 84100; 84550; 85025

== ENCOUNTER 2020-09-04 20:23 | Outpatient (REF) | payer MEDICARE, MEDICAID, SELFPAY ==
[2020-09-04 21:25] LABS: Abs Immature Grans 0.03 10^3/uL (0.0-0.06); Absolute Basophil Count 0.07 10^3/uL (0.0-0.2); Absolute Eosinophil Count 0.18 10^3/uL (0.0-0.7); Absolute Lymphocyte Count 1.52 10^3/uL (1.2-3.4); Absolute Monocyte Count 0.41 10^3/uL (0.1-0.8); Absolute Neutrophil Count 6.69 10^3/uL (1.2-6.7); Basophils % 0.8; HCT 49.8 % (36.0-46.0); HGB 16.5 g/dL (11.2-15.7); Immature Grans % 0.3; Lymphocytes % 17.1; MCH 29.5 pg (27.0-33.0); MCHC 33.1 % (32.0-36.0); MCV 88.9 fL (80-95); Monocytes % 4.6; Neutrophils % 75.2; Nucleated RBC 0 %; Platelet Count 196 10^3/uL (130-400); RDW 13.1 % (11.7-14.6); RDW-SD 42.8 fL
[2020-09-04 21:37] LABS: PROTEIN 114.7 mg/dL
[2020-09-04 21:40] LABS: Iron 66 ug/dL (50-170); Total Iron Binding Capacity 307 ug/dL (250-450); Transferrin Sat 21 % (15-50)
[2020-09-04 21:48] LABS: COMMENT (LAB VIEW ONLY) 170.86 mg/dL; Prot/Crea Ur Ratio 0.67
[2020-09-04 22:04] LABS: Vitamin D 25 Total 36.5 ng/ml (30-100)
[2020-09-04 22:05] LABS: Albumin 3.7 g/dL (3.4-5.0); Anion Gap 11.6 mmol/L (3-11); BUN 38 mg/dL (7-18); CO2 21.4 mmol/L (21.0-32.0); CREATININE 1.73 mg/dL (0.55-1.02); Calcium 8.8 mg/dL (8.5-10.1); Calculated LDL 77 mg/dL (<100); Chloride 105 mmol/L (98-107); Cholesterol 149 mg/dL (<200); Estimated GFR 29.38 (mL/min/1.73m2); Ferritin 65 ng/mL (8-252); Folate 6.2 ng/mL (8.6-20.0); Glucose 86 mg/dL (74-106); HDL Cholesterol 49 mg/dL (40-60); Sodium 138 mmol/L (136-145); Triglyceride 118 mg/dL (<150); Vitamin B12 647 pg/mL (193-986)
[2020-09-04 22:35] LABS: PHOSPHORUS 4.5 mg/dL (2.6-4.7); Uric Acid 3.9 mg/dL (2.6-6.0)
== END 2020-09-04 20:43 ==
LOC: NCHCN 20:23
PROVIDERS: PCP Nurse Practitioner Family; Visit Provider Nurse Practitioner Family
DX: E78.5 Hyperlipidemia, unspecified (principal); R80.9 Proteinuria, unspecified
CPT/HCPCS: 80048; 80061; 82306; 82040; 82565; 82607; 82728; 82746; 83540; 83550; 84100; 84156; 84550; 85025

== ENCOUNTER 2020-11-15 03:10 | Outpatient (CLI) | payer MEDICARE, MEDICAID, SELFPAY ==
--- NOTE | 2020-11-15 | DI.RAD_ITS ---
EXAM: XR ABDOMEN FLAT UPRIGHT CLINICAL HISTORY: IRRITABLE SYNDROME,K58.9,DIARRHEA,R19.7,NAUSEA,R11.0. TECHNIQUE: 2D digital imaging was performed. COMPARISON: No exams were available for comparison FINDINGS: Supine and upright views of the abdomen reveal no evidence of bowel obstruction and no free intraperi toneal air. Calcification left side of the pelvis at L3 2-3 level is possibly vascular such as withi n a branch of the aorta or tortuous splenic artery. These are projected over the left kidney but not of do not have typical appearance of renal calculi. There are multilevel degenerative facet joint c hanges and degenerative disc disease in the mid-lower lumbar spine. No ominous osseous lesions evide nt. IMPRESSION: No bowel obstruction. No free air. Other findings as above. Report DATA REPOSITORY: RADIATION DOSE DELIVERED:
[2020-11-15 15:55] LABS: Abs Immature Grans 0.02 10^3/uL (0.0-0.06); Absolute Basophil Count 0.07 10^3/uL (0.0-0.2); Absolute Eosinophil Count 0.14 10^3/uL (0.0-0.7); Absolute Lymphocyte Count 1.53 10^3/uL (1.2-3.4); Absolute Monocyte Count 0.46 10^3/uL (0.1-0.8); Absolute Neutrophil Count 6.78 10^3/uL (1.2-6.7); Basophils % 0.8; Eosinophils % 1.6; HCT 47.2 % (36.0-46.0); Immature Grans % 0.2; MCH 29.2 pg (27.0-33.0); MCHC 33.9 % (32.0-36.0); MCV 86.1 fL (80-95); MPV 9.2 fL (8.0-11.0); Monocytes % 5.1; Neutrophils % 75.3; Nucleated RBC 0 %; Platelet Count 174 10^3/uL (130-400); RBC 5.48 10^6/uL (3.93-5.22); RDW 13.2 % (11.7-14.6); RDW-SD 41.5 fL
[2020-11-15 17:38] LABS: Iron 59 ug/dL (50-170); Total Iron Binding Capacity 249 ug/dL (250-450); Transferrin Sat 24 % (15-50)
[2020-11-15 18:10] LABS: ALT 20 U/L (14-59); AST 8 U/L (15-37); Albumin 3.7 g/dL (3.4-5.0); Alkaline Phosphatase 116 U/L (46-116); Anion Gap 12.8 mmol/L (3-11); BUN 32 mg/dL (7-18); Bilirubin, Total 0.4 mg/dL (0.2-1.0); CO2 22.2 mmol/L (21.0-32.0); CREATININE 1.99 mg/dL (0.55-1.02); Calcium 8.9 mg/dL (8.5-10.1); Chloride 102 mmol/L (98-107); Estimated GFR 24.92 (mL/min/1.73m2); Glucose 115 mg/dL (74-106); Potassium 4.1 mmol/L (3.5-5.1); Sodium 137 mmol/L (136-145); Total Protein 6.4 g/dL (6.4-8.2); Vitamin B12 678 pg/mL (193-986)
[2020-11-15 18:13] LABS: Folate > 20.0 ng/mL (8.6-20.0)
[2020-11-15 18:23] LABS: PHOSPHORUS 4.4 mg/dL (2.6-4.7)
[2020-11-16 04:46] LABS: Vitamin D 25 Total 44.5 ng/ml (30-100)
[2020-11-17 14:21] LABS: Parathyroid Hormone,Intact 90 pg/mL (19-88)
== END 2020-11-15 03:30 ==
PROVIDERS: PCP Nurse Practitioner Family; Visit Provider Nurse Practitioner Family
DX: K58.0 Irritable bowel syndrome with diarrhea (principal); R11.0 Nausea; I70.1 Atherosclerosis of renal artery; N18.30 Chronic kidney disease, stage 3 unspecified
CPT/HCPCS: 36415; 80053; 82306; 74019; 82607; 82746; 83540; 83550; 83970; 84100; 85025

== ENCOUNTER 2020-11-15 15:48 | Outpatient (REF) | payer MEDICARE, MEDICAID, SELFPAY ==
[2020-11-18 13:18] LABS: Campylobacter PCR Negative (Negative); Salmonella PCR Negative (Negative); Shiga Toxin PCR Negative (Negative); Shigella/Enteroinvasive Ecoli Negative (Negative)
== END 2020-11-15 16:08 ==
LOC: NCHCN 15:48
PROVIDERS: PCP Nurse Practitioner Family; Visit Provider Nurse Practitioner Family
DX: R19.7 Diarrhea, unspecified (principal); I70.1 Atherosclerosis of renal artery; N18.30 Chronic kidney disease, stage 3 unspecified
CPT/HCPCS: 87505; 83630; 87177

== ENCOUNTER 2021-03-15 02:10 | Outpatient (CLI) | payer MEDICARE, MEDICAID, SELFPAY ==
[2021-03-15 16:28] LABS: Abs Immature Grans 0.03 10^3/uL (0.0-0.06); Absolute Basophil Count 0.05 10^3/uL (0.0-0.2); Absolute Eosinophil Count 0.09 10^3/uL (0.0-0.7); Absolute Lymphocyte Count 1.52 10^3/uL (1.2-3.4); Absolute Monocyte Count 0.47 10^3/uL (0.1-0.8); Absolute Neutrophil Count 6.14 10^3/uL (1.2-6.7); Basophils % 0.6; Eosinophils % 1.1; HCT 45.2 % (36.0-46.0); HGB 15.1 g/dL (11.2-15.7); Immature Grans % 0.4; Lymphocytes % 18.3; MCH 29.8 pg (27.0-33.0); MCHC 33.4 % (32.0-36.0); MCV 89.3 fL (80-95); MPV 9.3 fL (8.0-11.0); Monocytes % 5.7; Neutrophils % 73.9; Nucleated RBC 0 %; Platelet Count 196 10^3/uL (130-400); RBC 5.06 10^6/uL (3.93-5.22); RDW-SD 45.5 fL
[2021-03-15 17:31] LABS: Vitamin D 25 Total 41.8 ng/mL (30-100)
[2021-03-15 17:36] LABS: Albumin 3.7 g/dL (3.4-5.0); Anion Gap 10.8 mmol/L (3-11); BUN 32 mg/dL (7-18); CO2 23.2 mmol/L (21.0-32.0); Calcium 8.8 mg/dL (8.5-10.1); Calculated LDL 84 mg/dL (<100); Chloride 106 mmol/L (98-107); Cholesterol 163 mg/dL (<200); Estimated GFR 24.78 (mL/min/1.73m2); Ferritin 78 ng/mL (8-252); Folate > 20.0 ng/mL (8.6-20.0); Glucose 98 mg/dL (74-106); HDL Cholesterol 61 mg/dL (40-60); Potassium 4.2 mmol/L (3.5-5.1); Sodium 140 mmol/L (136-145); Triglyceride 93 mg/dL (<150); Vitamin B12 715 pg/mL (193-986)
[2021-03-15 17:46] LABS: Iron 77 ug/dL (50-170); PHOSPHORUS 3.9 mg/dL (2.6-4.7); Total Iron Binding Capacity 301 ug/dL (250-450); Transferrin Sat 26 % (15-50); Uric Acid 4.9 mg/dL (2.6-6.0)
[2021-03-16 09:55] LABS: Parathyroid Hormone,Intact 100 pg/mL (19-88)
== END 2021-03-15 02:11 | disposition home or self-care (01) ==
PROVIDERS: PCP Nurse Practitioner Family; Visit Provider Internal Medicine Nephrology
DX: E53.8 Deficiency of other specified B group vitamins (principal); N18.4 Chronic kidney disease, stage 4 (severe); R63.0 Anorexia; E78.5 Hyperlipidemia, unspecified; R79.89 Other specified abnormal findings of blood chemistry
CPT/HCPCS: 36415; 80048; 80061; 82306; 82040; 82565; 82607; 82728; 82746; 83540; 83550; 83970; 84100; 84156; 84550; 85025

== ENCOUNTER 2021-03-18 17:41 | Outpatient (REF) | payer MEDICARE, MEDICAID, SELFPAY ==
[2021-03-18 17:29] LABS: PROTEIN 118.1 mg/dL
[2021-03-18 17:52] LABS: COMMENT (LAB VIEW ONLY) 139.51 mg/dL; Prot/Crea Ur Ratio 0.84
== END 2021-03-18 17:42 | disposition home or self-care (01) ==
LOC: LBN 17:41
PROVIDERS: PCP Nurse Practitioner Family; Visit Provider Internal Medicine Nephrology
DX: N18.32 Chronic kidney disease, stage 3b (principal)
CPT/HCPCS: 82565; 84156

== ENCOUNTER 2021-04-05 03:17 | Outpatient (CLI) | payer MEDICARE, MEDICAID, SELFPAY ==
[2021-04-05 17:44] LABS: BUN 37 mg/dL (7-18); Calcium 8.9 mg/dL (8.5-10.1); Chloride 107 mmol/L (98-107); Estimated GFR 24.78 (mL/min/1.73m2); Glucose 99 mg/dL (74-106); Potassium 4.1 mmol/L (3.5-5.1); Sodium 142 mmol/L (136-145)
== END 2021-04-05 03:18 | disposition home or self-care (01) ==
LOC: LBO 03:17
PROVIDERS: PCP Nurse Practitioner Family; Visit Provider Internal Medicine Nephrology
DX: N18.4 Chronic kidney disease, stage 4 (severe) (principal)
CPT/HCPCS: 36415; 80048

== ENCOUNTER 2021-04-19 02:45 | Outpatient (CLI) | payer MEDICARE, MEDICAID, SELFPAY ==
[2021-04-19 15:58] LABS: Anion Gap 12.3 mmol/L (3-11); BUN 41 mg/dL (7-18); CO2 21.7 mmol/L (21.0-32.0); CREATININE 2.1 mg/dL (0.55-1.02); Calcium 8.6 mg/dL (8.5-10.1); Chloride 107 mmol/L (98-107); Estimated GFR 23.42 (mL/min/1.73m2); Glucose 76 mg/dL (74-106); Potassium 4.7 mmol/L (3.5-5.1); Sodium 141 mmol/L (136-145)
== END 2021-04-19 02:46 | disposition home or self-care (01) ==
LOC: LBO 02:45
PROVIDERS: PCP Nurse Practitioner Family; Visit Provider Internal Medicine Nephrology
DX: N18.4 Chronic kidney disease, stage 4 (severe) (principal)
CPT/HCPCS: 36415; 80048

== ENCOUNTER 2021-06-12 17:31 | Outpatient (REF) | payer MEDICARE, MEDICAID, SELFPAY ==
[2021-06-14 12:30] LABS: COVID-19 RT-PCR UVMMC Result Negative (Negative)
== END 2021-06-12 17:32 | disposition home or self-care (01) ==
LOC: NCHCN 17:31
PROVIDERS: PCP Nurse Practitioner Family; Visit Provider Nurse Practitioner Family
DX: Z20.822 Contact with and (suspected) exposure to COVID-19 (principal)
CPT/HCPCS: U0003

== ENCOUNTER 2021-10-09 02:53 | Outpatient (CLI) | payer MEDICARE, MEDICAID, SELFPAY ==
[2021-10-09 17:22] LABS: Abs Immature Grans 0.02 10^3/uL (0.0-0.06); Absolute Basophil Count 0.06 10^3/uL (0.0-0.2); Absolute Eosinophil Count 0.19 10^3/uL (0.0-0.7); Absolute Lymphocyte Count 1.77 10^3/uL (1.2-3.4); Absolute Monocyte Count 0.48 10^3/uL (0.1-0.8); Basophils % 0.7; Eosinophils % 2.2; HCT 43.8 % (36.0-46.0); HGB 14.5 g/dL (11.2-15.7); Immature Grans % 0.2; Lymphocytes % 20.8; MCH 29.5 pg (27.0-33.0); MCHC 33.1 % (32.0-36.0); MPV 9.6 fL (8.0-11.0); Monocytes % 5.6; Neutrophils % 70.5; Nucleated RBC 0 %; Platelet Count 182 10^3/uL (130-400); RBC 4.92 10^6/uL (3.93-5.22); RDW 13.2 % (11.7-14.6); RDW-SD 43.4 fL; WBC 8.52 10^3/uL (4.4-10.8)
[2021-10-09 18:38] LABS: Albumin 3.8 g/dL (3.4-5.0); Anion Gap 12.9 mmol/L (3-11); BUN 31 mg/dL (7-18); CO2 23.1 mmol/L (21.0-32.0); CREATININE 2.1 mg/dL (0.55-1.02); Calcium 8.6 mg/dL (8.5-10.1); Calculated LDL 80 mg/dL (<100); Chloride 103 mmol/L (98-107); Cholesterol 150 mg/dL (<200); Estimated GFR 23.35 (mL/min/1.73m2); Glucose 73 mg/dL (74-106); HDL Cholesterol 51 mg/dL (40-60); Potassium 3.8 mmol/L (3.5-5.1); Sodium 139 mmol/L (136-145); Triglyceride 96 mg/dL (<150)
[2021-10-09 18:43] LABS: Folate > 20.0 ng/mL (8.6-20.0)
[2021-10-11 09:16] LABS: Parathyroid Hormone,Intact 148 pg/mL (19-88)
== END 2021-10-09 02:54 | disposition home or self-care (01) ==
LOC: LBO 02:53
PROVIDERS: PCP Nurse Practitioner Family; Visit Provider Internal Medicine Nephrology
DX: N18.30 Chronic kidney disease, stage 3 unspecified; E53.8 Deficiency of other specified B group vitamins; N25.81 Secondary hyperparathyroidism of renal origin; E78.5 Hyperlipidemia, unspecified
CPT/HCPCS: 36415; 80048; 80061; 82040; 82565; 82746; 83970; 84100; 84156; 85025

== ENCOUNTER 2021-10-11 19:59 | Outpatient (REF) | payer MEDICARE, MEDICAID, SELFPAY ==
[2021-10-11 20:17] LABS: COMMENT (LAB VIEW ONLY) 200.92 mg/dL; PROTEIN 79.6 mg/dL; Prot/Crea Ur Ratio 0.39
== END 2021-10-11 20:00 | disposition home or self-care (01) ==
LOC: LBN 19:59
PROVIDERS: PCP Nurse Practitioner Family; Visit Provider Internal Medicine Nephrology
DX: R80.8 Other proteinuria (principal)
CPT/HCPCS: 82565; 84156

== ENCOUNTER 2021-11-20 19:50 | Outpatient (REF) | payer MEDICARE, MEDICAID, SELFPAY ==
[2021-11-20 22:22] LABS: Abs Immature Grans 0.03 10^3/uL (0.0-0.06); Absolute Basophil Count 0.07 10^3/uL (0.0-0.2); Absolute Eosinophil Count 0.15 10^3/uL (0.0-0.7); Absolute Lymphocyte Count 1.46 10^3/uL (1.2-3.4); Absolute Monocyte Count 0.43 10^3/uL (0.1-0.8); Absolute Neutrophil Count 6.18 10^3/uL (1.2-6.7); Basophils % 0.8; Eosinophils % 1.8; HGB 14.5 g/dL (11.2-15.7); Immature Grans % 0.4; Lymphocytes % 17.5; MCH 30.3 pg (27.0-33.0); MCHC 33.7 % (32.0-36.0); MCV 89.8 fL (80-95); MPV 9.7 fL (8.0-11.0); Monocytes % 5.2; Neutrophils % 74.3; Nucleated RBC 0 %; Platelet Count 178 10^3/uL (130-400); RBC 4.79 10^6/uL (3.93-5.22); RDW 13.1 % (11.7-14.6); RDW-SD 43.3 fL; WBC 8.32 10^3/uL (4.4-10.8)
[2021-11-20 22:32] LABS: ALT 25 U/L (14-59); AST 19 U/L (15-37); Albumin 3.6 g/dL (3.4-5.0); Alkaline Phosphatase 105 U/L (46-116); Anion Gap 12.5 mmol/L (3-11); BUN 34 mg/dL (7-18); Bilirubin, Total 0.3 mg/dL (0.2-1.0); CO2 20.5 mmol/L (21.0-32.0); Calcium 8.6 mg/dL (8.5-10.1); Chloride 104 mmol/L (98-107); Glucose 97 mg/dL (74-106); Potassium 4.1 mmol/L (3.5-5.1); Sodium 137 mmol/L (136-145); Total Protein 6.3 g/dL (6.4-8.2)
[2021-11-22 05:51] LABS: Vitamin D 25 Total 45.4 ng/mL (30-100)
[2021-11-22 09:46] LABS: Parathyroid Hormone,Intact 117 pg/mL (19-88)
== END 2021-11-20 19:51 | disposition home or self-care (01) ==
LOC: NCHCN 19:50
PROVIDERS: PCP Nurse Practitioner Family; Visit Provider Nurse Practitioner Family
DX: M81.0 Age-related osteoporosis without current pathological fracture (principal); E78.5 Hyperlipidemia, unspecified; I10 Essential (primary) hypertension; I70.1 Atherosclerosis of renal artery; D64.9 Anemia, unspecified
CPT/HCPCS: 80053; 82306; 83970; 85025

== ENCOUNTER 2022-02-18 11:55 | Outpatient (REF) | payer OTHER, MEDICAID, SELFPAY ==
[2022-02-18 16:37] LABS: Abs Immature Grans 0.04 10^3/uL (0.0-0.06); Absolute Basophil Count 0.06 10^3/uL (0.0-0.2); Absolute Eosinophil Count 0.21 10^3/uL (0.0-0.7); Absolute Lymphocyte Count 1.61 10^3/uL (1.2-3.4); Basophils % 0.6; Eosinophils % 1.9; HCT 40.6 % (36.0-46.0); HGB 13.5 g/dL (11.2-15.7); Immature Grans % 0.4; Lymphocytes % 14.9; MCH 29.5 pg (27.0-33.0); MCHC 33.3 % (32.0-36.0); MCV 88.6 fL (80-95); MPV 9.9 fL (8.0-11.0); Monocytes % 5.5; Neutrophils % 76.7; Platelet Count 175 10^3/uL (130-400); RBC 4.58 10^6/uL (3.93-5.22); RDW 13.3 % (11.7-14.6); RDW-SD 43.5 fL; WBC 10.82 10^3/uL (4.4-10.8)
[2022-02-18 16:46] LABS: Anion Gap 12.8 mmol/L (3-11); BUN 32 mg/dL (7-18); CO2 18.2 mmol/L (21.0-32.0); Calcium 8.3 mg/dL (8.5-10.1); Chloride 107 mmol/L (98-107); Glucose 95 mg/dL (74-106); Potassium 3.6 mmol/L (3.5-5.1); Sodium 138 mmol/L (136-145)
== END 2022-02-18 11:56 | disposition home or self-care (01) ==
LOC: NCHCN 11:55
PROVIDERS: PCP Nurse Practitioner Family; Visit Provider Nurse Practitioner Family
DX: I10 Essential (primary) hypertension (principal); N18.30 Chronic kidney disease, stage 3 unspecified
CPT/HCPCS: 80048; 85025

== ENCOUNTER 2022-03-04 08:56 | Day surgery (SDC) | payer OTHER, MEDICAID, SELFPAY ==
[2022-03-04] MEDS: Tropicam./Phenyleph. (1/2.5%) 5 ML BTL OS ×3 (09:20→09:37)
[2022-03-04 09:21] VITALS: BP 148/83; PULSE 67; RESP 18; TEMP 36.6; O2SAT 98
--- NOTE | 2022-03-04 09:43 | W.ANESPRE ---
General Info Date of Service Date Performed: 03/04/22 Height: 5 ft 2 in Weight: 44.7 kg Body Mass Index (BMI): 18.0 Surgical Procedure: Operation Date: 03/04/22 10:40 Proposed Procedure Side Surgeon p Cataract Extraction with IOL Implant Left Jewel Easton MD Meds Allergies and Home Medications Allergies Allergy/AdvReac Type Severity Reaction Status Date / Time lorazepam [From Ativan] Allergy Severe UNKNOWN Verified 03/04/22 09:31 albuterol sulfate Allergy Intermediate chest pain Verified 03/04/22 09:25 [From Proventil HFA] enalapril Allergy Intermediate UNKNOWN Verified 03/04/22 09:31 modafinil [From Provigil] Allergy Intermediate trouble Verified 03/04/22 09:25 breathing lisinopril Allergy Mild UNKNOWN Verified 03/04/22 09:31 losartan Allergy Mild UNKNOWN Verified 03/04/22 09:31 tramadol Allergy Mild Itching Verified 03/04/22 09:31 strawberry Allergy hives Verified 03/04/22 09:25 aspirin AdvReac Severe when Verified 03/04/22 09:25 taken orally I get bleeding ulcers amitriptyline AdvReac Unknown Out in Verified 03/04/22 09:25 outter space, really messed with my head duloxetine HCl AdvReac diarrhea, Verified 03/04/22 09:25 [From Cymbalta] vomiting Home Medication Medication Instructions Recorded acetaminophen 500 mg tablet (Mapap 1,000 mg PO TID PRN 02/18/18 Extra Strength) amlodipine 5 mg tablet 10 mg PO DAILY 09/21/18 labetalol 200 mg tablet 200 mg PO BID 09/21/18 rosuvastatin 10 mg tablet 20 mg PO DAILY 09/21/18 topiramate 25 mg capsule,extended 12.5 mg PO BID cap 09/21/18 release 24 hr terazosin 2 mg capsule 5 mg PO QHS 05/31/19 doxercalciferol 0.5 mcg capsule 1 mcg PO DAILY 03/01/22 Current Visit Medications: Current Medications Generic Name Dose Route Start Last Admin Trade Name Freq PRN Reason Stop Dose Admin Acetaminophen 1,000 mg 03/04/22 06:00 Acetaminophen 500 Mg Tab PO Q4H PRN PRN Miscellaneous Medication 0 ml 03/04/22 06:00 Prednisolone 1%, Moxifloxacin 0.5%, Nepafenac 0.1% 5ml Btl OS DIRECTED [facility]ENDOL[facility] Miscellaneous Medication 0 ml 03/04/22 06:00 03/04/22 09:37 Tropicam./Phenyleph. (1/2.5%) 5 Ml Btl OS 1 drp DIRECTED [facility]END[facility] Administration Tetracaine HCl 0 ml 03/04/22 06:00 Tetracaine 0.5% 4 Ml Btl OS DIRECTED [facility] PFSH Active Problems Active Problems: Problem Status Onset Code Posterior subcapsular age-related cataract of left eye H25.042 Cortical cataract of left eye H26.9 Nuclear sclerotic cataract of left eye H25.12 Chronic osteoarthritis ~2004 Migraine headache Hyperlipidemia GERD (gastroesophageal reflux disease) Hypertension Migraine G43.[address] scan, head R93.0 Essential hypertension I10 Current tobacco use Z72.0 Irritable bowel syndrome K58.9 Chronic kidney disease N18.9 Chronic pain G89.29 Claudication I73.9 Posterior reversible encephalopathy syndrome I67.83 Hematochezia K92.1 Hypokalemia E87.6 Anemia D64.9 Bloody stools K92.1 Near syncope R55 Tubular adenoma of colon D12.6 Situational anxiety F41.8 Osteoporosis M81.0 Tobacco use disorder F17.200 Heart murmur R01.1 Chronic bilateral low back pain without sciatica 03/16/18 M54.5, G89.29 Menopausal symptoms 05/22/15 N95.1 Rectal hemorrhage K62.5 Thoracic compression fracture S22.000A Lower GI bleed K92.2 DVT prophylaxis Z29.9 Discharge planning issues Z02.9 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 GERD without esophagitis K21.9 Medical History Medical History Endometriosis Hx estrogen therapy Stage 4 chronic kidney disease Surgical History Surgical History Colonoscopy - IV Sedation 2011 colonoscopy History of colonoscopy (~09/2019) Tobacco Smoking/Tobacco Use Status: Current every day Tobacco Type: cigarettes Smoking packs per day: 0.5 Smoking cigarettes per day: 10.0 Alcohol Alcohol Intake: former Substance Use Substance use: Daily Substance use type: marijuana Details: medical Vital Signs and Lab Results Vital Signs Most Recent Vital Signs in EMR: Most Recent Vital Signs Temp Pulse Resp BP Pulse Ox 36.6 C 67 18 148/83 H 98 03/04/22 09:21 03/04/22 09:21 03/04/22 09:21 03/04/22 09:21 03/04/22 09:21 Lab Results Blood Type / Crossmatch: No Data to Display Complete Blood Count: White Blood Count 10.82 10^3/uL (4.4-10.8) H 02/18/22 11:25 02/18/22 Red Blood Count 4.58 10^6/uL (3.93-5.22) 02/18/22 11:02/18/22 Hemoglobin 13.5 g/dL (11.2-15.7) 02/18/22 11:02/18/22 Hematocrit 40.6 % (36.0-46.0) 02/18/22 11:02/18/22 Platelet Count 175 10^3/uL (130-400) 02/18/22 11:02/18/22 Complete Metabolic Panel: Sodium Level 138 mmol/L (136-145) 02/18/22 11:02/18/22 Potassium Level 3.6 mmol/L (3.5-5.1) 02/18/22 11:02/18/22 Chloride Level 107 mmol/L (98-107) 02/18/22 11:02/18/22 Carbon Dioxide Level 18.2 mmol/L (21.0-32.0) L 02/18/22 11:02/18/22 Blood Urea Nitrogen 32 mg/dL (7-18) H 02/18/22 11:02/18/22 Creatinine 2.0 mg/dL (0.55-1.02) H 02/18/22 11:02/18/22 Estimated GFR/1.73 m2 24.70 (mL/min/1.73m2) 02/18/22 11:02/18/22 Calcium Level 8.3 mg/dL (8.5-10.1) L 02/18/22 11:02/18/22 Glucose Level 95 mg/dL (74-106) 02/18/22 11:02/18/22 Liver Function Panel: No Data to Display Coagulation Panel: No Data to Display Cardiac Panel: No Data to Display Arterial Blood Gas: No Data to Display Venous Blood Gas: No Data to Display Pancreas Panel: No Data to Display Thyroid Panel: No Data to Display Infectious Disease: No Data to Display Blood Cultures: No Data to Display Toxicology Panel: No Data to Display Anesthesia Assessment and Plan Anesthesia History Personal History: No History of Anesthesia Complications Family History: No Family History of Anesthesia Complications Exercise Tolerance Exercise Tolerance: Metabolic Equivalents>4 Cardiac & Pulmonary Exam Cardiac Exam: Heart Murmur Present Pulmonary Exam: Clear Bilateral Breath Sounds Implantable Cardiac Device Does patient have a Pacemaker or an ICD?: No Airway Exam Known Difficult Airway: No Mallampati Class: 2 Mouth Opening: Normal (> 3cm) Thyromental Distance: Greater than 3 cm Neck Range of Motion: Full ROM Neck Circumference: Normal Teeth Condition: Generalized Poor Dentition ASA Classification ASA Score: ASA 3 Emergency Case?: No NPO Status NPO Status: NPO Clears >2 hours, Solids >8 hours Anesthesia Plan Resuscitation Status: Full Code Anesthesia Technique: MAC Anesthesia Airway Planned: Natural Airway Monitors Used: Standard Monitors
[2022-03-04 09:45] VITALS: BMI 18.0
[2022-03-04] MEDS: Tetracaine 0.5% 4 ML BTL (10:07)
[2022-03-04] MEDS: Balanced Salt Soln.-PLUS 500 ML BAG (10:08)
[2022-03-04] MEDS: Duovisc Viscoelastic System EACH 1 EACH (10:08)
[2022-03-04] MEDS: Lidocaine 2% Jelly 6 ML SYR (10:09)
[2022-03-04] MEDS: Povidone-Iodine Ophth 30 ML BTL (10:10)
[2022-03-04 10:26] VITALS: BP 145/75; PULSE 66; RESP 18; TEMP 36.3; O2SAT 98
--- NOTE | 2022-03-04 10:31 | W.PM.DSUDISC ---
Discharge Plan Disposition Patient Disposition: HOME Condition: Good Discharge Details Attending Provider: Jewel Easton Primary Care Provider: Xochilt Mcdaniel Home Meds and New Rx's Prescriptions: No Action topiramate 25 mg capsule,extended release 24hr 12.5 mg PO BID 0RF rosuvastatin 10 mg tablet 20 mg PO DAILY 0RF labetalol 200 mg tablet 200 mg PO BID 0RF amlodipine 5 mg tablet 10 mg PO DAILY 0RF terazosin 2 mg Capsule 5 mg PO QHS 0RF doxercalciferol 0.5 mcg capsule 1 mcg PO DAILY 0RF Label Comments: TAKE TWO CAPSULES BY MOUTH EVERY DAY acetaminophen [Mapap Extra Strength] 500 MG tablet 1,000 mg PO TID PRN0RF Discharge Instructions Stand Alone Forms: Post-op Block Cataract, Post-op Topical Cataract, Press Ganey (DSU) Discharge Orders Discharge Orders: Discharge Order (Routine); Ordered 03/04/22 Ordered By: Jewel Easotn DS: Diagnosis Discharge Diagnosis (1) Posterior subcapsular age-related cataract of left eye: Status: Resolved (2) Cortical cataract of left eye: Status: Resolved (3) Nuclear sclerotic cataract of left eye: Status: Resolved
--- NOTE | 2022-03-04 10:32 | ROE_ITS ---
Date of service: 03/04/22 Time of Service: 10:33 Operative Note Operative Note DATE OF PROCEDURE: 03/04/22 PRE-OP DIAGNOSIS: Nuclear/cortical/posterior subcapsular cataract, left eye POST-OP DIAGNOSIS: same PROCEDURE: Cataract extraction using phacoemulsification with intraocular lens implant, left eye SURGEON: Jewel Easton ANESTHESIA TYPE: Local By Surgeon and MAC Refer to Anesthesia Record PATHOLOGY: none sent COMPLICATIONS: None Patient was transported to: same day Patient's condition: stable Implants: [employer] Tecnis [id number] Indications: Progressive decreased vision due to cataract, left eye Procedure Description: CATARACT SURGERY OPERATIVE REPORT PREOPERATIVE DIAGNOSIS: 1. Nuclear/cortical/posterior subcapsular cataract, left eye POSTOPERATIVE DIAGNOSIS: Same OPERATION: 1. Cataract extraction using phacoemulsification with posterior chamber intraocular lens implant, left eye. IOL: IOL Mirror Finishing Machine Operator/Model: [employer] Hugh / SARMAD Tecnis [id number] IOL Power: + 15.0 diopters IOL Serial Number: [id number] Optic Diameter: 6.0 mm Haptic/Overall Diameter: 13.0 mm PHACO INFO: Chang Intercloud Systemsurion Vision System with OZil and Active Fluidics Cumulative Dispersed Energy (CDE): 11 point seconds SURGEON: Jewel Easton MD, CLOE ANESTHESIA: Monitored A [facility] (MAC), with local sub-tenon's anesthetic infiltration COMPLICATIONS: None SPECIMENS: None INDICATIONS FOR PROCEDURE: The patient is a 71-year-old lady with history of diminished visual acuity in both eyes secondary to development of nuclear/cortical/posterior subcapsular cataract. The option of cataract surgery was offered to the patient and she wished to proceed. PROCEDURE: The correct surgical eye was identified and marked as the left eye and the pupil was dilated in the preoperative area using mydriatics and cycloplegics. The dilated pupil size was 7 mm. Oral sedation was administered in the form of an Imprimis MKO Melt (midazolam 3mg/ketamine 25mg/ondansetron 2mg). The patient was brought to the operating room where cardiopulmonary monitoring was instituted and surgical time-out was performed, confirming the correct operative eye and IOL power. Topical anesthesia was administered and ophthalmic povidone-iodine 5% was instilled into the conjunctival fornices. Lidocaine gel was applied to the cornea and the devon-ocular area was prepped with Betadine 10% solution and draped in the usual sterile fashion for intraocular surgery, including an aperture drape. A Tegaderm transparent film dressing was cut in half and used to cover the lashes and lid margins. Care was taken to sequester the lashes and lid margins under the Tegaderm dressing. A lid speculum was placed between the lids of the operative eye and the Chang LuxOR Revalia operating microscope was maneuvered into position. Claire scissors were then used to make a conjunctival buttonhole approximately 6mm posterior to the limbus in the inferonasal quadrant. Blunt dissection was carried out to expose bare sclera, and a blunt-tipped sub-tenon?s anesthesia cannula was introduced and passed posteriorly along the globe where non- preserved plain lidocaine was injected into posterior sub-Tenon?s space. A sideport knife was used to make a paracentesis port superiorly/superiortemporally. Intraocular phenylephrine/lidocaine was injected int the anterior chamber.. The anterior chamber was filled with viscoelastic. A 2.4mm keratome knife was used to create a half-thickness groove at the limbus and then to construct a three-plane near-clear corneal tunnel extending 2.0mm into clear cornea at the 3:00 position. A flap was raised on the anterior capsule and capsulorhexis forceps were used to complete a continuous curvilinear capsulorhexis of 5.5 mm. Balanced salt solution was then used to perform cortical cleaving hydrodissection and nuclear hydrodelineation until the lens could be freely rotated within the capsular bag. The lens nucleus was then disassembled and removed within the capsular bag and iris plane using phacoemulsification. Residual cortical material was removed using the 45-degree angled silicone I/A tip with 0.3mm port. The posterior capsule was carefully polished to remove as much residual lens epithelial cells as safely possible. The capsular bag was then inflated and the anterior chamber deepened with viscoelastic. The lens implant described above was inserted into the capsular bag using the SARMAD [place] Injector. A Kuglen hook was used to dial the IOL into position. Residual viscoelastic was then removed first from posterior to the IOL, then from the anterior chamber using the I/A handpiece. The lens implant was noted to center nicely within the capsular bag. The incisions were stromally hydrated, and the anterior chamber was reformed using BSS. Then 0.5cc of moxifloxacin 1.0mg/ml were injected into the capsular bag and anterior chamber. The incisions were checked with a Weck spear and found to be secure. Several drops of ophthalmic povidone-iodine 5% were then applied to the eye followed by two drops of Imprimis combination prednisolone/moxifloxacin/nepafenac solution. The drapes were removed and a clear plastic protective eye shield was placed over the eye. The patient was then returned to Same Day Surgery in stable condition.
--- NOTE | 2022-03-04 10:46 | W.ANESPOSTOP ---
Postoperative Evaluation Date, Time and Location Date Performed: 03/04/22 Time Performed: 10:42 Patient Location: Day Surgery Unit Vital Signs Most Recent Imported Vital Signs: Most Recent Vital Signs Temp Pulse Resp BP Pulse Ox 36.3 C L 66 18 145/75 H 98 03/04/22 10:26 03/04/22 10:03/04/22 10:03/04/22 10:03/04/22 10:26 Pain Score Most Recent Pain Score: Most Recent Pain Score Pain Level 0 03/04/22 10:26 Assessment Mental Status: Awake (Alert & Oriented to Patient Baseline) Airway and Respiratory Function: Patent airway with normal (patient baseline) respiratory exam Cardiovascular Function: Hemodynamically Stable Hydration Status: Adequately Hydrated Nausea & Vomiting: No Nausea or Vomiting Pain: Pt. Denies Any Pain Peripheral Nerve Block: Patient did not receive a nerve block
[2022-03-04 10:59] VITALS: BP 148/73; PULSE 69; RESP 18; TEMP 36.2; O2SAT 97
== END 2022-03-04 11:13 | disposition home or self-care (01) ==
PROVIDERS: PCP Nurse Practitioner Family; Visit Provider Ophthalmology
PROC: (CPT 66984; principal; 2022-03-04 10:30)
DX: H25.042 Posterior subcapsular polar age-related cataract, left eye (principal); N18.4 Chronic kidney disease, stage 4 (severe); I12.9 Hypertensive chronic kidney disease with stage 1 through stage 4 chronic kidney disease, or unspecified chronic kidney disease; F17.210 Nicotine dependence, cigarettes, uncomplicated
CPT/HCPCS: 66984; V2632

== ENCOUNTER 2022-03-18 07:31 | Day surgery (SDC) | payer OTHER, MEDICAID, SELFPAY ==
[2022-03-18 07:45] VITALS: BP 159/83; PULSE 78; RESP 18; TEMP 36.5; O2SAT 98
[2022-03-18] MEDS: Tropicam./Phenyleph. (1/2.5%) 5 ML BTL OD ×3 (08:04→08:22)
--- NOTE | 2022-03-18 08:41 | ANES.PREOP_ITS ---
General Info Date of Service Date Performed: 03/18/22 Height: 5 ft 2 in Weight: 44.2 kg Body Mass Index (BMI): 17.8 Surgical Procedure: Operation Date: 03/18/22 09:10 Proposed Procedure Side Surgeon p Cataract Extraction with IOL Implant Right Jewel Easton MD Meds Allergies and Home Medications Allergies Allergy/AdvReac Type Severity Reaction Status Date / Time lorazepam [From Ativan] Allergy Severe UNKNOWN Verified 03/18/22 07:59 albuterol sulfate Allergy Intermediate chest pain Verified 03/18/22 07:59 [From Proventil HFA] enalapril Allergy Intermediate UNKNOWN Verified 03/18/22 07:59 modafinil [From Provigil] Allergy Intermediate trouble Verified 03/18/22 07:59 breathing lisinopril Allergy Mild UNKNOWN Verified 03/18/22 07:59 losartan Allergy Mild UNKNOWN Verified 03/18/22 07:59 tramadol Allergy Mild Itching Verified 03/18/22 07:59 strawberry Allergy hives Verified 03/18/22 07:59 aspirin AdvReac Severe when Verified 03/18/22 07:59 taken orally I get bleeding ulcers amitriptyline AdvReac Unknown Out in Verified 03/18/22 07:59 outter space, really messed with my head duloxetine HCl AdvReac diarrhea, Verified 03/18/22 07:59 [From Cymbalta] vomiting Home Medication Medication Instructions Recorded acetaminophen 500 mg tablet (Mapap 1,000 mg PO TID PRN 02/18/18 Extra Strength) amlodipine 5 mg tablet 10 mg PO DAILY 09/21/18 labetalol 200 mg tablet 200 mg PO BID 09/21/18 rosuvastatin 10 mg tablet 20 mg PO DAILY 09/21/18 topiramate 25 mg capsule,extended 12.5 mg PO BID 09/21/18 release 24 hr terazosin 2 mg capsule 5 mg PO QHS 05/31/19 doxercalciferol 0.5 mcg capsule 1 mcg PO DAILY 03/01/22 folic acid 1 mg tablet 1 tab PO DAILY 03/18/22 Current Visit Medications: Current Medications Generic Name Dose Route Start Last Admin Trade Name Freq PRN Reason Stop Dose Admin Acetaminophen 1,000 mg 03/18/22 06:00 Acetaminophen 500 Mg Tab PO Q4H PRN PRN Miscellaneous Medication 0 ml 03/18/22 06:00 Prednisolone 1%, Moxifloxacin 0.5%, Nepafenac 0.1% 5ml Btl OD DIRECTED [facility] Miscellaneous Medication 0 ml 03/18/22 06:00 03/18/22 08:22 Tropicam./Phenyleph. (1/2.5%) 5 Ml Btl OD 1 drp DIRECTED [facility] Administration Tetracaine HCl 0 ml 03/18/22 06:00 Tetracaine 0.5% 4 Ml Btl OD DIRECTED [facility] PFSH Active Problems Active Problems: Problem Status Onset Code Chronic osteoarthritis ~2004 Migraine headache Hyperlipidemia GERD (gastroesophageal reflux disease) Hypertension Migraine G43.[address] scan, head R93.0 Essential hypertension I10 Current tobacco use Z72.0 Irritable bowel syndrome K58.9 Chronic kidney disease N18.9 Chronic pain G89.29 Claudication I73.9 Posterior reversible encephalopathy syndrome I67.83 Hematochezia K92.1 Hypokalemia E87.6 Anemia D64.9 Bloody stools K92.1 Near syncope R55 Tubular adenoma of colon D12.6 Situational anxiety F41.8 Osteoporosis M81.0 Tobacco use disorder F17.200 Heart murmur R01.1 Chronic bilateral low back pain without sciatica 03/16/18 M54.5, G89.29 Menopausal symptoms 05/22/15 N95.1 Rectal hemorrhage K62.5 Thoracic compression fracture S22.000A Lower GI bleed K92.2 DVT prophylaxis Z29.9 Discharge planning issues Z02.9 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 GERD without esophagitis K21.9 Nuclear sclerotic cataract of left eye H25.12 Cortical cataract of left eye H26.9 Posterior subcapsular age-related cataract of left eye H25.042 Nuclear sclerotic cataract of right eye H25.11 Cortical cataract of right eye H26.9 Medical History Medical History Endometriosis Hx estrogen therapy Stage 4 chronic kidney disease Medical History Comments:: Daily medical marijauna; none today Surgical History Surgical History (Updated 03/18/22 @ 07:57 by Lili Arteaga) Colonoscopy - IV Sedation 2011 colonoscopy History of colonoscopy (~09/2019) Hx of cataract surgery Tobacco Smoking/Tobacco Use Status: Current every day Tobacco Type: cigarettes Smoking packs per day: 0.5 Smoking cigarettes per day: 10.0 Alcohol Alcohol Intake: former Substance Use Substance use: Daily Substance use type: marijuana Details: medical Vital Signs and Lab Results Vital Signs Most Recent Vital Signs in EMR: Most Recent Vital Signs Temp Pulse Resp BP Pulse Ox 36.5 C 78 18 159/83 H 98 03/18/22 07:45 03/18/22 07:45 03/18/22 07:45 03/18/22 07:45 03/18/22 07:45 Lab Results Blood Type / Crossmatch: No Data to Display Complete Blood Count: White Blood Count 10.82 10^3/uL (4.4-10.8) H 02/18/22 11:25 Red Blood Count 4.58 10^6/uL (3.93-5.22) 02/18/22 11:25 Hemoglobin 13.5 g/dL (11.2-15.7) 02/18/22 11:25 Hematocrit 40.6 % (36.0-46.0) 02/18/22 11:25 Platelet Count 175 10^3/uL (130-400) 02/18/22 11:25 Complete Metabolic Panel: Sodium Level 138 mmol/L (136-145) 02/18/22 11:25 Potassium Level 3.6 mmol/L (3.5-5.1) 02/18/22 11:25 Chloride Level 107 mmol/L (98-107) 02/18/22 11:25 Carbon Dioxide Level 18.2 mmol/L (21.0-32.0) L 02/18/22 11:25 Blood Urea Nitrogen 32 mg/dL (7-18) H 02/18/22 11:25 Creatinine 2.0 mg/dL (0.55-1.02) H 02/18/22 11:25 Estimated GFR/1.73 m2 24.70 (mL/min/1.73m2) 02/18/22 11:25 Calcium Level 8.3 mg/dL (8.5-10.1) L 02/18/22 11:25 Glucose Level 95 mg/dL (74-106) 02/18/22 11:25 Liver Function Panel: No Data to Display Coagulation Panel: No Data to Display Cardiac Panel: No Data to Display Arterial Blood Gas: No Data to Display Venous Blood Gas: No Data to Display Pancreas Panel: No Data to Display Thyroid Panel: No Data to Display Infectious Disease: No Data to Display Blood Cultures: No Data to Display Toxicology Panel: No Data to Display Anesthesia Assessment and Plan Anesthesia History Personal History: No History of Anesthesia Complications Family History: No Family History of Anesthesia Complications Exercise Tolerance Exercise Tolerance: Metabolic Equivalents>4 Pertinent Negatives Pertinent Negatives: No Symptoms of GERD, No Major Cardiovascular Symptoms or Complaints, No Major Pulmonary Symptoms or Complaints and No History of CVA/TIA Cardiac & Pulmonary Exam Cardiac Exam: Normal S1/S2 Heart Sounds Pulmonary Exam: Clear Bilateral Breath Sounds Implantable Cardiac Device Does patient have a Pacemaker or an ICD?: No Airway Exam Known Difficult Airway: No Mallampati Class: 2 Mouth Opening: Normal (> 3cm) Thyromental Distance: Greater than 3 cm Neck Range of Motion: Full ROM Neck Circumference: Normal Teeth Condition: Generalized Poor Dentition ASA Classification ASA Score: ASA 2 Emergency Case?: No NPO Status NPO Status: NPO Clears >2 hours, Solids >8 hours Anesthesia Plan Resuscitation Status: Full Code Anesthesia Technique: MAC Anesthesia Airway Planned: Natural Airway Monitors Used: Standard Monitors
[2022-03-18 08:44] VITALS: BMI 17.8
[2022-03-18] MEDS: Tetracaine 0.5% 4 ML BTL OD (09:02)
[2022-03-18] MEDS: Balanced Salt Soln.-PLUS 500 ML BAG (09:02)
[2022-03-18] MEDS: Duovisc Viscoelastic System EACH 1 EACH (09:03)
[2022-03-18] MEDS: Lidocaine 2% Jelly 6 ML SYR (09:03)
[2022-03-18] MEDS: Povidone-Iodine Ophth 30 ML BTL (09:04)
[2022-03-18 09:17] VITALS: BP 142/67; PULSE 78; RESP 16; TEMP 36.6; O2SAT 97
--- NOTE | 2022-03-18 09:18 | W.ANESPOSTOP ---
Postoperative Evaluation Date, Time and Location Date Performed: 03/18/22 Time Performed: 08:19 Patient Location: Day Surgery Unit Vital Signs Most Recent Imported Vital Signs: Most Recent Vital Signs Temp Pulse Resp BP Pulse Ox 36.5 C 78 18 159/83 H 98 03/18/22 07:45 03/18/22 07:45 03/18/22 07:45 03/18/22 07:45 03/18/22 07:45 Most Recent Manually Entered Vital Signs: Adult Blood Pressure: 142/69 Heart Rate: 74 Respirations: 12 Oxygen Saturation (%): 96 Temperature (C): 36.4 C Pain Score (0-10 Scale): 0 Pain Score Most Recent Pain Score: Most Recent Pain Score Pain Level 0 03/18/22 07:45 Assessment Mental Status: Awake (Alert & Oriented to Patient Baseline) Airway and Respiratory Function: Patent airway with normal (patient baseline) respiratory exam Cardiovascular Function: Hemodynamically Stable Hydration Status: Adequately Hydrated Nausea & Vomiting: No Nausea or Vomiting Pain: Pt. Denies Any Pain Peripheral Nerve Block: Patient did not receive a nerve block
--- NOTE | 2022-03-18 09:19 | W.PM.DSUDISC ---
Discharge Plan Disposition Patient Disposition: HOME Condition: Good Discharge Details Attending Provider: Jewel Easton Primary Care Provider: Xochilt Mcdaniel Home Meds and New Rx's Prescriptions: No Action topiramate 25 mg capsule,extended release 24hr 12.5 mg PO BID rosuvastatin 10 mg tablet 20 mg PO DAILY labetalol 200 mg tablet 200 mg PO BID amlodipine 5 mg tablet 10 mg PO DAILY terazosin 2 mg Capsule 5 mg PO QHS doxercalciferol 0.5 mcg capsule 1 mcg PO DAILY Label Comments: TAKE TWO CAPSULES BY MOUTH EVERY DAY folic acid 1 mg tablet 1 tab PO DAILY Label Comments: TAKE ONE TABLET BY MOUTH EVERY DAY acetaminophen [Mapap Extra Strength] 500 MG tablet 1,000 mg PO TID PRN Discharge Instructions Stand Alone Forms: Post-op Topical Cataract, Rosa Cardona (DSU) Discharge Orders Discharge Orders: Discharge Order (Routine); Ordered 03/18/22 Ordered By: Jewel Easton DS: Diagnosis Discharge Diagnosis (1) Nuclear sclerotic cataract of right eye: Status: Resolved (2) Cortical cataract of right eye: Status: Resolved
[2022-03-18 09:20] VITALS: BP 142/69; PULSE 74; RESP 12; TEMPC 36.4; O2SAT 96
--- NOTE | 2022-03-18 09:20 | ROE_ITS ---
Date of service: 03/18/22 Time of Service: 08:20 Operative Note Operative Note DATE OF PROCEDURE: 03/18/22 PRE-OP DIAGNOSIS: Nuclear/cortical cataract, right eye POST-OP DIAGNOSIS: same PROCEDURE: Cataract extraction using phacoemulsification with intraocular lens implant, right eye SURGEON: Jewel Easton ANESTHESIA TYPE: Local By Surgeon and MAC Refer to Anesthesia Record ESTIMATED BLOOD LOSS: 0 PATHOLOGY: none sent COMPLICATIONS: None Patient was transported to: same day Patient's condition: stable Implants: Hugh & Hugh/SARMAD Tecnis [id number] Indications: Progressive visual loss due to cataract, right eye Procedure Description: CATARACT SURGERY OPERATIVE REPORT PREOPERATIVE DIAGNOSIS: 1. Nuclear/cortical cataract, right eye POSTOPERATIVE DIAGNOSIS: Same OPERATION: 1. Cataract extraction using phacoemulsification with posterior chamber intraocular lens implant, right eye. IOL: IOL Dip Tube Assembler Machine/Model: Hugh & Hugh / SARMAD Tecnis [id number] IOL Power: + 15.5 diopters IOL Serial Number: [id number] Optic Diameter: 6.0mm Haptic/Overall Diameter: 13.0mm PHACO INFO: Chang [employer]ur[employer] Vision System with OZil and Active Fluidics Cumulative Dispersed Energy (CDE): 4.86 seconds SURGEON: Jewel Easton MD, COLE ANESTHESIA: Monitored Anesthesia Care (MAC), with local sub-tenon's anesthetic infiltration COMPLICATIONS: None SPECIMENS: None INDICATIONS FOR PROCEDURE: The patient is a 71-year-old lady with history of diminished visual acuity in both eyes secondary to the development of bilateral nuclear/cortical cataract. She has already undergone cataract surgery in the left eye is doing well postoperatively. She now presents for cataract surgery in the right eye. PROCEDURE: The correct surgical eye was identified and marked as the right eye and the pupil was dilated in the preoperative area using mydriatics and cycloplegics. The dilated pupil size was 7.0 mm. Oral sedation was administered in the form of an Imprimis MKO Melt (midazolam 3mg/ketamine 25mg/ondansetron 2mg). The patient was brought to the operating room where cardiopulmonary monitoring was instituted and surgical time-out was performed, confirming the correct operative eye and IOL power. Topical anesthesia was administered and ophthalmic povidone-iodine 5% was instilled into the conjunctival fornices. Lidocaine gel was applied to the cornea and the devon-ocular area was prepped with Betadine 10% solution and draped in the usual sterile fashion for intraocular surgery, including an aperture drape. A Tegaderm transparent film dressing was cut in half and used to cover the lashes and lid margins. Care was taken to sequester the lashes and lid margins under the Tegaderm dressing. A lid speculum was placed between the lids of the operative eye and the Chang LuxOR Revalia operating microscope was maneuvered into position. Claire scissors were then used to make a conjunctival buttonhole approximately 6mm posterior to the limbus in the inferonasal quadrant. Blunt dissection was carried out to expose bare sclera, and a blunt-tipped sub-tenon?s anesthesia cannula was introduced and passed posteriorly along the globe where non- preserved plain lidocaine was injected into posterior sub-Tenon?s space. A ashish eport knife was used to make a paracentesis port inferotemporally. Intraocular phenylephrine/lidocaine was injected into the anterior chamber. The anterior chamber was filled with viscoelastic. A 2.4mm keratome knife was used to construct a 2-plane near-clear corneal tunnel extending 2.0mm into clear cornea superiortemporally. A flap was raised on the anterior capsule and capsulorhexis forceps were used to complete a continuous curvilinear capsulorhexis of 5.5 mm. Balanced salt solution was then used to perform cortical cleaving hydrodissection and nuclear hydrodelineation until the lens could be freely rotated within the capsular bag. The lens nucleus was then disassembled and removed within the capsular bag and iris plane using phacoemulsification. Residual cortical material was removed using the I/A handpiece. The posterior capsule was carefully polished to remove as much residual lens epithelial cells as safely possible. The capsular bag was then inflated and the anterior chamber deepened with viscoelastic. The lens implant described above was inserted into the capsular bag using the SARMAD [place] Injector. A Kuglen hook was used to dial the IOL into position. Residual viscoelastic was then removed first from posterior to the IOL, then from the anterior chamber using the I/A handpiece. The lens implant was noted to center nicely within the capsular bag. The incisions were stromally hydrated, and the anterior chamber was reformed using BSS. Then 0.5cc of moxifloxacin 1.0mg/ml were injected into the capsular bag and anterior chamber. The incisions were checked with a Weck spear and found to be secure. Several drops of ophthalmic povidone-iodine 5% were then applied to the eye followed by two drops of Imprimis combination prednisolone/moxifloxacin/nepafenac solution. The drapes were removed and a clear plastic protective eye shield was placed over the eye. The patient was then returned to Same Day Surgery in stable condition.
[2022-03-18 09:44] VITALS: BP 135/79; PULSE 72; RESP 16; TEMP 36.6; O2SAT 98
== END 2022-03-18 09:58 | disposition home or self-care (01) ==
PROVIDERS: PCP Nurse Practitioner Family; Visit Provider Ophthalmology
PROC: (CPT 66984; principal; 2022-03-18 09:00)
DX: H25.11 Age-related nuclear cataract, right eye (principal); I12.9 Hypertensive chronic kidney disease with stage 1 through stage 4 chronic kidney disease, or unspecified chronic kidney disease; F17.210 Nicotine dependence, cigarettes, uncomplicated; N18.9 Chronic kidney disease, unspecified
CPT/HCPCS: 66984; V2632

== ENCOUNTER → 2022-04-08 02:43 | Outpatient (CLI) | payer OTHER, MEDICAID, SELFPAY ==
--- NOTE | 2022-04-08 15:00 | DI.MAMMO_ITS ---
Exam(s) MAMMO SCREENING EXAM: MAMMO SCREENING CLINICAL HISTORY: SCREENING, Z12.39 TECHNIQUE: Mammograms were interpreted according to the usual protocol including computer analysis w Proxino CAD system, tomosynthesis and C-view imaging. COMPARISON: 2012 and 2014 FINDINGS: The breasts are composed of heterogeneously dense fibroglandular densities, Breast Density category C . No suspicious masses or suspicious microcalcifications are seen. There is a stable circumscribed nod ule in the medial breast. There is scattered benign calcifications bilaterally. No skin thickening or abnormal axillary lymph nodes are seen. There has been decrease in in breast size since the previous exam which could be secondary to weight loss. IMPRESSION: BI-RADS Cat 2 - Benign Findings - Negative Mammogram with benign findings. Yearly screening mammogr aphy is recommended. Breast Density Category C, heterogeneously Dense. The mammogram demonstrates the patient's breast tissue is dense. Dense breast tissue is very common a nd is not abnormal but dense breast tissue can make it harder to find cancer on a mammogram. Also, de nse breast tissue may increase breast cancer risk. This information about the result of the mammogram report was provided to the patient to raise their awareness. Use this report when you speak with the patient about their risks for breast cancer, which includes their family history. At that time, you may recommend additional screening tests (Ultrasound or MRI) as they might be useful based on their r isk. A negative radiographic report should not delay biopsy if a dominant or clinically suspicious mass is present. Up to ten percent of cancers are not identified on mammography. A negative report may reinforce clinical impression. Adenosis and dense breasts may obscure an underlying neoplasm. False positive reports average 6 to 10%.
== END ==
PROVIDERS: PCP Nurse Practitioner Family; Visit Provider Nurse Practitioner Family
DX: Z12.31 Encounter for screening mammogram for malignant neoplasm of breast (principal); R92.1 Mammographic calcification found on diagnostic imaging of breast
CPT/HCPCS: 77063; 77067

== ENCOUNTER 2022-04-25 16:51 | Outpatient (REF) | payer OTHER, MEDICAID, SELFPAY ==
[2022-04-25 19:22] LABS: Abs Immature Grans 0.03 10^3/uL (0.0-0.06); Absolute Basophil Count 0.09 10^3/uL (0.0-0.2); Absolute Eosinophil Count 0.25 10^3/uL (0.0-0.7); Absolute Lymphocyte Count 1.89 10^3/uL (1.2-3.4); Absolute Monocyte Count 0.48 10^3/uL (0.1-0.8); Absolute Neutrophil Count 5.76 10^3/uL (1.2-6.7); Basophils % 1.1; Eosinophils % 2.9; HCT 42.5 % (36.0-46.0); HGB 14.2 g/dL (11.2-15.7); Immature Grans % 0.4; Lymphocytes % 22.2; MCH 29.8 pg (27.0-33.0); MCHC 33.4 % (32.0-36.0); MCV 89 fL (80-95); MPV 10.2 fL (8.0-11.0); Monocytes % 5.6; Neutrophils % 67.8; Platelet Count 181 10^3/uL (130-400); RBC 4.76 10^6/uL (3.93-5.22); RDW 13.2 % (11.7-14.6); RDW-SD 43.3 fL
[2022-04-25 19:36] LABS: ALT 20 U/L (14-59); AST 19 U/L (15-37); Albumin 3.6 g/dL (3.4-5.0); Alkaline Phosphatase 112 U/L (46-116); Anion Gap 8.5 mmol/L (3-11); BUN 28 mg/dL (7-18); Bilirubin, Total 0.4 mg/dL (0.2-1.0); CO2 25.5 mmol/L (21.0-32.0); CREATININE 2.1 mg/dL (0.55-1.02); Calcium 8.9 mg/dL (8.5-10.1); Chloride 108 mmol/L (98-107); Estimated GFR 23.35 (mL/min/1.73m2); Glucose 85 mg/dL (74-106); Potassium 4.7 mmol/L (3.5-5.1); Sodium 142 mmol/L (136-145); TSH (W/Ref FT4) 2.55 uIU/mL (0.36-3.74); Total Protein 6.9 g/dL (6.4-8.2)
== END 2022-04-25 16:52 | disposition home or self-care (01) ==
LOC: NCHCN 16:51
PROVIDERS: PCP Nurse Practitioner Family; Visit Provider Nurse Practitioner Family
DX: I10 Essential (primary) hypertension (principal); N18.30 Chronic kidney disease, stage 3 unspecified; D64.9 Anemia, unspecified; R21 Rash and other nonspecific skin eruption
CPT/HCPCS: 80053; 84443; 85025

== ENCOUNTER 2022-08-13 02:59 | Outpatient (CLI) | payer OTHER, MEDICAID, SELFPAY ==
[2022-08-13 13:20] LABS: Abs Immature Grans 0.03 10^3/uL (0.0-0.06); Absolute Basophil Count 0.06 10^3/uL (0.0-0.2); Absolute Eosinophil Count 0.24 10^3/uL (0.0-0.7); Absolute Lymphocyte Count 1.39 10^3/uL (1.2-3.4); Absolute Neutrophil Count 7.55 10^3/uL (1.2-6.7); Basophils % 0.6; Eosinophils % 2.4; HCT 41.2 % (36.0-46.0); HGB 13.4 g/dL (11.2-15.7); Immature Grans % 0.3; Lymphocytes % 14.1; MCH 29.6 pg (27.0-33.0); MCHC 32.5 % (32.0-36.0); MCV 91 fL (80-95); MPV 9.5 fL (8.0-11.0); Monocytes % 6.1; Neutrophils % 76.5; Platelet Count 162 10^3/uL (130-400); RBC 4.52 10^6/uL (3.93-5.22); RDW 13.7 % (11.7-14.6); RDW-SD 46.2 fL; WBC 9.87 10^3/uL (4.4-10.8)
[2022-08-13 14:06] LABS: COMMENT (LAB VIEW ONLY) 230.15 mg/dL; PROTEIN 82.4 mg/dL; Prot/Crea Ur Ratio 0.35
[2022-08-13 14:13] LABS: Albumin 3.7 g/dL (3.4-5.0); Anion Gap 9.4 mmol/L (3-11); BUN 29 mg/dL (7-18); CO2 23.6 mmol/L (21.0-32.0); CREATININE 2.4 mg/dL (0.55-1.02); Chloride 107 mmol/L (98-107); Estimated GFR 21.33 (mL/min/1.73m2); Glucose 89 mg/dL (74-106); PHOSPHORUS 3.7 mg/dL (2.6-4.7); Potassium 4.3 mmol/L (3.5-5.1); Sodium 140 mmol/L (136-145); Uric Acid 5.6 mg/dL (2.6-6.0)
[2022-08-13 14:51] LABS: LDL CHOLESTEROL 70 mg/dL (<100); Vitamin B12 536 pg/mL (193-986)
[2022-08-13 15:26] LABS: Folate > 20.0 ng/mL (8.6-20.0)
[2022-08-14 09:25] LABS: Parathyroid Hormone,Intact 118 pg/mL (19-88)
== END 2022-08-13 03:00 | disposition home or self-care (01) ==
LOC: LBO 02:59
PROVIDERS: PCP Nurse Practitioner Family; Visit Provider Internal Medicine Nephrology
DX: N18.4 Chronic kidney disease, stage 4 (severe) (principal); R63.0 Anorexia; E78.5 Hyperlipidemia, unspecified; I10 Essential (primary) hypertension; Z79.899 Other long term (current) drug therapy
CPT/HCPCS: 36415; 80048; 83721; 82040; 82565; 82607; 82746; 83970; 84100; 84156; 84550; 85025

== ENCOUNTER 2023-04-08 03:16 | Outpatient (CLI) | payer OTHER, MEDICAID, SELFPAY ==
[2023-04-08 13:25] LABS: Abs Immature Grans 0.03 10^3/uL (0.0-0.06); Absolute Basophil Count 0.09 10^3/uL (0.0-0.2); Absolute Eosinophil Count 0.22 10^3/uL (0.0-0.7); Absolute Lymphocyte Count 1.46 10^3/uL (1.2-3.4); Absolute Monocyte Count 0.41 10^3/uL (0.1-0.8); Absolute Neutrophil Count 6.44 10^3/uL (1.2-6.7); Eosinophils % 2.5; HCT 41.7 % (36.0-46.0); HGB 13.8 g/dL (11.2-15.7); Immature Grans % 0.3; Lymphocytes % 16.9; MCH 29.7 pg (27.0-33.0); MCHC 33.1 % (32.0-36.0); MCV 90 fL (80-95); MPV 9.4 fL (8.0-11.0); Monocytes % 4.7; Neutrophils % 74.6; Platelet Count 185 10^3/uL (130-400); RBC 4.64 10^6/uL (3.93-5.22); RDW 13.3 % (11.7-14.6); RDW-SD 44.1 fL; WBC 8.65 10^3/uL (4.4-10.8)
[2023-04-08 13:56] LABS: COMMENT (LAB VIEW ONLY) 138.46 mg/dL; PROTEIN 84.2 mg/dL
[2023-04-08 14:06] LABS: Albumin 3.8 g/dL (3.4-5.0); Anion Gap 11.9 mmol/L (3-11); BUN 38 mg/dL (7-18); CO2 20.1 mmol/L (21.0-32.0); CREATININE 2.4 mg/dL (0.55-1.02); Calcium 8.5 mg/dL (8.5-10.1); Chloride 106 mmol/L (98-107); Glucose 118 mg/dL (74-106); PHOSPHORUS 3.8 mg/dL (2.6-4.7); Potassium 3.6 mmol/L (3.5-5.1); Sodium 138 mmol/L (136-145)
[2023-04-08 14:19] LABS: Vitamin D 25 Total 49.5 ng/mL (30-100)
[2023-04-08 14:52] LABS: Ferritin 87 ng/mL (8-252); Vitamin B12 555 pg/mL (193-986)
[2023-04-08 14:57] LABS: Folate > 20.0 ng/mL (8.6-20.0)
[2023-04-08 15:11] LABS: Iron 49 ug/dL (50-170); Total Iron Binding Capacity 264 ug/dL (250-450); Transferrin Sat 19 % (15-50)
[2023-04-08 23:15] LABS: Parathyroid Hormone,Intact 168 pg/mL (19-88)
== END 2023-04-08 03:17 | disposition home or self-care (01) ==
LOC: LBO 03:16
PROVIDERS: Internal Medicine Nephrology; PCP Nurse Practitioner Family; Visit Provider Nurse Practitioner Family
DX: R80.9 Proteinuria, unspecified (principal); E53.8 Deficiency of other specified B group vitamins; N25.81 Secondary hyperparathyroidism of renal origin; N18.4 Chronic kidney disease, stage 4 (severe)
CPT/HCPCS: 36415; 80048; 82306; 82040; 82565; 82607; 82728; 82746; 83540; 83550; 83970; 84100; 84156; 84443; 85025

== ENCOUNTER 2023-04-29 01:57 | Outpatient (CLI) | payer OTHER, MEDICAID, SELFPAY ==
[2023-05-02 12:44] LABS: Cystatin C, S 0.75 mg/L; eGFR by Cystatin C 97 mL/min/BSA (>60)
== END 2023-04-29 01:58 | disposition home or self-care (01) ==
LOC: LBO 01:57
PROVIDERS: PCP Nurse Practitioner Family; Visit Provider Internal Medicine Nephrology
DX: N18.4 Chronic kidney disease, stage 4 (severe) (principal)
CPT/HCPCS: 82610

== ENCOUNTER 2023-06-26 21:41 | Outpatient (REF) | payer OTHER, MEDICAID, SELFPAY | END 2023-06-26 21:42 | disposition home or self-care (01) | LOC: NCHCN 21:41 | PROVIDERS: PCP Nurse Practitioner Family; Visit Provider Nurse Practitioner Family | DX: N18.30 Chronic kidney disease, stage 3 unspecified (principal); R82.79 Other abnormal findings on microbiological examination of urine | CPT/HCPCS: 87086 ==

== ENCOUNTER 2023-07-22 03:34 | Outpatient (CLI) | payer OTHER, MEDICAID, SELFPAY ==
[2023-07-22 14:56] LABS: Abs Immature Grans 0.03 10^3/uL (0.0-0.06); Absolute Basophil Count 0.08 10^3/uL (0.0-0.2); Absolute Lymphocyte Count 1.54 10^3/uL (1.2-3.4); Absolute Monocyte Count 0.43 10^3/uL (0.1-0.8); Absolute Neutrophil Count 6.77 10^3/uL (1.2-6.7); Basophils % 0.9; Eosinophils % 2.2; HCT 40.4 % (36.0-46.0); HGB 13.7 g/dL (11.2-15.7); Immature Grans % 0.3; MCH 29.8 pg (27.0-33.0); MCHC 33.9 % (32.0-36.0); MCV 88 fL (80-95); MPV 9.6 fL (8.0-11.0); Monocytes % 4.8; Neutrophils % 74.8; Platelet Count 188 10^3/uL (130-400); RDW 13.3 % (11.7-14.6); RDW-SD 43.1 fL; WBC 9.05 10^3/uL (4.4-10.8)
[2023-07-22 15:36] LABS: ALT 24 U/L (14-59); AST 17 U/L (15-37); Albumin 3.6 g/dL (3.4-5.0); Alkaline Phosphatase 114 U/L (46-116); Anion Gap 10.3 mmol/L (3-11); BUN 37 mg/dL (7-18); Bilirubin, Total 0.4 mg/dL (0.2-1.0); CO2 21.7 mmol/L (21.0-32.0); Calcium 9.1 mg/dL (8.5-10.1); Chloride 104 mmol/L (98-107); Estimated GFR 26.38 (mL/min/1.73m2); Ferritin 78 ng/mL (8-252); Glucose 105 mg/dL (74-106); Potassium 3.9 mmol/L (3.5-5.1); Sodium 136 mmol/L (136-145); Total Protein 6.9 g/dL (6.4-8.2)
[2023-07-22 15:37] LABS: Folate > 20.0 ng/mL (8.6-20.0)
[2023-07-22 16:25] LABS: Iron 52 ug/dL (50-170); Total Iron Binding Capacity 276 ug/dL (250-450); Transferrin Sat 19 % (15-50)
[2023-07-22 16:33] LABS: COMMENT (LAB VIEW ONLY) 159.95 mg/dL
[2023-07-22 17:00] LABS: PROTEIN 66.3 mg/dL; Prot/Crea Ur Ratio 0.41
[2023-07-23 19:15] LABS: Parathyroid Hormone,Intact 127 pg/mL (19-88)
[2023-07-25 15:02] LABS: eGFR by Cystatin C 23 mL/min/BSA (>60)
== END 2023-07-22 03:35 | disposition home or self-care (01) ==
LOC: LBO 03:34
PROVIDERS: PCP Nurse Practitioner Family; Visit Provider Internal Medicine Nephrology
DX: N18.4 Chronic kidney disease, stage 4 (severe) (principal)
CPT/HCPCS: 36415; 80053; 82610; 82565; 82728; 82746; 83540; 83550; 83970; 84156; 85025

== ENCOUNTER 2023-09-18 15:42 | Outpatient (REF) | payer OTHER, MEDICAID, SELFPAY ==
--- OUTSIDE RECORDS SUMMARY | 2023-09-18 15:45 | XMS_ITS | Continuity of Care Document ---
Author Name Unknown Address [address] [place] [address] Phone [facility] Address [address] [place] [address] Phone Care Team Providers Care Manager Of Application Development Name Role Phone ZEKE Mcdaniel Primary Care Provider + CARLOS Ravi Attending Provider Care Teams Patient Care Team Team Status: Active Member Role Status Dates Emiliana Mcdaniel APRN Primary Care Provider Active Patient Care Team Team Status: Inactive Member Role Status Dates Emiliana Mcdaniel APRN Primary Care Provider, Refer ring Provider Active Chelsea Ravi DPM Attending Provider Active Chief Complaint and Reason for Visit Chief Complaint left foot pain Allergies, Adverse Reactions, Alerts Allergen Type Severity Reaction Last Updated Verified Status albuterol Allergy Unknown May 13 3 2:57pm Yes Active amitriptyline Allergy Unknown May 13, 2023 2:57pm Yes Active duloxetine Allergy Unknown May 13 3 2:57pm Yes Active enalapril Allergy Unknown May 13 3 2:57pm Yes Active lisinopril Allergy Unknown May 13 3 2:57pm Yes Active lorazepam Allergy Unknown May 13 3 2:57pm Yes Active losartan Allergy Unknown May 13 3 2:57pm Yes Active strawberry Allergy Unknown May 13 3 2:57pm Yes Active tramadol Allergy Unknown May 13 3 2:57pm Yes Active amlodipine besy-benazepril HCL Allergy Unknown May 13 023 2:57pm No Active Social History Smoking Status Status Start Date End Date Date of Observa tion Unknown if ever smoked February 25, 2023 3:13pm Additional Data Assigned Sex Female Problems Inactive/Resolved Problems Medical Problem Onset Date Status Parathyroid disorder Resolved Myalgia Resolved Paresthesia Resolved Osteoporosis Resolved Kidney disease Resolved Systolic hypertension Resolved Tubular adenoma Resolved Anemia Resolved Metabolic encephalopathy Resolve d Folate deficiency Resolved Gait abnormality Resolved Headache Resolved Cardiac murmur Resolved Leukocytosis Resolved Muscle cramps Resolved Night sweats Resolved Degenerative joint disease Resol bryce Renal artery stenosis Resolved Situational anxiety Resolved Environmental allergies Resolved Bilateral hip pain Resolved Right shoulder pain Resolved Foot pain, left Resolved Stenosis of left subclavian artery Resolved Irritable bowel syndrome Resolve d Hair loss Resolved Medications Medication Status Dose Units Route Directions Qty Days St art Date End Date Instructions Topiramate Active 12.5 MG PO 2 times p er day February 25, 2023 12:00a m Folic Acid Active 1 MG PO daily February 25, 2023 12:00a m Ondansetron Active 4 MG PO Q6H February 25, 2023 12:00a m Terazosin Active 2 MG PO daily at bedtime February 25, 2023 12:00a m Diphenhydramine Hcl (Benadryl) 25 mg capsule Active 50 MG PO 2 times per day February 25, 2023 12:00a m Labetalol Active 200 MG PO 2 times pe r day February 25, 2023 12:00a m Rosuvastatin (Crestor) 20 mg tablet Active 20 MG PO daily February 25, 2023 12:00a m Amlodipine Active 5 MG PO 2 times p er day February 25, 2023 12:00a m Acetaminophen Active 500 MG PO Q6H Feb 12:00a m Vital Signs Vital Reading Result Reference Range Collection Date/Time Height 62 [in_i] May 13, 2023 2:59pm Weight 89.00 [lb_av] May 13 2:59pm Body Temperature 98 [degF] 97.6-99.6 May 13, 2023 2:59pm Heart Rate 74 /min 60-100 May 13, 2023 2:59pm Respiratory rate 16 /min 12-18 May 13, 2023 2:59pm Oxygen saturation by Pulse oximetry 94 % 92-100 May 13, 2023 2:59 pm BP Systolic 177 mm[Hg] 90-130 May 13, 2023 2:59pm BP Diastolic 81 mm[Hg] 70-80 May 13, 2023 2:59pm BMI (Body Mass Index) 16.2 kg/m2 May 032022 2:59pm Insurance Providers Guarantor ANGELA MUHAMMAD Address [address] [place] [address] Contact Info. Home Phone: Payer Policy Id Coverage Id Subscriber's Name Subscriber Id Effective Date Expiration Date MEDICA[place] [id number] ANGELA MUHAMMAD [id number] MEDICARE ADVANTAGE [facility] [id number] ANGELA MHUAMMAD [id number] Encounters Encounter Location(s) Arrival/Admit Date Discharge/Depart Date Provider(s) Departed Physician/Prov ider Office Visit [facility] Pod[facility] May 13, 2023 2:50pm May 13, 2023 3:30pm Alvin Ravi DPM
[2023-09-18 20:14] LABS: Abs Immature Grans 0.02 10^3/uL (0.0-0.06); Absolute Basophil Count 0.08 10^3/uL (0.0-0.2); Absolute Eosinophil Count 0.17 10^3/uL (0.0-0.7); Absolute Lymphocyte Count 1.49 10^3/uL (1.2-3.4); Absolute Neutrophil Count 5.79 10^3/uL (1.2-6.7); Eosinophils % 2.1; HGB 14.2 g/dL (11.2-15.7); Immature Grans % 0.3; Lymphocytes % 18.7; MCHC 33.8 % (32.0-36.0); MCV 86 fL (80-95); MPV 10.3 fL (8.0-11.0); Neutrophils % 72.9; Platelet Count 170 10^3/uL (130-400); RBC 4.89 10^6/uL (3.93-5.22); RDW 13.4 % (11.7-14.6); RDW-SD 42.2 fL; WBC 7.95 10^3/uL (4.4-10.8)
[2023-09-18 20:24] LABS: ALT 26 U/L (14-59); AST 20 U/L (15-37); Albumin 4.1 g/dL (3.4-5.0); Alkaline Phosphatase 118 U/L (46-116); Anion Gap 9.5 mmol/L (3-11); BUN 41 mg/dL (7-18); Bilirubin, Total 0.4 mg/dL (0.2-1.0); CO2 21.5 mmol/L (21.0-32.0); CREATININE 2.1 mg/dL (0.55-1.02); Calcium 9.4 mg/dL (8.5-10.1); Chloride 105 mmol/L (98-107); Estimated GFR 24.88 (mL/min/1.73m2); Glucose 94 mg/dL (74-106); Potassium 4.7 mmol/L (3.5-5.1); Sodium 136 mmol/L (136-145); Total Protein 7.5 g/dL (6.4-8.2)
== END 2023-09-18 15:43 | disposition home or self-care (01) ==
LOC: NCHCN 15:42
PROVIDERS: PCP Nurse Practitioner Family; Visit Provider Nurse Practitioner Family
DX: R10.9 Unspecified abdominal pain (principal)
CPT/HCPCS: 80053; 85025

== ENCOUNTER 2023-09-28 11:54 | Emergency (ER) | payer OTHER, MEDICAID, SELFPAY ==
[2023-09-28 11:59] VITALS: BP 175/88; PULSE 79; RESP 14; O2SAT 96
[2023-09-28 12:30] LABS: Bilirubin Negative (Negative); Blood Moderate (Negative); Clarity Sl Cloudy (Clear); Glucose Negative (Negative); Ketones Negative (Negative); Leukocyte Esterase Small (Negative); Nitrite Positive (Negative); Specific Gravity 1.025 (1.005-1.025); Urobilinogen 0.2 mg/dL (Up to 0.2); pH 5.5 (5-8)
[2023-09-28 12:40] LABS: Bacteria Moderate HPF (Negative); C & S Indicated? Yes; Casts Negative LPF (Negative); Crystals Negative HPF (Negative); Epithelial Cells Few HPF (Negative); Mucus Negative (Negative)
--- NOTE | 2023-09-28 13:21 | ED.GENADUL_ITS ---
Discharge Plan Disposition Patient Disposition: Home Discharge Details Clinical Impression: Acute UTI Primary Care Provider: Xochilt Mcdaniel ED Provider: Tal Ramires Home Meds and New Rx's Prescriptions: New cephalexin 500 mg tablet 500 mg PO BID Qty: 14 0RF Continued topiramate 25 mg capsule,extended release 24hr 12.5 mg PO BID rosuvastatin 10 mg tablet 20 mg PO DAILY labetalol 200 mg tablet 200 mg PO BID loperamide [Imodium] PO clonazepam [Klonopin] 0.5 mg tablet 0.5 mg PO DAILY PRN Rx Instructions: half a pill as needed cannabis inhalation DAILY PRN THC/CBD salve topical PRN Rx Instructions: for pain terazosin 2 mg capsule 7 mg PO QHS Rx Instructions: takes 5mg and 2mg amlodipine 5 mg tablet 5 mg PO DAILY diphenhydramine HCl [Benadryl Allergy] 25 mg tablet 25 mg PO QID PRN ondansetron HCl 4 mg tablet 4 mg PO Q6H PRN folic acid 1 mg tablet 1 tab PO DAILY Patient Comments: TAKE ONE TABLET BY MOUTH EVERY DAY Discharge Instructions Instructions: Urinary Tract Infection in Women (ED) Additional Instructions: Please return to the emergency department immediately for any new or significant worsening of symptoms such as fever chills, vomiting, inability to take antibiotics, or further concerns. Otherwise please follow-up with your primary care provider if not improving Referrals: Xochilt Mcdaniel [Primary Care Provider] - 3 days (If not improving) Discharge Data Discharge Date/Time-TO BE ENTERED AT DEPARTURE: 09/28/23 13:38 Medical Decision Making Pt here for Dysuria. Symptoms for 1 day. denies fever, abd pain, diarrhea, flank pain or vaginal symptoms. Exam shows no CVA tenderness, no supra-pubic te nderness, otherwise neg exam and pt is non toxic in apperance. Vital signs show hypertension patient is otherwise afebrile nonhypoxic nontachycardic. ddx to include acute cyctitis/UTI, urethritis, Doubt Pyelonephritis or Infected kidney stone UA shows finding to suggest UTI. PT prescribed Keflex . Follow up and return precautions discussed. After discussion of diagnosis and plan of care patient has no further needs, questions, or concerns and states clear understanding to return to the emergency department for any worsening symptoms. This documentation was generated using Dragon dictation system, please disregard any oddities of phrase or misspellings. HPI General Mode of arrival: ambulatory . Date/Time Provider Initiated Documentation: 09/28/23 11:56 . Limitations to Documentation: no limitations . Information obtained by: patient and RN notes reviewed . History of Present Illness 73 year old F presents to the emergency department with the chief complaint of Burning with urination, urgency, incontinence and frequency, described as moderate, Patient started experiencing this day(s) (1) and it has been constant. No relieving factors improve symptom(s), No exacerbating factors reported . Patient did receive the following treatments prior to arrival, none Related Data Home Medications Medication Instructions Recorded Confirmed labetalol 200 mg tablet 200 mg PO BID 09/21/18 09/28/23 rosuvastatin 10 mg tablet 20 mg PO DAILY 09/21/18 09/28/23 topiramate 25 mg capsule,extended 12.5 mg PO BID 09/21/18 09/28/23 release 24 hr folic acid 1 mg tablet 1 tab PO DAILY 03/18/22 09/28/23 amlodipine 5 mg tablet 5 mg PO DAILY 06/04/23 09/28/23 diphenhydramine HCl 25 mg tablet 25 mg PO QID PRN 06/04/23 09/28/23 (Benadryl Allergy) ondansetron HCl 4 mg tablet 4 mg PO Q6H PRN 06/04/23 09/28/23 terazosin 2 mg capsule 7 mg PO QHS 06/04/23 09/28/23 THC/CBD salve topical PRN 07/14/23 08/15/23 cannabis inhalation DAILY PRN 07/14/23 08/15/23 clonazepam 0.5 mg tablet (Klonopin) 0.5 mg PO DAILY PRN 07/14/23 09/28/23 loperamide [Imodium] PO 07/14/23 08/15/23 cephalexin 500 mg tablet 500 mg PO BID #14 tabs 09/28/23 Previous Rx's Medication Instructions Recorded cephalexin 500 mg tablet 500 mg PO BID #14 tabs 09/28/23 Allergies Allergy/AdvReac Type Severity Reaction Status Date / Time lorazepam [From Ativan] Allergy Severe UNKNOWN Verified 09/28/23 12:06 albuterol sulfate Allergy Intermediate chest pain Verified 09/28/23 12:06 [From Proventil HFA] enalapril Allergy Intermediate UNKNOWN Verified 09/28/23 12:06 modafinil [From Provigil] Allergy Intermediate trouble Verified 09/28/23 12:06 breathing lisinopril Allergy Mild UNKNOWN Verified 09/28/23 12:06 losartan Allergy Mild UNKNOWN Verified 09/28/23 12:06 tramadol Allergy Mild Itching Verified 09/28/23 12:06 strawberry Allergy hives Verified 09/28/23 12:06 aspirin AdvReac Severe when Verified 09/28/23 12:06 taken orally I get bleeding ulcers amitriptyline AdvReac Unknown Out in Verified 09/28/23 12:06 outter space, really messed with my head duloxetine HCl AdvReac diarrhea, Verified 09/28/23 12:06 [From Cymbalta] vomiting General Stated Complaint: Urinary DENG: 3 Review of Systems Constitutional Constitutional: Denies body ache(s), Denies fever(s) and Denies malaise Cardiovascular Cardiovascular: Denies chest pain Respiratory Respiratory: Reports system reviewed and no additional complaints, except as documented Gastrointestinal Gastrointestinal: Denies abdominal pain and Denies vomiting Genitourinary Genitourinary: Reports as per HPI, Reports hematuria, Reports dysuria, Denies pelvic pain, Reports urinary incontinence and Reports urinary urgency Neurologic Neurologic: Denies confusion Psychiatric Psychiatric: Denies confusion PFSH All Active Problems (Updated 09/28/23 @ 13:26 by Tal Ramires NP) Acute UTI (Acute) Unexplained weight loss (Acute) Advance care planning (Acute) Comfort measures only status (Acute) Physician orders for life-sustaining treatment (POLST) form indicates patient wish for cw-abq-xkyxqgabtuw status (Acute) Chronic osteoarthritis (Chronic ~2004) back and cervical spine Migraine headache (Chronic) Hyperlipidemia (Chronic) GERD (gastroesophageal reflux disease) (Chronic) Hypertension (Chronic) Migraine (Chronic) Abnormal CT scan, head (Acute) Essential hypertension (Acute) Current tobacco use (Chronic) Irritable bowel syndrome (Chronic) Chronic kidney disease (Chronic) Chronic pain (Chronic) Claudication (Chronic) Posterior reversible encephalopathy syndrome (Acute) Hematochezia (Acute) Hypokalemia (Acute) Anemia (Chronic) Bloody stools (Chronic) Near syncope (Chronic) Situational anxiety (Chronic) Osteoporosis (Chronic) Tobacco use disorder (Chronic) Heart murmur (Chronic) Chronic bilateral low back pain without sciatica (Acute 03/16/18) Menopausal symptoms (Acute 05/22/15) Rectal hemorrhage (Acute) Thoracic compression fracture (Acute) T3-T5 Lower GI bleed (Acute) DVT prophylaxis (Acute) Discharge planning issues (Acute) AVM (arteriovenous malformation) of colon with hemorrhage (Acute) GERD without esophagitis (Acute) Medical History Stage 4 chronic kidney disease Hx estrogen therapy Endometriosis Surgical History Hx of cataract surgery History of colonoscopy (~09/2019) Colonoscopy - IV Sedation 2011 colonoscopy Social History Smoking/Tobacco Use Status: Current every day Tobacco Type: cigarettes Smoking packs per day: 0.5 Smoking cigarettes per day: 10.0 Smoking risk assessment performed?: Yes Alcohol Intake: former Drug use: Daily Substance use type: marijuana Details: medical Household members: friend(s) Housing: house Number of Children: 7 Seatbelt use: always Do you feel safe at home: Yes Do you feel safe in your relationship?: Yes Additional Social history: pt. states she will have someobdy with her overnight post-operatively Exam Const General: cooperative and no acute distress Orientation: alert, awake and oriented x3 Resp Effort & Inspection: normal respiratory effort and able to speak in complete sentences Auscultation: clear to auscultation bilaterally Cardio Rate: regular rate Rhythm: regular rhythm Heart Sounds: S1 normal and S2 normal GI Palpation: nontender Back/Spine/Pelvis Back: no CVA tenderness Neuro General: patient alert, patient awake and patient oriented x3 Extrem General: capillary refill normal Course Vital Signs Vital signs: Vital Signs Pulse 79 09/28/23 11:59 Respiratory Rate 14 09/28/23 11:59 Blood Pressure 175/88 H 09/28/23 11:59 Pulse Oximetry 96 09/28/23 11:59 Pulse 79 09/28/23 11:59 Respiratory Rate 14 09/28/23 11:59 Blood Pressure 175/88 H 09/28/23 11:59 Blood Pressure Position Sitting 09/28/23 11:59 Pulse Oximetry 96 09/28/23 11:59 Oxygen Delivery Method Room Air 09/28/23 11:59 Oxygen Flow Rate 0 09/28/23 11:59 Pain Level 3 09/28/23 11:59 Comment Pt states pressure in bladder 09/28/23 11:59 Lab/Test Results Lab/Test Results: 09/28/23 12:20 Urine - Reflex from Ua Urine Culture - Pending Laboratory Tests Range/Units 09/28/23 12:20 Urine Color (Yellow) Yellow Urine Clarity (Clear) Sl Cloudy Urine pH (5-8) 5.5 Ur Specific [place] (1.005-1.025) 1.025 Urine Protein (Negative) mg/dL 100 H Urine Ketones (Negative) mg/dL Negative Urine Blood (Negative) Moderate H Urine Nitrite (Negative) Positive H Urine Bilirubin (Negative) Negative Urine Urobilinogen (Up to 0.2) mg/dL 0.2 Ur Leukocyte Esterase (Negative) Small H Urine RBC (0-2) HPF 10-20 H Urine WBC (0-5) HPF 5-10 Ur Epithelial Cells (Negative) HPF Few Urine Crystals (Negative) HPF Negative Urine Bacteria (Negative) HPF Moderate Urine Casts (Negative) LPF Negative Urine Mucus (Negative) Negative Ur Culture Indicated? Yes Urine Glucose (Negative) mg/dL Negative
[2023-09-28 13:36] VITALS: BP 178/87; PULSE 77; O2SAT 97
[2023-09-28] MEDS: Cephalexin 500 MG CAP PO (13:37)
== END 2023-09-28 13:38 | disposition home or self-care (01) ==
PROVIDERS: Emergency Provider Nurse Practitioner Family; PCP Nurse Practitioner Family
DX: N39.0 Urinary tract infection, site not specified (principal); N18.4 Chronic kidney disease, stage 4 (severe); I10 Essential (primary) hypertension
CPT/HCPCS: 87077; 99283; 81003; 81015; 87086; 87186

== ENCOUNTER 2024-02-20 21:45 | Outpatient (REF) | payer OTHER, MEDICAID, SELFPAY ==
[2024-02-20 21:55] LABS: Anion Gap 13.9 mmol/L (3-11); BUN 41 mg/dL (7-18); CO2 21.1 mmol/L (21.0-32.0); CREATININE 2.1 mg/dL (0.55-1.02); Calcium 8.7 mg/dL (8.5-10.1); Chloride 106 mmol/L (98-107); Estimated GFR 24.73 (mL/min/1.73m2); Glucose 134 mg/dL (74-106); Potassium 4.7 mmol/L (3.5-5.1); Sodium 141 mmol/L (136-145)
== END 2024-02-20 21:46 | disposition home or self-care (01) ==
LOC: LBN 21:45
PROVIDERS: PCP Nurse Practitioner Family; Visit Provider Nurse Practitioner Family
DX: N18.4 Chronic kidney disease, stage 4 (severe) (principal); E46 Unspecified protein-calorie malnutrition
CPT/HCPCS: 80048

== ENCOUNTER 2024-05-14 16:13 | Outpatient (REF) | payer OTHER, MEDICAID, SELFPAY | END 2024-05-14 16:14 | disposition home or self-care (01) | LOC: NCHCN 16:13 | PROVIDERS: PCP Nurse Practitioner Family; Visit Provider Nurse Practitioner Family | DX: R30.0 Dysuria (principal) | CPT/HCPCS: 87086 ==

== ENCOUNTER → 2024-06-04 00:08 | Outpatient (CLI) | payer OTHER, MEDICAID, SELFPAY ==
--- NOTE | 2024-06-04 | DI.CT_ITS ---
Exam(s) CT CHEST/ABD/PEL WO EXAM: CT CHEST/ABD/PEL WO CLINICAL HISTORY: UNINTENTIONAL WT LOSS,R63.4,PERIUMBILICAL ABD PAIN,R10.33. TECHNIQUE: Imaging Protocol: Axial computed tomography images with coronal and sagittal reformatted images were created and reviewed CONTRAST MATERIAL: Intravenous: None Oral: yes / COMPARISON: No exams were available for comparison FINDINGS: CHEST: Tracheobronchial tree: Patent. Pulmonary parenchyma: No consolidation or dominant measurable mass. Pleura: No effusion or pneumothorax. Mediastinum: Within normal limits. Aorta: Thoracic send portion non-dilated. Distal thoracic aorta shows some irregular plaque and is d ilated to 3.2 cm. Moderate to severe atherosclerotic changes. Pulmonary arteries: No visible emboli. Heart: Normal size. Severe coronary artery calcifications. No pericardial effusion. Bones: Unremarkable for age. No lytic or blastic lesions.Mild T5 compression fracture. Soft tissues: Unremarkable. ABDOMEN and PELVIS: Liver: Normal density. No measurable mass. Gallbladder and biliary tract: No evidence of stones or wall thickening. No biliary dilatation. Pancreas: Normal density, no abnormal calcifications or inflammatory process. Spleen: Normal. Kidneys: Ubms-jx-ovzcyhzx atrophy of the left kidney. Right kidney normal in size. No radiodense st ones. No obstructive uropathy. No suspicious masses seen. Adrenal glands: No masses seen. Aorta: Severe atherosclerotic changes. Fusiform distal abdominal aortic aneurysm measuring 4.4 x 4.7 cm. No evidence of rupture. Lymph nodes: Within normal limits. Soft tissues: Unremarkable. Bladder: Unremarkable. Bowel: No obstruction or bowel wall thickening. Sigmoid diverticulosis. No evidence of diverticuli tis. Peritoneal cavity: No ascites. No focal collection. No mesenteric inflammatory response. No free ai r. Bones: Unremarkable for age. Reproductive organs: Hysterectomy. IMPRESSION: Severe atherosclerotic changes.. 4.4 x 4.7 centimeter distal abdominal aortic aneurysm without evide nce of rupture. Distal thoracic aorta mildly dilated at 3.2 cm. RADIATION DOSE DELIVERED: Total DLP DATA REPOSITORY: All CT scans at this facility are submitted to the National Radiology Data Registry (NRDR) Dose Index Registry (DIR) with the [employer] (ACR). RADIATION OPTIMIZATION: All CT scans at this facility use at least one of these dose optimization te chniques: automated exposure control; mA and/or kV adjustment per patient size (includes targeted exa ms where dose is matched to clinical indication); or iterative reconstruction.
[2024-06-04] MEDS: Barium Sulfate 2% W/V-Berry Smoothie 450 ML BTL PO ×2 (12:36→12:37)
== END ==
PROVIDERS: PCP Nurse Practitioner Family; Visit Provider Physician Assistant Medical
DX: R63.4 Abnormal weight loss (principal); R10.33 Periumbilical pain; I71.40 Abdominal aortic aneurysm, without rupture, unspecified
CPT/HCPCS: 71250; 74176

== ENCOUNTER 2024-06-07 18:59 | Outpatient (CLI) | payer OTHER, MEDICAID, SELFPAY ==
[2024-06-07 16:52] LABS: Bilirubin Negative (Negative); Blood Negative (Negative); Clarity Clear (Clear); Glucose Negative (Negative); Ketones Negative (Negative); Leukocyte Esterase Negative (Negative); Nitrite Negative (Negative); Specific Gravity >= 1.030 (1.005-1.025); Urobilinogen 0.2 mg/dL (Up to 0.2); pH 5.5 (5-8)
[2024-06-07 16:53] LABS: Abs Immature Grans 0.02 10^3/uL (0.0-0.06); Absolute Basophil Count 0.07 10^3/uL (0.0-0.2); Absolute Eosinophil Count 0.18 10^3/uL (0.0-0.7); Absolute Lymphocyte Count 1.35 10^3/uL (1.2-3.4); Absolute Monocyte Count 0.39 10^3/uL (0.1-0.8); Absolute Neutrophil Count 5.38 10^3/uL (1.2-6.7); Basophils % 0.9 %; Eosinophils % 2.4 %; HCT 42.5 % (36.0-46.0); HGB 13.9 g/dL (11.2-15.7); Immature Grans % 0.3 %; Lymphocytes % 18.3 %; MCH 29.1 pg (27.0-33.0); MCHC 32.7 % (32.0-36.0); MCV 89 fL (80-95); MPV 9.8 fL (8.0-11.0); Monocytes % 5.3 %; Neutrophils % 72.8 %; Platelet Count 166 10^3/uL (130-400); RBC 4.77 10^6/uL (3.93-5.22); RDW 14.1 % (11.7-14.6); RDW-SD 45.4 fL; WBC 7.39 10^3/uL (4.4-10.8)
[2024-06-07 17:32] LABS: Ammonia 17 umol/L (11-32)
[2024-06-07 18:18] LABS: ALT 25 U/L (14-59); AST 22 U/L (15-37); Albumin 3.9 g/dL (3.4-5.0); Alkaline Phosphatase 124 U/L (46-116); Anion Gap 9.7 mmol/L (3-11); BUN 26 mg/dL (7-18); Bilirubin, Total 0.35 mg/dL (0.2-1.0); CO2 25.3 mmol/L (21.0-32.0); Calcium 9.2 mg/dL (8.5-10.1); Chloride 103 mmol/L (98-107); Estimated GFR 26.22 (mL/min/1.73m2); Glucose 112 mg/dL (74-106); Potassium 4.1 mmol/L (3.5-5.1); Sodium 138 mmol/L (136-145); Total Protein 7.1 g/dL (6.4-8.2)
[2024-06-08 10:38] LABS: PHOSPHORUS 5.3 mg/dL (2.6-4.7)
[2024-06-08 11:25] LABS: COMMENT (LAB VIEW ONLY) 169.82 mg/dL; PROTEIN 52.8 mg/dL; Prot/Crea Ur Ratio 0.31
== END 2024-06-07 19:00 | disposition home or self-care (01) ==
LOC: LBO 18:59
PROVIDERS: PCP Nurse Practitioner Family; Visit Provider Nurse Practitioner Family
DX: N18.30 Chronic kidney disease, stage 3 unspecified (principal)
CPT/HCPCS: 36415; 80053; 81003; 82140; 82565; 83970; 84100; 84156; 85025

== ENCOUNTER 2024-06-08 17:57 | Outpatient (REF) | payer OTHER, MEDICAID, SELFPAY ==
[2024-06-09 19:23] LABS: Parathyroid Hormone,Intact 153 pg/mL (19-88)
== END 2024-06-08 17:58 | disposition home or self-care (01) ==
LOC: NCHCN 17:57
PROVIDERS: PCP Nurse Practitioner Family; Visit Provider Nurse Practitioner Family
DX: I10 Essential (primary) hypertension (principal); N18.30 Chronic kidney disease, stage 3 unspecified
CPT/HCPCS: 83970

== ENCOUNTER 2024-12-11 13:00 | Outpatient (REF) | payer OTHER, SELFPAY ==
[2024-12-11 19:05] LABS: Bilirubin Negative (Negative); Blood Negative (Negative); Clarity Clear (Clear); Glucose Negative (Negative); Ketones Negative (Negative); Leukocyte Esterase Negative (Negative); Nitrite Negative (Negative); Specific Gravity 1.025 (1.005-1.025); Urobilinogen 0.2 mg/dL (Up to 0.2); pH 5.5 (5-8)
[2024-12-11 19:06] LABS: Bacteria Negative HPF (Negative); C & S Indicated? No; Crystals Negative HPF (Negative); Epithelial Cells Negative HPF (Negative); Mucus Negative (Negative); RBC Negative HPF (0-2); WBC Negative HPF (0-5)
== END 2024-12-11 13:01 | disposition home or self-care (01) ==
LOC: LBN 13:00
PROVIDERS: PCP Nurse Practitioner Family; Visit Provider Nurse Practitioner
DX: R30.0 Dysuria (principal); N39.0 Urinary tract infection, site not specified
CPT/HCPCS: 81003; 81015

== ENCOUNTER 2024-12-23 21:57 | Outpatient (REF) | payer MEDICARE, SELFPAY ==
[2024-12-23 22:20] LABS: Abs Immature Grans 0.03 10^3/uL (0.0-0.06); Absolute Basophil Count 0.06 10^3/uL (0.0-0.2); Absolute Eosinophil Count 0.19 10^3/uL (0.0-0.7); Absolute Lymphocyte Count 1.16 10^3/uL (1.2-3.4); Absolute Monocyte Count 0.38 10^3/uL (0.1-0.8); Absolute Neutrophil Count 7.69 10^3/uL (1.2-6.7); Basophils % 0.6 %; HCT 36.2 % (36.0-46.0); HGB 11.7 g/dL (11.2-15.7); Immature Grans % 0.3 %; Lymphocytes % 12.2 %; MCH 28.8 pg (27.0-33.0); MCHC 32.3 % (32.0-36.0); MCV 89 fL (80-95); MPV 9.7 fL (8.0-11.0); Neutrophils % 80.9 %; Platelet Count 203 10^3/uL (130-400); RBC 4.06 10^6/uL (3.93-5.22); RDW 13.6 % (11.7-14.6); RDW-SD 44.9 fL; WBC 9.51 10^3/uL (4.4-10.8)
[2024-12-23 22:38] LABS: ALT 7 U/L (14-59); AST 11 U/L (15-37); Albumin 3.8 g/dL (3.4-5.0); Alkaline Phosphatase 131 U/L (46-116); Anion Gap 8.7 mmol/L (3-11); BUN 34 mg/dL (7-18); Bilirubin, Total 0.38 mg/dL (0.2-1.0); CO2 25.3 mmol/L (21.0-32.0); Chloride 106 mmol/L (98-107); Estimated GFR 26.05 (mL/min/1.73m2); Glucose 100 mg/dL (74-106); Potassium 3.9 mmol/L (3.5-5.1); Sodium 140 mmol/L (136-145); Total Protein 6.6 g/dL (6.4-8.2)
== END 2024-12-23 21:58 | disposition home or self-care (01) ==
LOC: NCHCN 21:57
PROVIDERS: PCP Nurse Practitioner Family; Visit Provider Nurse Practitioner Family
DX: R10.32 Left lower quadrant pain (principal)
CPT/HCPCS: 80053; 85025

== ENCOUNTER 2024-12-29 02:12 | Outpatient (CLI) | payer MEDICARE, MEDICAID, SELFPAY ==
--- NOTE | 2024-12-29 | DI.CT_ITS ---
Exam(s) CT ABDOMEN PELVIS WO EXAM: CT ABDOMEN PELVIS WO CLINICAL HISTORY: LLQ PAIN R10.32. TECHNIQUE: Imaging Protocol: Axial computed tomography images with coronal and sagittal reformatted images were created and reviewed. Oral: yes / COMPARISON: CT CT CHEST/ABD/PEL WO from 06/04/2024 FINDINGS: Exam is limited by lack of IV contrast and paucity of intra-abdominal fat. Lung Bases: No acute findings. Liver: Normal density. No suspicious mass. Gallbladder and biliary tract: No radiodense calculus or biliary dilation. Pancreas: Normal density. No abnormal calcifications or inflammatory process. Spleen: Normal. Kidneys: Normal size, contour and axis. No radiodense stones. No obstructive uropathy. No suspicious masses seen. Adrenal glands: No masses seen. Lymph nodes: Within normal limits. Vasculature: Stable abdominal aortic aneurysm. Aortic and branch vessel calcifications. Soft tissues: Unremarkable. Bladder: Nearly empty. Bowel: Wall thickening of the mid through distal descending colon and proximal sigmoid. Sigmoid dive rticulosis. Large quantity of stool noted in the rectum. Moderate stool elsewhere. Peritoneal cavity: No ascites. No focal collection. No mesenteric inflammatory response. Reproductive organs: Hysterectomy. Bones: Unremarkable for age. IMPRESSION: Wall thickening of the mid descending through proximal sigmoid colon consistent with colitis. There are diverticula but no definite evidence of diverticulitis. RADIATION DOSE DELIVERED: 172.63mGy.cm Total DLP DATA REPOSITORY: All CT scans at this facility are submitted to the National Radiology Data Registry (NRDR) Dose Index Registry (DIR) with the [employer] (ACR). RADIATION OPTIMIZATION: All CT scans at this facility use at least one of these dose optimization te chniques: automated exposure control; mA and/or kV adjustment per patient size (includes targeted exa ms where dose is matched to clinical indication); or iterative reconstruction.
[2024-12-29] MEDS: Barium Sulfate 2% W/V-Creamy Vanilla Smoothie 450 ML BTL PO (14:49)
== END 2024-12-29 02:32 ==
PROVIDERS: PCP Nurse Practitioner Family; Visit Provider Nurse Practitioner Family
DX: K57.52 Diverticulitis of both small and large intestine without perforation or abscess without bleeding
CPT/HCPCS: 74176

== ENCOUNTER 2025-04-10 15:57 | Emergency (ER) | payer MEDICARE, MEDICAID, SELFPAY ==
[2025-04-10 16:00] VITALS: BP 172/81; PULSE 74; RESP 18; TEMP 37.6; O2SAT 98
[2025-04-10 16:06] VITALS: BP 172/81; PULSE 74; RESP 18; TEMP 37.6; O2SAT 98
--- NOTE | 2025-04-10 21:11 | ED.GENADUL_ITS ---
Discharge Plan Disposition Patient Disposition: Home Condition: Stable Discharge Details Clinical Impression: Ecchymosis Primary Care Provider: Xochilt Mcdaniel ED Provider: Lilian Chacon Home Meds and New Rx's Prescriptions: Continued topiramate 25 mg capsule,extended release 24hr 12.5 mg PO BID labetalol 200 mg tablet 200 mg PO BID terazosin 2 mg capsule 7 mg PO QHS Rx Instructions: takes 5mg and 2mg amlodipine 5 mg tablet 10 mg PO DAILY Prevail Brief Youth Misc 1 ea miscellaneous TID PRN ondansetron 8 mg tablet,disintegrating 8 mg PO Q8H PRN (Reason: nausea and vomiting) Qty: 42 4RF Rx Instructions: hospice patient sennosides [senna] 8.6 mg tablet 8.6 mg PO BID PRN (Reason: constipation) Qty: 28 6RF Rx Instructions: hospice simethicone [Gas Relief (simethicone)] 125 mg capsule 125 mg PO QID PRN PRN (Reason: abdominal distention) Qty: 30 4RF morphine concentrate 100 mg/5 mL (20 mg/mL) solution See Rx Instructions PO .COMPLEX MDD 24 mg Qty: 30 0RF Rx Instructions: 0.25-1 ml sublingual every 1-4 hours; fentanyl 50 mcg/hr patch 72 hour 1 patch transdermal Q72H MDD 50 mcg Qty: 5 0RF sertraline 50 mg tablet 50 mg PO DAILY prochlorperazine maleate 10 mg tablet 10 mg PO Q6H PRN lorazepam 1 mg tablet 1 mg PO Q4H PRN folic acid 1 mg tablet 1 tab PO DAILY Patient Comments: TAKE ONE TABLET BY MOUTH EVERY DAY diphenhydramine HCl [Benadryl] 25 mg capsule 50 mg PO Q8H PRN Discharge Instructions Additional Instructions: apply topical hydrocortisone 2 times daily for 3-5 days recheck with pcp tomorrow topical benadryl cool compresses elevate watch for :worsening pain, spreading redness, fever, or should any new concerns arise Referrals: Xochilt Mcdaniel [Primary Care Provider] - 2 days HPI General Date/Time Provider Initiated Documentation: 04/10/25 16:19 . HPI Narrative: 74-year-old female with a bruise on her left forearm from gardening. Mildly tender 2x2 inch ecchymosis. Neurovascularly intact, no secondary infection, not on anticoagulants. No fever, chills, or rash prior to gardening. Related Data Home Medications ?Medication ?Instructions ?Recorded ?Confirmed labetalol 200 mg tablet 200 mg PO BID 09/21/18 04/10/25 topiramate 25 mg capsule,extended 12.5 mg PO BID 09/21/18 04/10/25 release 24 hr folic acid 1 mg tablet 1 tab PO DAILY 03/18/22 04/10/25 terazosin 2 mg capsule 7 mg PO QHS 06/04/23 04/10/25 amlodipine 5 mg tablet 10 mg PO DAILY 04/15/24 04/10/25 diaper,brief,youth disposable 1 ea miscellaneous TID PRN 04/16/24 04/10/25 (Prevail Brief Youth) ondansetron 8 mg disintegrating 8 mg PO Q8H PRN nausea and 10/12/24 04/10/25 tablet vomiting #42 tabs sennosides 8.6 mg tablet (senna) 8.6 mg PO BID PRN constipation #28 10/19/24 04/10/25 tabs simethicone 125 mg capsule (Gas 125 mg PO QID PRN PRN abdominal 12/11/24 04/10/25 Relief (simethicone)) distention #30 caps morphine concentrate 100 mg/5 mL See Rx Instructions PO .COMPLEX 12/31/24 04/10/25 (20 mg/mL) oral solution #30 mL fentanyl 50 mcg/hr transdermal 1 patch transdermal Q72H #5 ea 03/24/25 04/10/25 patch lorazepam 1 mg tablet 1 mg PO Q4H PRN 03/29/25 04/10/25 prochlorperazine maleate 10 mg 10 mg PO Q6H PRN 03/29/25 04/10/25 tablet sertraline 50 mg tablet 50 mg PO DAILY 03/29/25 04/10/25 diphenhydramine HCl 25 mg capsule 50 mg PO Q8H PRN 04/10/25 04/10/25 (Benadryl) Previous Rx's ?Medication ?Instructions ?Recorded ondansetron 8 mg disintegrating 8 mg PO Q8H PRN nausea and 10/12/24 tablet vomiting #42 tabs sennosides 8.6 mg tablet (senna) 8.6 mg PO BID PRN constipation #28 10/19/24 tabs simethicone 125 mg capsule (Gas 125 mg PO QID PRN PRN abdominal 12/11/24 Relief (simethicone)) distention #30 caps morphine concentrate 100 mg/5 mL See Rx Instructions PO .COMPLEX 12/31/24 (20 mg/mL) oral solution #30 mL fentanyl 50 mcg/hr transdermal 1 patch transdermal Q72H #5 ea 03/24/25 patch Allergies Allergy/AdvReac Type Severity Reaction Status Date / Time albuterol sulfate (From Allergy Intermediate chest Unverified 04/10/25 16:03 Proventil HFA) pain, palpitations, sweating amlodipine (From Lotrel) Allergy Intermediate intense Unverified 04/10/25 16:03 itching, nausea, diarrhea benazepril (From Lotrel) Allergy Intermediate intense Unverified 04/10/25 16:03 itching, nausea, diarrhea enalapril Allergy Intermediate GI Upset, Unverified 04/10/25 16:03 cough lorazepam (From Ativan) Allergy Intermediate insomnia, Unverified 04/10/25 16:03 nausea modafinil (From Provigil) Allergy Intermediate trouble Verified 04/10/25 16:03 breathing lisinopril Allergy Mild cough Unverified 04/10/25 16:03 losartan Allergy Mild GI upset Unverified 04/10/25 16:03 tramadol Allergy Mild Itching Verified 04/10/25 16:03 strawberry Allergy hives Verified 04/10/25 16:03 aspirin AdvReac Severe when Verified 04/10/25 16:03 taken orally I get bleeding ulcers amitriptyline AdvReac Unknown Out in Verified 04/10/25 16:03 outter space, really messed with my head duloxetine HCl (From AdvReac diarrhea, Verified 04/10/25 16:03 Cymbalta) vomiting General Stated Complaint: GenMedical DENG: 3 Exam Narrative Exam Narrative: 74-year-old female with a bruise on her left forearm from gardening. Mildly tender 2x2 inch ecchymosis. Neurovascularly intact, no secondary infection, not on anticoagulants. No fever, chills, or rash prior to gardening. Course Vital Signs Vital signs: Vital Signs Temperature 37.6 C 04/10/25 16:00 Pulse 74 04/10/25 16:00 Respiratory Rate 18 04/10/25 16:00 Blood Pressure 172/81 H 04/10/25 16:00 Pulse Oximetry 98 04/10/25 16:00 Temperature 37.6 C 04/10/25 16:06 Temperature Source Oral 04/10/25 16:06 Pulse 74 04/10/25 16:06 Respiratory Rate 18 04/10/25 16:06 Blood Pressure 172/81 H 04/10/25 16:06 Pulse Oximetry 98 04/10/25 16:06 Medical Decision Making Initial Assessment: 80-year-old female with bruise on left forearm, started while gardening. Mildly tender, 2 inch x 2 inch ecchymosis, neurovascularly intact, no secondary infection, alert and oriented, not on anticoagulants. ED Course: - Suspected minor trauma or sting. - Advised ice, hydrocortisone, and topical Benadryl. - Reviewed return precautions, patient expressed understanding. Final Assessment: Bruise likely due to minor trauma or sting while gardening. Thin skin may have contributed to severity. No secondary infection, neurovascularly intact. Clinical Impression: - Ecchymosis on left forearm. Disposition: - Discharge. Patient Education: Encouraged to apply ice and hydrocortisone with topical Benadryl. Return precautions reviewed. MDM Components Evaluation: - Number of Differential Diagnoses or Management Options: Minor trauma, sting. - Amount and Complexity of Data Reviewed: Physical examination. - Risk of Complication and Morbidity or Mortality: Low risk due to no secondary infection and patient not on anticoagulants. Quality:SDOH Health Related Social Needs: No Data to Display PFSH All Active Problems (Updated 04/10/25 @ 16:31 by J LUIS Wakefield) Ecchymosis (Acute) Decreased hearing of left ear (Acute) Chronic abdominal pain (Acute) Stage 3b chronic kidney disease (CKD) (Acute) History of stroke in adulthood (Acute) Advanced osteoarthritis of spine (Acute) Palliative care patient (Acute) Stage 4 chronic kidney disease (Acute) Hospice care patient (Acute) Goals of care, counseling/discussion (Acute) Protein calorie malnutrition (Acute) Encounter for hospice care discussion (Acute) Unexplained weight loss (Acute) Advance care planning (Acute) Comfort measures only status (Acute) Physician orders for life-sustaining treatment (POLST) form indicates patient wish for [id number] status (Acute) DNR/DNI. Trial of IV hydration and IV antibiotics, prefers to have this done in the ER and not be admitted. No feeding tube, dialysis or transfer to tertiary care facility. No intensive care unit admission. See April 15, 2024 revised COLST form Chronic osteoarthritis (Chronic ~2004) back and cervical spine Migraine headache (Chronic) Hyperlipidemia (Chronic) GERD (gastroesophageal reflux disease) (Chronic) Hypertension (Chronic) Migraine (Chronic) Abnormal CT scan, head (Acute) Essential hypertension (Acute) Current tobacco use (Chronic) Irritable bowel syndrome (Chronic) Chronic kidney disease (Chronic) Chronic pain (Chronic) Claudication (Chronic) Posterior reversible encephalopathy syndrome (Acute) Hematochezia (Acute) Hypokalemia (Acute) Anemia (Chronic) Bloody stools (Chronic) Near syncope (Chronic) Situational anxiety (Chronic) Osteoporosis (Chronic) Tobacco use disorder (Chronic) Heart murmur (Chronic) Chronic bilateral low back pain without sciatica (Acute 03/16/18) Menopausal symptoms (Acute 05/22/15) Rectal hemorrhage (Acute) Thoracic compression fracture (Acute) T3-T5 Lower GI bleed (Acute) DVT prophylaxis (Acute) Discharge planning issues (Acute) AVM (arteriovenous malformation) of colon with hemorrhage (Acute) GERD without esophagitis (Acute) Medical History (Updated 04/10/25 @ 16:31 by J LUIS Wakefield) Adopted Benign neoplasm of colon Spondylosis Aortic valve disorder Muscle pain Stricture, artery Diarrhea Allergic rhinitis Nicotine dependence Metabolic encephalopathy Hip pain Amnesia Atherosclerosis of renal artery Nausea Urinary incontinence, mixed Pain in left foot Generalized hyperhidrosis Headache Idiopathic osteoarthritis Insomnia Skin lesion Night sweats Abdominal pain Anxiety disorder Folic acid deficiency Otalgia, unspecified ear Hx estrogen therapy Endometriosis Surgical History (Updated 04/16/24 @ 11:30 by Alexus Barakat RN) History of tubal ligation 1971 Ruptured, ovary removal 1985 H/O oral surgery H/O: hysterectomy ovaries spared 1971 S/P removal of cervix 1971 due to cancer Hx of cataract surgery 03/24 cataract left eye repair with implant 04/24 cataract right eye repair with implant History of colonoscopy (~09/2019) Colonoscopy - IV Sedation 2011 colonoscopy Family History (Updated 04/16/24 @ 11:32 by Alexus Barakat RN) Mother , old age Dementia Social History (Updated 12/15/23 @ 14:38 by Desiree Vinson MD) Smoking/Tobacco Use Status: Current every day Tobacco Type: cigarettes Smoking packs per day: 0.5 Smoking cigarettes per day: 10.0 Tobacco: How many years used: 50 Quit status: not considering quitting Smoking risk assessment performed?: Yes Alcohol Intake: former Drug use: Daily Substance use type: marijuana Counseling given: No Details: medical Household members: friend(s) Housing: house Number of Children: 7 Communication Needs: Corrective Lenses Do you need help understanding health information?: Rarely current occupation: retired Pets and animals: Yes Pets and animals: cat(s) Current gender identity: female What is your relationship status?: How often do you talk on the phone with friends or family?: three or more times per week How often do you get together with friends or relatives?: three or more times per week Panel score (0-1 are the most socially isolated patients): 1 What type of physical activity do you participate in: walking and sedentary lifestyle Duration: < 15 minutes/day Frequency: daily Special sharla needs: No Agree to transfusion: No Seatbelt use: always Do you feel safe at home: Yes Do you feel safe in your relationship?: Yes Additional Social history: Levy's daughter Enrique is planning on moving in with her mother next week. Other children nearby.
== END 2025-04-10 16:38 | disposition home or self-care (01) ==
PROVIDERS: Emergency Provider Physician Assistant; PCP Nurse Practitioner Family
DX: R23.3 Spontaneous ecchymoses (principal); I12.9 Hypertensive chronic kidney disease with stage 1 through stage 4 chronic kidney disease, or unspecified chronic kidney disease; N18.32 Chronic kidney disease, stage 3b; F17.210 Nicotine dependence, cigarettes, uncomplicated; Z86.73 Personal history of transient ischemic attack (TIA), and cerebral infarction without residual deficits
CPT/HCPCS: 99283

== ENCOUNTER 2025-08-16 02:18 | Outpatient (CLI) | payer MEDICARE, MEDICAID, SELFPAY ==
--- NOTE | 2025-08-16 | DI.US_ITS ---
Exam(s) US AAA DIAGNOSTIC EXAM: US AAA DIAGNOSTIC CLINICAL HISTORY: DILATATION OF AORTA, I77.819 COMPARISON: CT CT CHEST/ABD/PEL WO from 06/04/[address] ABDOMEN PELVIS WO from 12/29/2024 FINDINGS: Abdominal Aorta: Proximal: 4 cm Mid: 2.6 cm Distal: 5.0 x 5.6 cm Iliacs: Right: 1.2 cm Left: 0.8 cm Irregular calcific plaque along the wall. Mural thrombus noted distally. Heavy calcification at the bifurcation and proximal iliac arteries with stenosis. IMPRESSION: 5 x 5.6 centimeter fusiform abdominal aortic aneurysm with mild interval growth compared with previous exams. Stenosis at bilateral proximal iliac arteries. DATA REPOSITORY:
--- NOTE | 2025-08-16 13:45 | DI.US_ITS ---
APPROVED REPORT EXAM: Comprehensive 2D, Doppler, and color-flow Echocardiogram Patient Location: Out-Patient Promotion Manager: Dasha Kaminski RDCS (AE) Indications: Pedal edema Other Information Study Quality: Adequate. Technically limited study due to body habitus patient is very petite. Conclusion Mild concentric left ventricular hypertrophy. Ejection fraction is 55%. There are no segmental wall motion abnormalities Normal right ventricular size and function Both atria are enlarged There are no structural valvular abnormalities Mild mitral regurgitation Trace to mild tricuspid regurgitation. Estimated right ventricular systolic pressure is 44 mmHg Small pericardial effusion Wall motion Left Ventricle The left ventricle is normal size. Left ventricular systolic function is within the range of normal Mild concentric left ventricular hypertrophy. There is normal LV segmental wall motion. There is no ventricular septal defect visualized. LVEF is 55%. Right Ventricle Right ventricle is grossly normal in size. The right ventricular systolic function is normal. Atria Left atrium is dilated. Right atrium is dilated. The interatrial septum is intact with no evidence for an atrial septal defect. Aortic Valve The aortic valve is normal in structure. Aortic valve is trileaflet. There is no aortic valvular stenosis. No aortic regurgitation is present. Mitral Valve The mitral valve is normal in structure. No evidence of mitral valve stenosis. Mild mitral regurgitation. Tricuspid Valve The tricuspid valve is normal in structure. There is no tricuspid valve stenosis. Trace to mild tricuspid regurgitation. The RVSP is 44.4mmHg. Pulmonic Valve The pulmonary valve is normal in structure. There is no pulmonic valvular stenosis. Trace pulmonic regurgitation. Great Vessels The aortic root is normal in size. The ascending aorta is normal in size. IVC is normal in size and collapses >50% with inspiration. Pericardium Mild circumferential pericardial effusion. 2D Dimensions IVSD d PLAX 1.10 cm F: 0.6-1.0 Ao Root d 2.81 cm F: 2.7 - 3.3 LVPW d PLAX 1.13 cm F: 0.6 - 1.0 Ao Asc Diam d 2.88 cm F: 2.3 - 3.1 LVID d PLAX 4.22 cm F: 3.8 - 5.2 LV EF Teichholz 50.4 % FS 25.34 % LV EDV (Teich) 79.5 mL LV ESV (Teich) 39.5 mL M-Mode TAPSE 2.02 cm (M/F) >1.7 Auto EF LV EDV A4C 112.6 mL LV EDV A2C 121.1 mL LV EDV BP 115.5 mL LV ESV A4C 54.8 mL LV ESV A2C 61.0 mL LV ESV BP 57.6 mL LVEF(%) A4C 51.3 % LVEF(%) A2C 49.7 % LVEF(%) BP 50.1 % LV SV A4C 57.8 ml LV SV A2C 60.1 ml LV SV BP 57.9 ml LV CO A4C 4.1 L/min LV CO A2C 4.2 L/min LV CO BP 4.1 L/min HR A4C 70.59 BPM HR A2C 70.04 BPM LV EDV Index (BP) LA Volume LA Length A4C 4.7 cm LA Length A2C 5.0 cm LA Area A4C s 15.37 cm2 LA Area A2C s 19.74 cm2 LA Vol A4C A-L 42.24 mL LA Vol A2C A-L 65.60 mL LA Vol Biplane A-L 54.3 mL LA Vol/BSA A4C A-L LA Vol/BSA A2C A-L LA Vol/BSA BP A-L 58.3 mL/m2 LA Vol A4C MOD 40.1 mL LA Vol A2C MOD 63.4 mL LA Vol BP MOD 51.8 mL RA Volume RA Area A4C 12.0 cm2 RA ESV A4C (A-L) 29.8mL RA Vol/BSA A4C A-L RA Length A4C 4.1 cm RA ESV A4C (MOD) 28.8mL LV Diastology MV E' medial 0.050 (>0.07 m/s) MV E Vmax 1.15 (0.4-1.3 m/s) MV E/E' MED 23.06 (<14) MV A Vmax 0.85 (0.4-1.3 m/s) MV E' lateral 0.062 (>0.1 m/s) E/A Ratio 1.4 MV E/E' LAT 18.71 (<14) MV E' Average 0.056 m/s MV E/E'(average) 20.66 Aortic Valve AoV Vmax 1.28 m/s LVOT Vmax 0.94 m/s AoV Peak Grad 6.6 mmHg LVOT Peak Grad 3.5 mmHg AoV Area (Vmax) 2.06 cm2 LVOT VTI 0.225 m AoV VTI 0.307 m LVOT Mean Grad 1.9 mmHg AoV Mean Juan. 0.90 m/s LVOT SV 63.29 mL AoV Mean Grad 3.7 mmHg LVOT Diam s 1.85 cm AoV Area (VTI) 2.06 cm2 AV Regurg Peak Gr. 6.60 mmHg Velocity Ratio 0.73 Mitral Valve MV DT 156 (160-240 msec) MV Vmax TIPS 1.05 m/s MV Mean Grad 2.0 (<2mmHg) MV VTI 0.299 m Pulmonary Valve PV Vmax 1.09 (0.5-1.5 m/s) RVOT Vmax 0.77 m/s PV Peak Grad 4.7 mmHg RVOT Peak Gr. 2.4 mmHg PV Mean Juan 0.78 m/s RVOT VTI 0.209 m PV Mean Grad 2.6 mmHg RVOT Mean Gr. 1.5 mmHg Tricuspid Valve RA Pressure 3.00 mmHg TR Vmax 3.22 m/s TV S' 0.11 m/s TR Peak Grad 41.4 mmHg RVSP (TR) 44.4 mmHg
== END 2025-08-16 02:38 ==
LOC: DI 02:18
PROVIDERS: PCP Nurse Practitioner Family; Visit Provider Nurse Practitioner Family
DX: I51.7 Cardiomegaly (principal); R60.0 Localized edema
CPT/HCPCS: 93306; 76775

== ENCOUNTER → 2025-10-24 01:00 | Outpatient (CLI) | payer MEDICARE, MEDICAID, SELFPAY ==
--- NOTE | 2025-10-24 | DI.CT_ITS ---
Exam(s) CT ABDOMEN PELVIS WO EXAM: CT ABDOMEN PELVIS WO CLINICAL HISTORY: IRRITABLE BOWEL SYNDROME, K58.9. TECHNIQUE: Imaging Protocol: Axial computed tomography images with coronal and sagittal reformatted images were created and reviewed CONTRAST MATERIAL: Intravenous: none Oral: None COMPARISON: CT CT ABDOMEN PELVIS WO from 12/29/2024 FINDINGS: VISUALIZED LUNG BASES: There are moderate-large bilateral pleural effusions which were not evident in December 2024. There is atelectasis-volume loss in both lower lobes related to the amount of pleural fluid. No obvious lung mass in the field of view of this abdominal study. ABDOMEN: The patient is again noted to be cachectic and apparently refuses oral and IV contrast, making evaluation more difficult particularly since there is almost no intra-abdominal fat. There is no obvious ascites. LIVER: No obvious focal hepatic lesions GALLBLADDER/BILIARY: Gallbladder appears collapsed. CBD is not dilated. PANCREAS: No evidence of pancreatic mass nor dilatation of the pancreatic duct. SPLEEN: Spleen is not enlarged. No obvious intrasplenic lesions. ADRENALS: Slightly enlargement of the left adrenal gland is un changed from previous. KIDNEYS:Right kidney normal size. There is again noted a hyperdense nodule in the superior pole of the right kidney measuring 1 cm x 1 cm, unchanged. There is also single nonobstructive calculus in the mid-lower medial right kidney. No obvious hydronephrosis.. The left kidney is slightly smaller. It exhibits a partially exophytic hyperdense nodule measuring 6 x 6 mm. This is more hyperdense than previous. Suspect that these are hemorrhagic small hemorrhagic cysts in the kidneys. ABDOMINAL AORTA: Again noted is the previously described abdominal aortic aneurysm. The aortic enlargement is continuous from the enlargement of the partially included thoracic aorta and this fusiform aneurysm exhibits a maximum external diameter of 5.7 cm. Difficult to evaluate without IV contrast. The aneurysm terminates about a centimeter above the aortic bifurcation. The common iliac arteries are heavily calcified but not enlarged. LYMPH NODES: There is no obvious retroperitoneal nor paraaortic adenopathy. ABDOMINAL WALL: No evidence of significant anterior abdominal wall nor inguinal hernia. GI: There is no evidence of bowel obstruction, free air, nor abscess. Bowel loops are difficult to evaluate accurately given the paucity of intra-abdominal fat +lack of oral and IV contrast. The previously described colitis pattern in left side of the colon is difficult to evaluate on today's study. PELVIS: LYMPH NODES: There is no intrapelvic nor inguinal adenopathy. GI: The appendix cannot be identified. No obvious evidence of appendicitis.There are sigmoid diverticuli. No obvious acute diverticulitis. URINARY BLADDER: No calculi nor obvious masses evident REPRODUCTIVE: Uterus is again noted be surgically absent. There are no obvious abnormal adnexal masses. OSSEOUS: No significant osseous lesions. Advanced facet joint degenerative changes in the lumbar spine noted at the lower few levels. No fractures. No significant osseous lesions. Mild degenerative anterolisthesis of L4 upon L5 and L3 upon L4, this related to multilevel facet arthropathy and unchanged from previous. There are no fractures of the lumbar vertebrae. IMPRESSION: 1. Cachectic patient with almost no intra-abdominal fat making evaluation difficult, particularly since this patient apparently refused oral and IV contrast administration. 2. There are now bilateral moderate size pleural effusions which were not evident on the previous CT scan of December 2024 and are associated with volume loss in the basal segments of both lower lobes. This requires further investigation. Size of these pleural effusions is symmetrical. 3. Abdominal aortic aneurysm again noted as described above. Similar to previous. Maximum external diameter is 5.7 cm. No obvious acute intra-abdominal findings given that interpretation of this study is quite limited due to lack of oral and IV contrast. RADIATION DOSE DELIVERED: 176.2mGy.cm Total DLP DATA REPOSITORY: All CT scans at this facility are submitted to the National Radiology Data Registry (NRDR) Dose Index Registry (DIR) with the [employer] (ACR). RADIATION OPTIMIZATION: All CT scans at this facility use at least one of these dose optimization techniques: automated exposure control; mA and/or kV adjustment per patient size (includes targeted exams where dose is matched to clinical indication); or iterative reconstruction.
== END ==
LOC: DI 01:01
PROVIDERS: PCP Nurse Practitioner Family; Visit Provider Nurse Practitioner Family
DX: K58.9 Irritable bowel syndrome, unspecified (principal); J90 Pleural effusion, not elsewhere classified; I71.40 Abdominal aortic aneurysm, without rupture, unspecified
CPT/HCPCS: 74176